=== PATIENT | female | born 1935 | race Caucasian/White ===

== ENCOUNTER 2020-12-15 21:02 | Emergency (ER) | payer OTHER ==
[2020-12-15 22:07] LABS: Absolute Lymphocytes (CBC) 1.4 K/uL (0.7-4.9); Basophils % 0.4 % (0-1.3); Hematocrit 36.6 % (36.0-45.0); Lymphocytes % 19.6 % (15.3-44.8); MPV 7.8 fL (7.6-11.3); RBC Red Blood Cell Count 3.98 M/uL (3.86-4.86)
[2020-12-15 22:30] LABS: Urine Blood Negative (Negative); Urine Glucose Negative (Negative); Urine Protein Negative (Negative); Urine pH 6.5 (5.0-7.0)
[2020-12-15 22:39] LABS: Bilirubin Direct 0.2 mg/dL (0-0.2); Bilirubin Total 0.5 mg/dL (0.2-1.0); Potassium 4.3 mmol/L (3.5-5.1); Protein, Total 7.9 g/dL (6.4-8.2)
--- NOTE | 2020-12-15 23:46 | ER ---
Nurse's Notes [facility] Name: Zee Lindsay Age: 85 yrs Sex: Female : 1935 Arrival Date: 12/15/2020 Time: 21:06 Bed 3 Private MD: Diagnosis: Diverticulosis;Flank Pain Presentation: 12/15 21:10 Chief complaint: Patient states: Been having abdominal pain for days, was here as out ca1 pt this morning for CT of my belly. But the pain tonight has been worse. The pain starts at the back and goes to the front. Denies N/V/D. Coronavirus screen: Client denies travel out of the [place] in the last 14 days. At this time, the client does not indicate any symptoms associated with coronavirus-19. Ebola Screen: Patient negative for fever greater than or equal to 101.5 degrees Fahrenheit, and additional compatible Ebola Virus Disease symptoms Patient denies exposure to infectious person. Patient denies travel to an Ebola-affected area in the 21 days before illness onset. No symptoms or risks identified at this time. Initial Sepsis Screen: Does the patient meet any 2 criteria? No. Patient's initial sepsis screen is negative. Does the patient have a suspected source of infection? No. Patient's initial sepsis screen is negative. Risk Assessment: Do you want to hurt yourself or someone else? Patient reports no desire to harm self or others. Onset of symptoms was December 15, 2020. 21:10 Method Of Arrival: Wheelchair ca1 21:10 Acuity: DESIRE 3 ca1 Triage Assessment: 21:41 General: Appears in no apparent distress. Behavior is calm, cooperative. Pain: ak2 Complains of pain in back and abdomen. Musculoskeletal: Circulation, motion, and sensation intact. Historical: - Allergies: 21:16 PENICILLINS; ca1 21:16 Morphine; ca1 21:16 Codeine; ca1 21:16 Norvasc; ca1 21:16 Tricor; ca1 21:16 Clonidine; ca1 21:16 Levaquin; ca1 21:16 Magnesium; ca1 21:16 propargyl vela; ca1 21:16 Nicen; ca1 21:16 Nifedipine; ca1 21:16 Lisinopril; ca1 21:16 Darvocet-N 100; ca1 21:16 amlodipine; ca1 21:16 Soma; ca1 21:16 Talwin; ca1 21:16 Premarin; ca1 21:16 Rifampin; ca1 21:16 Lyrica; ca1 21:16 Labetalol; ca1 21:16 guafin; ca1 21:16 PENTAZOCINE; ca1 21:16 Minoxidil; ca1 - Home Meds: 21:18 amiodarone 200 mg Oral tab 1 tab once daily [Active]; Xanax 0.25 mg Oral tab 1 tab as ca1 needed [Active]; olmesartan oral 40 mg oral 1 tab once daily [Active]; atorvastatin 20 mg oral tab 1 tab once daily [Active]; amlodipine 5 mg tab 1 tab once daily [Active]; levothyroxine 50 mcg tab 1 tab once daily [Active]; clonidine HCl 0.2 mg Oral tab 1 tab as needed [Active]; - PMHx: 21:19 Pacemaker; Hyperlipidemia; Hypertension; High Cholesterol; TIA; ca1 - PSHx: 21:19 back surgery; Cholecystectomy; Lung Surgery; ca1 - Immunization history:: Client reports receiving the 2nd dose of the Covid vaccine, Client reports receiving the 1st dose of the Covid vaccine, Flu vaccine is up to date. - Social history:: Smoking status: Patient/guardian denies using tobacco, the patient reports quitting approximately 36 years ago. Screenin:41 Abuse screen: Denies threats or abuse. Denies injuries from another. Nutritional ak2 screening: No deficits noted. Tuberculosis screening: No symptoms or risk factors identified. Fall Risk None identified. Vital Signs: 21:10 BP 165 / 62; Pulse 78; Resp 18 A; Temp 97.3; Pulse Ox 100% on R/A; Weight 53.07 kg (R); ca1 Height 5 ft. 3 in. (160.02 cm) (R); Pain 7/10; 23:04 BP 153 / 76; Pulse 74; Resp 16; Pulse Ox 100% on R/A; ak2 21:10 Body Mass Index 20.73 (53.07 kg, 160.02 cm) ca1 ED Course: 21:06 Patient arrived in ED. cf2 21:12 Triage completed. ca1 21:19 Arm band placed on right wrist. ca1 21:24 Francis Portillo MD is Attending Physician. 7 21:35 Maurizio Gillette is Primary Nurse. ak2 21:41 Patient has correct armband on for positive identification. ak2 21:41 No provider procedures requiring assistance completed. ak2 22:20 Urine collected: clean catch specimen, clear, lynsey colored. Patient maintains SpO2 jp3 saturation greater than 95% on room air. 22:38 Bed in low position. Call light in reach. Side rails up X 1. Warm blanket given. Pillow jp3 given. Verbal reassurance given. Pulse ox on. NIBP on. 23:44 Adri Ruelas MD is Referral Physician. [facility] Administered Medications: 23:37 Drug: Tylenol 1000 mg Route: PO; ak2 Outcome: 23:45 Discharge ordered by . [facility] 12/16 00:02 Discharged to home ambulatory. ak2 Condition: good Discharge instructions given to patient, family, Prescriptions given X 1. 00:03 Patient left the ED. ak2 Signatures: Niels Laguna jp3 Yuridia Hayward RN RN ca1 Janette Keene 2 Francis Portillo MD MD [facility] Maurizio Gillette ak2
--- NOTE | 2020-12-15 23:46 | EDPHYS ---
Physician Documentation [facility] Name: Zee Lindsay Age: 85 yrs Sex: Female : 1935 Arrival Date: 12/15/2020 Time: 21:06 Bed 3 Private MD: ED Physician Francis Portillo HPI: 12/15 22:09 This 85 yrs old Female presents to ER via Wheelchair with complaints of Back mh7 Pain. 22:09 The patient complains of pain in the right flank. The pain radiates to the abdomen. mh7 Onset: The symptoms/episode began/occurred 2 week(s) ago. Modifying factors: The symptoms are alleviated by nothing. the symptoms are aggravated by movement, palpation/percussion. Associated signs and symptoms: Pertinent negatives: diarrhea, dizziness, dysuria, fever, urinary frequency, headache, hematuria, nausea, pain radiating to the lower extremities, vomiting. Severity of pain: At its worst the pain was moderate 7 day(s) ago, in the emergency department the pain has improved moderately. Historical: - Allergies: 21:16 PENICILLINS; ca1 21:16 Morphine; ca1 21:16 Codeine; ca1 21:16 Norvasc; ca1 21:16 Tricor; ca1 21:16 Clonidine; ca1 21:16 Levaquin; ca1 21:16 Magnesium; ca1 21:16 propargyl vela; ca1 21:16 Nicen; ca1 21:16 Nifedipine; ca1 21:16 Lisinopril; ca1 21:16 Darvocet-N 100; ca1 21:16 amlodipine; ca1 21:16 Soma; ca1 21:16 Talwin; ca1 21:16 Premarin; ca1 21:16 Rifampin; ca1 21:16 Lyrica; ca1 21:16 Labetalol; ca1 21:16 guafin; ca1 21:16 PENTAZOCINE; ca1 21:16 Minoxidil; ca1 - Home Meds: 21:18 amiodarone 200 mg Oral tab 1 tab once daily [Active]; Xanax 0.25 mg Oral tab 1 tab as ca1 needed [Active]; olmesartan oral 40 mg oral 1 tab once daily [Active]; atorvastatin 20 mg oral tab 1 tab once daily [Active]; amlodipine 5 mg tab 1 tab once daily [Active]; levothyroxine 50 mcg tab 1 tab once daily [Active]; clonidine HCl 0.2 mg Oral tab 1 tab as needed [Active]; - PMHx: 21:19 Pacemaker; Hyperlipidemia; Hypertension; High Cholesterol; TIA; ca1 - PSHx: 21:19 back surgery; Cholecystectomy; Lung Surgery; ca1 - Immunization history:: Client reports receiving the 2nd dose of the Covid vaccine, Client reports receiving the 1st dose of the Covid vaccine, Flu vaccine is up to date. - Social history:: Smoking status: Patient/guardian denies using tobacco, the patient reports quitting approximately 36 years ago. ROS: 22:09 Constitutional: Negative for fever, chills, and weight loss, Eyes: Negative for injury, mh7 pain, redness, and discharge, ENT: Negative for injury, pain, and discharge, Neck: Negative for injury, pain, and swelling, Cardiovascular: Negative for chest pain, palpitations, and edema, Respiratory: Negative for shortness of breath, cough, wheezing, and pleuritic chest pain, : Negative for injury, bleeding, discharge, and swelling, MS/Extremity: Negative for injury and deformity, Skin: Negative for injury, rash, and discoloration, Neuro: Negative for headache, weakness, numbness, tingling, and seizure. Exam: 22:09 Constitutional: This is a well developed, well nourished patient who is awake, alert, mh7 and in no acute distress. Head/Face: Normocephalic, atraumatic. Eyes: Pupils equal round and reactive to light, extra-ocular motions intact. Lids and lashes normal. Conjunctiva and sclera are non-icteric and not injected. Cornea within normal limits. Periorbital areas with no swelling, redness, or edema. Neck: Trachea midline, no thyromegaly or masses palpated, and no cervical lymphadenopathy. Supple, full range of motion without nuchal rigidity, or vertebral point tenderness. No Meningismus. Chest/axilla: Normal chest wall appearance and motion. Nontender with no deformity. No lesions are appreciated. Cardiovascular: Regular rate and rhythm with a normal S1 and S2. No gallops, murmurs, or rubs. Normal PMI, no JVD. No pulse deficits. Respiratory: Lungs have equal breath sounds bilaterally, clear to auscultation and percussion. No rales, rhonchi or wheezes noted. No increased work of breathing, no retractions or nasal flaring. 22:09 Skin: Warm, dry with normal turgor. Normal color with no rashes, no lesions, and no evidence of cellulitis. MS/ Extremity: Pulses equal, no cyanosis. Neurovascular intact. Full, normal range of motion. Neuro: Awake and alert, GCS 15, oriented to person, place, time, and situation. Cranial nerves II-XII grossly intact. Motor strength 5/5 in all extremities. Sensory grossly intact. Cerebellar exam normal. Normal gait. Psych: Awake, alert, with orientation to person, place and time. Behavior, mood, and affect are within normal limits. 22:09 Abdomen/GI: Inspection: scar(s), are noted in the suprapubic area, Bowel sounds: normal, in all quadrants, Palpation: mild abdominal tenderness, in the right lower quadrant, mass, is not appreciated, rebound tenderness, is not appreciated, voluntary guarding, is not appreciated, involuntary guarding, is not appreciated, no appreciated organomegaly, Rectal exam: the exam is deferred, because of patient request, Indicators: McBurney's point is not tender, Mehta's sign is negative, Rovsing's sign is negative, Obturator sign is negative, Psoas sign is negative, Liver: no appreciated palpable abnormalities, Hernia: not appreciated. 22:09 Back: pain, normal spinal alignment noted, CVA tenderness, that is mild, is noted on the right, vertebral tenderness, is not appreciated, muscle spasm, is not present. Vital Signs: 21:10 BP 165 / 62; Pulse 78; Resp 18 A; Temp 97.3; Pulse Ox 100% on R/A; Weight 53.07 kg (R); ca1 Height 5 ft. 3 in. (160.02 cm) (R); Pain 7/10; 23:04 BP 153 / 76; Pulse 74; Resp 16; Pulse Ox 100% on R/A; ak2 21:10 Body Mass Index 20.73 (53.07 kg, 160.02 cm) ca1 MDM: 23:42 Differential diagnosis: nephrolithiasis, pyelonephritis, UTI, diverticulitis. Data [facility] reviewed: vital signs, nurses notes, lab test result(s), CBC, electrolytes, urinalysis, radiologic studies, CT scan, done earlier in day prior to coming to the ED. Data interpreted: Pulse oximetry: on room air is 100 %. Interpretation: normal. Counseling: I had a detailed discussion with the patient and/or guardian regarding: the historical points, exam findings, and any diagnostic results supporting the discharge/admit diagnosis, lab results, radiology results, the need for outpatient follow up, a nurse unit manager, to return to the emergency department if symptoms worsen or persist or if there are any questions or concerns that arise at home. Response to treatment: the patient's symptoms have markedly improved after treatment. 23:45 Patient medically screened. [facility] 12/15 21:50 Order name: Basic Metabolic Panel [facility] 12/15 21:50 Order name: CBC with Diff [facility] 12/15 21:50 Order name: Hepatic Function [facility] 12/15 21:50 Order name: Lipase [facility] 12/15 21:51 Order name: Basic Metabolic Panel; Complete Time: 22:58 EDMS 12/15 21:51 Order name: CBC with Automated Diff; Complete Time: 22:58 EDFL 12/15 21:50 Order name: IV Saline Lock [facility] 12/15 21:50 Order name: Labs collected and sent [facility] 12/15 21:50 Order name: Urine Dipstick-Ancillary (obtain specimen); Complete Time: 22:38 [facility] 12/15 21:51 Order name: Liver (Hepatic) Function; Complete Time: 22:58 EDMS 12/15 21:51 Order name: Lipase; Complete Time: 22:58 EDFL 12/15 22:30 Order name: Urine Dipstick-Ancillary; Complete Time: 22:58 EDMS Administered Medications: 23:37 Drug: Tylenol 1000 mg Route: PO; ak2 Disposition: 12/15/20 23:45 Discharged to Home. Impression: Diverticulosis, Flank Pain. - Condition is Stable. - Discharge Instructions: Diverticulosis, Renal Artery Stenosis, Flank Pain, [id number]. - Prescriptions for Bentyl 20 mg Oral Tablet - take 1 tablet by ORAL route every 6 hours As needed; 20 tablet. - Medication Reconciliation Form, Thank You Letter, Antibiotic Education, Prescription Opioid Use form. - Follow up: Private Physician; When: 1 - 2 days; Reason: Worsening of condition, Recheck today's complaints, Continuance of care, Re-evaluation by your physician. Follow up: Adri Ruelas MD; When: 1 - 2 days; Reason: Worsening of condition, Recheck today's complaints, Continuance of care, Re-evaluation by your physician. - Problem is an ongoing problem. - Symptoms have improved. Signatures: Dispatcher [employer] EDMS Yuridia Hayward RN RN ca1 Francis Portillo MD MD mh7 Sherlymary kayMaurizio macdonald ak2 Corrections: (The following items were deleted from the chart) 12/16 00:03 12/15 23:45 12/15/2020 23:45 Discharged to Home. Impression: Diverticulosis; Flank ak2 Pain. Condition is Stable. Forms are Medication Reconciliation Form, Thank You Letter, Antibiotic Education, Prescription Opioid Use. Follow up: Private Physician; When: 1 - 2 days; Reason: Worsening of condition, Recheck today's complaints, Continuance of care, Re-evaluation by your physician. Follow up: Adri Ruelas; When: 1 - 2 days; Reason: Worsening of condition, Recheck today's complaints, Continuance of care, Re-evaluation by your physician. Problem is an ongoing problem. Symptoms have improved. [email or web address]
[2020-12-15] MEDS ORDERED: ACETAMINOPHEN 500 MG TAB ONE (23:53)
[2020-12-16 00:43] VITALS: TEMP 97.3; O2SAT 100
[2020-12-16 00:45] VITALS: BP 153/76
== END 2020-12-16 00:03 | disposition home or self-care (01) ==
LOC: ER 21:02
DX: K57.90 Diverticulosis of intestine, part unspecified, without perforation or abscess without bleeding (principal); I10 Essential (primary) hypertension; E78.00 Pure hypercholesterolemia, unspecified; Z88.1 Allergy status to other antibiotic agents; Z88.5 Allergy status to narcotic agent; Z88.8 Allergy status to other drugs, medicaments and biological substances; Z95.0 Presence of cardiac pacemaker; Z91.010 Allergy to peanuts; Z91.048 Other nonmedicinal substance allergy status
CPT/HCPCS: 36415; 80048; 80076; 81003; 83690; 85025; 99284

== ENCOUNTER 2020-12-19 19:59 | Observation (INO) | payer OTHER ==
[2020-12-19 20:57] LABS: Absolute Lymphocytes (CBC) 1.1 K/uL (0.7-4.9); Basophils % 0.7 % (0-1.3); Hematocrit 38.2 % (36.0-45.0); Lymphocytes % 14.7 % (15.3-44.8); MPV 7.5 fL (7.6-11.3); RBC Red Blood Cell Count 4.15 M/uL (3.86-4.86)
[2020-12-19 21:15] LABS: ALT/SGPT 55 U/L (12-78); AST/SGOT 30 U/L (15-37); Albumin 4.3 g/dL (3.4-5.0); Alkaline Phosphatase 138 U/L (45-117); BUN Blood Urea Nitrogen 18 mg/dL (7-18); Bicarbonate 26 mmol/L (21-32); Bilirubin Direct 0.1 mg/dL (0-0.2); Bilirubin Total 0.4 mg/dL (0.2-1.0); Glucose Level 185 mg/dL (74-106); Magnesium 2.2 mg/dL (1.8-2.4); NT PRO-BNP 418 pg/mL (<450); Protein, Total 8.2 g/dL (6.4-8.2); Sodium Level 132 mmol/L (136-145); Troponin (Emerg Dept Use Only) < 0.02 ng/mL (0.0-0.045)
[2020-12-19 21:18] LABS: Protime INR 0.96
--- NOTE | 2020-12-19 21:19 | RAD REPORT ---
EXAM DESCRIPTION: CT - Abdomen Pelvis Wo Contrast - 12/19/2020 9:08 pm CLINICAL HISTORY: Abd pain;Flank pain COMPARISON: <Comparisons> TECHNIQUE: Axial [address] imaging of the abdomen and pelvis was performed without IV contrast. No IV contrast was given because of allergy, abnormal renal function, patient refusal or physician re quest. No oral contrast administered. All CT scans are performed using dose optimization technique as appropriate and may include automated exposure control or mA/KV adjustment according to patient size. FINDINGS: No suspicious findings in the lung bases. The liver, spleen and pancreas show no suspicious findings on non-contrast imaging. Gallbladder is chaudhari rgically absent or tightly contracted. No cholecystectomy clips seen. No biliary tree dilatation. No obstructing or nonobstructing calculi seen. Hydronephrosis. Atrophic right kidney is present simil ar to comparison. No significant adrenal finding. Isodense renal masses and pyelonephritis cannot be excluded in the absence of IV contrast. The urinary bladder is without significant finding. Minimal hiatal hernia is present. Food fills but does not dilate the stomach. No acute gastric findin g. No dilated large or small bowel. No suspicion for appendicitis. Patient has prominent diverticulos is but no diverticulitis. No findings to support bowel ischemia. No free air, free fluid or inflammat ory stranding. No hernia, mass or bulky lymphadenopathy. No suspicious bony findings. Dense arterial tree calcifications are present. IMPRESSION: Non-contrast enhanced CT abdomen and pelvis imaging show no acute or emergent finding. No identifiable change from the short interval December 15 study. Full assessment is limited is the absence of IV contrast.
--- NOTE | 2020-12-19 21:21 | RAD REPORT ---
EXAM DESCRIPTION: RAD - Chest Single View - 12/19/2020 9:11 pm CLINICAL HISTORY: CHEST PAIN TECHNIQUE: AP portable chest image was obtained 12/19/2020 9:11 pm . FINDINGS: Lungs are clear. Heart and vasculature are normal. No measurable pleural effusion and no p neumothorax. Left costophrenic angle blunting is favored to scarring. Pacemaker is in place. No acute bony abnormality seen. No acute aortic findings suspected. IMPRESSION: No acute cardiopulmonary process.
[2020-12-19] MEDS ORDERED: NA CHLORIDE 0.9% 500 ML ONE (21:26)
[2020-12-19] MEDS ORDERED: ONDANSETRON 4 MG/2 ML VIAL ONE (21:26)
[2020-12-19] MEDS ORDERED: FAMOTIDINE 20 MG/2 ML VIAL IV ONE (21:26)
[2020-12-19 22:33] LABS: Urine Blood Trace-intact (Negative); Urine Glucose Negative (Negative); Urine Protein Negative (Negative); Urine Specific Gravity 1.015 (1.005-1.030)
--- NOTE | 2020-12-19 23:06 | ER ---
Nurse's Notes [facility] Name: Zee Lindsay Age: 85 yrs Sex: Female : 1935 Arrival Date: 12/19/2020 Time: 20:04 Bed 5 Private MD: Diagnosis: Chest pain, unspecified;Lower abdominal pain, unspecified Presentation: 12/19 20:06 Chief complaint: Patient states: Abdominal burning pain radiates to the chest up the ca1 throat. Started just before noon today. Denies V/D. Reports nausea. Coronavirus screen: Client denies travel out of the [place] in the last 14 days. nausea, Client presents with at least one sign or symptom that may indicate coronavirus-19. Ebola Screen: Patient negative for fever greater than or equal to 101.5 degrees Fahrenheit, and additional compatible Ebola Virus Disease symptoms Patient denies exposure to infectious person. Patient denies travel to an Ebola-affected area in the 21 days before illness onset. No symptoms or risks identified at this time. Initial Sepsis Screen: Does the patient meet any 2 criteria? No. Patient's initial sepsis screen is negative. Does the patient have a suspected source of infection? No. Patient's initial sepsis screen is negative. Risk Assessment: Do you want to hurt yourself or someone else? Patient reports no desire to harm self or others. Onset of symptoms was December 19, 2020. 20:06 Method Of Arrival: Wheelchair ca1 20:06 Acuity: DESIRE 3 ca1 Historical: - Allergies: 20:09 amlodipine; ca1 20:09 Clonidine; ca1 20:09 Codeine; ca1 20:09 Darvocet-N 100; ca1 20:09 guafin; ca1 20:09 Labetalol; ca1 20:09 Levaquin; ca1 20:09 Lyrica; ca1 20:09 magnesium; ca1 20:09 MINOXIDIL; ca1 20:09 Morphine; ca1 20:09 Nicen; ca1 20:09 Nifedipine; ca1 20:09 Norvasc; ca1 20:09 PENICILLINS; ca1 20:09 PENTAZOCINE; ca1 20:09 Premarin; ca1 20:09 propargyl vela; ca1 20:09 Rifampin; ca1 20:09 Soma; ca1 20:09 Talwin; ca1 20:09 Tricor; ca1 20:09 Lisinopril; ca1 - PMHx: 20:09 High Cholesterol; Hypertension; Hyperlipidemia; Pacemaker; TIA; ca1 - PSHx: 20:09 back surgery; Cholecystectomy; Lung Surgery; ca1 - Immunization history:: Client reports receiving the 2nd dose of the Covid vaccine, Client reports receiving the 1st dose of the Covid vaccine, Pneumococcal vaccine is up to date, Flu vaccine is up to date. - Social history:: Smoking status: Patient/guardian denies using tobacco, the patient reports quitting approximately 35 years ago. Screenin:49 Abuse screen: Denies threats or abuse. Nutritional screening: No deficits noted. ea Tuberculosis screening: No symptoms or risk factors identified. Fall Risk None identified. Assessment: 20:48 General: Appears uncomfortable, Behavior is appropriate for age. Pain: Complains of ea pain in abdomen Pain radiates to chest Quality of pain is described as burning. Neuro: Level of Consciousness is awake, alert, obeys commands, Oriented to person, place, time. Respiratory: Airway is patent Respiratory effort is even, unlabored, Respiratory pattern is regular, symmetrical. GI: Abdomen is non-distended. Derm: Skin is pink, warm \T\ dry. 21:18 Reassessment: Patient and/or family updated on plan of care and expected duration. Pain ea level reassessed. Patient is alert, oriented x 3, equal unlabored respirations, skin warm/dry/pink. Returned from CT. 22:08 Reassessment: Patient and/or family updated on plan of care and expected duration. Pain ea level reassessed. Patient is alert, oriented x 3, equal unlabored respirations, skin warm/dry/pink. Awaiting on CT results. 23:24 Reassessment: Patient and/or family updated on plan of care and expected duration. Pain ea level reassessed. Patient is alert, oriented x 3, equal unlabored respirations, skin warm/dry/pink. Awaiting on room assignment. 12/20 00:20 Reassessment: Patient and/or family updated on plan of care and expected duration. Pain ea level reassessed. Patient is alert, oriented x 3, equal unlabored respirations, skin warm/dry/pink. Pt admitted to second floor, report given to receiving nurse. Pt left ED via stretcher per durability technician, pt tolerating well. Vital Signs: 12/19 20:06 BP 167 / 63; Pulse 96; Resp 16 S; Temp 98.2(TE); Pulse Ox 99% on R/A; Weight 53.07 kg ca1 (R); Height 5 ft. 3 in. (160.02 cm) (R); Pain 7/10; 22:08 BP 172 / 64; Pulse 88; Resp 16; Pulse Ox 99% ; ea 12/20 00:00 BP 168 / 70; Pulse 78; Resp 18; Temp 98; Pulse Ox 98% ; ea 12/19 20:06 Body Mass Index 20.73 (53.07 kg, 160.02 cm) ca1 ED Course: 12/19 20:04 Patient arrived in ED. am4 20:08 Triage completed. ca1 20:09 Arm band placed on left wrist. ca1 20:20 Man Reina is Primary Nurse. ad5 20:29 Francis Portillo MD is Attending Physician. mh7 20:49 Patient has correct armband on for positive identification. Bed in low position. Call ea light in reach. 20:49 Inserted saline lock: 20 gauge in right antecubital area, using aseptic technique. ea Blood collected. 23:05 Sumit Hernandez MD is Hospitalizing Provider. [facility] 23:24 No provider procedures requiring assistance completed. Patient admitted, IV remains in ea place. Administered Medications: 21:17 Drug: Zofran (Ondansetron) 4 mg Route: IVP; Site: right antecubital; ea 22:40 Follow up: Response: No adverse reaction ea 21:17 Drug: Pepcid (famotidine) 20 mg Route: IVP; Site: right antecubital; ea 22:40 Follow up: Response: No adverse reaction ea 21:18 Drug: NS 0.9% 500 ml Route: IV; Rate: bolus; Site: right antecubital; ea 23:20 Drug: Rocephin (cefTRIAXone) 1 grams Route: IV; Rate: per protocol; Site: right ea antecubital; Outcome: 23:05 Decision to Hospitalize by Provider. [facility] 23:25 Instructed on the need for admit. ea 12/20 00:20 Admitted to Med/surg accompanied by tech, via stretcher, with chart, Report called to ea Receiving nurse on second floor Condition: stable 00:34 Patient left the ED. ea Signatures: MackBarbara RN RN ea Acob, Cheryl, RN RN ca1 Holmes, Maurice, MD MD 7 Alanis Mabry am Man Reina Corrections: (The following items were deleted from the chart) 12/19 20:49 20:48 Pain: Complains of pain in abdomen Pain radiates to chest sharlene su
--- NOTE | 2020-12-19 23:06 | EDPHYS ---
Physician Documentation [facility] Name: Zee Lindsay Age: 85 yrs Sex: Female : 1935 Arrival Date: 12/19/2020 Time: 20:04 Bed 5 Private MD: ED Physician Francis Portillo HPI: 12/19 22:14 This 85 yrs old Female presents to ER via Wheelchair with complaints of mh7 Abdominal Pain, Chest Pain. 22:14 The patient or guardian reports chest pain that is located primarily in the. mh7 22:14 The patient presents with abdominal pain in the left lower quadrant. Onset: The mh7 symptoms/episode began/occurred today, at 12:00. The symptoms radiate to chest. Associated signs and symptoms: Pertinent positives: chest pain, nausea, Pertinent negatives: anorexia, blood in stools, constipation, diarrhea, dysuria, fever, headache, hematuria, palpitations, shortness of breath, vaginal discharge, vomiting, vomiting blood. The symptoms are described as intermittent, vague, waxing/waning. Modifying factors: The symptoms are alleviated by nothing, the symptoms are aggravated by nothing. Severity of pain: At its worst the pain was moderate today, in the emergency department the pain has improved moderately. The patient has been recently seen at the [facility] Emergency Department, last week. Historical: - Allergies: 20:09 amlodipine; ca1 20:09 Clonidine; ca1 20:09 Codeine; ca1 20:09 Darvocet-N 100; ca1 20:09 guafin; ca1 20:09 Labetalol; ca1 20:09 Levaquin; ca1 20:09 Lyrica; ca1 20:09 magnesium; ca1 20:09 MINOXIDIL; ca1 20:09 Morphine; ca1 20:09 Nicen; ca1 20:09 Nifedipine; ca1 20:09 Norvasc; ca1 20:09 PENICILLINS; ca1 20:09 PENTAZOCINE; ca1 20:09 Premarin; ca1 20:09 propargyl vela; ca1 20:09 Rifampin; ca1 20:09 Soma; ca1 20:09 Talwin; ca1 20:09 Tricor; ca1 20:09 Lisinopril; ca1 - PMHx: 20:09 High Cholesterol; Hypertension; Hyperlipidemia; Pacemaker; TIA; ca1 - PSHx: 20:09 back surgery; Cholecystectomy; Lung Surgery; ca1 - Immunization history:: Client reports receiving the 2nd dose of the Covid vaccine, Client reports receiving the 1st dose of the Covid vaccine, Pneumococcal vaccine is up to date, Flu vaccine is up to date. - Social history:: Smoking status: Patient/guardian denies using tobacco, the patient reports quitting approximately 35 years ago. ROS: 22:14 Constitutional: Negative for fever, chills, and weight loss, Eyes: Negative for injury, mh7 pain, redness, and discharge, ENT: Negative for injury, pain, and discharge, Neck: Negative for injury, pain, and swelling, Respiratory: Negative for shortness of breath, cough, wheezing, and pleuritic chest pain, Back: Negative for injury and pain, : Negative for injury, bleeding, discharge, and swelling, MS/Extremity: Negative for injury and deformity, Skin: Negative for injury, rash, and discoloration, Neuro: Negative for headache, weakness, numbness, tingling, and seizure, Psych: Negative for depression, anxiety, suicide ideation, homicidal ideation, and hallucinations, Allergy/Immunology: Negative for hives, rash, and allergies, Endocrine: Negative for neck swelling, polydipsia, polyuria, polyphagia, and marked weight changes, Hematologic/Lymphatic: Negative for swollen nodes, abnormal bleeding, and unusual bruising. Exam: 22:14 Constitutional: This is a well developed, well nourished patient who is awake, alert, mh7 and in no acute distress. Head/Face: Normocephalic, atraumatic. Eyes: Pupils equal round and reactive to light, extra-ocular motions intact. Lids and lashes normal. Conjunctiva and sclera are non-icteric and not injected. Cornea within normal limits. Periorbital areas with no swelling, redness, or edema. Neck: Trachea midline, no thyromegaly or masses palpated, and no cervical lymphadenopathy. Supple, full range of motion without nuchal rigidity, or vertebral point tenderness. No Meningismus. Chest/axilla: Normal chest wall appearance and motion. Nontender with no deformity. No lesions are appreciated. Cardiovascular: Regular rate and rhythm with a normal S1 and S2. No gallops, murmurs, or rubs. Normal PMI, no JVD. No pulse deficits. Respiratory: Lungs have equal breath sounds bilaterally, clear to auscultation and percussion. No rales, rhonchi or wheezes noted. No increased work of breathing, no retractions or nasal flaring. 22:14 Skin: Warm, dry with normal turgor. Normal color with no rashes, no lesions, and no evidence of cellulitis. MS/ Extremity: Pulses equal, no cyanosis. Neurovascular intact. Full, normal range of motion. Neuro: Awake and alert, GCS 15, oriented to person, place, time, and situation. Cranial nerves II-XII grossly intact. Motor strength 5/5 in all extremities. Sensory grossly intact. Cerebellar exam normal. Normal gait. Psych: Awake, alert, with orientation to person, place and time. Behavior, mood, and affect are within normal limits. 22:14 Abdomen/GI: Inspection: abdomen appears normal, Bowel sounds: normal, in all quadrants, Palpation: mild abdominal tenderness, in the left lower quadrant, mass, is not appreciated, rebound tenderness, is not appreciated, voluntary guarding, is not appreciated, involuntary guarding, is not appreciated, no appreciated organomegaly, Rectal exam: the exam is deferred, because of patient request, Indicators: McBurney's point is not tender, Mehta's sign is negative, Rovsing's sign is negative, Obturator sign is negative, Psoas sign is negative, Liver: no appreciated palpable abnormalities, Hernia: not appreciated. 22:14 Back: normal spinal alignment noted, CVA tenderness, that is mild, is noted on the left, vertebral tenderness, is not appreciated, muscle spasm, is not present. Vital Signs: 20:06 BP 167 / 63; Pulse 96; Resp 16 S; Temp 98.2(TE); Pulse Ox 99% on R/A; Weight 53.07 kg ca1 (R); Height 5 ft. 3 in. (160.02 cm) (R); Pain 7/10; 22:08 BP 172 / 64; Pulse 88; Resp 16; Pulse Ox 99% ; ea 12/20 00:00 BP 168 / 70; Pulse 78; Resp 18; Temp 98; Pulse Ox 98% ; ea 12/19 20:06 Body Mass Index 20.73 (53.07 kg, 160.02 cm) ca1 MDM: 12/19 23:04 Differential diagnosis: AAA, bowel obstruction, diverticulitis, non-specific abd pain, mh7 pancreatitis, Peptic Ulcer Disease, Pyelonephritis, Ureterolithiasis, urinary tract infection, chest pain. Data reviewed: vital signs, nurses notes, lab test result(s), cardiac enzymes, CBC, electrolytes, urinalysis, EKG, radiologic studies, CT scan, plain films. Data interpreted: Pulse oximetry: on room air is 99 %. Interpretation: normal. Counseling: I had a detailed discussion with the patient and/or guardian regarding: the historical points, exam findings, and any diagnostic results supporting the discharge/admit diagnosis, the presence of at least one elevated blood pressure reading (>120/80) during this emergency department visit, lab results, radiology results, the need for further work-up and treatment in the hospital. Response to treatment: the patient's symptoms have mildly improved after treatment. 23:[address] [facility] 12/19 20:31 Order name: Basic Metabolic Panel 12/19 20:31 Order name: CBC with Diff 12/19 20:31 Order name: LFT's 12/19 20:31 Order name: Magnesium 12/19 20:31 Order name: NT PRO-BNP 12/19 20:31 Order name: PT-INR 12/19 20:31 Order name: Troponin (emerg Dept Use Only) 12/19 20:52 Order name: Lipase [facility] 12/19 21:15 Order name: Basic Metabolic Panel; Complete Time: 22:25 EDGA 12/19 21:15 Order name: Liver (Hepatic) Function; Complete Time: 22:25 EDGA 12/19 21:15 Order name: Troponin (Emerg Dept Use Only); Complete Time: 22:25 EDGA 12/19 21:15 Order name: NT PRO-BNP; Complete Time: 22:25 EDGA 12/19 21:15 Order name: Magnesium; Complete Time: 22:25 EDGA 12/19 21:21 Order name: Lipase; Complete Time: 22:25 EDGA 12/19 20:28 Order name: EKG; Complete Time: 20:29 [facility] 12/19 20:28 Order name: EKG - Nurse/Tech; Complete Time: 20:28 [facility] 12/19 20:31 Order name: XRAY Chest (1 view) 12/19 20:31 Order name: Cardiac monitoring; Complete Time: 20:50 12/19 20:31 Order name: IV Saline Lock; Complete Time: 20:50 12/19 20:55 Order name: CT Abd/Pelvis - Without Contrast [facility] 12/19 21:20 Order name: CT; Complete Time: 21:23 [facility] 12/19 21:22 Order name: RAD; Complete Time: 22:25 EDGA 12/19 21:25 Order name: Protime (+INR); Complete Time: 22:25 EDGA 12/19 21:26 Order name: CBC with Automated Diff; Complete Time: 22:25 [facility] 12/19 22:33 Order name: Urine Dipstick-Ancillary; Complete Time: 22:52 EDGA 12/19 22:41 Order name: Urine Culture tt3 12/19 20:31 Order name: Labs collected and sent; Complete Time: 20:50 12/19 20:31 Order name: O2 Per Protocol; Complete Time: 20:50 12/19 20:31 Order name: O2 Sat Monitoring; Complete Time: 20:50 12/19 20:52 Order name: Urine Dipstick-Ancillary (obtain specimen); Complete Time: 22:38 [facility] Administered Medications: 21:17 Drug: Zofran (Ondansetron) 4 mg Route: IVP; Site: right antecubital; ea 22:40 Follow up: Response: No adverse reaction ea 21:17 Drug: Pepcid (famotidine) 20 mg Route: IVP; Site: right antecubital; ea 22:40 Follow up: Response: No adverse reaction ea 21:18 Drug: NS 0.9% 500 ml Route: IV; Rate: bolus; Site: right antecubital; ea 23:20 Drug: Rocephin (cefTRIAXone) 1 grams Route: IV; Rate: per protocol; Site: right ea antecubital; Disposition: 12/19/20 23:05 Hospitalization ordered by Sumit Hernandez for Observation. Preliminary diagnosis are Chest pain, unspecified, Lower abdominal pain, unspecified. - Bed requested for Telemetry/MedSurg (observation). - Status is Observation. ea - Condition is Stable. - Problem is new. - Symptoms have improved. Signatures: Dispatcher [employer] [facility] Tennille Goncalves RN RN Rufus Benitez, HUMAN RESOURCES BENEFITS ASSISTANT-C HUMAN RESOURCES BENEFITS ASSISTANT-Cla1 Barbara Mack RN Yuridia Farrar ea RN Francis Merino MD MD mh7 Corrections: (The following items were deleted from the chart) 23:24 23:05 Hospitalization Ordered by A Mary BOYER for Observation. Preliminary diagnosis is mw Chest pain, unspecified; Lower abdominal pain, unspecified. Bed requested for Telemetry/MedSurg (observation). Status is Observation. Condition is Stable. Problem is new. Symptoms have improved. mh7 12/20 00:34 12/19 23:24 12/19/2020 23:05 Hospitalization Ordered by A Mary BOYER for Observation. sharlene Preliminary diagnosis is Chest pain, unspecified; Lower abdominal pain, unspecified. Bed requested for Telemetry/MedSurg (observation). Status is Observation. Condition is Stable. Problem is new. Symptoms have improved. mw
[2020-12-19] MEDS ORDERED: ACETAMINOPHEN 500 MG TAB PO PRN (23:09)
[2020-12-19] MEDS ORDERED: ONDANSETRON 4 MG/2 ML VIAL IV PRN (23:09)
[2020-12-19] MEDS ORDERED: CEFTRIAXONE/SWI 1gm 1 GM/10 ML SYR ONE (23:31)
[2020-12-20 00:45] VITALS: BMI 21.6
[2020-12-20 05:21] LABS: Basophils % 0.6 % (0-1.3); Hematocrit 35.8 % (36.0-45.0); Lymphocytes % 19.1 % (15.3-44.8); MPV 7.8 fL (7.6-11.3); RBC Red Blood Cell Count 3.88 M/uL (3.86-4.86)
[2020-12-20] MEDS ORDERED: CEFTRIAXONE/SWI 1gm 1 GM/10 ML SYR IV SCH (08:00)
[2020-12-20] MEDS ORDERED: ASPIRIN EC 81 MG TAB PO SCH (09:00)
[2020-12-20] MEDS ORDERED: AMLODIPINE 5 MG TAB PO SCH (09:00)
[2020-12-20 09:34] VITALS: O2SAT 95
[2020-12-20 09:53] VITALS: BP 171/74; TEMP 97.5
[2020-12-20] MEDS ORDERED: CEFTRIAXONE 1 GM/NS 50 ML 1 GM/50 ML BAG IV SCH (23:11)
[2020-12-21] MEDS ORDERED: CEFTRIAXONE/SWI 1gm 1 GM/10 ML SYR IV SCH
--- NOTE | 2020-12-21 02:51 | HP ---
Date of Admission: 12/20/2020 Chief Complaint: Abdominal pain and chest pain. History Of Present Illness: This is an 85-year-old very pleasant female patient who started to have some right lower quadrant abdominal pain yesterday and subsequently it moved to left side in left lower quadrant region and then she reported that her pain started to going up into her abdomen and then into the chest. She came into emergency room with all these complaints. After she was evaluated last night, she was admitted to the hospital. Her chest pain has subsided since she came into the hospital and abdominal pain has improved as well. No nausea, vomiting, constipation, or diarrhea. No fever. No chills. Allergies: TO PENICILLIN CAUSING RASH AND ITCHING. MORPHINE CAUSING NAUSEA, VOMITING. SULFA CAUSING RASH AND ITCHING. CODEINE CAUSING HEADACHE. TRICOR, DETAILS UNKNOWN. NIFEDIPINE, DETAILS UNKNOWN. LEVAQUIN, RASH AND ITCHING. NIACIN, FLUSHING. LISINOPRIL, DETAILS UNKNOWN. DARVOCET, DETAILS UNKNOWN. SOMA, DETAILS UNKNOWN. TALWIN, DETAILS UNKNOWN. MINOXIDIL, DETAILS UNKNOWN. LABETALOL, DETAILS UNKNOWN. LYRICA, DETAILS UNKNOWN. RIFAMPIN, DETAILS UNKNOWN. PREMARIN, ITCHING AND DOXYCYCLINE, RASH AND ITCHING. Medications: Alprazolam 0.25 mg 3 times a day as needed for anxiety, amlodipine 5 mg daily, aspirin 81 mg daily, atorvastatin 20 mg daily, clonidine 0.2 mg half to one tablet 3 times a day as needed for systolic blood pressure more than 180, Olmesartan 40 mg daily, Bystolic 20 mg 2 times a day, and levothyroxine 50 mcg daily. Review of Systems: GI: As mentioned above. Cardiovascular: As mentioned above. All other systems reviewed and negative. Past Medical History: Significant for stroke, hypothyroidism, hypertension, hyperlipidemia, diverticulosis, anxiety. Past Surgical History: Pleural effusion after trauma and had pleurodesis in 2019, had a breast biopsy in past, which was benign. Pacemaker placement, January 2012 due to sick sinus syndrome and this is [employer] pacemaker name Nancy. Past surgical history also significant for cholecystectomy, back surgery in 1979 and 2006, and right ankle surgery in 2005. Family History: Father of [place]. Mother , had breast cancer and cervical cancer and heart disease. Son has thalassemia minor. Daughter also has thalassemia minor. Social History: Prior history of smoking, not at present time. Use of alcohol, negative. Physical Examination: VITAL SIGNS: Temperature 97.9, pulse 79, respiratory rate 16, blood pressure 153/77, oxygen saturation 97%, height 5 feet 3 inches, weight 122 pounds. General: Awake, alert, oriented, not in distress. HEENT: Head atraumatic, normocephalic. Conjunctivae nonerythematous. Sclerae white. Mouth, no thrush or edema noted. Ears/Nose, no mass, lesion, discharge noted. Neck: Supple. No JVD, lymph nodes, bruit, thyromegaly noted. Lungs: Bilateral good equal air entry. Clear to auscultation. No rhonchi. No rales. Heart: Normal heart sounds, no murmur or gallop. Abdomen: Soft, bowel sounds normal. No guarding, rigidity, tenderness, mass, hepatosplenomegaly, distention, or bruit noted. Extremities: No leg edema. No calf tenderness. Skin: No rash, ulcer, cellulitis. Lymphatics: No lymph node enlargement in neck, supraclavicular, infraclavicular region. Neuro: No focal neurological deficit. Chest: Unremarkable. External Genitalia: Deferred. Rectal: Deferred. Laboratory Data: Yesterday white count 7.7, hemoglobin 13.2, platelets 242. Today, white count 10.6, hemoglobin 12.4, platelets 247. Yesterday chemistry; sodium 132, potassium 4, chloride 100, bicarb 26, BUN 18, creatinine 1.18, glucose 185. Liver function test unremarkable. Troponin less than 0.02 x3. Today sodium 136, potassium 4, chloride 104, bicarb 26, BUN 14, creatinine 1.03, glucose 104. INR 0.96. Urinalysis; trace blood, 1+ leukocyte esterase, otherwise negative. Chest x-ray, no acute cardiopulmonary changes. CAT scan of the abdomen and pelvis done in emergency room was negative for any acute changes. Hospital Course: After patient was evaluated in ER, she was admitted to the hospital. Her AZ was ruled out by getting serial cardiac enzymes. EKG did not show any acute changes. The patient reported that she had outpatient CAT scan done last week on Friday. This was ordered by her sql data architect, Dr. Ruelas and I have reviewed that CAT scan, and it has shown some significant circulation problem to GI tract showing significant atherosclerotic changes to her mesenteric arteries and severe stenosis of right renal artery and significant stenosis of left renal artery. I have reviewed this result with her daughter as this result was available to me after I visited the patient today and discussed information with daughter. The patient has appointment to follow up with Dr. Ruelas in next week and obviously he will discuss all this results with her at that time, but meanwhile I have suggested that she may actually have abdominal angina as underlying cause of this presentation, and I would like for her to go ahead and follow up with Dr. Ruelas to see what he may suggest in terms of further intervention. Meanwhile, I have asked her daughter to take her back to supervisor [employer], Dr. Burrell that she sees on a regular basis sometime within next 2 to 3 weeks or so for further evaluation and management of this renal artery stenosis as she may require stent placement. for bilateral renal artery stenosis. I have given my recommendation to discontinue olmesartan, and we will increase dose of her amlodipine. The patient received IV antibiotic, ceftriaxone while in the hospital for UTI. On discharge, we will send her home with oral antibiotics. Urine culture is pending. I have also advised the patient's daughter that we should treat her with medical management for this atherosclerosis of her mesenteric artery with isosorbide and pentoxifylline and all her prescriptions were sent to [facility]. The patient to follow up at my office next week on 12/26/2020. Discharge Medications And Instructions: 1. Continue all prior home medications except discontinue olmesartan. 2. Increase amlodipine dose from 5 mg once a day to 5 mg 2 times a day. 3. Nitrofurantoin 100 mg 2 times a day for 1 week. 4. Isosorbide mononitrate 30 mg p.o. daily. 5. Pentoxifylline 400 mg 2 times a day. Final Diagnoses: 1. Chest pain. 2. Abdominal pain. 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 5. Hypertension. 6. Hyperlipidemia. 7. Diverticulosis. 8. Hypothyroidism. 9. Anxiety. MARGO/MODL Voice ID: [id number] ILIA
--- NOTE | 2020-12-21 10:36 | EKG ---
Test Date: 2020-12-19 Test Time: 20:15:29 Card Boxer: ERIBERTO MEASUREMENT RESULTS: Intervals: Rate: 89 WY: 190 QRSD: 72 QT: 384 QTc: 467 [place]: P: 51 WY: 190 QRS: 22 T: 107 INTERPRETIVE STATEMENTS: Atrial-paced rhythm Left ventricular hypertrophy with repolarization abnormality Abnormal ECG Compared to ECG 02/14/2006 11:06:41 Left ventricular hypertrophy now present Early repolarization now present Sinus bradycardia no longer present Electronically Signed On 12-21-20 10:32:19 CDT by Simba Smith
== END 2020-12-20 11:38 | disposition home or self-care (01) ==
LOC: ER 19:59 → ERHOLD 23:16 → 2ND 23:32
PROVIDERS: ADMIT Internal Medicine; ATTEND Internal Medicine
DX: R10.9 Unspecified abdominal pain (principal); R07.9 Chest pain, unspecified; K55.1 Chronic vascular disorders of intestine; I70.1 Atherosclerosis of renal artery; I10 Essential (primary) hypertension; E78.5 Hyperlipidemia, unspecified; E03.9 Hypothyroidism, unspecified; F41.9 Anxiety disorder, unspecified; K57.90 Diverticulosis of intestine, part unspecified, without perforation or abscess without bleeding; N39.0 Urinary tract infection, site not specified; Z87.891 Personal history of nicotine dependence; Z86.73 Personal history of transient ischemic attack (TIA), and cerebral infarction without residual deficits; Z95.0 Presence of cardiac pacemaker
CPT/HCPCS: 36415; 71045; 74176; 80048; 80061; 80076; 81003; 83690; 83735; 83880; 84484; 85025; 85610; 87086; 87088; 93005; 96374; 96375; 99285; G0378; J0696; J2405; J7040

== ENCOUNTER 2021-01-22 11:58 | Day surgery (SDC) | payer OTHER ==
[2021-01-17 15:35] LABS: Basophils % 0.4 % (0-1.3); Hematocrit 42.2 % (36.0-45.0); Lymphocytes % 9.2 % (15.3-44.8); MPV 7.8 fL (7.6-11.3); RBC Red Blood Cell Count 4.56 M/uL (3.86-4.86)
[2021-01-17 15:38] LABS: Protime INR 0.97
[2021-01-17 16:03] LABS: Potassium 3.8 mmol/L (3.5-5.1)
--- NOTE | 2021-01-18 11:01 | EKG ---
Test Date: 2021-01-17 Test Time: 14:01:07 Program Manager Environmental Planning: JESSIE MEASUREMENT RESULTS: Intervals: Rate: 62 TN: 176 QRSD: 80 QT: 408 QTc: 414 [place]: P: 65 TN: 176 QRS: 61 T: 87 INTERPRETIVE STATEMENTS: Electronic atrial pacemaker ST & T wave abnormality, consider lateral ischemia Abnormal ECG Compared to ECG 12/19/2020 20:15:29 ST (T wave) deviation now present Possible ischemia now present Ventricular-paced complex(es) or rhythm no longer present Left ventricular hypertrophy no longer present Early repolarization no longer present Electronically Signed On 01-18-21 10:58:54 CDT by Simba Smith
[2021-01-22] MEDS ORDERED: HEPA 1000U/500MLS 2,000 UNIT/1,000 ML BAG IV ONE (12:16)
[2021-01-22] MEDS ORDERED: NA CHLORIDE 0.9% 500 ML ONE (12:29)
[2021-01-22 12:47] VITALS: TEMP 97.6
[2021-01-22] MEDS ORDERED: HEPARIN 5000 UNIT/ML 1 ML VIAL ONE (13:40)
[2021-01-22] MEDS ORDERED: MIDAZOLAM HCL 2 MG/2 ML INJ ONE (13:40)
[2021-01-22] MEDS ORDERED: VERAPAMIL HCL 10 MG/4 ML VIAL IV ONE (13:41)
[2021-01-22] MEDS ORDERED: FENTANYL CITR 100 MCG/2 ML ONE (13:41)
[2021-01-22] MEDS ORDERED: ATROPINE SULF 1 MG/10 ML SYR IV ONE (13:41)
[2021-01-22] MEDS ORDERED: LIDOCAINE 1% 20 ML MDV ONE (14:22)
[2021-01-22] MEDS ORDERED: CLOPIDOGREL 75 MG TABLET ONE (15:03)
--- NOTE | 2021-01-22 15:23 | OP ---
Date of Procedure: 01/22/2021 Surgeon: RC MAO Procedures Performed: 1.Selective bilateral renal angiograms. 2.Balloon angioplasty of the right renal artery severe stenosis followed by stent placement using 3. 5 x 16 mm Synergy drug-eluting stent, post dilated to 3.8 mm, inflating the balloon to high pressure. Indications: Severe both renal artery stenosis with renal failure and hypertension. Access: Right femoral artery 6-Stateless closed with TR band. Complications: None. Bleeding: Less than 2 mL. Description Of Procedure: After risks, benefits, alternatives were explained, the patient agreed to proceed and signed informed consent. The patient was brought into the cardiac catheterization [facility], prepped and draped in usual sterile fashion. Then, we accessed the right femoral artery using a micropuncture kit and a 6-Stateless [place] sheath and then we took a 6-Stateless short FARRUKH guide into t he abdominal aorta and engaged the right renal artery and did angiogram selectively and then engaged the left renal artery and did angiogram selectively. Then, a full dose of heparin was given to assur e ACT level above 250 and 600 mg of Plavix and the patient received aspirin already today, and then I engaged the right renal artery and then took a Run-Through wire across the area of stenosis into the distal artery of the kidney and then pre-dilated the lesion using a 3.0 x 16 mm Compliant balloon to high pressure and then placed a 3.5 x 16 mm Synergy drug-eluting stent, inflated to high pressure to a size of 3.8 mm and the ostium was also inflated to 18 mmHg that gives a 3.9 lumen. Final angiogra m revealed 0% residual stenosis and DONNA-3 flow and no complications. Wire was removed. Guide was r emoved and sheath was removed and placed a 6-Stateless Angio-Seal for closure with good hemostasis. Findings: 1.Right renal artery with a proximal long segment of 80% to 90% stenosis, status post balloon angiop lasty followed by stent placement 3.5 x 16 mm Synergy drug-eluting stent that was post dilated to a s ize of 3.8 mm. 2.Left renal artery proximal stenosis, 70% and will be staged to be stented in 4-6 weeks. Conclusion: Successful right renal artery stent placement 3.5 x 16 mm, post dilated 3.8 mm. Plan: 1.Continue aspirin, Plavix, high-dose statin. 2.We will plan stage II stent placement of left renal artery in 4-6. SR/MODL Voice ID: [id number] Report ID: [id number]
[2021-01-22 20:53] VITALS: O2SAT 99
[2021-01-22 20:58] VITALS: BP 130/52
== END 2021-01-22 20:50 | disposition home or self-care (01) ==
LOC: CCL 11:58
PROVIDERS: ATTEND Internal Medicine
DX: I70.1 Atherosclerosis of renal artery (principal); I12.9 Hypertensive chronic kidney disease with stage 1 through stage 4 chronic kidney disease, or unspecified chronic kidney disease; N18.9 Chronic kidney disease, unspecified; I47.2 Ventricular tachycardia; E78.5 Hyperlipidemia, unspecified; Z95.0 Presence of cardiac pacemaker; Z86.73 Personal history of transient ischemic attack (TIA), and cerebral infarction without residual deficits; Z88.0 Allergy status to penicillin; Z88.6 Allergy status to analgesic agent; Z88.8 Allergy status to other drugs, medicaments and biological substances
CPT/HCPCS: 93005; 85025; 80048; 36415; 85610; 85347; 85730; 36200; 37236; 36252; C1893; C1760; C1725; C1887; J1644 ×2; J2250; J3010; J7040

== ENCOUNTER 2021-01-26 22:12 | Emergency (ER) | payer OTHER ==
[2021-01-26 23:00] LABS: Absolute Lymphocytes (CBC) 1.4 K/uL (0.7-4.9); Basophils % 0.4 % (0-1.3); Hematocrit 39.4 % (36.0-45.0); Lymphocytes % 16.3 % (15.3-44.8); MPV 7.8 fL (7.6-11.3); Protime INR 0.92; RBC Red Blood Cell Count 4.26 M/uL (3.86-4.86)
[2021-01-26 23:13] LABS: ALT/SGPT 26 U/L (12-78); AST/SGOT 18 U/L (15-37); Albumin 4.4 g/dL (3.4-5.0); Alkaline Phosphatase 90 U/L (45-117); BUN Blood Urea Nitrogen 20 mg/dL (7-18); Bicarbonate 27 mmol/L (21-32); Bilirubin Direct 0.3 mg/dL (0-0.2); Bilirubin Total 0.7 mg/dL (0.2-1.0); Glucose Level 127 mg/dL (74-106); Magnesium 2.2 mg/dL (1.8-2.4); NT PRO-BNP 557 pg/mL (<450); Protein, Total 8.4 g/dL (6.4-8.2); Sodium Level 132 mmol/L (136-145); Troponin (Emerg Dept Use Only) < 0.02 ng/mL (0.0-0.045)
[2021-01-27] MEDS ORDERED: ACETAMINOPHEN 325 MG TABLET ONE (00:09)
[2021-01-27 01:46] LABS: Urine Blood Trace-lysed (Negative); Urine Glucose Negative (Negative); Urine Protein Negative (Negative)
[2021-01-27 01:56] LABS: Urine Appearance CLEAR (Clear); Urine Bilirubin NEGATIVE (Negative); Urine Blood TRACE (Negative); Urine Color YELLOW (Yellow); Urine Glucose NEGATIVE (Negative); Urine Protein NEGATIVE (Negative); Urine Specific Gravity 1.025 (1.005-1.030); Urine Urobilinogen 0.2 mg/dL (0.2-1.0); Urine pH 6.5 (5.0-7.0)
[2021-01-27 01:58] LABS: Urine Microscopic Reflex ORDER UMIC
[2021-01-27 02:02] LABS: Urine Bacteria 20-50 /HPF (<20)
--- NOTE | 2021-01-27 02:57 | EDPHYS ---
Physician Documentation [facility] Name: Zee Lindsay Age: 85 yrs Sex: Female : 1935 Arrival Date: 01/26/2021 Time: 22:13 Bed 4 Private MD: ED Physician Kartik Miner HPI: 01/26 23:28 This 85 yrs old Female presents to ER via Wheelchair with complaints of Heart pkl Problem, Chest Pain, Possible Cardiac Related. 23:28 The patient or guardian reports chest pain that is located primarily in the substernal pkl area. Onset: today. The pain does not radiate. Associated signs and symptoms: Pertinent positives: abdominal pain. The chest pain is described as a pressure. S/P Stent placement right kidney 5 days ago. Historical: - Allergies: 22:32 amlodipine; vg1 22:32 Clonidine; vg1 22:32 Codeine; vg1 22:32 Darvocet-N 100; vg1 22:32 guafin; vg1 22:32 Labetalol; vg1 22:32 Levaquin; vg1 22:32 Lisinopril; vg1 22:32 Lyrica; vg1 22:32 magnesium; vg1 22:32 Minoxidil; vg1 22:32 Morphine; vg1 22:32 Nicen; vg1 22:32 Nifedipine; vg1 22:32 Norvasc; vg1 22:32 PENICILLINS; vg1 22:32 PENTAZOCINE; vg1 22:32 Premarin; vg1 22:32 propargyl vela; vg1 22:32 Rifampin; vg1 22:32 Soma; vg1 22:32 Talwin; vg1 22:32 Tricor; vg1 - Home Meds: 22:32 amiodarone 200 mg Oral tab 1 tab once daily [Active]; amlodipine 5 mg tab 1 tab once vg1 daily [Active]; atorvastatin 20 mg Oral tab 1 tab once daily [Active]; clonidine HCl 0.2 mg Oral tab 1 tab as needed [Active]; levothyroxine 50 mcg tab 1 tab once daily [Active]; olmesartan 40 mg Oral 1 tab once daily [Active]; Xanax 0.25 mg Oral tab 1 tab as needed [Active]; - PMHx: 22:32 High Cholesterol; Hyperlipidemia; Hypertension; Pacemaker; TIA; TIA; vg1 - PSHx: 22:32 Pace maker; Lumbar; Right Ankle; Cholecystectomy; Left Lung; vg1 - Immunization history:: Adult Immunizations up to date, Client reports receiving the 2nd dose of the Covid vaccine. - Social history:: Smoking status: Patient denies any tobacco usage or history of. ROS: 23:28 Eyes: Negative for injury, pain, redness, and discharge, ENT: Negative for injury, pkl pain, and discharge, Neck: Negative for injury, pain, and swelling. 23:28 Cardiovascular: Positive for chest pain. 23:28 Respiratory: Negative for cough, shortness of breath. 23:28 Abdomen/GI: Positive for abdominal pain, of the right upper quadrant and left upper quadrant. 23:28 Back: Negative for acute changes. 23:28 : Negative for urinary symptoms. 23:28 MS/extremity: Negative for acute changes. 23:28 Skin: Negative for rash. 23:28 Neuro: Negative for altered mental status, loss of consciousness. Exam: 23:28 Head/Face: Normocephalic, atraumatic. Eyes: Pupils equal round and reactive to light, pkl extra-ocular motions intact. Lids and lashes normal. Conjunctiva and sclera are non-icteric and not injected. Cornea within normal limits. Periorbital areas with no swelling, redness, or edema. ENT: Nares patent. No nasal discharge, no septal abnormalities noted. Tympanic membranes are normal and external auditory canals are clear. Oropharynx with no redness, swelling, or masses, exudates, or evidence of obstruction, uvula midline. Mucous membranes moist. Neck: Trachea midline, no thyromegaly or masses palpated, and no cervical lymphadenopathy. Supple, full range of motion without nuchal rigidity, or vertebral point tenderness. No Meningismus. Chest/axilla: Normal chest wall appearance and motion. Nontender with no deformity. No lesions are appreciated. Cardiovascular: Regular rate and rhythm with a normal S1 and S2. No gallops, murmurs, or rubs. Normal PMI, no JVD. No pulse deficits. Respiratory: Lungs have equal breath sounds bilaterally, clear to auscultation and percussion. No rales, rhonchi or wheezes noted. No increased work of breathing, no retractions or nasal flaring. 23:28 Abdomen/GI: Bowel sounds: normal, Palpation: soft, mild abdominal tenderness, in the right upper quadrant and left upper quadrant. 23:28 Back: Exam negative for acute changes. 23:28 : Exam negative for acute changes. 23:28 Musculoskeletal/extremity: Exam is negative for acute changes. 23:28 Skin: Exam negative for rash. 23:28 Neuro: Orientation: is normal, Mentation: is normal, Memory: is normal, Cranial nerves: grossly normal, Motor: is normal. Vital Signs: 22:29 BP 146 / 61; Pulse 62; Resp 16; Temp 98.2; Pulse Ox 99% ; Weight 53.07 kg; Height 5 ft. vg1 3 in. (160.02 cm); Pain 6/10; 01/27 03:03 BP 132 / 70; Pulse 65; Resp 18; Pulse Ox 98% on R/A; ak2 01/26 22:29 Body Mass Index 20.73 (53.07 kg, 160.02 cm) vg1 MDM: 01/26 23:02 Patient medically screened. pkl 01/27 02:49 Data reviewed: vital signs, nurses notes, lab test result(s), radiologic studies, CT pkl scan. ED course: Patient feeling better. Discussed lab, EKG and CT Scan results with patient. Patient does not want to be admitted at this time. Advised to return if symptoms recur or become worse. Patient understood instructions. 01/26 22:40 Order name: Basic Metabolic Panel; Complete Time: 23:14 vg1 01/26 22:40 Order name: CBC with Diff; Complete Time: 23:13 vg1 01/26 22:40 Order name: LFT's; Complete Time: 23:14 vg1 01/26 22:40 Order name: Magnesium; Complete Time: 23:14 vg1 01/26 22:40 Order name: NT PRO-BNP; Complete Time: 23:14 vg1 01/26 22:40 Order name: PT-INR; Complete Time: 23:13 vg1 01/26 22:40 Order name: Troponin (emerg Dept Use Only); Complete Time: 23:14 vg1 01/26 23:15 Order name: Lipase pkl 01/26 23:15 Order name: D-Dimer pkl 01/26 23:15 Order name: Lipase; Complete Time: 00:30 EDMS 01/26 23:15 Order name: D-Dimer; Complete Time: 01:22 EDMS 01/26 23:17 Order name: UA; Complete Time: 02:05 pkl 01/26 23:17 Order name: Lactate; Complete Time: 00:30 pkl 01/26 22:40 Order name: XRAY Chest (1 view) 1 01/26 22:40 Order name: EKG; Complete Time: 22:41 1 01/26 22:40 Order name: Cardiac monitoring [facility] 01/26 22:40 Order name: EKG - Nurse/Tech; Complete Time: 22:40 [facility] 01/26 22:40 Order name: IV Saline Lock; Complete Time: 22:40 [facility] 01/26 22:40 Order name: Labs collected and sent; Complete Time: 22:40 [facility] 01/26 23:28 Order name: CT Abd/Pelvis - IV Contrast Only [facility] 01/26 23:28 Order name: CT Chest For PE Angio [facility] 01/27 01:06 Order name: SARS-COV-2 RT PCR; Complete Time: 01:22 [facility] 01/27 01:46 Order name: Urine Dipstick-Ancillary; Complete Time: 02:05 [facility] 01/27 01:58 Order name: Urine Microscopic Only; Complete Time: 02:05 [facility] 01/27 02:03 Order name: Urine Culture [facility] 01/27 02:06 Order name: EKG; Complete Time: 02:07 [facility] 01/27 02:06 Order name: Troponin (emerg Dept Use Only); Complete Time: 02:43 [facility] 01/26 22:40 Order name: O2 Per Protocol [facility] 01/26 22:40 Order name: O2 Sat Monitoring [facility] Administered Medications: 01/26 23:43 Drug: NS 0.9% 1000 ml Route: IV; Rate: 100 ml/hr; Site: left antecubital; ak2 23:48 Drug: Tylenol 650 mg Route: PO; ak2 Disposition Summary: 01/27/21 02:56 Discharge Ordered Location: Home pkl Problem: new pkl Symptoms: have improved pkl Condition: Stable pkl Diagnosis - Chest pain. Abdominal pain pkl Followup: pkl - With: Private Physician - When: 2 - 3 days - Reason: Re-evaluation by your physician Forms: - Medication Reconciliation Form pkl - Thank You Letter pkl - Antibiotic Education pkl - Prescription Opioid Use pkl Signatures: Dispatcher [employer] EDMS Kartik Miner MD MD pkl Marianna Mcdowell RN RN vg1 Maurizio Gillette2 Corrections: (The following items were deleted from the chart) 01/27 00:13 01/26 23:26 CORONAVIRUS+[email or web address].BRZ ordered. EDMS EDMS
--- NOTE | 2021-01-27 02:57 | ER ---
Nurse's Notes [facility] Name: Zee Lindsay Age: 85 yrs Sex: Female : 1935 Arrival Date: 01/26/2021 Time: 22:13 Bed 4 Private MD: Diagnosis: Chest pain. Abdominal pain Presentation: 01/26 22:29 Chief complaint: Patient states: Pt stated chest pain, tightness, sharp pain started vg1 this afternoon; radiates to Left arm. Stated Nausea and diarrhea for the past three days. Pt daughter stated pt had a stent placed in Right Kidney last Friday01/15/21. Coronavirus screen: Client denies travel out of the [place] in the last 14 days. Ebola Screen: Patient negative for fever greater than or equal to 101.5 degrees Fahrenheit, and additional compatible Ebola Virus Disease symptoms. Initial Sepsis Screen: Does the patient meet any 2 criteria? No. Patient's initial sepsis screen is negative. Does the patient have a suspected source of infection? No. Patient's initial sepsis screen is negative. Risk Assessment: Do you want to hurt yourself or someone else? Patient reports no desire to harm self or others. Onset of symptoms was January 26, 2021. 22:29 Method Of Arrival: Wheelchair vg1 22:29 Acuity: DESIRE 3 vg1 Triage Assessment: 22:32 General: Appears in no apparent distress. comfortable, Behavior is calm, cooperative. vg1 Pain: Complains of pain in chest Pain radiates to left arm Pain currently is 6 out of 10 on a pain scale. Cardiovascular: Patient's skin is warm and dry. Historical: - Allergies: 22:32 amlodipine; vg1 22:32 Clonidine; vg1 22:32 Codeine; vg1 22:32 Darvocet-N 100; vg1 22:32 guafin; vg1 22:32 Labetalol; vg1 22:32 Levaquin; vg1 22:32 Lisinopril; vg1 22:32 Lyrica; vg1 22:32 magnesium; vg1 22:32 Minoxidil; vg1 22:32 Morphine; vg1 22:32 Nicen; vg1 22:32 Nifedipine; vg1 22:32 Norvasc; vg1 22:32 PENICILLINS; vg1 22:32 PENTAZOCINE; vg1 22:32 Premarin; vg1 22:32 propargyl vela; vg1 22:32 Rifampin; vg1 22:32 Soma; vg1 22:32 Talwin; vg1 22:32 Tricor; vg1 - Home Meds: 22:32 amiodarone 200 mg Oral tab 1 tab once daily [Active]; amlodipine 5 mg tab 1 tab once vg1 daily [Active]; atorvastatin 20 mg Oral tab 1 tab once daily [Active]; clonidine HCl 0.2 mg Oral tab 1 tab as needed [Active]; levothyroxine 50 mcg tab 1 tab once daily [Active]; olmesartan 40 mg Oral 1 tab once daily [Active]; Xanax 0.25 mg Oral tab 1 tab as needed [Active]; - PMHx: 22:32 High Cholesterol; Hyperlipidemia; Hypertension; Pacemaker; TIA; TIA; vg1 - PSHx: 22:32 Pace maker; Lumbar; Right Ankle; Cholecystectomy; Left Lung; vg1 - Immunization history:: Adult Immunizations up to date, Client reports receiving the 2nd dose of the Covid vaccine. - Social history:: Smoking status: Patient denies any tobacco usage or history of. Screenin/31 01:13 Abuse screen: Denies threats or abuse. Nutritional screening: No deficits noted. ea Tuberculosis screening: No symptoms or risk factors identified. Fall Risk IV access (20 points). Vital Signs: 01/26 22:29 BP 146 / 61; Pulse 62; Resp 16; Temp 98.2; Pulse Ox 99% ; Weight 53.07 kg; Height 5 ft. vg1 3 in. (160.02 cm); Pain 6/10; 01/27 03:03 BP 132 / 70; Pulse 65; Resp 18; Pulse Ox 98% on R/A; ak2 01/26 22:29 Body Mass Index 20.73 (53.07 kg, 160.02 cm) vg1 ED Course: 01/26 22:13 Patient arrived in ED. bp1 22:31 Triage completed. vg1 22:35 Arm band placed on Patient placed in waiting room, Patient notified of wait time. EKG vg1 completed in triage. Results shown to MD. 23:02 Kartik Miner MD is Attending Physician. pkl 23:41 XRAY Chest (1 view) In Process Unspecified. EDMS 01/27 00:00 Patient has correct armband on for positive identification. Bed in low position. ea bleach packer on. Pulse ox on. NIBP on. 00:36 CT Abd/Pelvis - IV Contrast Only In Process Unspecified. EDMS 00:36 CT Chest For PE Angio In Process Unspecified. EDMS 01:13 Barbara Mack, RN is Primary Nurse. ea 03:19 No provider procedures requiring assistance completed. IV discontinued. Patient ak2 maintains SpO2 saturation greater than 95% on room air. Administered Medications: 01/26 23:43 Drug: NS 0.9% 1000 ml Route: IV; Rate: 100 ml/hr; Site: left antecubital; ak2 23:48 Drug: Tylenol 650 mg Route: PO; ak2 Outcome: 01/27 02:56 Discharge ordered by . wes 03:19 Discharged to home ambulatory, with family. ak2 03:19 Condition: good 03:19 Discharge instructions given to patient. 03:19 Patient left the ED. ak2 Signatures: Dispatcher [employer] EDME Kartik Miner MD MD pkl Antunez, Elena, RN Marianna Mayers ea RN RN Poonam Black Anthony ak2
[2021-01-27] MEDS ORDERED: ACETAMINOPHEN 500 MG TAB ONE (03:06)
[2021-01-27 03:25] VITALS: TEMP 98.2
[2021-01-27 03:27] VITALS: BP 132/70; O2SAT 98
--- NOTE | 2021-01-27 08:55 | RAD REPORT ---
EXAM DESCRIPTION: RAD - Chest Single View - 01/26/2021 11:41 pm CLINICAL HISTORY: CHEST PAIN COMPARISON: Chest Single View dated 12/19/2020 FINDINGS: No evidence of edema or pneumonia. The heart size is within normal limits.No acute osseous abnormality. A blunting of the left costophrenic angle could represent a small effusion. This is sim ilar. Pacemaker. IMPRESSION: No change compared with 12/19/2020. No consolidative process or edema. Possible small le ft effusion which is unchanged
--- NOTE | 2021-01-27 22:39 | RAD REPORT ---
EXAM DESCRIPTION: CT - Abdomen Pelvis W Contrast - 01/27/2021 6:27 am CLINICAL HISTORY: The patient is 85 years old and is Female; ABD PAIN TECHNIQUE: Axial computed tomographic angiography images of the chest with intravenous contrast. S agittal and coronal reformatted images were created and reviewed. This CT exam was performed using one or more of the following dose reduction techniques: automated exposure control, adjustment of t he mA and/or kV according to patient size, and/or use of iterative reconstruction technique. MIP re constructed images were created and reviewed. COMPARISON: No relevant prior studies available. FINDINGS: Pulmonary arteries: Unremarkable. No pulmonary embolism. Aorta: Scattered atherosclerotic vascular calcifications. No thoracic aortic aneurysm. Great vessels of aortic arch: Calcified and noncalcified plaque causing causing 50% narrowing of the proximal left subclavian artery. Lungs: Bibasilar atelectasis, right greater than left. No mass. Pleural space: Unremarkable. No significant effusion. No pneumothorax. Heart: Unremarkable. No cardiomegaly. No significant pericardial effusion. No evidence of R V dysfunction. Mediastinum: Small hiatal hernia. Bones/joints: No acute fracture. No dislocation. Soft tissues: Unremarkable. Lymph nodes: Unremarkable. No enlarged lymph nodes. * A single impression for all exams can be found at the end of this report EXAM DESCRIPTION: CT Abdomen and Pelvis With Intravenous Contrast CLINICAL HISTORY: The patient is 85 years old and is Female; ABD PAIN TECHNIQUE: Axial computed tomography images of the abdomen and pelvis with intravenous contrast. S agittal and coronal reformatted images were created and reviewed. This CT exam was performed using one or more of the following dose reduction techniques: automated exposure control, adjustment of t he mA and/or kV according to patient size, and/or use of iterative reconstruction technique. COMPARISON: CT abdomen and pelvis December 19, 2020. FINDINGS: Lung bases: Unremarkable. No mass. No consolidation. Mediastinum: Small hiatal hernia. ABDOMEN: Liver: Unremarkable. No mass. Gallbladder and bile ducts: The gallbladder is absent or contracted. No ductal dilation. Pancreas: Unremarkable. No mass. No ductal dilation. Spleen: Unremarkable. No splenomegaly. Adrenals: Unremarkable. No mass. Kidneys and ureters: Right kidney is atrophic. No hydronephrosis. Stomach and bowel: Scattered colonic diverticula. No obstruction. No mucosal thickening. PELVIS: Appendix: No findings to suggest acute appendicitis. Bladder: Unremarkable. No mass. Reproductive: Uterus is not seen. ABDOMEN and PELVIS: Intraperitoneal space: Unremarkable. No free air. No significant fluid collection. Bones/joints: 6 mm sclerotic lesion in the sacrum which may represent a bone island. Multilevel disc space narrowing with degenerative endplate changes in the lumbar spine. No acute fracture. No dislocation. Soft tissues: Fat stranding in the right groin which may be related to vascular access. Fat stranding in the soft tissues of the right lower back which may be related to subcutaneou s injection. Vasculature: Scattered atherosclerotic vascular calcifications including at the origins of the me senteric and renal arteries. Calcification causing narrowing of the renal arteries, right greater than left. Lymph nodes: Unremarkable. No enlarged lymph nodes. * A single impression for all exams can be found at the end of this report IMPRESSION: CT Angiography Chest With Intravenous Contrast: No acute finding. No evidence of pulmonary embolism. CT Abdomen and Pelvis With Intravenous Contrast: No acute findings in the abdomen or pelvis. Electronically signed by: Chi Gordon MD 01/27/2021 1:14 AM CDT Due to temporary technical issues with the PACS/Fluency reporting system, reports are being signed by the in house radiologists without review as a courtesy to insure prompt reporting. The interpreting radiologist is fully responsible for the content of the report.
--- NOTE | 2021-01-29 09:07 | EKG ---
Test Date: 2021-01-27 Test Time: 02:16:35 Torpedo Man: MEASUREMENT RESULTS: Intervals: Rate: 67 CT: 122 QRSD: 76 QT: 406 QTc: 429 Downing: P: 44 CT: 122 QRS: 7 T: 117 INTERPRETIVE STATEMENTS: Electronic atrial pacemaker Left ventricular hypertrophy with repolarization abnormality Cannot rule out Septal infarct, age undetermined Abnormal ECG Compared to ECG 01/26/2021 22:29:31 Ventricular-paced complex(es) or rhythm no longer present Myocardial infarct finding still present Electronically Signed On 01-29-21 09:04:12 CDT by Simba Smith
== END 2021-01-27 03:19 | disposition home or self-care (01) ==
LOC: ER 22:12
DX: R07.9 Chest pain, unspecified (principal); R10.10 Upper abdominal pain, unspecified; I10 Essential (primary) hypertension; E78.00 Pure hypercholesterolemia, unspecified; Z86.73 Personal history of transient ischemic attack (TIA), and cerebral infarction without residual deficits; Z95.0 Presence of cardiac pacemaker; Z20.822 Contact with and (suspected) exposure to COVID-19; Z88.0 Allergy status to penicillin; Z88.1 Allergy status to other antibiotic agents; Z88.5 Allergy status to narcotic agent; Z88.8 Allergy status to other drugs, medicaments and biological substances
CPT/HCPCS: 93005 ×2; 87088; 85025; 87086; 80048; 36415; 83735; 85610; 85379; 80076; 83605; 87077; 87186; 84484 ×2; 83690; 83880; 71275; 74177; 71045; 99284; U0003; Q9967; 81003; 81015

== ENCOUNTER 2021-02-01 10:51 | Day surgery (SDC) | payer OTHER ==
[2021-01-31 11:05] LABS: Protime INR 0.92
[2021-02-01] MEDS ORDERED: MIDAZOLAM HCL 2 MG/2 ML INJ ONE (11:07)
[2021-02-01] MEDS ORDERED: FENTANYL CITR 100 MCG/2 ML ONE (11:07)
[2021-02-01] MEDS ORDERED: VERAPAMIL HCL 10 MG/4 ML VIAL IV ONE (11:07)
[2021-02-01] MEDS ORDERED: HEPARIN 5000 UNIT/ML 1 ML VIAL ONE (11:07)
[2021-02-01] MEDS ORDERED: NITROGLYCERIN 100 MCG/ML SYR (for cath lab use only) IV ONE (11:08)
[2021-02-01] MEDS ORDERED: ATROPINE SULF 1 MG/10 ML SYR IV ONE (11:08)
[2021-02-01] MEDS ORDERED: NITROGLYCERIN/D5W 25 MG/250 ML BTL IV ONE (11:08)
[2021-02-01] MEDS ORDERED: HEPARIN 10,000 UNIT/10 ML VIAL IV ONE (11:08)
[2021-02-01] MEDS ORDERED: HEPA 1000U/500MLS 1,000 UNIT/500 ML BAG IV ONE ×2 (11:14→12:29)
[2021-02-01] MEDS ORDERED: NA CHLORIDE 0.9% 500 ML ONE (11:22)
--- NOTE | 2021-02-01 13:27 | OP ---
Date of Procedure: 02/01/2021 Surgeon: RC MAO Procedures Performed: 1.Selective coronary angiogram. 2.Left renal artery severe stenosis angioplasty using 4.0 x 12 mm NC balloon. Indications: 1.Unstable angina. 2.Left renal artery stenosis, now from previous angiogram. Complications: None. Bleeding: Less than 10 mL. Access: Right radial artery 6-Maldivian closed with TR band. Description Of Procedure: After risks, benefits, and alternatives were explained, the patient agreed to the procedure and signed informed consent. The patient was brought into the cardiac catheterizat ion laboratory, prepped and draped in usual sterile fashion. Then, I accessed right radial artery us ing pediatric micropuncture kit and placed a 6-Maldivian Slender sheath and then I took a 5-Maldivian Munden 4.0 catheter in the aortic root, engaged left main and right coronary artery, and took standard view s, and then exchanged for a 6-Maldivian FARRUKH guide with side holes and engaged the left renal artery and took a Runthrough wire throughout the stenosis area to the distal renal artery. We gave systemic hep blanquita to assure ACT level above 250. Then, I used a 4.0 x 12 mm NC balloon and the lesion did not exp and fully. There was even with high pressure, would not open. Then, the pictures after t hat showed a significant improvement in stenosis from 80% to 20%. No dissection with DONNA-3 flow, so decided to not put a stent to avoid the risk of free stenosis and we will monitor this with ultrasou nd. If this restenosis again, then we will do atherectomy. Then, I pulled the wire and the guide, a nd the sheath in place stable with good hemostasis. Findings: 1.Left main; largely normal. 2.LAD; moderate size, normal and tortuous. 3.Left circumflex; moderate size and normal. 4.RCA; large dominant with diffuse mild 10% to 20% disease, otherwise normal. 5.The left renal artery; severe stenosis 80%, status post angioplasty as above. Conclusions: 1.Normal coronary arteries. 2.Severe left renal artery stenosis, status post angioplasty as above. Plan: Aspirin, Plavix, and statin. We will monitor the left renal artery with an ultrasound and re- evaluate in about 3 months. If restenosis happens, then we will plan for atherectomy. SR/MODL Voice ID: [id number] Report ID: [id number]
[2021-02-01 16:26] VITALS: BP 114/56; TEMP 97.1; O2SAT 99
== END 2021-02-01 16:21 | disposition home or self-care (01) ==
LOC: CCL 10:51
PROVIDERS: ATTEND Internal Medicine
PROC: 04793ZZ Dilation of Right Renal Artery, Percutaneous Approach (ICD-10-PCS; principal; 2021-02-01)
DX: I70.1 Atherosclerosis of renal artery (principal); I25.110 Atherosclerotic heart disease of native coronary artery with unstable angina pectoris; Q27.1 Congenital renal artery stenosis; I10 Essential (primary) hypertension; E78.5 Hyperlipidemia, unspecified; E11.9 Type 2 diabetes mellitus without complications; Z20.822 Contact with and (suspected) exposure to COVID-19; Z87.891 Personal history of nicotine dependence; Z88.0 Allergy status to penicillin; Z88.3 Allergy status to other anti-infective agents; Z88.6 Allergy status to analgesic agent; Z88.8 Allergy status to other drugs, medicaments and biological substances; Z82.49 Family history of ischemic heart disease and other diseases of the circulatory system
CPT/HCPCS: 37246; 80048; 36415; 85610; 85347; 85730; 93454; 36251; U0003; C1893; C1725; J1644 ×3; J2250; J3010; J7040; 35471; 36200

== ENCOUNTER 2021-07-31 23:11 | Emergency (ER) | payer OTHER ==
--- OUTSIDE RECORDS SUMMARY | 2021-07-31 23:15 | XMS REPORT | Continuity of Care Document ---
:1935 Author Organization [facility] t Address [address] [place] [address] Dr. Strong [address] [place] [id number] Care Team Providers Name Role Phone Unavailable Unavailable Unavailable Problems This patient has no known problems. Allergies, Adverse Reactions, Alerts This patient has no known allergies or adverse reactions. Medications This patient has no known medications. Procedures This patient has no known procedures. Encounters Start End Encounter Admission Attending Care Care Encounter Source Date/Time Date/Time Type Type Clinicians Facility Department ID 2020-08-22 2020-08-22 Outpatient [facility] [id number] [address] [place] [address] 00:00:00 00:00:00 Results This patient has no known results.
--- NOTE | 2021-07-31 23:52 | ER ---
Nurse's Notes [facility] Name: Zee Lindsay Age: 86 yrs Sex: Female : 1935 Arrival Date: 07/31/2021 Time: 23:17 Bed Waiting Private MD: Diagnosis: Presentation: 07/31 23:37 Chief complaint: Patient states: Diarrhea, nauseous, chest tightness - started this ld1 evening around 1999. Coronavirus screen: Client presents with at least one sign or symptom that may indicate coronavirus-19. Standard/surgical mask placed on the client. Ebola Screen: No symptoms or risks identified at this time. Initial Sepsis Screen: Does the patient meet any 2 criteria? No. Patient's initial sepsis screen is negative. Does the patient have a suspected source of infection? No. Patient's initial sepsis screen is negative. Risk Assessment: Do you want to hurt yourself or someone else? Patient reports no desire to harm self or others. Onset of symptoms was July 31, 2021. 23:37 Method Of Arrival: Wheelchair ld1 23:37 Acuity: DESIRE 3 ld1 Triage Assessment: 23:41 General: Appears in no apparent distress. uncomfortable, Behavior is calm, cooperative, ld1 appropriate for age. Pain: Denies pain. Neuro: Level of Consciousness is awake, alert, obeys commands, Oriented to person, place, time, situation. Cardiovascular: Capillary refill < 3 seconds Patient's skin is warm and dry. Respiratory: Airway is patent Respiratory effort is even, unlabored, Respiratory pattern is regular, symmetrical. GI: Abdomen is flat, non-distended, Reports diarrhea, nausea. Historical: - Allergies: 23:41 amlodipine; ld1 23:41 Clonidine; ld1 23:41 Codeine; ld1 23:41 Darvocet-N 100; ld1 23:41 guafin; ld1 23:41 Labetalol; ld1 23:41 Levaquin; ld1 23:41 Lisinopril; ld1 23:41 Lyrica; ld1 23:41 magnesium; ld1 23:41 Minoxidil; ld1 23:41 Morphine; ld1 23:41 Nicen; ld1 23:41 Nifedipine; ld1 23:41 Norvasc; ld1 23:41 PENICILLINS; ld1 23:41 PENTAZOCINE; ld1 23:41 Premarin; ld1 23:41 propargyl vela; ld1 23:41 Rifampin; ld1 23:41 Soma; ld1 23:41 Talwin; ld1 23:41 Tricor; ld1 - PMHx: 23:41 High Cholesterol; TIA; Hyperlipidemia; Pacemaker; Hypertension; TIA; ld1 - PSHx: 23:41 Cholecystectomy; Lumbar; Left Lung; Pace maker; Right Ankle; ld1 - Immunization history:: Adult Immunizations up to date, Client reports receiving the 2nd dose of the Covid vaccine. - Social history:: Smoking status: Patient denies any tobacco usage or history of. Patient/guardian denies using alcohol. Vital Signs: 23:37 BP 147 / 59; Pulse 69; Resp 18; Temp 97.5(O); Pulse Ox 97% on R/A; Weight 55.34 kg; ld1 Height 5 ft. 3 in. (160.02 cm); Pain 5/10; 23:37 Body Mass Index 21.61 (55.34 kg, 160.02 cm) ld1 ED Course: 23:17 Patient arrived in ED. ja2 23:41 Triage completed. ld1 23:41 Arm band placed on right wrist. ld1 Administered Medications: No medications were administered Outcome: 23:51 Patient left the ED. ld1 Signatures: Cecelia Viramontes RN RN ld1 Prema Woo
[2021-07-31 23:55] VITALS: BP 147/59; TEMP 97.5; O2SAT 97
--- NOTE | 2021-08-01 13:04 | EKG ---
Test Date: 2021-07-31 Test Time: 23:50:09 Virtualization Engineer: COURTNEY MEASUREMENT RESULTS: Intervals: Rate: 70 UT: 200 QRSD: 74 QT: 400 QTc: 432 Julian: P: UT: 200 QRS: 15 T: 97 INTERPRETIVE STATEMENTS: Electronic atrial pacemaker T wave abnormality, consider lateral ischemia Abnormal ECG Compared to ECG 01/27/2021 02:16:35 T-wave abnormality now present Possible ischemia now present Left ventricular hypertrophy no longer present Early repolarization no longer present Myocardial infarct finding no longer present Electronically Signed On 08-01-21 13:02:55 INSTRUMENTATION MANAGER by Simba Smith
== END 2021-07-31 23:51 | disposition left against medical advice (07) ==
LOC: ER 23:11
DX: Z53.21 Procedure and treatment not carried out due to patient leaving prior to being seen by health care provider (principal)
CPT/HCPCS: 93005; 99281

== ENCOUNTER 2021-08-10 14:50 | Observation (INO) | payer OTHER ==
--- OUTSIDE RECORDS SUMMARY | 2021-08-10 15:34 | XMS REPORT | Continuity of Care Document ---
:1935 Author Organization [facility] t Address [address] [place] [address] Dr. Strong [address] [place] [id number] Care Team Providers Name Role Phone Unavailable [...] Clinicians Facility Department ID 2020-08-22 2020-08-[address] [facility] [id number] [address] [place] [address] 00:00:00 00:00:00 Results This patient has no known results.
[2021-08-10 16:31] LABS: Absolute Lymphocytes (CBC) 0.8 K/uL (0.7-4.9); Hematocrit 41.5 % (36.0-45.0); Lymphocytes % 7.8 % (15.3-44.8); MPV 7.6 fL (7.6-11.3); RBC Red Blood Cell Count 4.54 M/uL (3.86-4.86)
[2021-08-10 16:36] LABS: Protime INR 0.96
[2021-08-10 16:41] LABS: Urine Blood Trace-intact (Negative); Urine Glucose Negative (Negative); Urine Protein Negative (Negative)
[2021-08-10 16:49] LABS: Albumin 4.4 g/dL (3.4-5.0); Bilirubin Direct 0.2 mg/dL (0-0.2); Bilirubin Total 0.5 mg/dL (0.2-1.0); Potassium 3.7 mmol/L (3.5-5.1); Protein, Total 8.4 g/dL (6.4-8.2); Troponin High Sensitivity 10.4 pg/mL (<58.9)
[2021-08-10 16:53] LABS: Urine Bacteria <20 /HPF (<20); Urine RBC <5 /HPF (NONE SEEN)
--- NOTE | 2021-08-10 17:15 | RAD REPORT ---
EXAM DESCRIPTION: RAD - Chest Single View - 08/10/2021 4:50 pm CLINICAL HISTORY: CHEST PAIN COMPARISON: Portable 01/26/2021 TECHNIQUE: AP portable chest image was obtained 08/10/2021 4:50 pm . FINDINGS: Lungs are clear. Interstitial pattern matches comparison. Heart and vasculature are normal . Left-sided pacemaker is in place. Left costophrenic angle blunting has not changed from prior imagi ng. No measurable pleural effusion and no pneumothorax. No acute bony abnormality seen. No acute aort ic findings suspected. IMPRESSION: No acute cardiopulmonary process. No significant change from comparison study.
[2021-08-10 17:44] LABS: Blood Morphology Comment NOT SEEN (NOT SEEN); Platelet Estimate ADEQ; White Blood Cell Scan OK (OK)
[2021-08-10 18:17] LABS: SARS-COV-2 RT PCR NEGATIVE (NEGATIVE)
[2021-08-10] MEDS ORDERED: FAMOTIDINE 20 MG/2 ML VIAL IV ONE (18:26)
--- NOTE | 2021-08-10 18:43 | RAD REPORT ---
EXAM DESCRIPTION: CT - Abdomen Pelvis W Contrast - 08/10/2021 6:16 pm CLINICAL HISTORY: ABD PAIN COMPARISON: Abdomen Pelvis W Contrast dated 01/27/2021 TECHNIQUE: Biphasic, helical CT imaging of the abdomen and pelvis was performed following 100 ml non -ionic IV contrast. No oral contrast administered All CT scans are performed using dose optimization technique as appropriate and may include automated exposure control or mA/KV adjustment according to patient size. FINDINGS: No suspicious findings in the lung bases. The liver, spleen, and pancreas show no suspicious findings. Gallbladder is absent. Biliary tree with in normal limits for a post cholecystectomy patient. Biliary tree is similar to the comparison study. 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 Right kidney is hypofunctioning relative to the left. Dense tomeka al arterial calcifications are present. Stent is present in the proximal right renal artery. No pyelo nephritis or acute parenchymal process. No bladder abnormalities. No adrenal abnormalities. No hydron ephrosis or renal mass. Partially filled urinary bladder shows no suspicious finding. No gastric dilatation or wall thickening. No dilated large or small bowel. Moderate stool volume is p resent filling the colon. Sigmoid colon is quite tortuous and redundant. Moderate diverticulosis is p resent without CT findings of diverticulitis or other acute process. No appendicitis findings seen. No free air, free fluid or inflammatory stranding. No hernia, mass or bulky lymphadenopathy. No abdo mansi wall muscle hematoma or other suspicious soft tissue finding. No acute arterial tree finding identifiable. Disc and bone degenerative changes are present. No acute bone finding identifiable. Prominent Schmorl's nodes seen in the superior T11 and T12 bodies. IMPRESSION: Contrast enhanced CT abdomen and pelvis showing no acute or emergent finding. Nonacute findings detailed in the body of the report. No significant change from 01/27/2021 imaging.
--- NOTE | 2021-08-10 19:02 | EDPHYS ---
Physician Documentation [facility] Name: Zee Lindsay Age: 86 yrs Sex: Female : 1935 Arrival Date: 08/10/2021 Time: 15:08 Bed 17 Private MD: ED Physician Jordan Jauregui HPI: 08/10 15:45 This 86 yrs old Female presents to ER via EMS with complaints of Chest Pain. cp 15:45 The patient or guardian reports chest pain that is located primarily in the anterior cp chest wall, left. 15:45 Onset: 2 week(s) ago. cp 15:45 The pain does not radiate. cp 15:45 The chest pain is described as aching. Duration: The patient or guardian reports cp multiple episodes, that are intermittent. 15:45 Associated signs and symptoms: Pertinent positives: abdominal pain, nausea, vomiting, cp diarrhea. Severity of pain: in the emergency department the pain has improved mildly. Historical: - Allergies: 15:21 amlodipine; dawn 15:21 Clonidine; dawn 15:21 Codeine; dawn 15:21 Darvocet-N 100; dawn 15:21 guafin; dawn 15:21 Labetalol; dawn 15:21 Levaquin; dawn 15:21 Lisinopril; dawn 15:21 Lyrica; dawn 15:21 magnesium; dawn 15:21 Minoxidil; dawn 15:21 Morphine; dawn 15:21 Nicen; dawn 15:21 Nifedipine; dawn 15:21 Norvasc; dawn 15:21 PENICILLINS; dawn 15:21 PENTAZOCINE; dawn 15:21 Premarin; dawn 15:21 propargyl vela; dawn 15:21 Rifampin; dawn 15:21 Soma; dawn 15:21 Talwin; dawn 15:21 Tricor; dawn - Home Meds: 15:44 Zofran 4 mg Oral tab 1 tab every 6 hours [Active]; dawn - PMHx: 15:21 High Cholesterol; Hyperlipidemia; Hypertension; Pacemaker; TIA; TIA; dawn - PSHx: 15:21 Cholecystectomy; Left Lung; Lumbar; Pace maker; Right Ankle; dawn - Immunization history:: Adult Immunizations up to date. - Social history:: Smoking status: Patient denies any tobacco usage or history of. ROS: 15:50 Constitutional: Negative for body aches, chills, fever, poor PO intake. cp 15:50 Eyes: Negative for injury, pain, redness, and discharge. cp 15:50 ENT: Negative for ear pain, sore throat, difficulty swallowing, difficulty handling secretions. 15:50 Cardiovascular: Positive for chest pain, Negative for edema, palpitations. 15:50 Respiratory: Negative for cough, shortness of breath, wheezing. 15:50 Abdomen/GI: Positive for abdominal pain, nausea, vomiting, and diarrhea, Negative for constipation, black/tarry stool, rectal bleeding. 15:50 Back: Negative for pain at rest, pain with movement. 15:50 : Negative for urinary symptoms. 15:50 Neuro: Negative for altered mental status, headache, numbness, syncope, weakness. 15:50 All other systems are negative. Exam: 15:55 Constitutional: The patient appears in no acute distress, alert, awake, cp non-diaphoretic, non-toxic, well developed, well nourished. 15:55 Head/Face: Normocephalic, atraumatic. cp 15:55 Eyes: Periorbital structures: appear normal, Conjunctiva: normal, no exudate, no injection, Sclera: no appreciated abnormality, Lids and lashes: appear normal, bilaterally. 15:55 ENT: External ear(s): are unremarkable, Nose: is normal, Mouth: Lips: moist, Oral mucosa: moist, Posterior pharynx: Airway: no evidence of obstruction, patent. 15:55 Neck: ROM/movement: is normal, is supple, without pain, no range of motions limitations. 15:55 Chest/axilla: Inspection: normal. 15:55 Cardiovascular: Rate: normal, Rhythm: regular, Heart sounds: murmur, not appreciated, Edema: is not appreciated, JVD: is not appreciated. 15:55 Respiratory: the patient does not display signs of respiratory distress, Respirations: normal, no use of accessory muscles, no retractions, labored breathing, is not present, Breath sounds: are clear throughout, no decreased breath sounds, no stridor, no wheezing. 15:55 Abdomen/GI: Inspection: distension, that is mild, Bowel sounds: active, all quadrants, Palpation: soft, in all quadrants, mild abdominal tenderness, in all quadrants, rebound tenderness, is not appreciated, involuntary guarding, is not appreciated. 15:55 Back: pain, is absent, ROM is normal. 15:55 Neuro: Orientation: to person, place \\T\\ time. Mentation: is normal, Motor: moves all fours, strength is normal, Sensation: is normal. Vital Signs: 15:13 BP 153 / 64; Pulse 66; Resp 18; Temp 98.1; Pulse Ox 99% on R/A; Weight 54.43 kg; Height dawn 5 ft. 3 in. (160.02 cm); 16:55 BP 146 / 58; Pulse 61; Resp 16; Pulse Ox 96% on R/A; dawn 15:13 Body Mass Index 21.26 (54.43 kg, 160.02 cm) dawn MDM: 15:34 Patient medically screened. cp 16:00 Differential diagnosis: acute myocardial infarction, acute pericarditis, anxiety, chest cp wall pain, cholecystitis, Cholelithiasis costochondritis, esophagitis, gastritis, pancreatitis, pericarditis, pleurisy, pneumonia, pneumothorax. 19:00 Data reviewed: vital signs, nurses notes, lab test result(s), EKG, radiologic studies, cp CT scan, plain films. 19:00 Test interpretation: by ED physician or midlevel provider: ECG, plain radiologic cp studies. Physician consultation: A Mary BOYER was called at 18:55, was contacted at 18:55, regarding admission, to the telemetry unit. patient's condition. 08/10 15:41 Order name: Basic Metabolic Panel; Complete Time: 17:35 cp 08/10 17:35 Interpretation: Normal except: NA 132; GLUC 122; GFR 45. cp 08/10 15:41 Order name: CBC with Diff; Complete Time: 18:42 cp 08/10 16:38 Interpretation: Normal except: JULIAN% 85.7; LYM% 7.8; NEUT A 8.9. cp 08/10 15:41 Order name: LFT's; Complete Time: 17:35 cp 08/10 15:41 Order name: Magnesium; Complete Time: 17:35 cp 08/10 15:41 Order name: NT PRO-BNP; Complete Time: 17:35 cp 08/10 15:41 Order name: PT-INR; Complete Time: 16:38 cp 08/10 15:41 Order name: Troponin HS; Complete Time: 17:35 cp 08/10 17:36 Interpretation: Reviewed. cp 08/10 15:41 Order name: Lipase; Complete Time: 17:35 08/10 15:57 Order name: COVID-19/FLU A+B (Document "Date of Onset" if Symptomatic); Complete Time: cp 18:42 08/10 15:57 Order name: Urine Microscopic Only; Complete Time: 17:35 08/10 16:40 Order name: Urine Dipstick-Ancillary; Complete Time: 17:35 [facility] 08/10 17:44 Order name: CBC Smear Scan; Complete Time: 18:42 [facility] 08/10 19:00 Order name: Ova And Parasites 08/10 19:00 Order name: Rotavirus Antigen 08/10 15:41 Order name: XRAY Chest (1 view); Complete Time: 17:35 08/10 15:41 Order name: EKG; Complete Time: 15:42 08/10 15:41 Order name: Cardiac monitoring; Complete Time: 16:20 08/10 15:41 Order name: EKG - Nurse/Tech; Complete Time: 16:20 08/10 17:38 Order name: CT Abd/Pelvis - IV Contrast Only; Complete Time: 18:49 08/10 19:00 Order name: Stool Culture 08/10 19:00 Order name: CDIFF 08/10 19:00 Order name: Ova and Parasites [facility] 08/10 19:01 Order name: Rotavirus Antigen [facility] 08/10 19:01 Order name: Stool Culture [facility] 08/10 19:23 Order name: EKG Electrocardiogram [facility] 08/10 19:23 Order name: EKG Electrocardiogram [facility] 08/10 19:23 Order name: EKG Electrocardiogram [facility] 08/10 19:23 Order name: EKG Electrocardiogram [facility] 08/10 15:41 Order name: IV Saline Lock; Complete Time: 16:20 08/10 15:41 Order name: Labs collected and sent; Complete Time: 16:20 08/10 15:41 Order name: O2 Per Protocol; Complete Time: 16:20 08/10 15:41 Order name: O2 Sat Monitoring; Complete Time: 16:20 08/10 15:57 Order name: Urine Dipstick-Ancillary (obtain specimen); Complete Time: 16:52 cp Administered Medications: 18:24 Drug: Pepcid (famotidine) 20 mg Route: IVP; Site: right antecubital; dawn 18:24 Follow up: Response: No adverse reaction dawn Disposition: 08/11 05:10 Co-signature as Attending Physician, Jordan Jauregui MD I agree with the assessment and [facility] plan of care. Disposition Summary: 08/10/21 19:01 Hospitalization Ordered Hospitalization Status: Observation cp Provider: Sumit Hernandez cp Location: Telemetry/MedSurg (observation) cp Condition: Stable cp Problem: new cp Symptoms: have improved cp Bed/Room Type: Standard cp Room Assignment: 229(08/10/21 20:10) mw Diagnosis - Chest pain, unspecified cp - Diverticulosis of large intestine without perforation or abscess without bleeding cp Forms: - Medication Reconciliation Form cp - SBAR form cp Signatures: Dispatcher [employer] EDTennille Patiño RN RN mw Anderson, Corey, MD MD cha Page, Corey, PA PA cp Au-StagerArabella RN RN ha Corrections: (The following items were deleted from the chart) 08/10 20:09 19:01 cp mw 20:10 20:09 219 mw mw
--- NOTE | 2021-08-10 19:02 | ER ---
Nurse's Notes [facility] Name: Zee Lindsay Age: 86 yrs Sex: Female : 1935 Arrival Date: 08/10/2021 Time: 15:08 Bed 17 Private MD: Diagnosis: Chest pain, unspecified;Diverticulosis of large intestine without perforation or abscess without bleeding Presentation: 08/10 15:13 Chief complaint: Patient states: pt presented to ED reporting off and on n/v/d x 2 dawn weeks. right lower breast pain and pt reported heart pacer low in battery. Coronavirus screen: Vaccine status: Patient reports receiving the 2nd dose of the covid vaccine. Ebola Screen: Patient denies travel to an Ebola-affected area in the 21 days before illness onset. Initial Sepsis Screen: Does the patient meet any 2 criteria? No. Patient's initial sepsis screen is negative. Does the patient have a suspected source of infection? No. Patient's initial sepsis screen is negative. Risk Assessment: Do you want to hurt yourself or someone else? Patient reports no desire to harm self or others. Onset of symptoms was August 10, 2021. 15:13 Method Of Arrival: EMS: [facility] dawn 15:13 Acuity: DESIRE 3 dawn Triage Assessment: 15:24 General: Appears in no apparent distress. Behavior is calm, cooperative. dawn Historical: - Allergies: 15:21 amlodipine; dawn 15:21 Clonidine; dawn 15:21 Codeine; dawn 15:21 Darvocet-N 100; dawn 15:21 guafin; dawn 15:21 Labetalol; dawn 15:21 Levaquin; dawn 15:21 Lisinopril; dawn 15:21 Lyrica; dawn 15:21 magnesium; dawn 15:21 Minoxidil; dawn 15:21 Morphine; dawn 15:21 Nicen; dawn 15:21 Nifedipine; dawn 15:21 Norvasc; dawn 15:21 PENICILLINS; dawn 15:21 PENTAZOCINE; dawn 15:21 Premarin; dawn 15:21 propargyl vela; dawn 15:21 Rifampin; dawn 15:21 Soma; dawn 15:21 Talwin; dawn 15:21 Tricor; dawn - Home Meds: 15:44 Zofran 4 mg Oral tab 1 tab every 6 hours [Active]; dawn - PMHx: 15:21 High Cholesterol; Hyperlipidemia; Hypertension; Pacemaker; TIA; TIA; dawn - PSHx: 15:21 Cholecystectomy; Left Lung; Lumbar; Pace maker; Right Ankle; dawn - Immunization history:: Adult Immunizations up to date. - Social history:: Smoking status: Patient denies any tobacco usage or history of. Screenin:21 Abuse screen: Denies threats or abuse. Denies injuries from another. Nutritional dawn screening: No deficits noted. Tuberculosis screening: No symptoms or risk factors identified. 15:24 Fall Risk Secondary diagnosis (15 points) TIA. dawn Assessment: 15:21 Pain: Complains of pain in right breast. Cardiovascular: Reports heart pacer low in dawn battery. GI: Reports diarrhea, nausea, vomiting. Vital Signs: 15:13 BP 153 / 64; Pulse 66; Resp 18; Temp 98.1; Pulse Ox 99% on R/A; Weight 54.43 kg; Height dawn 5 ft. 3 in. (160.02 cm); 16:55 BP 146 / 58; Pulse 61; Resp 16; Pulse Ox 96% on R/A; dawn 15:13 Body Mass Index 21.26 (54.43 kg, 160.02 cm) dwan ED Course: 15:08 Patient arrived in ED. eb 15:17 Jordan Myers PA is PHCP. cp 15:17 Jordan Jauregui MD is Attending Physician. cp 15:18 Triage completed. dawn 15:21 Patient has correct armband on for positive identification. Bed in low position. dawn 15:21 No provider procedures requiring assistance completed. dawn 15:24 Arm band placed on. dawn 16:20 Basic Metabolic Panel Sent. dawn 16:21 CBC with Diff Sent. dawn 16:21 LFT's Sent. dawn 16:21 Magnesium Sent. dawn 16:21 NT PRO-BNP Sent. dawn 16:21 PT-INR Sent. dawn 16:21 Troponin HS Sent. dawn 16:51 XRAY Chest (1 view) In Process Unspecified. EDMS 16:52 COVID-19/FLU A+B (Document "Date of Onset" if Symptomatic) Sent. dawn 18:16 CT Abd/Pelvis - IV Contrast Only In Process Unspecified. EDMS 19:00 Sumit Hernandez MD is Hospitalizing Provider. cp 19:09 Inserted saline lock: 20 gauge in right antecubital area, using aseptic technique. dawn 19:31 Pearl Pérez RN is Primary Nurse. sf1 Administered Medications: 18:24 Drug: Pepcid (famotidine) 20 mg Route: IVP; Site: right antecubital; adwn 18:24 Follow up: Response: No adverse reaction dawn Outcome: 19:01 Decision to Hospitalize by Provider. cp 20:39 Admitted to Med/surg accompanied by nurse, Report called to Barbara Desai RN sf1 20:45 Patient left the ED. sf1 Signatures: Dispatcher [employer] EDMS Jordan Myers PA PA cp Botello, Elizabeth eb Au-Stager, Heather, RN RN dawn Pearl Pérez RN RN sf1
[2021-08-10] MEDS ORDERED: ACETAMINOPHEN 500 MG TAB PO PRN (19:14)
[2021-08-10] MEDS ORDERED: ONDANSETRON 4 MG/2 ML VIAL IV PRN (19:19)
[2021-08-10 21:24] VITALS: BMI 18.6
[2021-08-10] MEDS: FAMOTIDINE 20 MG/2 ML VIAL IV SCH (22:27)
[2021-08-11 03:51] LABS: Absolute Lymphocytes (CBC) 1.5 K/uL (0.7-4.9); Hematocrit 38.8 % (36.0-45.0); Lymphocytes % 19.6 % (15.3-44.8); MPV 7.6 fL (7.6-11.3); RBC Red Blood Cell Count 4.21 M/uL (3.86-4.86)
[2021-08-11 04:11] LABS: Potassium 3.9 mmol/L (3.5-5.1)
[2021-08-11 05:41] VITALS: TEMP 97.9
[2021-08-11] MEDS ORDERED: ASPIRIN EC 81 MG TAB PO SCH (09:00)
[2021-08-11] MEDS: FAMOTIDINE 20 MG/2 ML VIAL IV SCH (10:30)
[2021-08-11 13:53] VITALS: BP 110/55; O2SAT 100
--- NOTE | 2021-08-11 22:06 | SS ---
Date of Discharge: 08/11/2021 Chief Complaint: Chest pain and diarrhea. History Of Present Illness: This is an -[id number] pleasant female patient, living at home w ith her daughter, came into emergency room with almost 2 weeks' history of intermittent left-sided ch est pain and diarrhea. The patient describes her chest pain located in the left lower ribcage area a nd area underneath the left anterior lower ribcage and also across in the epigastric area. Pain is i ntermittent. No associated symptoms except occasional nausea, but no vomiting, no diaphoresis, no sh ortness of breath. No aggravating or relieving factor. She also reports having intermittent diarrhe a in the last 2 weeks and she describes her diarrhea as mostly soft stool, mostly 1-2 times a day, wo rst episode was 5 times a day. No blood in stool. No abdominal pain. She came into emergency room with all these symptoms yesterday. After she was evaluated, she was admitted to the hospital. Allergies: SHE IS LISTED ALLERGIC TO PENICILLIN CAUSING RASH AND ITCHING. MORPHINE CAUSING NAUSE A, VOMITING. SULFA CAUSING RASH AND ITCHING. CODEINE CAUSING HEADACHE. TRICOR, DETAILS UNKNOWN. N IFEDIPINE, DETAILS UNKNOWN. LEVAQUIN CAUSING RASH AND ITCHING. NIACIN CAUSING FLUSHING. LISINOPRIL , DETAILS UNKNOWN. DARVOCET, DETAILS UNKNOWN. SOMA, DETAILS UNKNOWN. TALWIN, DETAILS UNKNOWN. MIN OXIDIL, DETAILS UNKNOWN. LABETALOL, DETAILS UNKNOWN. LYRICA, DETAILS UNKNOWN. RIFAMPIN, DETAILS UN KNOWN. PREMARIN, ITCHING. DOXYCYCLINE, RASH AND ITCHING. CIPRO, RASH. Medications: She takes alprazolam 0.25 mg daily as needed for anxiety or sleep, aspirin 81 mg daily, amlodipine 5 mg 2 times a day, atorvastatin 40 mg daily, clonidine 0.2 mg takes half a tablet to one tablet 3 times a day for systolic blood pressure higher than 180, clopidogrel 75 mg daily, famotidin e 20 mg 2 times a day, levothyroxine 50 mcg daily, pentoxifylline 400 mg 2 times a day, Zofran 4 mg 4 times a day as needed for nausea and vomiting, Bystolic 10 mg daily, Metamucil Fiber Gummies daily. Review of Systems: Cardiovascular: As mentioned above. GI: As mentioned above. All other systems reviewed and negative. Past Medical History: Significant for stroke, hypertension, hypothyroidism, hyperlipidemia, divertic ulosis, chronic kidney disease, anxiety. Past Surgical History: Had pleurodesis in 2019 for pleural effusion after a fall and injury, breast biopsy which was benign, pacemaker placement in January of 2012 due to sick sinus syndrome, cholecyste ctomy, back surgery, ankle surgery. Family History: Father of [place]. Mother had breast cancer, cervical cancer, and heart disease. S on and daughter thalassemia minor. Social History: Prior history of smoking, not at present time. Use of alcohol negative. Physical Examination: Vital Signs: Temperature 97.9, pulse 75, respiratory rate 16, blood pressure 134/70, oxygen saturati on 98%. Height 5 feet 3 inches, weight 105 pounds. General: Awake, alert, oriented, not in distress. HEENT: Head atraumatic, normocephalic. Conjunctivae nonerythematous. Sclerae white. Mouth, no thr ush or edema noted. Ears/Nose, no mass, lesion, discharge noted. Neck: Supple. No JVD, lymph nodes, bruit, thyromegaly noted. Lungs: Bilateral good equal air entry. Clear to auscultation. No rhonchi. No rales. Heart: Normal heart sounds, no murmur or gallop. Abdomen: Soft, bowel sounds normal. No guarding, rigidity, tenderness, mass, hepatosplenomegaly, dis tention, or bruit noted. Extremities: No leg edema. No calf tenderness. Skin: No rash, ulcer, cellulitis. Lymphatics: No lymph node enlargement in neck, supraclavicular, infraclavicular region. Neuro: No focal neurological deficit. Chest: Unremarkable. External Genitalia: Deferred. Rectal: Deferred. Laboratory Data: EKG; no acute ST-T changes. While count yesterday 10.4, hemoglobin 14.1, platelets 188. This morning, white count 7.6, hemoglobin 12.8, platelets 191. Chemistry yesterday; sodium 13 2, potassium 3.7, chloride 99, bicarb 27, BUN 13, creatinine 1.15, glucose 122. Liver function tests unremarkable. Troponin first set 10.4, second set 13.2, third set 13.2. This morning; sodium 135, potassium 3.9, chloride 103, bicarb 26, BUN 11, creatinine 1.05, glucose 97. Urinalysis; trace blood , otherwise negative. Trace leukocyte esterase. COVID-19 test negative. Influenza A and B negative . Chest x-ray, no acute cardiopulmonary changes. CAT scan of the abdomen and pelvis shows evidence of diverticulosis without diverticulitis, atrophic right kidney, dense renal arterial calcification, and presence of stent in the proximal right renal artery. Hospital Course: After the patient was evaluated in the emergency room, she was admitted to the [facility]. Her [place] was ruled out by getting serial cardiac enzymes. The patient is medically stable. Upo n further questioning if she has added any new medication recently, she did realize that she started recently taking probiotics around the same time that she started having this diarrhea problem and I debby garcia advised her to stop using probiotics. If her diarrhea problem continues after stopping probiotic s, then we will pursue further stool testing. This can be done on an outpatient basis. The patient has appointment to see her subscription agent within a week or so and she was advised to keep that appointm ent. Discharge Medications And Instructions: 1.Continue all prior home medications. 2.Follow up at my office next week on Friday, which is 08/15/2021 at 10 a.m. 3.Follow with Dr. Brown for your appointment. Final Diagnoses: 1.Chest pain. 2.Diarrhea. 3.Diverticulosis. 4.Hypertension. 5.Hypothyroidism. 6.Hyperlipidemia. 7.Renal artery stenosis. 8.Anxiety. 9.Chronic kidney disease, stage IIIA. MARGO/MODL Voice ID: [id number] Report ID: [id number]
== END 2021-08-11 12:15 | disposition home or self-care (01) ==
LOC: ER 14:50 → ERHOLD 20:06 → 2ND 20:32
PROVIDERS: ADMIT Internal Medicine; ATTEND Internal Medicine
DX: R07.9 Chest pain, unspecified (principal); R19.7 Diarrhea, unspecified; K57.30 Diverticulosis of large intestine without perforation or abscess without bleeding; I12.9 Hypertensive chronic kidney disease with stage 1 through stage 4 chronic kidney disease, or unspecified chronic kidney disease; N18.31 Chronic kidney disease, stage 3a; I70.1 Atherosclerosis of renal artery; E03.9 Hypothyroidism, unspecified; E78.5 Hyperlipidemia, unspecified; F41.9 Anxiety disorder, unspecified; Z20.822 Contact with and (suspected) exposure to COVID-19; Z95.0 Presence of cardiac pacemaker; Z87.891 Personal history of nicotine dependence; Z86.73 Personal history of transient ischemic attack (TIA), and cerebral infarction without residual deficits; Z79.82 Long term (current) use of aspirin; Z79.899 Other long term (current) drug therapy; Z88.0 Allergy status to penicillin; Z88.2 Allergy status to sulfonamides; Z88.3 Allergy status to other anti-infective agents; Z88.6 Allergy status to analgesic agent; Z88.8 Allergy status to other drugs, medicaments and biological substances; Z90.49 Acquired absence of other specified parts of digestive tract; Z80.3 Family history of malignant neoplasm of breast; Z80.49 Family history of malignant neoplasm of other genital organs; Z82.49 Family history of ischemic heart disease and other diseases of the circulatory system
CPT/HCPCS: 93005; 87045; 85025 ×2; 80048 ×2; 36415; 83735; 87177; 85610; 80076; 87046; 87209; 84484 ×3; 83690; 83880; 0240U; 87425; 74177; 71045; 96374; 99285; Q9967; G0378 ×3; 81003; 81015

== ENCOUNTER 2021-08-21 13:12 | Emergency (ER) | payer OTHER ==
--- OUTSIDE RECORDS SUMMARY | 2021-08-21 13:15 | XMS REPORT | Continuity of Care Document ---
:1935 Author Organization [facility] t Address [address] [place] [address] Dr. Strong [address] [place] [id number] Care Team Providers Name Role Phone Unavailable [...] Clinicians Facility Department ID 2020-08-22 2020-08-22 Outpatient [facility] [id number] [address] [place] [address] 00:00:00 00:00:00 Results This patient has no known results.
--- NOTE | 2021-08-21 15:42 | ER ---
Nurse's Notes [facility] Name: Zee Lindsay Age: 86 yrs Sex: Female : 1935 Arrival Date: 08/21/2021 Time: 13:13 Bed External Waiting Private MD: Diagnosis: Presentation: 08/21 13:44 Chief complaint: Chief complaint: Patient states: abd burning that radiates towards ss chest and back that began 1 week ago. Also c/o nausea. 13:46 Coronavirus screen: Client denies travel out of the [place] in the last 14 days. Ebola ss Screen: Patient denies exposure to infectious person. Patient denies travel to an Ebola-affected area in the 21 days before illness onset. Initial Sepsis Screen: Does the patient meet any 2 criteria? No. Patient's initial sepsis screen is negative. Does the patient have a suspected source of infection? No. Patient's initial sepsis screen is negative. Risk Assessment: Do you want to hurt yourself or someone else? Patient reports no desire to harm self or others. Onset of symptoms was August 14, 2021. 13:46 Method Of Arrival: Wheelchair ss 13:46 Acuity: DESIRE 3 ss Historical: - Allergies: 13:48 amlodipine; ss 13:48 Clonidine; ss 13:48 Codeine; ss 13:48 Darvocet-N 100; ss 13:48 guafin; ss 13:48 Labetalol; ss 13:48 Levaquin; ss 13:48 Lisinopril; ss 13:48 Lyrica; ss 13:48 magnesium; ss 13:48 Minoxidil; ss 13:48 Morphine; ss 13:48 Nicen; ss 13:48 Nifedipine; ss 13:48 Norvasc; ss 13:48 PENICILLINS; ss 13:48 PENTAZOCINE; ss 13:48 Premarin; ss 13:48 propargyl vela; ss 13:48 Rifampin; ss 13:48 Soma; ss 13:48 Talwin; ss 13:48 Tricor; ss - PMHx: 13:48 High Cholesterol; Hyperlipidemia; Hypertension; Pacemaker; TIA; ss - PSHx: 13:48 Cholecystectomy; Left Lung; Lumbar; Pace maker; Right Ankle; ss - Immunization history:: Client reports receiving the 2nd dose of the Covid vaccine. - Social history:: Smoking status: Patient denies any tobacco usage or history of. Assessment: 15:40 Reassessment: Called to exam room, unable to locate patient. No answer. Registration ss staff reports that patient has left the ED. Vital Signs: 13:46 BP 123 / 69; Pulse 60; Resp 18; Temp 98.2(TE); Pulse Ox 100% on R/A; Weight 52.62 kg; ss Height 5 ft. 3 in. (160.02 cm); Pain 6/10; 13:46 Body Mass Index 20.55 (52.62 kg, 160.02 cm) ED Course: 13:13 Patient arrived in ED. as 13:48 Triage completed. ss 13:48 Arm band placed on right wrist. ss 15:40 No provider procedures requiring assistance completed. Patient did not have IV access ss during this emergency room visit. Administered Medications: No medications were administered Outcome: 15:45 Patient left the ED. Signatures: Coretta Mabry Shelby, RN RN ss Corrections: (The following items were deleted from the chart) 13:48 13:44 Chief complaint: ss ss
[2021-08-21 17:26] VITALS: BP 123/69; TEMP 98.2; O2SAT 100
--- NOTE | 2021-08-23 07:37 | EKG ---
Test Date: 2021-08-21 Test Time: 13:50:55 Transportation Sales Consultant: ALP MEASUREMENT RESULTS: Intervals: Rate: 69 AK: 190 QRSD: 72 QT: 402 QTc: 430 Shannon: P: 59 AK: 190 QRS: 34 T: 102 INTERPRETIVE STATEMENTS: Atrial-paced rhythm ST elevation, consider early repolarization, pericarditis, or injury T wave abnormality, consider lateral ischemia Abnormal ECG Compared to ECG 08/10/2021 16:10:42 ST (T wave) deviation now present T-wave abnormality now present Possible ischemia now present Left ventricular hypertrophy no longer present Myocardial infarct finding no longer present Electronically Signed On 08-23-21 07:35:58 TELEPHONE STATION REPAIRER by Simba Smith
== END 2021-08-21 15:45 | disposition left against medical advice (07) ==
LOC: ER 13:12
DX: Z53.21 Procedure and treatment not carried out due to patient leaving prior to being seen by health care provider (principal)
CPT/HCPCS: 93005; 99281

== ENCOUNTER 2021-08-23 20:09 | Observation (INO) | payer OTHER ==
--- OUTSIDE RECORDS SUMMARY | 2021-08-23 20:12 | XMS REPORT | Continuity of Care Document ---
:1935 Author Organization [facility] t Address [address] [place] [address] Dr. Strong [address] [place] [id number] Care Team Providers Name Role Phone Unavailable [...] Facility Department ID 2020-08-22 2020-08-[address] [facility] [id number] 00:00:00 00:00:00 Results This patient has no known results.
[2021-08-23] MEDS ORDERED: PANTOPRAZOLE 40 MG INJ ONE (20:46)
[2021-08-23] MEDS ORDERED: ONDANSETRON 4 MG/2 ML VIAL ONE (20:46)
[2021-08-23 20:58] LABS: Absolute Lymphocytes (CBC) 1.3 K/uL (0.7-4.9); Hematocrit 41.3 % (36.0-45.0); MPV 7.7 fL (7.6-11.3); RBC Red Blood Cell Count 4.61 M/uL (3.86-4.86)
[2021-08-23 21:04] LABS: Protime INR 0.97
--- NOTE | 2021-08-23 21:10 | RAD REPORT ---
EXAM DESCRIPTION: RAD - Chest Single View - 08/23/2021 9:03 pm CLINICAL HISTORY: CHEST PAIN COMPARISON: Chest Single View dated 08/10/2021; Chest Single View dated 01/26/2021; Chest Single View dated 12/19/2020 FINDINGS: Lines: Pacemaker. Lungs: No evidence of edema or pneumonia. Pleural: No significant pleural effusions or pneumothorax. Cardiac: The heart size is within normal limits. Bones: No acute fractures. Other: IMPRESSION: No acute cardiopulmonary disease.
[2021-08-23 21:37] LABS: Albumin 4.6 g/dL (3.4-5.0); Bilirubin Direct 0.2 mg/dL (0-0.2); Bilirubin Total 0.8 mg/dL (0.2-1.0); Magnesium 2.1 mg/dL (1.8-2.4); Potassium 3.8 mmol/L (3.5-5.1); Protein, Total 8.5 g/dL (6.4-8.2); Troponin High Sensitivity 10.9 pg/mL (<58.9)
--- NOTE | 2021-08-23 23:06 | EDPHYS ---
Physician Documentation [facility] Name: Zee Lindsay Age: 86 yrs Sex: Female : 1935 Arrival Date: 08/23/2021 Time: 20:14 Bed 7 Private MD: ED Physician Yousuf Velázquez HPI: 08/23 20:42 This 86 yrs old Female presents to ER via Wheelchair with complaints of Chest Pressure, rn Abdominal Pain, Nausea. 20:42 The patient or guardian reports chest pain that is located primarily in the substernal rn area, epigastric area. Onset: 2 day(s) ago. The pain does not radiate. Associated signs and symptoms: Pertinent positives: abdominal pain, cough, nausea, Pertinent negatives: diaphoresis, headache, palpitations, shortness of breath. The chest pain is described as aching, a pressure. Duration: The patient or guardian reports multiple episodes, that are intermittent. Modifying factors: The symptoms are alleviated by nothing. the symptoms are aggravated by nothing. Severity of pain: At its worst the pain was moderate in the emergency department the pain is unchanged. The patient has experienced similar episodes in the past. The patient has not recently seen a physician. Pt and daughter reports chest and abd pain for atleast 2 days, came to ER but left prior to being seen. Reports pain got worse so came in for eval. No fever. No sob. Reports + mild cough but feels like related to acid reflux. Pt has had this happen multiple times in past without clear etiology. States antacids not really helping lately. Scheduled for endoscopy with Dr. Ruelas in upcoming week. Denies blood in stool. No hematemesis. Does report congestion and other family member with congestion and cough as well. . Historical: - Allergies: 20:22 Clonidine; vc1 20:22 Codeine; vc1 20:22 Darvocet-N 100; vc1 20:22 guafin; vc1 20:22 Labetalol; vc1 20:22 Levaquin; vc1 20:22 Lisinopril; vc1 20:22 Lyrica; vc1 20:22 magnesium; vc1 20:22 Minoxidil; vc1 20:22 Morphine; vc1 20:22 Nicen; vc1 20:22 Nifedipine; vc1 20:22 Norvasc; vc1 20:22 PENICILLINS; vc1 20:22 PENTAZOCINE; vc1 20:22 Premarin; vc1 20:22 propargyl vela; vc1 20:22 Rifampin; vc1 20:22 Soma; vc1 20:22 Talwin; vc1 20:22 Tricor; vc1 - Home Meds: 20:22 omeprazole 20 mg Oral cpDR [Active]; levothyroxine 50 mcg cap 1 cap once daily vc1 [Active]; Bystolic 10 mg oral tab 1 tab once daily [Active]; amlodipine 5 mg tab 2 tabs once daily [Active]; 20:24 Pentoxifylline [Active]; Xanax 0.25 mg Oral tab 1 tab 3 times per day [Active]; vc1 clonidine HCl 0.2 mg Oral tab 1 tab 2 times per day [Active]; Plavix 75 mg Oral tab 1 tab once daily [Active]; atorvastatin 40 mg oral tab 1 tab once daily [Active]; Zofran 4 mg Oral tab 1 tab every 6 hours [Active]; - PMHx: 20:24 High Cholesterol; Hyperlipidemia; Hypertension; Pacemaker; TIA; vc1 20:28 Diverticulosis; vc1 - PSHx: 20:24 Cholecystectomy; Left Lung; Lumbar; Pace maker; vc1 - Immunization history:: Adult Immunizations up to date, Client reports receiving the 2nd dose of the Covid vaccine, [employer] Flu vaccine is up to date. - Social history:: Smoking status: Patient denies any tobacco usage or history of. - Family history:: not pertinent. - Hospitalizations: : No recent hospitalization is reported. ROS: 20:42 Constitutional: Negative for fever, chills, and weight loss, Eyes: Negative for injury, rn pain, redness, and discharge, Neck: Negative for injury, pain, and swelling, Cardiovascular: Negative for palpitations, and edema, Respiratory: Negative for shortness of breath, wheezing, and pleuritic chest pain, Abdomen/GI: Negative for vomiting, and constipation, : Negative for injury, bleeding, discharge, and swelling, MS/Extremity: Negative for injury and deformity, Skin: Negative for injury, rash, and discoloration, Neuro: Negative for headache, numbness, tingling, and seizure. Exam: 20:42 ECG was reviewed by the Attending Physician. rn 20:42 Constitutional: This is a well developed, well nourished patient who is awake, alert, rn appears like doesn't feel well, holding emesis bag in left hand Head/Face: Normocephalic, atraumatic. Eyes: Periorbital areas with no swelling, redness, or edema. ENT: dry MM Chest/axilla: Normal chest wall appearance and motion. Nontender with no deformity. No lesions are appreciated. Cardiovascular: Regular rate and rhythm. No pulse deficits. Respiratory: Mild tachypnea, no retractions, speaking full sentences. Abdomen/GI: soft, mild supra pubic and periumbilical tenderness, no rebound or masses. Skin: Warm, dry MS/ Extremity: Pulses equal, no cyanosis. Neurovascular intact. Full, normal range of motion. Equal circumference. Neuro: Awake and alert, GCS 15, oriented to person, place, time, and situation. Cranial nerves II-XII grossly intact. Motor strength 5/5 in all extremities. Sensory grossly intact. Cerebellar exam normal. Vital Signs: 20:17 BP 144 / 103; Pulse 66; Resp 16 S; Temp 97.7; Pulse Ox 100% on R/A; Weight 52.62 kg; vc1 Height 5 ft. 3 in. (160.02 cm); Pain 8/10; 20:35 BP 170 / 62; Pulse 63; Resp 24; Pulse Ox 100% on R/A; tw5 20:53 BP 162 / 51; Pulse 66; Resp 18; Pulse Ox 100% on R/A; tw5 22:26 BP 152 / 55; Pulse 85; Resp 16 S; Pulse Ox 99% on R/A; as6 23:27 BP 143 / 50; Pulse 66; Resp 18; Pulse Ox 99% on R/A; tw5 20:17 Body Mass Index 20.55 (52.62 kg, 160.02 cm) vc1 MDM: 20:17 Patient medically screened. rn 23:01 Differential diagnosis: acute myocardial infarction, acute pericarditis, anxiety, rn coronary artery disease chest wall pain, esophagitis, gastritis, gastroesophageal reflux disease (GERD), pancreatitis, peptic ulcer disease, pleurisy, pneumothorax. Data reviewed: vital signs, nurses notes, lab test result(s), EKG, radiologic studies, CT scan, and as a result, I will admit patient. Counseling: I had a detailed discussion with the patient and/or guardian regarding: the historical points, exam findings, and any diagnostic results supporting the discharge/admit diagnosis, lab results, radiology results, the need for further work-up and treatment in the hospital. Response to treatment: the patient's symptoms have mildly improved after treatment, and as a result, I will admit patient. Admission orders: after a detailed discussion of the patient's condition and case, the admit orders are written by me. ED course: Pt states still doesn't feel well, still has chest pain and abd pain, no acute findings on CT chest/abdomen/pelvis. No acute findings in bloodowork, other than mild electrolyte disturbances. Will admit to Dr. Hernandez for further care as patient not comfortable going home the way she is currently feeling.. 23:11 ED course: Pt possibly with esophagitis/GERD problems and could likely benefit from GI rn consultation.. 08/23 20:23 Order name: Basic Metabolic Panel; Complete Time: :08/23 20:23 Order name: CBC with Diff; Complete Time: :08/23 20:23 Order name: LFT's; Complete Time: :08/23 20:23 Order name: Magnesium; Complete Time: :08/23 20:23 Order name: NT PRO-BNP; Complete Time: :08/23 20:23 Order name: PT-INR; Complete Time: :08/23 20:23 Order name: Troponin HS; Complete Time: :08/23 20:23 Order name: XRAY Chest (1 view); Complete Time: :08/23 20:23 Order name: EKG; Complete Time: 20:24 08/23 20:23 Order name: Lipase; Complete Time: 21:08/23 20:23 Order name: CT Aorta for Dissection 08/23 20:23 Order name: SARS-COV-2 RT PCR (Document "Date of Onset" if Symptomatic); Complete Time: rn :08/23 20:23 Order name: Cardiac monitoring; Complete Time: 20:42 08/23 20:23 Order name: EKG - Nurse/Tech; Complete Time: 20:42 08/23 20:23 Order name: IV Saline Lock; Complete Time: 20:51 24 20:23 Order name: Labs collected and sent; Complete Time: 20:51 rn 08/23 20:23 Order name: O2 Per Protocol; Complete Time: :42 rn 08/23 20:23 Order name: O2 Sat Monitoring; Complete Time: 20:42 rn EC: Rate is 66 beats/min. Rhythm is regular. QRS [place] is Normal. W[place] interval is normal. QRS rn interval is normal. QT interval is normal. No Q waves. T waves are Inverted in leads V5, V6. No ST changes noted. Clinical impression: NSR w/ Non-specific ST/T Changes. Interpreted by me. Reviewed by me. Administered Medications: 20:51 Drug: Zofran (Ondansetron) 4 mg Route: IVP; Site: right antecubital; 08/24 00:08 Follow up: Response: No adverse reaction as6 08/23 20:52 Drug: ProTONIX (pantoprazole) 40 mg Route: IVP; Site: right antecubital; 08/24 00:08 Follow up: Response: No adverse reaction as6 Disposition Summary: 08/23/21 23:05 Hospitalization Ordered Hospitalization Status: Observation rn Provider: Sumit Hernandez rn Location: Telemetry/MedSurg (observation) rn Condition: Stable rn Problem: new rn Symptoms: are unchanged rn Bed/Room Type: Standard rn Room Assignment: 202(08/23/21 23:17) Diagnosis - Chest pain, unspecified rn - Abdominal pain, unspecified rn - Hypo-osmolality and hyponatremia rn Forms: - Medication Reconciliation Form rn - SBAR form rn Signatures: Dispatcher [employer] EDOK Tennille Goncalves RN RN mw Nieto, Roman, MD MD rn Wood, Tiffany tw5 Archie Escoto RN RN as6 Matilde Lopes RN RN vc1 Corrections: (The following items were deleted from the chart) 08/23 20:26 20:22 Allergies: amlodipine; vc1 vc1 23:17 23:05 rn be 23:39 23:38 PMHx: TIA; as6 as6 23:39 23:38 PSHx: Right Ankle; as6 as6
--- NOTE | 2021-08-23 23:06 | ER ---
Nurse's Notes [facility] Name: Zee Lindsay Age: 86 yrs Sex: Female : 1935 Arrival Date: 08/23/2021 Time: 20:14 Bed 7 Private MD: Diagnosis: Chest pain, unspecified;Abdominal pain, unspecified;Hypo-osmolality and hyponatremia Presentation: 08/23 20:17 Chief complaint: Patient states: Its tight across my chest under my breast and across vc1 the top of my stomach. It feels like it is just squeezing. Coronavirus screen: Vaccine status: Patient reports receiving the 2nd dose of the covid vaccine. Pfizer and booster fatigue, muscle pain, nausea, Client presents with at least one sign or symptom that may indicate coronavirus-19. Standard/surgical mask placed on the client. Provider contacted for isolation considerations. Ebola Screen: No symptoms or risks identified at this time. Initial Sepsis Screen: Does the patient meet any 2 criteria? No. Patient's initial sepsis screen is negative. Does the patient have a suspected source of infection? No. Patient's initial sepsis screen is negative. Risk Assessment: Do you want to hurt yourself or someone else? Patient reports no desire to harm self or others. Onset of symptoms was August 23, 2021 at 08:00. 20:17 Method Of Arrival: Wheelchair vc1 20:17 Acuity: DESIRE 3 vc1 Triage Assessment: 20:24 General: Appears uncomfortable, Behavior is calm, cooperative, appropriate for age. vc1 Pain: Complains of pain in diaphragm, right upper quadrant and left upper quadrant. Cardiovascular: Denies shortness of breath, Patient's skin is warm and dry. Respiratory: No deficits noted. GI: Reports upper abdominal pain, nausea. Historical: - Allergies: 20:22 Clonidine; vc1 20:22 Codeine; vc1 20:22 Darvocet-N 100; vc1 20:22 guafin; vc1 20:22 Labetalol; vc1 20:22 Levaquin; vc1 20:22 Lisinopril; vc1 20:22 Lyrica; vc1 20:22 magnesium; vc1 20:22 Minoxidil; vc1 20:22 Morphine; vc1 20:22 Nicen; vc1 20:22 Nifedipine; vc1 20:22 Norvasc; vc1 20:22 PENICILLINS; vc1 20:22 PENTAZOCINE; vc1 20:22 Premarin; vc1 20:22 propargyl vela; vc1 20:22 Rifampin; vc1 20:22 Soma; vc1 20:22 Talwin; vc1 20:22 Tricor; vc1 - Home Meds: 20:22 omeprazole 20 mg Oral cpDR [Active]; levothyroxine 50 mcg cap 1 cap once daily vc1 [Active]; Bystolic 10 mg oral tab 1 tab once daily [Active]; amlodipine 5 mg tab 2 tabs once daily [Active]; 20:24 Pentoxifylline [Active]; Xanax 0.25 mg Oral tab 1 tab 3 times per day [Active]; vc1 clonidine HCl 0.2 mg Oral tab 1 tab 2 times per day [Active]; Plavix 75 mg Oral tab 1 tab once daily [Active]; atorvastatin 40 mg oral tab 1 tab once daily [Active]; Zofran 4 mg Oral tab 1 tab every 6 hours [Active]; - PMHx: 20:24 High Cholesterol; Hyperlipidemia; Hypertension; Pacemaker; TIA; vc1 20:28 Diverticulosis; vc1 - PSHx: 20:24 Cholecystectomy; Left Lung; Lumbar; Pace maker; vc1 - Immunization history:: Adult Immunizations up to date, Client reports receiving the 2nd dose of the Covid vaccine, [employer] Flu vaccine is up to date. - Social history:: Smoking status: Patient denies any tobacco usage or history of. - Family history:: not pertinent. - Hospitalizations: : No recent hospitalization is reported. Screenin:21 Abuse screen: Denies threats or abuse. Denies injuries from another. Nutritional tw5 screening: No deficits noted. Tuberculosis screening: No symptoms or risk factors identified. Fall Risk Secondary diagnosis (15 points). Assessment: 20:35 General: Reports "I have been feeling tightness across me, right under my left breast. tw5 It is also across my stomach.". Pain: Pain radiates to diaphragm, right lower quadrant and left lower quadrant. Neuro: Level of Consciousness is awake, alert, obeys commands. 20:45 Pain: Pain began 1 day ago. tw5 20:53 Cardiovascular: Heart tones S1 S2 present. Respiratory: Airway is patent Trachea tw5 midline Respiratory effort is even, unlabored, Breath sounds are clear bilaterally. GI: Abdomen is flat, non-distended, Bowel sounds hyperactive in right upper quadrant and left upper quadrant. 22:35 Reassessment: No changes from previously documented assessment. as6 Vital Signs: 20:17 BP 144 / 103; Pulse 66; Resp 16 S; Temp 97.7; Pulse Ox 100% on R/A; Weight 52.62 kg; vc1 Height 5 ft. 3 in. (160.02 cm); Pain 8/10; 20:35 BP 170 / 62; Pulse 63; Resp 24; Pulse Ox 100% on R/A; tw5 20:53 BP 162 / 51; Pulse 66; Resp 18; Pulse Ox 100% on R/A; tw5 22:26 BP 152 / 55; Pulse 85; Resp 16 S; Pulse Ox 99% on R/A; as6 23:27 BP 143 / 50; Pulse 66; Resp 18; Pulse Ox 99% on R/A; tw5 20:17 Body Mass Index 20.55 (52.62 kg, 160.02 cm) vc1 ED Course: 20:14 Patient arrived in ED. ja2 20:17 Yousuf Velázquez MD is Attending Physician. rn 20:21 Triage completed. vc1 20:27 Arm band placed on left wrist. vc1 20:29 Archie Escoto, RN is Primary Nurse. as6 20:39 Primary Nurse role handed off by Archie Escoto, RN tw5 20:39 oSphie Wright is Primary Nurse. tw5 20:45 Patient has correct armband on for positive identification. Placed in gown. Bed in low tw5 position. Call light in reach. Side rails up X2. Adult w/ patient. monitor technician on. Pulse ox on. NIBP on. Door closed. Noise minimized. Moved to private room. Warm blanket given. Verbal reassurance given. 20:45 Initial lab(s) drawn, by ED staff, sent to lab. EKG done, by ED staff, reviewed by tw5 Yousuf Velázquez MD COVID swab sent to lab. Inserted saline lock: 20 gauge in right antecubital area, using aseptic technique. Blood collected. 20:51 SARS-COV-2 RT PCR (Document "Date of Onset" if Symptomatic) Sent. tw5 20:51 Basic Metabolic Panel Sent. tw5 20:51 CBC with Diff Sent. tw 20:51 LFT's Sent. tw 20:51 Magnesium Sent. tw 20:51 NT PRO-BNP Sent. tw 20:51 PT-INR Sent. 20:51 Troponin HS Sent. tw 20:53 Lipase Sent. tw 21:03 XRAY Chest (1 view) In Process Unspecified. EDMS 21:57 CT Aorta for Dissection In Process Unspecified. EDMS 22:36 Assisted to bedside commode. as6 23:04 Sumit Hernandez MD is Hospitalizing Provider. rn 23:21 No provider procedures requiring assistance completed. Patient admitted, IV remains in tw5 place. Patient maintains SpO2 saturation greater than 95% on room air. 23:38 Assisted to bedside commode. as6 Administered Medications: 20:51 Drug: Zofran (Ondansetron) 4 mg Route: IVP; Site: right antecubital; tw08/24 00:08 Follow up: Response: No adverse reaction as6 08/23 20:52 Drug: ProTONIX (pantoprazole) 40 mg Route: IVP; Site: right antecubital; tw08/24 00:08 Follow up: Response: No adverse reaction as6 Outcome: 08/23 23:05 Decision to Hospitalize by Provider. rn 23:26 Admitted to Med/surg Report called to Attempted to give report was told nurse was busy with another patient and will call back 08/24 00:08 Condition: stable as6 00:08 Patient left the ED. as6 Signatures: Dispatcher [employer] EDMS Yousuf Velázquez MD MD rn Alexander, Jessica ja2 Wood, Tiffany Archie Escoto RN RN as6 Matilde Lopes RN RN vc1 Corrections: (The following items were deleted from the chart) 08/23 20: 20:22 Allergies: amlodipine; vc1 vc1 23:39 23:38 PMHx: TIA; as6 as6 23:39 23:38 PSHx: Right Ankle; as6 as6
[2021-08-23] MEDS ORDERED: ONDANSETRON 4 MG/2 ML VIAL IV PRN (23:39)
[2021-08-24 00:53] VITALS: BMI 20.2
[2021-08-24 02:07] VITALS: O2SAT 99
[2021-08-24 06:43] LABS: Potassium 3.6 mmol/L (3.5-5.1)
[2021-08-24 06:58] LABS: Absolute Lymphocytes (CBC) 1.4 K/uL (0.7-4.9); Hematocrit 39.7 % (36.0-45.0); MPV 7.8 fL (7.6-11.3); RBC Red Blood Cell Count 4.36 M/uL (3.86-4.86)
[2021-08-24] MEDS ORDERED: PNEUMOCOCCAL VACCINE 0.5 ML IMVAC ONE (08:00)
[2021-08-24] MEDS ORDERED: FAMOTIDINE 20 MG/2 ML VIAL IV SCH (09:00)
[2021-08-24] MEDS ORDERED: NA CHLORIDE 0.9% 500 ML IV ONE (09:02)
[2021-08-24] MEDS ORDERED: ASPIRIN EC 81 MG TAB PO SCH (10:00)
[2021-08-24] MEDS ORDERED: AMLODIPINE 5 MG TAB PO SCH (10:00)
[2021-08-24] MEDS ORDERED: NEBIVOLOL HCL 5 MG TAB PO SCH (10:00)
[2021-08-24] MEDS ORDERED: PENTOXIFYLLINE ER 400 MG TAB PO SCH (10:00)
[2021-08-24] MEDS ORDERED: HYOSCYAMINE SULF 0.125 MG TAB PO SCH (10:00)
[2021-08-24] MEDS ORDERED: CLOPIDOGREL 75 MG TABLET PO SCH (10:00)
--- NOTE | 2021-08-24 11:28 | RAD REPORT ---
EXAM DESCRIPTION: CT - Angio Aorta For Dissection - 08/24/2021 6:30 am CLINICAL HISTORY: Abd pain;Chest pain. COMPARISON: CT of the abdomen and pelvis from January 27, 2021. TECHNIQUE: CTA of the chest, abdomen, and pelvis was performed following intravenous administration of iodinated contrast. Axial soft tissue and lung window, and coronal and sagittal soft tissue window reconstructions were created and sent to PACS. 3D postprocessing was performed on an independent workstation, with images sent to PACS for subsequen t review. This exam was performed according to our departmental dose-optimization program, which includes autom ated exposure control, adjustment of the mA and/or kV according to patient size and/or use of iterati ve reconstruction technique. FINDINGS: Vascular: No obvious central acute pulmonary thromboembolism. No evidence of aortic aneury sm or dissection. Moderate mixed atherosclerosis. The celiac axis, SMA, and FARRUKH and their major branc hes are patent. The bilateral renal arteries are patent. There is a stent in the proximal right renal artery which appears patent. There are prominent atherosclerotic the calcifications at the origins o f the renal arteries, with suspected mild to moderate stenosis. No vascular occlusions are identified . Lungs and pleura: No pulmonary consolidation. No pleural effusion. No pneumothorax. Mediastinum and neck: No mediastinal lymphadenopathy by CT size criteria. Unremarkable appearance of the thyroid gland. Cardiac: Mild cardiomegaly. No pericardial effusion. Hepatobiliary: No concerning hepatic lesion identified. The portal veins are patent. The gallbladder is surgically absent. No pathologic biliary ductal dilatation. Pancreas: Unremarkable. Spleen: Unremarkable. Gastrointestinal: No evidence of bowel obstruction or perienteric inflammation. The appendix is nonvi sualized, but there are no pericecal inflammatory changes. There is moderate left colonic diverticulo sis. Adrenals: No abnormality identified in either adrenal gland. Renal: Right renal atrophy. No concerning parenchymal abnormality in either kidney. No hydronephrosis or urolithiasis. Bladder/Reproductive: Unremarkable appearance of the urinary bladder by CT technique. Lymphatics: No lymphadenopathy identified by CT size criteria. Musculoskeletal: No concerning osseous lesion identified. Fluid / peritoneum: No significant free fluid. No free intraperitoneal air identified. IMPRESSION: 1. No evidence of aortic aneurysm or dissection. 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 Patent right renal artery stent. 2. No acute abnormality identified in the chest, abdomen, or pelvis by CT. 3. Right renal atrophy. 4. Moderate left colonic diverticulosis. Electronically signed by: Dianna Winn MD 08/23/2021 10:35 PM EVENTS ADMINISTRATIVE ASSISTANT Due to temporary technical issues with the PACS/Fluency reporting system, reports are being signed by the in house radiologist without review as a courtesy to ensure prompt reporting. The interpreting r adiologist is fully responsible for the content of the report.
[2021-08-24 16:53] VITALS: BP 132/62; TEMP 98
--- NOTE | 2021-08-24 22:59 | SS ---
Date of Discharge: 08/24/2021 Chief Complaint: Abdominal pain, chest pain. History Of Present Illness: This is an 86-year-old very pleasant female patient, came into emergency room yesterday evening with above-mentioned complaints. The patient says that ever since yesterday morning she woke up, she started to have this upper abdominal pain, which is all across her upper abd omen, in her epigastric area and underneath both lower rib cages. She describes this pain as like a tightening band-type of sensation. She also had some discomfort in the lower center of her chest ass ociated with that. She had some nausea, but no vomiting. No fever. No chills. No trouble swallowi ng. After she came into emergency room, she was evaluated and admitted to the hospital. This genonin g when I saw her, her breakfast was sitting next to her on the table. She did not eat anything as sh e did not feel like eating because of the pain. No abdominal distention. No blood in stool. She dawn s history of either constipation or diarrhea every few days, and this has not changed lately. Medications: List reviewed. Review of Systems: GI: As mentioned above. Cardiovascular: As mentioned above. All Other Systems: Reviewed and negative. Past Medical History: Significant for stroke, hypertension, hypothyroidism, hyperlipidemia, divertic ulosis, chronic kidney disease, anxiety, renal artery stenosis, and coronary artery disease, and she had only about 10% to 20% plaque buildup in her RCA. Rest of the coronary arteries were normal. Allergies: SHE IS LISTED ALLERGIC TO: 1.PENICILLIN, CAUSING RASH AND ITCHING. 2.MORPHINE, CAUSING NAUSEA, VOMITING. 3.SULFA, CAUSING RASH AND ITCHING. 4.CODEINE, CAUSING HEADACHE. 5.TRICOR, DETAILS UNKNOWN. 6.NIFEDIPINE, DETAILS UNKNOWN. 7.LEVAQUIN, CAUSING RASH AND ITCHING. 8.NIACIN, CAUSING FLUSHING. 9.LISINOPRIL, DETAILS UNKNOWN. 10.DARVOCET, DETAILS UNKNOWN. 11.SOMA, DETAILS UNKNOWN. 12.TALWIN, DETAILS UNKNOWN. 13.MINOXIDIL, DETAILS UNKNOWN. 14.LABETALOL, DETAILS UNKNOWN. 15.LYRICA, DETAILS UNKNOWN. 16.RIFAMPIN, DETAILS UNKNOWN. 17.PREMARIN, CAUSING ITCHING. 18.DOXYCYCLINE, CAUSING RASH AND ITCHING. 19.CIPRO, CAUSING RASH. Past Surgical History: Pleurodesis in 2019 for pleural effusion and this was after fall and injury, breast biopsy which was benign. Pacemaker placement in January 2012 due to sick sinus syndrome. Chol ecystectomy, back surgery, ankle surgery, and renal artery stent for renal artery stenosis in January of 2021. Family History: Father of [place]. Mother had breast cancer, cervical cancer and heart disease. So n and daughter with thalassemia minor. Social History: History of smoking, not at present time. Use of alcohol negative. Physical Examination: Vital Signs: This morning, temperature 97.8, pulse 65, respiratory rate 18, blood pressure 158/81, o xygen saturation 98%, height 5 feet 3 inches, weight 114 pounds. General: Awake, alert, oriented, not in distress. HEENT: Head atraumatic, normocephalic. Conjunctivae nonerythematous. Sclerae white. Mouth, no thr ush or edema noted. Ears/Nose, no mass, lesion, discharge noted. Neck: Supple. No JVD, lymph nodes, bruit, thyromegaly noted. Lungs: Bilateral good equal air entry. Clear to auscultation. No rhonchi. No rales. Heart: Normal heart sounds, no murmur or gallop. Abdomen: Soft, bowel sounds normal. No guarding, rigidity, tenderness, mass, hepatosplenomegaly, dis tention, or bruit noted. Extremities: No leg edema. No calf tenderness. Skin: No rash, ulcer, cellulitis. Lymphatics: No lymph node enlargement in neck, supraclavicular, infraclavicular region. Neuro: No focal neurological deficit. Chest: Unremarkable. External Genitalia: Deferred. Rectal: Deferred. Laboratory Data: Yesterday, white count 9.3, hemoglobin 14.4, platelets 190. Today, white count 8.1 , hemoglobin 13.7, platelets 188. Yesterday, sodium 126, potassium 3.8, chloride 94, bicarb 26, BUN 9, creatinine 1.10, glucose 117. Liver function tests unremarkable. Troponin 10.90, proBNP 595, lip ase 127. This morning, sodium 128, potassium 3.6, chloride 97, bicarb 27, BUN 9, creatinine 1.07, gl ucose 94. Second troponin 18.5, INR 0.97. COVID-[address] scan per dissection protocol shows no evidence of acute aortic findings. The superficial mesenteric artery, celiac artery and inf erior mesenteric arteries all appear patent. Renal artery appears patent. No acute abnormality note d in chest, abdomen pelvis by CT scan evidence of diverticulosis without diverticulitis. Hospital Course: After the patient was evaluated in ER, she was admitted to the hospital this mornin g. She still continues to have abdominal pain in the upper abdomen. I will try Levsin per order. S he already has famotidine 20 mg IV 2 times a day ordered, which we will continue that. She has appoi ntment with Dr. Ruelas on Friday of this coming week to have an EGD done, and I have encouraged her to keep that appointment. We will give her IV fluid, normal saline at 75 mL/hour for volume depletion a s noted on the basis of hyponatremia problem and our plan is to possibly discharge her to go home lat er on today. TN has been ruled out. Final Diagnoses: 1.Chest pain. 2.Abdominal pain, upper abdomen. 3.Hyponatremia. 4.Volume depletion. 5.Coronary artery disease. 6.Hypertension. 7.Renal artery stenosis. 8.Hypothyroidism. 9.Hyperlipidemia. 10.Diverticulosis. 11.Anxiety. 12.Chronic kidney disease, stage IIIA. Discharge Medications And Instructions: 1.Continue all prior home medication. 2.Take Levsin 0.125 mg 1 tablet by mouth 2 times a day as needed for abdominal pain. 3.Follow up at my office next week and the patient to call for appointment. MARGO/MODL Voice ID: [id number] Report ID: [id number]
== END 2021-08-24 19:40 | disposition home or self-care (01) ==
LOC: ER 20:09 → 2ND 23:17
PROVIDERS: ADMIT Internal Medicine; ATTEND Internal Medicine
DX: R07.9 Chest pain, unspecified (principal); R10.10 Upper abdominal pain, unspecified; E87.1 Hypo-osmolality and hyponatremia; E86.9 Volume depletion, unspecified; I25.10 Atherosclerotic heart disease of native coronary artery without angina pectoris; I70.1 Atherosclerosis of renal artery; E03.9 Hypothyroidism, unspecified; E78.5 Hyperlipidemia, unspecified; K57.90 Diverticulosis of intestine, part unspecified, without perforation or abscess without bleeding; F41.9 Anxiety disorder, unspecified; I12.9 Hypertensive chronic kidney disease with stage 1 through stage 4 chronic kidney disease, or unspecified chronic kidney disease; N18.31 Chronic kidney disease, stage 3a; Z20.822 Contact with and (suspected) exposure to COVID-19
CPT/HCPCS: 85025 ×2; 80048 ×3; 36415; 83735; 85610; 80076; 84484 ×3; 83690; 83880; 71275; 74175; 71045; 96375; 96374; 99285; U0003; Q9967; C9113; J7040; J2405; G0378 ×2

== ENCOUNTER 2021-09-07 10:54 | Emergency (ER) | payer OTHER ==
--- OUTSIDE RECORDS SUMMARY | 2021-09-07 10:57 | XMS REPORT | Continuity of Care Document ---
:1935 Author Organization [facility] t Address [address] [place] [address] Dr. Strong [address] [place] [id number] Care Team Providers Name Role Phone Unavailable [...] Clinicians Facility Department ID 2020-08-22 2020-08-22 Outpatient [facility] [id number] [facility] 00:00:00 00:00:00 Results This patient has no known results.
[2021-09-07 12:13] LABS: Absolute Lymphocytes (CBC) 1.1 K/uL (0.7-4.9); Hematocrit 41.1 % (36.0-45.0); Lymphocytes % 12.6 % (15.3-44.8); MPV 7.6 fL (7.6-11.3); RBC Red Blood Cell Count 4.53 M/uL (3.86-4.86)
[2021-09-07 12:31] LABS: Albumin 4.3 g/dL (3.4-5.0); Bilirubin Direct 0.2 mg/dL (0-0.2); Bilirubin Total 0.9 mg/dL (0.2-1.0); Protein, Total 8.4 g/dL (6.4-8.2)
[2021-09-07 12:35] LABS: Potassium 4.5 mmol/L (3.5-5.1)
[2021-09-07] MEDS ORDERED: PHENAZOPYRIDINE 100MG TAB PO ONE (12:47)
[2021-09-07] MEDS ORDERED: SMZ./TMP. 800/160 MG TABLET ONE (12:47)
[2021-09-07 13:16] LABS: Urine Blood Negative (Negative); Urine Glucose Trace (Negative); Urine Protein Negative (Negative)
[2021-09-07 13:32] LABS: Urine Appearance CLOUDY (Clear); Urine Bilirubin NEGATIVE (Negative); Urine Blood NEGATIVE (Negative); Urine Color ORANGE (Yellow); Urine Glucose NEGATIVE (Negative); Urine Protein NEGATIVE (Negative); Urine Specific Gravity <=1.005 (1.005-1.030)
[2021-09-07 13:33] LABS: Urine Microscopic Reflex ORDER UMIC
[2021-09-07 13:59] LABS: Urine Bacteria <20 /HPF (<20); Urine Mucus 1+ /HPF (NONE SEEN); Urine RBC <5 /HPF (NONE SEEN)
--- NOTE | 2021-09-07 14:47 | RAD REPORT ---
EXAM DESCRIPTION: CT - Abdomen Pelvis W Contrast - 09/07/2021 2:33 pm CLINICAL HISTORY: Abdominal pain COMPARISON: Jul 2021 TECHNIQUE: Computed axial tomography of the abdomen pelvis was obtained. 100 cc Isovue-300 was admin istered intravenously. Oral contrast was not requested which limits evaluation of bowel. All CT scans are performed using dose optimization technique as appropriate and may include automated exposure control or mA/KV adjustment according to patient size. FINDINGS: The liver, spleen, pancreas, and adrenals appear unremarkable. Cholecystectomy Small left renal cysts. The right kidney is small with cortical thinning. It demonstrates normal concentration of contrast. I t is without significant change from the prior exam and may be related to prior ischemia or inflammat ion. Atherosclerosis resulting in moderate grade stenosis renal arteries Air bubble within the bladder Atherosclerotic disease Hysterectomy. No adnexal mass. Diverticulosis without evidence of diverticulitis. Hysterectomy IMPRESSION: Air bubble within the bladder may be secondary to recent instrumentation. Infection can also result in this appearance.
--- NOTE | 2021-09-07 15:48 | EDPHYS ---
Physician Documentation [facility] Name: Zee Lindsay Age: 86 yrs Sex: Female : 1935 Arrival Date: 09/07/2021 Time: 10:58 Bed 17 Private MD: ED Physician Keith Rosario HPI: 09/07 17:31 This 86 yrs old Female presents to ER via Wheelchair with complaints of Abdominal Pain. kdr 17:31 The patient presents with abdominal pain Patient is brought to the ED by her daughter dale with a concern that she may have a recurrent urinary tract infection. Patient has had multiple urinary tract infections previously and her symptoms today seem similar. Patient is otherwise nontoxic appearing and alert and appropriate and at her baseline per the daughter. Onset: The symptoms/episode began/occurred gradually, 3 day(s) ago. The symptoms do not radiate. Associated signs and symptoms: Pertinent positives: dysuria, hematuria, Pertinent negatives: anorexia, blood in stools, chest pain, constipation, diarrhea. The symptoms are described as achy, crampy, vague. Modifying factors: The symptoms are alleviated by nothing, the symptoms are aggravated by Urination. Severity of pain: At its worst the pain was mild moderate just prior to arrival, in the emergency department the pain is unchanged. The patient has not experienced similar symptoms in the past. The patient has not recently seen a physician. Historical: - Allergies: 11:14 Codeine; ww 11:14 Clonidine; ww 11:14 Darvocet-N 100; ww 11:14 guafin; ww 11:14 Labetalol; ww 11:14 Levaquin; ww 11:14 Lisinopril; ww 11:14 Lyrica; ww 11:14 magnesium; ww 11:14 Minoxidil; ww 11:14 Morphine; ww 11:14 Nicen; ww 11:14 Nifedipine; ww 11:14 Norvasc; ww 11:14 PENICILLINS; ww 11:14 PENTAZOCINE; ww 11:14 Premarin; ww 11:14 propargyl vela; ww 11:14 Rifampin; ww 11:14 Soma; ww 11:14 Talwin; ww 11:14 Tricor; ww 11:14 dorjaycline; ww - PMHx: 11:14 diverticulosis; High Cholesterol; Hyperlipidemia; Hypertension; Pacemaker; TIA; gastric ww ulcer; - PSHx: 11:14 Cholecystectomy; Left Lung; Lumbar; Pace maker; right kidney stent; left kidney ww balloon; pacemaker; - Immunization history:: Adult Immunizations up to date. - Social history:: Smoking status: Patient denies any tobacco usage or history of. ROS: 17:31 Constitutional: Negative for fever, chills, and weight loss, Eyes: Negative for injury, kdr pain, redness, and discharge, ENT: Negative for injury, pain, and discharge, Neck: Negative for injury, pain, and swelling, Cardiovascular: Negative for chest pain, palpitations, and edema, Respiratory: Negative for shortness of breath, cough, wheezing, and pleuritic chest pain, Back: Negative for injury and pain, MS/Extremity: Negative for injury and deformity, Skin: Negative for injury, rash, and discoloration, Neuro: Negative for headache, weakness, numbness, tingling, and seizure activity. Psych: Negative for depression, anxiety, suicide ideation, homicidal ideation, and hallucinations, Allergy/Immunology: Negative for hives, rash, and allergies, Endocrine: Negative for neck swelling, polydipsia, polyuria, polyphagia, and marked weight changes, Hematologic/Lymphatic: Negative for swollen nodes, abnormal bleeding, and unusual bruising. 17:31 Abdomen/GI: Positive for abdominal pain, nausea, Negative for constipation, abdominal distension, anorexia, dysphagia, hematemesis, black/tarry stool, rectal pain, rectal bleeding. 17:31 : Positive for urinary symptoms, urinary frequency, burning with urination, difficulty urinating. Exam: 17:31 Constitutional: This is a well developed, well nourished patient who is awake, alert, kdr and in no acute distress. Head/Face: Normocephalic, atraumatic. Eyes: Pupils equal round and reactive to light, extra-ocular motions intact. Lids and lashes normal. Conjunctiva and sclera are non-icteric and not injected. Cornea within normal limits. Periorbital areas with no swelling, redness, or edema. Neck: Trachea midline, no thyromegaly or masses palpated, and no cervical lymphadenopathy. Supple, full range of motion without nuchal rigidity, or vertebral point tenderness. No Meningismus. Chest/axilla: Normal chest wall appearance and motion. Nontender with no deformity. No lesions are appreciated. Cardiovascular: Regular rate and rhythm with a normal S1 and S2. No gallops, murmurs, or rubs. Normal PMI, no JVD. No pulse deficits. Respiratory: Lungs have equal breath sounds bilaterally, clear to auscultation and percussion. No rales, rhonchi or wheezes noted. No increased work of breathing, no retractions or nasal flaring. Back: No spinal tenderness. No costovertebral tenderness. Full range of motion. Skin: Warm, dry with normal turgor. Normal color with no rashes, no lesions, and no evidence of cellulitis. MS/ Extremity: Pulses equal, no cyanosis. Neurovascular intact. Full, normal range of motion. Neuro: Awake and alert, GCS 15, oriented to person, place, time, and situation. Cranial nerves II-XII grossly intact. Motor strength 5/5 in all extremities. Sensory grossly intact. Cerebellar exam normal. Normal gait. Psych: Awake, alert, with orientation to person, place and time. Behavior, mood, and affect are within normal limits. 17:31 Abdomen/GI: Inspection: abdomen appears normal, Bowel sounds: active, all quadrants, Palpation: soft, mild abdominal tenderness, in all quadrants. Vital Signs: 11:12 BP 149 / 53; Pulse 66; Resp 16; Temp 98.1; Pulse Ox 98% on R/A; Weight 51.71 kg; Height ww 5 ft. 3 in. (160.02 cm); Pain 4/10; 12:31 BP 133 / 52; Pulse 67; Resp 16; Pulse Ox 95% on R/A; ww 13:30 BP 134 / 64; Pulse 59; Resp 16; Pulse Ox 96% on R/A; ww 16:07 BP 144 / 56; Pulse 68; Resp 16; ww 11:12 Body Mass Index 20.19 (51.71 kg, 160.02 cm) MDM: 15:48 Patient medically screened. kdr 17:31 Data reviewed: vital signs, nurses notes, lab test result(s), radiologic studies, CT kdr scan. Counseling: I had a detailed discussion with the patient and/or guardian regarding: the historical points, exam findings, and any diagnostic results supporting the discharge/admit diagnosis, lab results, radiology results, the need for outpatient follow up. 09/07 11:28 Order name: Basic Metabolic Panel kdr 09/07 11:28 Order name: CBC with Diff; Complete Time: 14:09 kdr 09/07 11:28 Order name: Hepatic Function; Complete Time: 14:09 [facility] 09/07 11:28 Order name: Lipase; Complete Time: 14:09 [facility] 09/07 11:29 Order name: Basic Metabolic Panel; Complete Time: 14:09 [facility] 09/07 11:41 Order name: Urine Culture [facility] 09/07 11:28 Order name: IV Saline Lock; Complete Time: 12:02 kdr 09/07 11:28 Order name: Labs collected and sent; Complete Time: 12:02 kdr 09/07 12:17 Order name: UA; Complete Time: 14:09 em1 09/07 13:15 Order name: Urine Dipstick-Ancillary [facility] 09/07 13:40 Order name: Urine Microscopic Only; Complete Time: 14:09 [facility] 09/07 14:11 Order name: CT Abd/Pelvis - IV Contrast Only; Complete Time: 15:18 kdr Administered Medications: 12:46 Drug: Pyridium (phenazopyridine) 100 mg Route: PO; ww 12:46 Drug: Bactrim (trimethoprim-sulfamethoxazole) (160 mg-800 mg (DS) 1 tablet Route: PO; ww Disposition Summary: 09/07/21 15:48 Discharge Ordered Location: Home kdr Problem: new kdr Symptoms: have improved kdr Condition: Stable kdr Diagnosis - UTI/ Urinary tract infection, site not specified kdr Followup: kdr - With: Sumit Hernandez MD - When: 2 - 3 days - Reason: If symptoms return, Further diagnostic work-up, Recheck today's complaints, Continuance of care, Re-evaluation by your physician Discharge Instructions: - Discharge Summary Sheet kdr - Urinary Tract Infection, Adult, [id number] kdr Forms: - Medication Reconciliation Form kdr - Thank You Letter kdr - Antibiotic Education kdr Prescriptions: - Macrobid 100 mg Oral Capsule - take 1 capsule by ORAL route every 12 hours for 10 days; 20 capsule; Refills: kdr 0, Product Selection Permitted Signatures: Dispatcher [employer] [facility] Keith Rosario MD MD kdr Jaqueline Wright RN RN ww Corrections: (The following items were deleted from the chart) 12:47 11:41 Urine Dipstick-Ancillary ordered. kdr ww
--- NOTE | 2021-09-07 15:48 | ER ---
Nurse's Notes [facility] Name: Zee Lindsay Age: 86 yrs Sex: Female : 1935 Arrival Date: 09/07/2021 Time: 10:58 Bed 17 Private MD: Diagnosis: UTI/ Urinary tract infection, site not specified Presentation: 09/07 11:12 Chief complaint: Patient states: Shortness of breath that started this morning with a ww productive cough and phlegm. Also complains of epigastric and right lower abdominal with urinary frequency and pressure. Coronavirus screen: Vaccine status: Patient reports receiving the 2nd dose of the covid vaccine. Client denies travel out of the [place] in the last 14 days. Ebola Screen: Patient denies travel to an Ebola-affected area in the 21 days before illness onset. Initial Sepsis Screen: Does the patient meet any 2 criteria? No. Patient's initial sepsis screen is negative. Does the patient have a suspected source of infection? No. Patient's initial sepsis screen is negative. Risk Assessment: Do you want to hurt yourself or someone else? Patient reports no desire to harm self or others. Onset of symptoms was September 07, 2021. 11:12 Method Of Arrival: Wheelchair ww 11:12 Acuity: DESIRE 3 ww Triage Assessment: 11:14 General: Appears in no apparent distress. Behavior is cooperative. Pain: Complains of ww pain in abdomen. EENT: Reports sinus congestion. Neuro: Level of Consciousness is awake, alert, obeys commands, Oriented to person, place, time, situation, Appropriate for age Moves all extremities. Weakness generalized weakness. Speech is normal. Cardiovascular: Capillary refill < 3 seconds Patient's skin is warm and dry. Respiratory: Reports cough that is productive, Airway is patent Respiratory effort is even, unlabored, Respiratory pattern is regular, symmetrical. GI: Abdomen is non-distended, Abd is soft X 4 quads Abdomen is tender to palpation in epigastric area and right lower quadrant. : Reports pain urgency. Derm: Skin is fragile, is thin. Historical: - Allergies: 11:14 Codeine; ww 11:14 Clonidine; ww 11:14 Darvocet-N 100; ww 11:14 guafin; ww 11:14 Labetalol; ww 11:14 Levaquin; ww 11:14 Lisinopril; ww 11:14 Lyrica; ww 11:14 magnesium; ww 11:14 Minoxidil; ww 11:14 Morphine; ww 11:14 Nicen; ww 11:14 Nifedipine; ww 11:14 Norvasc; ww 11:14 PENICILLINS; ww 11:14 PENTAZOCINE; ww 11:14 Premarin; ww 11:14 propargyl vela; ww 11:14 Rifampin; ww 11:14 Soma; ww 11:14 Talwin; ww 11:14 Tricor; ww 11:14 dorjaycline; ww - PMHx: 11:14 diverticulosis; High Cholesterol; Hyperlipidemia; Hypertension; Pacemaker; TIA; gastric ww ulcer; - PSHx: 11:14 Cholecystectomy; Left Lung; Lumbar; Pace maker; right kidney stent; left kidney ww balloon; pacemaker; - Immunization history:: Adult Immunizations up to date. - Social history:: Smoking status: Patient denies any tobacco usage or history of. Screenin:23 Abuse screen: Denies threats or abuse. Denies injuries from another. Nutritional ww screening: No deficits noted. Tuberculosis screening: No symptoms or risk factors identified. Fall Risk None identified. Assessment: 11:23 Reassessment: see triage assessment. ww 12:31 Reassessment: Patient appears in no apparent distress at this time. No changes from ww previously documented assessment. Patient and/or family updated on plan of care and expected duration. Pain level reassessed. Patient is alert, oriented x 3, equal unlabored respirations, skin warm/dry/pink. : Urine is yellow with scant amount from straight cath. 13:33 Reassessment: Patient appears in no apparent distress at this time. No changes from ww previously documented assessment. Patient and/or family updated on plan of care and expected duration. Pain level reassessed. Patient is alert, oriented x 3, equal unlabored respirations, skin warm/dry/pink. 14:45 Reassessment: Patient appears in no apparent distress at this time. No changes from ww previously documented assessment. Patient and/or family updated on plan of care and expected duration. Pain level reassessed. Patient is alert, oriented x 3, equal unlabored respirations, skin warm/dry/pink. 15:56 Reassessment: Patient appears in no apparent distress at this time. No changes from ww previously documented assessment. Patient and/or family updated on plan of care and expected duration. Pain level reassessed. Patient is alert, oriented x 3, equal unlabored respirations, skin warm/dry/pink. Vital Signs: 11:12 BP 149 / 53; Pulse 66; Resp 16; Temp 98.1; Pulse Ox 98% on R/A; Weight 51.71 kg; Height ww 5 ft. 3 in. (160.02 cm); Pain 4/10; 12:31 BP 133 / 52; Pulse 67; Resp 16; Pulse Ox 95% on R/A; ww 13:30 BP 134 / 64; Pulse 59; Resp 16; Pulse Ox 96% on R/A; ww 16:07 BP 144 / 56; Pulse 68; Resp 16; ww 11:12 Body Mass Index 20.19 (51.71 kg, 160.02 cm) ww ED Course: 10:58 Patient arrived in ED. kz 11:08 Keith Rosario MD is Attending Physician. kdr 11:12 Jaqueline Wright, RN is Primary Nurse. ww 11:14 Triage completed. ww 11:14 Arm band placed on right wrist. ww 11:23 Patient has correct armband on for positive identification. Bed in low position. Call ww light in reach. Side rails up X 1. Adult w/ patient. Pulse ox on. NIBP on. 11:57 Inserted saline lock: 22 gauge in right forearm, using aseptic technique. ww 12:02 Basic Metabolic Panel Sent. ww 12:33 Straight cath inserted, using sterile technique, Specimen obtained. Returned scant ww amoutn. Patient tolerated well. 14:33 CT Abd/Pelvis - IV Contrast Only In Process Unspecified. EDMS 15:47 Sumit Hernandez MD is Referral Physician. kdr 15:58 No provider procedures requiring assistance completed. IV discontinued, intact, ww bleeding controlled, No redness/swelling at site. Pressure dressing applied. Administered Medications: 12:46 Drug: Pyridium (phenazopyridine) 100 mg Route: PO; ww 12:46 Drug: Bactrim (trimethoprim-sulfamethoxazole) (160 mg-800 mg (DS) 1 tablet Route: PO; ww Outcome: 15:48 Discharge ordered by . kdr 16:07 Discharged to home with family. ww 16:07 Condition: stable 16:07 Discharge instructions given to patient, Instructed on discharge instructions, follow up and referral plans. safety practices, Demonstrated understanding of instructions, follow-up care, medications, Prescriptions given X 1. 16:25 Patient left the ED. ww Signatures: Dispatcher [employer] Keith Aguila MD MD kdr Wood, Whitney, RN RN Charity Myrick
[2021-09-07 16:43] VITALS: TEMP 98.1
[2021-09-07 16:48] VITALS: O2SAT 96
[2021-09-07 16:49] VITALS: BP 144/56
== END 2021-09-07 16:25 | disposition home or self-care (01) ==
LOC: ER 10:54
DX: N39.0 Urinary tract infection, site not specified (principal); I10 Essential (primary) hypertension; E78.00 Pure hypercholesterolemia, unspecified; E78.5 Hyperlipidemia, unspecified; Z86.73 Personal history of transient ischemic attack (TIA), and cerebral infarction without residual deficits; Z88.0 Allergy status to penicillin; Z88.1 Allergy status to other antibiotic agents; Z88.5 Allergy status to narcotic agent; Z88.8 Allergy status to other drugs, medicaments and biological substances; Z91.048 Other nonmedicinal substance allergy status; Z95.0 Presence of cardiac pacemaker
CPT/HCPCS: 87088; 85025; 87086; 80048; 36415; 80076; 83690; 74177; 51702; 99284; Q9967; 81003; 81015

== ENCOUNTER 2021-10-06 03:13 | Emergency (ER) | payer OTHER ==
--- OUTSIDE RECORDS SUMMARY | 2021-10-06 03:17 | XMS REPORT | Continuity of Care Document ---
:1935 Author Organization [facility] t Address [address] [place] [address] Care Team Providers Name Role Phone Lili Sanford Attending Clinician Unavailable Isaias Hernandez Admitting Clinician Unavailable Payers Payer Name Policy Type Policy Number Effective Date Expiration Date S ource Problems This patient has no known problems. Allergies, Adverse Reactions, Alerts Allergy Allergy Status Severity Reaction(s) Onset Inactive Treating Comm ents Source Name Type Date Date Clinician lisinopr DA Active [facility] il 3-28 Clear 00:00: Engel 00 [facility] nifedipi DA Active [facility] ne 3- Clear 00:00: Engel [facility] niacin DA Active [facility] 3-28 Clear 00:00: Engel [facility] estrogen DA Active [facility] BURNING WITH 2021-0 HC A s, VAGINAL - Clear conjugat CREAM 00:00: Engel ed 00 [facility] pentazoc DA Active [facility] "WEIRD IN H[facility] ine THE HEAD" 09-24 Clear 00:00: Engel 00 [facility] carisopr DA Active [facility] "SENSITIVE [facility] odol TO MED" 3 Clear 00:00: Engel 00 [facility] labetalo DA Active [facility] l 3-28 Clear 00:00: Engel 00 [facility] rifampin DA Active U UNKNOWN [facility] 3- Clear 00:00: Engel [facility] adhesive DA Active [facility] RASH 2021- [facility] 09-24 Clear 00:00: Engel [facility] pregabal DA Active U UNKNOWN 2021- [facility] in 09-24 Clear 00:00: Engel [facility] Penicill DA Active [facility] RASH, ITCH 2021- [facility] ins 3 Clear 00:00: [facility] morphine DA Active [facility] ITCHING 2021- H[facility] - Clear 00:00: Engel [facility] codeine DA Active [facility] HEADACHE 2021- [facility] 09-24 Clear 00:00: [facility] fenofibr DA Active [facility] MUSCLE 2021- [facility] ate CRAMPS 09-24 Clear 00:00: Engel [facility] magnesiu DA Active [facility] RASH 2021- [facility] m 09-24 Clear 00:00: Engel [facility] levoflox DA Active [facility] RASH 2021- [facility] acin 09-24 Clear 00:00: Engel [facility] minoxidi DA Active [facility] RASH 2021- [facility] l 09-24 Clear 00:00: Engel [facility] Medications This patient has no known medications. Procedures This patient has no known procedures. Encounters Start End Encounter Admission Attending Care Care Encounter Source Date/Time Date/Time Type Type Clinicians Facility Department ID 2021-09-24 Inpatient [facility]D [id number] [facility] 10:00:00 Vish Francis [id number] [facility] 2021-09-18 Inpatient EL [facility]D [id number] [facility] 15:00:00 Vish Francis [id number] [facility] 2021-09-26 2021-09-26 Outpatient EL [facility] [id number] [facility] 05:20:00 05:20:00 Vish Francis 19 [facility] 2021-09-26 2021-09-26 Outpatient EL [facility] OUTD [id number] [facility] 05:20:00 05:20:00 Vish Francis [id number] [facility] 2020-08-22 2020-08-22 Outpatient [facility] [id number] [facility] 00:00:00 00:00:00 Results Test Description Test Time Test Comments Results Result Comments Source BASIC METABOLIC PANEL 2021-09-24 11:46:00 Test Item Value Reference Range Interpretation Comme nts SODIUM (test code = NA) 132 mEq/L 134-147 L POTASSIUM (test code = K) 3.8 mEq/L 3.4-5.0 N CHLORIDE (test code = CL) 97 mEq/L 100-108 L CARBON DIOXIDE (test code = CO2) 26 mEq/l 21-33 N ANION GAP (test code = GAP) 13 0-20 N GLUCOSE (test code = GLU) 137 mg/dL 70-110 H BLOOD UREA NITROGEN (test code = 17 mg/dL 7-18 N BUN) GLOMERULAR FILTRATION RATE (test 47.2 70-80 L Units of measure = ml/min/1.73 code = GFR) m2 CREATININE (test code = CREAT) 1.1 mg/dL 0.6-1.3 N CALCIUM (test code = CA) 10.2 mg/dL 8.0-10.5 N PROTHROMBIN [id number] 11:32:00 Test Item Value Reference Range Interpretation Comments PROTHROMBIN TIME 11.3 SECONDS 9.3-12.9 N PATIENT (test code = PTP) INTERNATIONAL NORMAL 1.0 0.8-1.2 N TARGET RATIO (test code = INR BY IN DICATION INR) Indication INR1. Prophyl axis of venous thrombos is 2.0 - 3. 0 (orthopedic lesly nikki), Prophylaxis of venous thrombos is (other than hig h-risk surgery), Sulema tment of Deep Vein Thrombosis/Pulm onary Embolism, Preve ntion of systemic emb olism - Tissue heart va lves, Acute Myocardia l Infarction (to prevent systemic embo lism), Valvular heart disease, Atri al Fibrillation, Bileaflet mecha nical valve in aortic position.2. Mec hanical prosthetic valv es (high risk), 2.5 - 3.5 Presence of Lupus Anticoagu lant or Antiphospholi pid Antibodies, Pre vention of systemic e mbolism - Acute Myocard ial Infarction (t o prevent recurre nt infarct). CBC W/AUTO [id number] 11:25:00 Test Item Value Reference Range Interpretation Comments WHITE BLOOD CELL (test code = 9.3 x10 3/uL 4.5-11.0 N WBC) RED BLOOD CELL (test code = 4.06 x10 6/uL 3.54-5.02 N RBC) HEMOGLOBIN (test code = HGB) 12.6 g/dL 11.0-15.0 N HEMATOCRIT (test code = HCT) 37.3 % 33.0-45.0 N MEAN CELL VOLUME (test code = 91.9 fL 81.0-99.0 N MCV) MEAN CELL HGB (test code = MCH) 31.0 pg 27.0-33.0 N MEAN CELL HGB CONCETRATION 33.8 g/dL 33.0-37.0 N (test code = MCHC) RED CELL DISTRIBUTION WIDTH CV 11.9 % 11.5-14.5 N (test code = RDW) RED CELL DISTRIBUTION WIDTH SD 39.9 fL 37.0-54.0 N (test code = RDW-SD) PLATELET COUNT (test code = 189 x10 3/uL 150-400 N PLT) MEAN PLATELET VOLUME (test code 9.7 fL 7.0-9.0 H = MPV) NEUTROPHIL % (test code = NT%) 82.5 % 56.0-77.0 H IMMATURE GRANULOCYTE % (test 0.3 % 0.0-2.0 N code = IG%) LYMPHOCYTE % (test code = LY%) 9.9 % 14.0-32.0 L MONOCYTE % (test code = MO%) 7.1 % 4.8-9.0 N EOSINOPHIL % (test code = EO%) 0.1 % 0.3-3.7 L BASOPHIL % (test code = BA%) 0.1 % 0.0-2.0 N NUCLEATED RBC % (test code = 0.0 % 0-0 N NRBC%) NEUTROPHIL # (test code = NT#) 7.62 x10 3/uL 2.0-7.6 H IMMATURE GRANULOCYTE # (test 0.03 x10 3/uL 0.00-0.03 N code = IG#) LYMPHOCYTE # (test code = LY#) 0.92 x10 3/uL 1.0-3.8 L MONOCYTE # (test code = MO#) 0.66 x10 3/uL 0.1-0.8 N EOSINOPHIL # (test code = EO#) 0.01 x10 3/uL 0.0-0.2 N BASOPHIL # (test code = BA#) 0.01 x10 3/uL 0.0-0.2 N NUCLEATED RBC # (test code = 0.00 x10 3/uL 0.0-0.1 N NRBC#) MANUAL DIFF REQUIRED (test code NO = MDIFF) - XR CHEST 2 [id number] 00:00:[address] [facility] Le[place] : 1935 Sex: F FAX: Harry Seo MD [phone] [place]: St: PRE FAX: Vish Montalvo [phone] Name: CORWIN MCGREGOR [facility] : 1935 Age/S: 86/F [address] [place] [address] Unit #: [id number] Loc: [place] [address] Phys: Vish Sanford MD Acct: [id number] Dis Date: Status: PRE [facility] PHONE #: [phone] Exam Date: 09/24/2021 1135 FAX #: [phone]: PREOP EXAMS: CPT CODE: [id number] XR CHEST 2 V [id number] PROCEDURE INFORMATION: Exam: XR Chest Exam date and time: 09/24/2021 11:03 AMAge: 86 years old Clinical indication: Screening exam; Pre-operative exam; Other: Preop TECHNIQUE: Imaging protocol: XR of the chest. Views: 2 views. PA and Lateral COMPARISON: No relevant prior studies available. FINDINGS: Lungs: No consolidation. Minimal left basilar scarring or atelectasis. Pleural spaces: No pleural effus ion. Heart/Mediastinum: The heart and vascular markings are within limits of normal.There is atherosclerotic calcification of the aorta. Left chest cardiac device with atrioventricular days. Bones/joints: No gross acute findings. IMPRESSION: No acute cardiopulmonary findings at 1232 Reported and signed by: Nargis Abbott D.O. CC: Harry Hernandez MD; Vish Francis MD Technologist: RT Terri(Lili) Trnscrd Date/Time/By: 09/24/2021 (1502) : By: [email or web address] Orig Print D/T: S: 09/24/2021 ([id number]) PAGE 1 Signed Report
[2021-10-06] MEDS ORDERED: ONDANSETRON 4 MG/2 ML VIAL ONE (03:41)
[2021-10-06] MEDS ORDERED: NA CHLORIDE 0.9% 1,000 ML ONE (03:41)
[2021-10-06 03:58] LABS: Hematocrit 36.9 % (36.0-45.0); Lymphocytes % 21.5 % (15.3-44.8); MPV 6.9 fL (7.6-11.3); RBC Red Blood Cell Count 4.09 M/uL (3.86-4.86)
[2021-10-06 04:24] LABS: Albumin 4.3 g/dL (3.4-5.0); Bilirubin Total 0.8 mg/dL (0.2-1.0); Potassium 3.5 mmol/L (3.5-5.1); Protein, Total 7.9 g/dL (6.4-8.2)
[2021-10-06 04:44] LABS: Urine Blood Negative (Negative); Urine Glucose Negative (Negative); Urine Protein Negative (Negative); Urine pH 7.5 (5.0-7.0)
[2021-10-06 05:02] LABS: Urine Bacteria <20 /HPF (<20); Urine RBC NONE SEEN /HPF (NONE SEEN)
[2021-10-06 05:25] LABS: SARS-COV-2 RT PCR NEGATIVE (NEGATIVE)
--- NOTE | 2021-10-06 05:33 | EDPHYS ---
Physician Documentation [facility] Name: Zee Lindsay Age: 86 yrs Sex: Female : 1935 Arrival Date: 10/06/2021 Time: 03:16 Bed 13 Private MD: ED Physician Yusef Goodrich HPI: 10/06 03:32 This 86 yrs old Female presents to ER via Wheelchair with complaints of Diarrhea. ms3 03:32 The patient presents to the emergency department with nausea, diarrhea, 5 times since ms3 the onset of symptoms. Onset: The symptoms/episode began/occurred 9 hour(s) ago. The symptoms are aggravated by nothing. The symptoms are alleviated by nothing. Associated signs and symptoms: The patient has no apparent associated signs or symptoms. Severity of symptoms: At their worst the symptoms were moderate in the emergency department the symptoms are unchanged. 86-year-old female with past medical history of diverticulosis, peptic ulcer disease, hyperlipidemia, high cholesterol, TIA, diabetes, hypertension, presents for diarrhea that began at 6 PM. Patient states she has had 5 episodes that were watery. Patient states she is also having generalized abdominal pain she rates a 5/10 and describes as hurting. Patient denies fevers, chills, vomiting. Patient denies alleviating or inciting factors. Historical: - Allergies: 03:30 Clonidine; cj 03:30 Codeine; cj 03:30 Darvocet-N 100; cj 03:30 dorjaycline; cj 03:30 guafin; jc 03:30 Labetalol; cj 03:30 Levaquin; cj 03:30 Lisinopril; cj 03:30 Lyrica; cj 03:30 magnesium; cj 03:30 Minoxidil; cj 03:30 Morphine; cj 03:30 Nicen; cj 03:30 Nifedipine; cj 03:30 Norvasc; cj 03:30 PENICILLINS; cj 03:30 PENTAZOCINE; cj 03:30 Premarin; cj 03:30 propargyl vela; cj 03:30 Rifampin; cj 03:30 Soma; cj 03:30 Talwin; cj 03:30 Tricor; cj - PMHx: 03:30 diverticulosis; gastric ulcer; High Cholesterol; Hyperlipidemia; Hypertension; cj Pacemaker; TIA; - PSHx: 03:30 Cholecystectomy; left kidney balloon; Left Lung; Lumbar; Pace maker; pacemaker; right cj kidney stent; - Immunization history:: Adult Immunizations up to date, Client reports receiving the 2nd dose of the Covid vaccine. - Social history:: Smoking status: Patient denies any tobacco usage or history of. Patient/guardian denies using alcohol. ROS: 03:32 Constitutional: Negative for fever, and chills. ENT: Negative for injury, pain, and ms3 discharge, Neck: Negative for injury, pain, and swelling, Cardiovascular: Negative for chest pain, and palpitations. Respiratory: Negative for shortness of breath, cough, wheezing, and pleuritic chest pain, MS/Extremity: Negative for injury and deformity, Skin: Negative for injury, rash, and discoloration, Neuro: Negative for headache, weakness, numbness, tingling. 03:32 Abdomen/GI: Positive for nausea, diarrhea. 03:32 All other systems are negative. Exam: 03:32 Constitutional: This is a well developed, well nourished patient who is awake, alert, ms3 and in no acute distress. Head/Face: Normocephalic, atraumatic. Neck: Trachea midline, no cervical lymphadenopathy. Supple, full range of motion without nuchal rigidity, or vertebral point tenderness. No Meningismus. Chest/axilla: Normal chest wall appearance and motion. Nontender with no deformity. Cardiovascular: Regular rate and rhythm with a normal S1 and S2. No gallops, murmurs, or rubs. Normal PMI, no JVD. No pulse deficits. Respiratory: Lungs have equal breath sounds bilaterally, clear to auscultation and percussion. No rales, rhonchi or wheezes noted. No increased work of breathing, no retractions or nasal flaring. Abdomen/GI: Soft, non-tender, with normal bowel sounds. No distension or tympany. No guarding or rebound. No evidence of tenderness throughout. Skin: Warm, dry with normal turgor. Normal color with no rashes, no lesions, and no evidence of cellulitis. Psych: Awake, alert, with orientation to person, place and time. Behavior, mood, and affect are within normal limits. Vital Signs: 03:27 BP 149 / 60; Pulse 64; Resp 18; Temp 97.6; Pulse Ox 100% on R/A; Pain 0/10; cj 03:33 BP 149 / 60; Pulse 64; Resp 18; Temp 97.6; Pulse Ox 100% on R/A; Pain 0/10; cj 04:48 BP 133 / 46 RA Supine (auto/reg); Pulse 68 MON; Resp 16; Pulse Ox 100% on R/A; Pain ag7 0/10; 05:33 BP 132 / 49; Pulse 64; Resp 18; Pulse Ox 100% on R/A; Pain 0/10; ag7 MDM: 03:31 Patient medically screened. ms3 03:32 Differential diagnosis: Nonspecific abd pain, diverticulitis, gastroenteritis. ms3 05:30 ED course: Discussed case with Dr Hernandez and patient has hyponatremia. Discussed labs, CT ms3 findings, exam findings with patient. Patient to follow-up with Dr. Hernandez in 2 to 3 days. Patient understands agrees with plan. All questions were answered. Return precautions discussed include worsening symptoms, or any other concerns. Reevaluation patient is improved, alert and oriented x4, no apparent distress, nontoxic appearing.. 05:33 Data reviewed: vital signs, nurses notes, lab test result(s), radiologic studies, CT ms3 scan. Data interpreted: Pulse oximetry: on room air is 100 %. Interpretation: normal. Counseling: I had a detailed discussion with the patient and/or guardian regarding: the historical points, exam findings, and any diagnostic results supporting the discharge/admit diagnosis, lab results, radiology results, the need for outpatient follow up, to return to the emergency department if symptoms worsen or persist or if there are any questions or concerns that arise at home. 10/06 03:32 Order name: CBC with Diff; Complete Time: 04:24 ms3 10/06 03:32 Order name: CMP; Complete Time: 04:24 ms3 10/06 03:32 Order name: Lipase; Complete Time: 04:24 ms3 10/06 03:32 Order name: Urine Microscopic Only; Complete Time: 05:08 ms3 10/06 04:26 Order name: COVID-19/FLU A+B (Document "Date of Onset" if Symptomatic) cs9 10/06 04:44 Order name: Urine Dipstick-Ancillary EDMS 10/06 03:32 Order name: CT Abd/Pelvis - IV Contrast Only ms3 10/06 03:32 Order name: IV Saline Lock; Complete Time: 03:49 ms3 10/06 03:32 Order name: Labs collected and sent; Complete Time: 03:49 ms3 Administered Medications: 03:49 Drug: NS 0.9% 1000 ml Route: IV; Rate: 1 bolus; Site: right antecubital; ag7 04:46 Follow up: Response: No adverse reaction; IV Status: Completed infusion; IV Intake: ag7 1000ml 03:49 Drug: Zofran (Ondansetron) 4 mg Route: IVP; Site: right antecubital; ag7 04:18 Follow up: Response: No adverse reaction; Marked relief of symptoms ag7 Disposition Summary: 10/06/21 05:32 Discharge Ordered Location: Home ms3 Condition: Stable ms3 Diagnosis - Diarrhea, unspecified ms3 - Abdominal pain, Generalized ms3 - hyponatremia ms3 Followup: ms3 - With: Sumit Hernandez MD - When: 2 - 3 days - Reason: Re-evaluation by your physician Discharge Instructions: - Discharge Summary Sheet ms3 - Abdominal Pain, Adult ms3 - Diarrhea, Adult ms3 - Food Choices to Help Relieve Diarrhea, Pediatric, [id number] ms3 Forms: - Medication Reconciliation Form ms3 - Thank You Letter ms3 - Antibiotic Education ms3 - Prescription Opioid Use ms3 Signatures: Dispatcher [employer] EDMS Yusef Goodrich DO DO ms3 Damaris Clarke, RN May Braden PA PA sb3 Marietta Coppola, RN RN ag7
--- NOTE | 2021-10-06 05:33 | ER ---
Nurse's Notes [facility] Name: Zee Lindsay Age: 86 yrs Sex: Female : 1935 Arrival Date: 10/06/2021 Time: 03:16 Bed 13 Private MD: Diagnosis: Diarrhea, unspecified;Abdominal pain, Generalized;hyponatremia Presentation: 10/06 03:27 Chief complaint: Patient states: "I've had diarrhea since 6 or 7pm". Coronavirus cj screen: Vaccine status: Patient reports receiving the 2nd dose of the covid vaccine. Ebola Screen: Patient negative for fever greater than or equal to 101.5 degrees Fahrenheit, and additional compatible Ebola Virus Disease symptoms Patient denies exposure to infectious person. Patient denies travel to an Ebola-affected area in the 21 days before illness onset. Initial Sepsis Screen: Does the patient meet any 2 criteria? No. Patient's initial sepsis screen is negative. Does the patient have a suspected source of infection? No. Patient's initial sepsis screen is negative. Risk Assessment: Do you want to hurt yourself or someone else? Patient reports no desire to harm self or others. Onset of symptoms was October 05, 2021 at 18:00. 03:27 Method Of Arrival: Wheelchair cj 03:27 Acuity: DESIRE 3 cj Triage Assessment: 03:32 General: Appears in no apparent distress. Behavior is anxious, only slightly, and cj stated,"I took half a xanax, but that didn't help.". Pain: Denies pain. GI: Reports diarrhea. Historical: - Allergies: 03:30 Clonidine; cj 03:30 Codeine; cj 03:30 Darvocet-N 100; cj 03:30 dorjaycline; cj 03:30 guafin; cj 03:30 Labetalol; cj 03:30 Levaquin; cj 03:30 Lisinopril; cj 03:30 Lyrica; cj 03:30 magnesium; cj 03:30 Minoxidil; cj 03:30 Morphine; cj 03:30 Nicen; cj 03:30 Nifedipine; cj 03:30 Norvasc; cj 03:30 PENICILLINS; cj 03:30 PENTAZOCINE; cj 03:30 Premarin; cj 03:30 propargyl vlea; cj 03:30 Rifampin; cj 03:30 Soma; cj 03:30 Talwin; cj 03:30 Tricor; cj - PMHx: 03:30 diverticulosis; gastric ulcer; High Cholesterol; Hyperlipidemia; Hypertension; cj Pacemaker; TIA; - PSHx: 03:30 Cholecystectomy; left kidney balloon; Left Lung; Lumbar; Pace maker; pacemaker; right cj kidney stent; - Immunization history:: Adult Immunizations up to date, Client reports receiving the 2nd dose of the Covid vaccine. - Social history:: Smoking status: Patient denies any tobacco usage or history of. Patient/guardian denies using alcohol. Screenin:36 Abuse screen: Denies threats or abuse. Nutritional screening: No deficits noted. ag7 Tuberculosis screening: No symptoms or risk factors identified. Fall Risk No fall in past 12 months (0 pts). Secondary diagnosis (15 points) No IV (0 pts). Ambulatory Aid- None/Bed Rest/Nurse Assist (0 pts). Gait- Normal/Bed Rest/Wheelchair (0 pts) Mental Status- Oriented to own ability (0 pts). Total Warren Fall Scale indicates No Risk (0-24 pts). Assessment: 03:27 General: Appears in no apparent distress. Behavior is calm, cooperative, appropriate ag7 for age. Pain: Complains of pain in abdomen Pain currently is 10 out of 10 on a pain scale. Quality of pain is described as aching, Pain began suddenly, Is continuous. Neuro: Level of Consciousness is awake, alert, obeys commands, Oriented to person, Appropriate for age [place] are equal bilaterally Cardiovascular: Reports recent pacemaker insertion <one week Heart tones S1 S2 present Capillary refill < 3 seconds is brisk in bilateral fingers toes skin cool/dry. Respiratory: Breath sounds are clear bilaterally. Breath sounds are diminished. GI: Stools are reported to be diarrhea. Last BM was October 06, 2021. Bowel sounds present X 4 quads. hyperactive in right upper quadrant, left upper quadrant, right lower quadrant and left lower quadrant Abd is soft and non tender X 4 quads. 04:27 Reassessment: Patient and/or family updated on plan of care and expected duration. Pain ag7 level reassessed. Patient is alert, oriented x 3, equal unlabored respirations, skin warm/dry/pink. Patient denies pain at this time. Patient states feeling better. Patient states symptoms have improved. 04:47 Reassessment: patient is off the floor for CT. ag7 04:54 Reassessment: patient return from CT. ag7 Vital Signs: 03:27 BP 149 / 60; Pulse 64; Resp 18; Temp 97.6; Pulse Ox 100% on R/A; Pain 0/10; cj 03:33 BP 149 / 60; Pulse 64; Resp 18; Temp 97.6; Pulse Ox 100% on R/A; Pain 0/10; cj 04:48 BP 133 / 46 RA Supine (auto/reg); Pulse 68 MON; Resp 16; Pulse Ox 100% on R/A; Pain ag7 0/10; 05:33 BP 132 / 49; Pulse 64; Resp 18; Pulse Ox 100% on R/A; Pain 0/10; ag7 ED Course: 03:16 Patient arrived in ED. kz 03:17 Yusef Goodrich DO is Attending Physician. ms3 03:30 Triage completed. cj 03:33 Arm band placed on. cj 03:37 Patient has correct armband on for positive identification. Bed in low position. Call ag7 light in reach. Side rails up X 1. Adult w/ patient. 03:50 Inserted saline lock: 20 gauge in right antecubital area, using aseptic technique. ag7 03:50 Inserted saline lock: Blood collected. ag7 03:51 No provider procedures requiring assistance completed. ag7 04:57 CT Abd/Pelvis - IV Contrast Only In Process Unspecified. EDMS 05:32 Sumit Hernandez MD is Referral Physician. ms3 05:45 Marietta Coppola, LAMINE is Primary Nurse. ag7 05:45 IV discontinued, intact, bleeding controlled, No redness/swelling at site. Pressure ag7 dressing applied. Administered Medications: 03:49 Drug: NS 0.9% 1000 ml Route: IV; Rate: 1 bolus; Site: right antecubital; ag7 04:46 Follow up: Response: No adverse reaction; IV Status: Completed infusion; IV Intake: ag7 1000ml 03:49 Drug: Zofran (Ondansetron) 4 mg Route: IVP; Site: right antecubital; ag7 04:18 Follow up: Response: No adverse reaction; Marked relief of symptoms ag7 Intake: 04:46 IV: 1000ml; Total: 1000ml. ag7 Outcome: 05:32 Discharge ordered by . ms3 05:45 Discharged to home via wheelchair. ag7 05:45 Condition: stable 05:45 Discharge instructions given to patient, family, Instructed on discharge instructions, follow up and referral plans. Demonstrated understanding of instructions, follow-up care. 05:46 Patient left the ED. ag7 Signatures: Dispatcher [employer] EDMS Yusef Goodrich DO DO ms3 Damaris Clarke RN RN bo Zapata, Kelly kz Glenn, Angela, RN RN ag7
[2021-10-06 10:58] VITALS: TEMP 97.6; O2SAT 100
[2021-10-06 11:03] VITALS: BP 132/49
--- NOTE | 2021-10-08 12:50 | RAD REPORT ---
EXAM DESCRIPTION: CT - Abdomen Pelvis W Contrast - 10/06/2021 6:56 am CLINICAL HISTORY: The patient is 86 years old and is Female; Abd pain; Nausea / vomiting TECHNIQUE: Axial computed tomography images of the abdomen and pelvis with intravenous contrast. S agittal and coronal reformatted images were created and reviewed. This CT exam was performed using one or more of the following dose reduction techniques: automated exposure control, adjustment of t he mA and/or kV according to patient size, and/or use of iterative reconstruction technique. COMPARISON: CT abdomen pelvis September 07, 2021. FINDINGS: Lung bases: Unremarkable. No mass. No consolidation.ABDOMEN: Liver: Unremarkab le. No mass. Gallbladder and bile ducts: Cholecystectomy without choledocholithiasis. Prominent c ommon bile duct likely reservoir effect. Pancreas: No findings to suggest acute pancreatitis. No mass visualized. No ductal dilation. Spleen: Unremarkable. No splenomegaly. Adrenals: Unr emarkable. No mass. Kidneys and ureters: Asymmetric renal size, left greater than right. No hydronephrosis. Stomach and bowel: Colonic diverticulosis. No bowel dilatation or ob struction. No bowel wall thickening.PELVIS: Appendix: No findings to suggest acute appendicitis . Bladder: Unremarkable. No mass. Reproductive: Hysterectomy.ABDOMEN and PELVIS: Intrape ritoneal space: Unremarkable. No free air. No significant fluid collection. Bones/joints: T 11 and T12 superior endplate Schmorl's nodes. Degenerative changes in the lumbar spine. L4-5 disc pro trusion. No acute fracture. No dislocation. Soft tissues: Unremarkable. Vasculature: Unremarkable. No abdominal aortic aneurysm. Lymph nodes: No pathologically enlarged lymph nod es. Tubes, lines and devices: Intracardiac pacer leads. IMPRESSION: 1. No acute obstructive or inflammatory process identified. 2. Asymmetric renal size , left greater than right. 3. Colonic diverticulosis. 4. Additional non-emergent findings as abov e. Electronically signed by: Marce Lu MD 10/06/2021 5:20 AM CDT Due to temporary technical issues with the PACS/Fluency reporting system, reports are being signed by the in house radiologist without review as a courtesy to ensure prompt reporting. The interpreting r adiologist is fully responsible for the content of the report.
== END 2021-10-06 05:46 | disposition home or self-care (01) ==
LOC: ER 03:13
DX: R19.7 Diarrhea, unspecified (principal); E87.1 Hypo-osmolality and hyponatremia; R10.84 Generalized abdominal pain; I10 Essential (primary) hypertension; E78.00 Pure hypercholesterolemia, unspecified; Z20.822 Contact with and (suspected) exposure to COVID-19; Z95.0 Presence of cardiac pacemaker; Z88.0 Allergy status to penicillin; Z88.1 Allergy status to other antibiotic agents; Z88.5 Allergy status to narcotic agent; Z88.6 Allergy status to analgesic agent; Z88.8 Allergy status to other drugs, medicaments and biological substances; Z91.048 Other nonmedicinal substance allergy status
CPT/HCPCS: 96361; 85025; 36415; 83690; 80053; 0240U; 74177; 96374; 99284; Q9967; J7030; J2405; 81003; 81015

== ENCOUNTER 2022-05-12 00:09 | Observation (INO) | payer OTHER ==
--- OUTSIDE RECORDS SUMMARY | 2022-05-12 00:38 | XMS REPORT | Continuity of Care Document ---
:1935 Author Organization [facility] t Address [address] Strong [address] [place] [id number] Care Team Providers Name Role Phone Vish Sanford Attending Clinician Unavailable Kristie Tinajero Attending Clinician Harry Hernandez Admitting Clinician Unavailable Payers Payer Name Policy Type Policy Number Effective Date Expiration Date S ource Problems Condition Condition Condition Status Onset Resolution Last Treating Co mments Source Name Details Category Date Date Treatment Clinician Date Hypertensi Hypertens Problem Resolve 2021-03-28 Memoria ve meena d 21:21:08 l disorder, disorder, Herm stepan systemic systemic arterial arterial (disorder) (disorder) Resolved Problem 03/28/2021 [facility] Hypothyroi Hypothyro Problem Resolve 2021-03-28 Memoria dism idism d 21:21:08 l (disorder) (disorder) He rmann Resolved Problem 03/28/2021 [facility] Urinary Urinary Problem Resolve 2021-03-28 Memoria tract tract d 21:21:08 l infectious infectious He rmann disease disease (disorder) (disorder) Resolved Problem 03/28/2021 [facility] Group Allergies, Adverse Reactions, Alerts Allergy Allergy Status Severity Reaction(s) Onset Inactive Treating Comm ents Source Name Type Date Date Clinician niacin DA Active PA RASH [facility] 3- Clear 00:00: Engel 00 [facility] estrogen DA Active PA BURNING WITH 2021-0 HC A s, VAGINAL 09-24 Clear conjugat CREAM 00:00: Hartshorn ed 00 [facility] pentazoc DA Active PA "WEIRD IN 0 [facility] ine THE HEAD" 09-24 Clear 00:00: Engel [facility] carisopr DA Active PA "SENSITIVE [facility] odol TO MED" 09-24 Clear 00:00: Engel [facility] labetalo DA Active PA RASH 2021- [facility] l 3- Clear 00:00: Engel [facility] rifampin DA Active U UNKNOWN [facility] 3-28 Clear 00:00: Hartshorn [facility] adhesive DA Active PA RASH 2021- [facility] - Clear 00:00: Engel [facility] pregabal DA Active U UNKNOWN [facility] in 3 Clear 00:00: Engel [facility] Penicill DA Active PA RASH, ITCH 2021- [facility] ins 3 Clear 00:00: Engel [facility] morphine DA Active PA ITCHING 2021-0 [facility] 3-28 Clear 00:00: Engel [facility] codeine DA Active PA HEADACHE 2021-0 [facility] 3-28 Clear 00:00: Engel [facility] fenofibr DA Active PA MUSCLE 2021-0 [facility] ate CRAMPS 09-24 Clear 00:00: Engel 00 [facility] magnesiu DA Active PA RASH 2021-0 [facility] m 3-28 Clear 00:00: Engel [facility] levoflox DA Active PA RASH 2021-0 [facility] acin 3- Clear 00:00: Engel [facility] minoxidi DA Active PA RASH 2021-0 [facility] l 3-28 Clear 00:00: Engel [facility] lisinopr DA Active U UNKNOWN 2021-0 [facility] il 3-28 Clear 00:00: Engel [facility] nifedipi DA Active U UNKNOWN 2021-0 [facility] ne 3- Clear 00:00: Engel [facility] labetalo labetalo Active Kavitha a franny Sands Active Joan Peterson Norángela Norvas Active Memoria l Nicholas Lyrica Lyrica Active Memoria l Nicholas Magnesiu Magnesiu Active Memori a m m l Nicholas rifAMPin rifAMPin Active Memori a [place] cloNIDin cloNIDin Active Memori a e e l Nicholas NIFEdipi NIFEdipi Active Memori a ne ne [place] minoxidi minoxidi Active Memori a l l l Nicholas Levaquin Levaquin Active Memori a [place] Sulfur Sulfur Active Memoria l Nicholas morphine morphine Active Memori a l Nicholas lisinopr lisinopr Active Memori a il il l [place] TriCor TriCor Active Memoria l [place] Soma Soma Active Memoria l Nicholas Premarin Premarin Active Memori a Vaginal Vaginal l Nicholas Darvocet Darvocet Active Memori a A500 A500 l [place] penicill penicill Active Memori a ins ins l [place] codeine codeine Active Memoria l [place] Social History Smoking Status Start Date Stop Date Source Social History 2020-09-25 15:15:56 2020-09-25 15:15:56 [facility] Medications Ordered Filled Start Stop Current Ordering Indication Dosage Frequency Signature Comments Components Source Medication Medication Date Date Medication? Clinician (SIG) Name Name levothyroxi Yes 50 Memori a ne 50 mcg 3-15 microgram l (0.05 mg) 15:07: = 1 tab, Herm stepan oral tablet 00 PO, Daily, 0 Refill(s) Alprazolam Yes 0.25 mg = Me moria 0.25 MG 3-15 1 tab, PO, l Oral Tablet 15:06: TID, 0 Herm stepan [Xanax] 00 Refill(s) olmesartan Yes 40 mg = 1 Me moria 40 mg oral 3-15 tab, PO, l tablet 15:06: Daily, 0 [place] 00 Refill(s) atorvastati Yes 20 mg = 1 M emoria n 20 mg 3-15 tab, PO, l oral tablet 15:06: Daily, 0 He rmann 00 Refill(s) fosfomycin Yes = 1 Pack, Me moria 3 g oral 3-15 PO, ONCE, l powder 14:32: dissolve [place] 00 in 4 ounces of water. Take every other day for 3 doses., # 3 ea, 0 Refill(s), Pharmacy: [id number], 160.02, cm, 09/11/20 8:52:00 CDT, Height, 55.909, kg, 09/11/20 8:52:00 CDT, Weight Vital Signs Vital Name Observation Time Observation Value Comments Source Height 2020-09-25 15:14:00 160.02 cm [facility] Weight 2020-09-25 15:14:00 [facility] BMI Calculated 2020-09-25 15:14:00 Memori al [place] Systolic (mm Hg) 2020-09-11 13:52:00 Emmanuel rial [place] Diastolic (mm Hg) 2020-09-11 13:52:00 Mem orial Nicholas Heart Rate 2020-09-11 13:52:00 [facility] Height 2020-09-11 13:52:00 160.02 cm [facility] Weight 2020-09-11 13:52:00 [facility] BMI Calculated 2020-09-11 13:52:00 Memori al Nicholas Procedures Procedure Date / Time Performed Performing Clinician Rubia e Lumbar spinal fusion [facility] rmann Gallbladder operation [facility] ermann Pacemaker care [facility] and related Memori al Nicholas procedures Encounters Start End Encounter Admission Attending Care Care Encounter Source Date/Time Date/Time Type Type Clinicians Facility Department ID 2021-09-18 [id number] 15:00:00 Vish Francis 40 Prudencio [facility] 2021-09-26 2021-09-26 [facility] [id number] 05:20:00 05:20:00 Vish Francis 19 Cl ear [facility] 2021-03-26 2021-03-26 Ambulatory nullFlavo [facility] 55 [id number] Memoria 13:45:00 13:45:00 Pre-Reg r Specialty 02 [facility] 2021-03-26 2021-03-26 Outpatient UMMIE UMMIE [id number] Memoria 08:45:00 08:45:00 02 [facility] 2021-03-26 2021-03-26 Outpatient MAGDI Tinajero [id number] 08:45:00 08:45:00 Kristie L 02 2020-09-25 2020-09-26 Outpatient nullFlavo Multi 55 [id number] Memoria 15:20:00 04:59:59 r Specialty 01 l [facility] 2020-09-25 2020-09-25 Outpatient MAGDI Tinajero [id number] 10:20:00 23:59:59 Kristie L 2020-09-25 2020-09-25 Outpatient LUCA SEGOVIA [id number] Memoria 10:20:00 10:20:00 01 l Nicholas 2020-09-11 2020-09-12 Outpatient nullFlavo Multi 55 [id number] Memoria 14:00:00 04:59:59 r Specialty 00 l [facility] 2020-09-11 2020-09-11 Outpatient MAGDI Tinajero [id number] 09:00:00 23:59:59 Kristie L 2020-09-11 2020-09-11 Outpatient LUCA SEGOVIA [id number] Memoria 09:00:00 09:00:00 00 [facility] 2020-08-22 2020-08-22 Outpatient SLE [facility] [id number] [facility] 00:00:00 00:00:00 Results Test Description [...] = CA) 10.2 mg/dL 8.0-10.5 N PROTHROMBIN [id number] 11:32:00 Test Item Value Reference Range Interpretation Comments PROTHROMBIN TIME 11.3 SECONDS 9.3-12.9 N PATIENT (test code = PTP) INTERNATIONAL NORMAL 1.0 0.8-1.2 N TARGET INR BY RATIO (test code = INDICATIO N Indication INR) INR1. Prophylax is of venous thrombos is 2.0 - 3.0 (orthoped ic surgery), Proph ylaxis of venous throm bosis (other than hig h-risk surgery), Treat ment of Deep Vein Thrombosis/Pulm onary Embolism, Preve ntion of systemic emb olism - Tissue heart va lves, Acute Myocardia l Infarction (to prevent systemic emboli sm), Valvular heart disease, Atrial Fibrillation, Bileaflet mecha nical valve in aortic position.2. Mec hanical prosthetic valv es (high risk), 2. 5 - 3.5 Presence of Lup us Anticoagulant o r Antiphospholipi d Antibodies, Pre vention of systemic emb olism - Acute Myocardia l Infarction (to prevent recurrent infar ct). CBC W/AUTO [id number] 11:25:00 Test Item Value Reference Range Interpretation [...] NO = MDIFF) - XR CHEST 2 [id number] 00:00:00 [facility] : 1935 Sex: F FAX: Harry Seo MD [phone] [place]: St: PRE FAX: Vish Montalvo [phone] - Name: CORWIN MCGREGOR [facility] : 1935 Age/S: 86/F [address] [place] [address] Unit #: [id number] Loc: [place] [address] Phys: Vish Sanford MD Acct: [id number] Dis Date: Status: PRE PAC PHONE #: [phone] Exam Date: 09/24/2021 1135 FAX #: [phone] Reason: PREOP EXAMS: CPT CODE: [id number] XR CHEST 2 V [id number] PROCEDURE INFORMATION: Exam: XR Chest Exam date and time: 09/24/2021 11:03 AM Age: 86 years old Clinical indication: Screening exam; Pre-operative exam; Other: Preop TECHNIQUE:Imaging protocol: XR of the chest. Views: 2 views. PA and Lateral COMPARISON: No relevant prior studies available. FINDINGS: Lungs: No consolidation. Minimal left basilar scarring or atelectasis. Pleural spaces: No pleural effusion. Heart/Mediastinum: The heart and vascular markings are within limits of normal. There is atherosclerotic calcification of the aorta. Left chest cardiac device with atrioventricular days. Bones/joints: No gross acute findings. IMPRESSION: No acute cardiopulmonary findings at 1232 Reported and signed by: Nargis Abbott D.O. CC: Harry Hernandez MD; Vish Francis MD Technologist: Christie Hanson RT(R) Trnscrd Date/Time/By: 09/24/2021 (1232) : By: [email or web address] Orig Print D/T: S: 09/24/2021 (6801) PAGE 1 Signed ReportREFERENCE LAB [id number] 14:43:00 Test Item Value Reference Range Interpretation Comments Result 2 (Urine Culture) See Result Comment (test code = Result 2 (Urine Culture)) Bernardino Peterson
[2022-05-12] MEDS ORDERED: ONDANSETRON 4 MG/2 ML VIAL ONE (00:46)
[2022-05-12 01:01] LABS: Absolute Lymphocytes (CBC) 0.9 K/uL (0.7-4.9); Hematocrit 40.6 % (36.0-45.0); Lymphocytes % 10.2 % (15.3-44.8); MCV 90.8 fL (80-100); MPV 7.4 fL (7.6-11.3); RBC Red Blood Cell Count 4.47 M/uL (3.86-4.86)
[2022-05-12 01:17] LABS: Albumin 4.1 g/dL (3.4-5.0); Bilirubin Total 0.9 mg/dL (0.2-1.0); Potassium 3.5 mmol/L (3.5-5.1); Protein, Total 8.3 g/dL (6.4-8.2)
[2022-05-12 02:24] LABS: Urine Blood Negative (Negative); Urine Glucose Negative (Negative); Urine Protein Negative (Negative); Urine Specific Gravity 1.015 (1.005-1.030); Urine pH 6.5 (5.0-7.0)
[2022-05-12 02:34] LABS: Urine Bacteria <20 /HPF (<20); Urine RBC <5 /HPF (None Seen)
--- NOTE | 2022-05-12 02:52 | ER ---
Nurse's Notes [facility] Name: Zee Lindsay Age: 86 yrs Sex: Female : 1935 Arrival Date: 05/12/2022 Time: 00:15 Bed 26 Private MD: Diagnosis: Hyponatremia;Abdominal pain, unspecified;Vomiting Presentation: 05/12 00:31 Chief complaint: Patient states: she has been having severe abdominal pain with nausea bb since around noon yesterday she vomited x 1. The pain is constant and currently is 8/10. Coronavirus screen: At this time, the client does not indicate any symptoms associated with coronavirus-19. Ebola Screen: No symptoms or risks identified at this time. Initial Sepsis Screen: Does the patient meet any 2 criteria? No. Patient's initial sepsis screen is negative. Does the patient have a suspected source of infection? No. Patient's initial sepsis screen is negative. Risk Assessment: Do you want to hurt yourself or someone else? Patient reports no desire to harm self or others. Onset of symptoms was May 11, 2022. 00:31 Method Of Arrival: Wheelchair bb 00:31 Acuity: DESIRE 3 bb Historical: - Allergies: 00:34 Clonidine; bb 00:34 Codeine; bb 00:34 Darvocet-N 100; bb 00:34 dorjaycline; bb 00:34 guafin; bb 00:34 Labetalol; bb 00:34 Levaquin; bb 00:34 Lisinopril; bb 00:34 Lyrica; bb 00:34 magnesium; bb 00:34 Minoxidil; bb 00:34 Morphine; bb 00:34 Nicen; bb 00:34 Nifedipine; bb 00:34 Norvasc; bb 00:34 PENICILLINS; bb 00:34 PENTAZOCINE; bb 00:34 Premarin; bb 00:34 propargyl vela; bb 00:34 Rifampin; bb 00:34 Soma; bb 00:34 Talwin; bb 00:34 Tricor; bb - Home Meds: 00:34 Plavix Oral [Active]; Hyoscyamine Sulfate SL [Active]; amlodipine oral [Active]; bb atorvastatin oral [Active]; Famotidine Oral [Active]; Macrobid Oral [Active]; levothyroxine oral [Active]; pantoprazole oral [Active]; Bystolic oral [Active]; pentoxifylline oral [Active]; - PMHx: 00:34 diverticulosis; gastric ulcer; High Cholesterol; Hyperlipidemia; Hypertension; bb Pacemaker; TIA; - PSHx: 00:34 Cholecystectomy; left kidney balloon; Left Lung; Lumbar; Pace maker; right kidney stent;bb - Social history:: Smoking status: Patient denies any tobacco usage or history of. Screenin:05 Abuse screen: Denies threats or abuse. Denies injuries from another. Nutritional ll3 screening: No deficits noted. Tuberculosis screening: No symptoms or risk factors identified. 04:57 Fall Risk No fall in past 12 months (0 pts). No secondary diagnosis (0 pts). IV access ll3 (20 points). Ambulatory Aid- Crutches/Cane/Walker (15 pts). Gait- Weak (10 pts.). Mental Status- Oriented to own ability (0 pts). Total Warren Fall Scale indicates High Risk Score (45 or more points). Fall prevention measures have been instituted. Side Rails Up X 2 Placed Close to Nursing Station Family Present and informed to notify staff if the need to leave the bedside As available patient and family educated on Fall Prevention Program and Strategies. Assessment: 01:05 General: Appears in no apparent distress. uncomfortable, Behavior is calm, cooperative. ll3 Pain: Complains of pain in abdomen Pain does not radiate. Pain currently is 7 out of 10 on a pain scale. Pain began 1 day ago. Is continuous. Neuro: Level of Consciousness is awake, alert, obeys commands, Oriented to person, place, time, situation. GI: Abdomen is round non-distended, Bowel sounds present X 4 quads. Abd is soft X 4 quads Abdomen is tender to palpation X 4 quads. Reports lower abdominal pain, upper abdominal pain, nausea, vomiting. Derm: Skin is pink, warm \T\ dry. Vital Signs: 00:31 BP 162 / 63; Pulse 89; Resp 18 S; Temp 97.8(O); Pulse Ox 99% on R/A; Weight 54.43 kg bb (R); Height 5 ft. 3 in. (160.02 cm); Pain 8/10; 02:07 BP 148 / 87; Pulse 64; Resp 17; Pulse Ox 100% on R/A; ll3 03:24 BP 170 / 66; Pulse 73; Resp 15; Pulse Ox 100% on R/A; ll3 00:31 Body Mass Index 21.26 (54.43 kg, 160.02 cm) elfego ED Course: 00:15 Patient arrived in ED. bp1 00:21 Yusef Goodrich DO is Attending Physician. ms3 00:34 Triage completed. bb 00:34 Arm band placed on Patient placed in an exam room, on a stretcher, on pulse oximetry. bb Family accompanied patient. 00:58 Initial lab(s) drawn, by me, sent to lab. Inserted saline lock: 22 gauge in right ll3 antecubital area, using aseptic technique. Blood collected. 01:06 Patient has correct armband on for positive identification. Placed in gown. Bed in low ll3 position. Call light in reach. Side rails up X 1. 01:35 CT Abd/Pelvis - IV Contrast Only In Process Unspecified. EDMS 02:51 Sumit Hernandez MD is Hospitalizing Provider. ms3 04:56 No provider procedures requiring assistance completed. Patient admitted, IV remains in ll3 place. Administered Medications: 00:58 Drug: Zofran (Ondansetron) 4 mg Route: IVP; Site: right antecubital; ll3 02:18 Follow up: Response: No adverse reaction ll3 03:04 Drug: traMADol 50 mg Route: PO; ll3 06:38 Follow up: Response: No adverse reaction; Pain is decreased ll3 Medication: 04:57 VIS not applicable for this client. ll3 Outcome: 02:51 Decision to Hospitalize by Provider. ms3 04:57 Admitted to ER Hold. Please see [facility] for further documentation. ll3 04:57 Condition: stable 04:57 Instructed on the need for admit. 14:56 Patient left the ED. ss Signatures: Dispatcher [employer] EDMS Damaris Kwong RN RN Felicita Flores RN RN Yusef Goodrich DO DO ms3 Poonam Tyler Lynsea, RN RN ll3 Corrections: (The following items were deleted from the chart) 00:38 00:34 PSHx: pacemaker; bb elfego 02:18 02:18 Reassessment: Patient and/or family updated on plan of care and expected ll3 duration. Pain level reassessed. Patient is alert, oriented x 3, equal unlabored respirations, skin warm/dry/pink. ll3
--- NOTE | 2022-05-12 02:52 | EDPHYS ---
Physician Documentation [facility] Name: Zee Lindsay Age: 86 yrs Sex: Female : 1935 Arrival Date: 05/12/2022 Time: 00:15 Bed 26 Private MD: ED Physician Yusef Goodrich HPI: 05/12 00:44 This 86 yrs old Female presents to ER via Wheelchair with complaints of Abdominal Pain. ms3 00:44 The patient presents with abdominal pain that is diffuse. Onset: The symptoms/episode ms3 began/occurred 14 hour(s) ago. The symptoms do not radiate. Associated signs and symptoms: Pertinent positives: nausea and vomiting, Pertinent negatives: fever. The symptoms are described as sharp. Modifying factors: The symptoms are alleviated by nothing, the symptoms are aggravated by nothing. Severity of pain: At its worst the pain was moderate in the emergency department the pain is unchanged. 86-year-old female with past medical history of hypertension, diabetes, hyperlipidemia, renal stent presents for abdominal pain that began at 11 AM. Patient states the pain is diffuse, described as stabbing, and rated at a 7/10. Patient endorses vomiting x1 and nausea. Patient denies diarrhea.. Historical: - Allergies: 00:34 Clonidine; bb 00:34 Codeine; bb 00:34 Darvocet-N 100; bb 00:34 dorjaycline; bb 00:34 guafin; bb 00:34 Labetalol; bb 00:34 Levaquin; bb 00:34 Lisinopril; bb 00:34 Lyrica; bb 00:34 magnesium; bb 00:34 Minoxidil; bb 00:34 Morphine; bb 00:34 Nicen; bb 00:34 Nifedipine; bb 00:34 Norvasc; bb 00:34 PENICILLINS; bb 00:34 PENTAZOCINE; bb 00:34 Premarin; bb 00:34 propargyl vela; bb 00:34 Rifampin; bb 00:34 Soma; bb 00:34 Talwin; bb 00:34 Tricor; bb - Home Meds: 00:34 Plavix Oral [Active]; Hyoscyamine Sulfate SL [Active]; amlodipine oral [Active]; bb atorvastatin oral [Active]; Famotidine Oral [Active]; Macrobid Oral [Active]; levothyroxine oral [Active]; pantoprazole oral [Active]; Bystolic oral [Active]; pentoxifylline oral [Active]; - PMHx: 00:34 diverticulosis; gastric ulcer; High Cholesterol; Hyperlipidemia; Hypertension; bb Pacemaker; TIA; - PSHx: 00:34 Cholecystectomy; left kidney balloon; Left Lung; Lumbar; Pace maker; right kidney stent;bb - Social history:: Smoking status: Patient denies any tobacco usage or history of. ROS: 00:44 Constitutional: Negative for fever, and chills. Neck: Negative for injury, pain, and ms3 swelling, Cardiovascular: Negative for chest pain, and palpitations. Respiratory: Negative for shortness of breath, cough, wheezing, and pleuritic chest pain. 00:44 MS/Extremity: Negative for injury and deformity, Skin: Negative for injury, rash, and discoloration, Neuro: Negative for headache, weakness, numbness, tingling. 00:44 Abdomen/GI: Positive for abdominal pain, nausea and vomiting. 00:44 All other systems are negative. Exam: 00:44 Constitutional: This is a well developed, well nourished patient who is awake, alert, ms3 and in no acute distress. Head/Face: Normocephalic, atraumatic. Neck: Trachea midline, no cervical lymphadenopathy. Supple, full range of motion without nuchal rigidity, or vertebral point tenderness. No Meningismus. Chest/axilla: Normal chest wall appearance and motion. Nontender with no deformity. Cardiovascular: Regular rate and rhythm with a normal S1 and S2. No gallops, murmurs, or rubs. Normal PMI, no JVD. No pulse deficits. Respiratory: Lungs have equal breath sounds bilaterally, clear to auscultation and percussion. No rales, rhonchi or wheezes noted. No increased work of breathing, no retractions or nasal flaring. Skin: Warm, dry with normal turgor. Normal color with no rashes, no lesions, and no evidence of cellulitis. MS/ Extremity: Pulses equal, no cyanosis. Neurovascular intact. Full, normal range of motion. 00:44 Abdomen/GI: Inspection: abdomen appears normal, Bowel sounds: normal, Palpation: moderate abdominal tenderness, in all quadrants. Vital Signs: 00:31 BP 162 / 63; Pulse 89; Resp 18 S; Temp 97.8(O); Pulse Ox 99% on R/A; Weight 54.43 kg bb (R); Height 5 ft. 3 in. (160.02 cm); Pain 8/10; 02:07 BP 148 / 87; Pulse 64; Resp 17; Pulse Ox 100% on R/A; ll3 03:24 BP 170 / 66; Pulse 73; Resp 15; Pulse Ox 100% on R/A; ll3 00:31 Body Mass Index 21.26 (54.43 kg, 160.02 cm) bb MDM: 00:40 Patient medically screened. ms3 00:44 Differential diagnosis: bowel obstruction, gastritis, non-specific abd pain. ms3 02:49 ED course: Discussed case with Dr Hernandez and he would like patient placed in observation ms3 and normal saline at 75 mL/h. Discussed plan with patient and her daughter and they understand and agree with plan. All questions were answered. Patient remained in stable condition in the emergency department. 02:56 Data reviewed: vital signs, nurses notes, lab test result(s), radiologic studies, and ms3 as a result, I will admit patient. Counseling: I had a detailed discussion with the patient and/or guardian regarding: the historical points, exam findings, and any diagnostic results supporting the discharge/admit diagnosis, lab results, radiology results, the need for further work-up and treatment in the hospital. 05/12 00:43 Order name: CBC with Diff; Complete Time: 02:44 ms3 05/12 00:43 Order name: CMP; Complete Time: 02:44 ms3 05/12 00:43 Order name: Lipase; Complete Time: 02:44 ms3 05/12 00:43 Order name: Urine Microscopic Only; Complete Time: 02:44 ms3 05/12 02:24 Order name: Urine Dipstick-Ancillary; Complete Time: 02:44 EDMS 05/12 02:49 Order name: SARS RAPID; Complete Time: 04:56 ms3 05/12 00:43 Order name: CT Abd/Pelvis - IV Contrast Only ms3 05/12 02:58 Order name: Basic Metabolic Panel EDMS 05/12 02:58 Order name: Basic Metabolic Panel EDMS 05/12 02:58 Order name: CBC with Automated Diff EDMS 05/12 02:58 Order name: CBC with Automated Diff EDMS 05/12 11:16 Order name: Basic Metabolic Panel EDMS 05/12 11:16 Order name: Thyroid Stimulating Hormone EDMS 05/12 00:43 Order name: IV Saline Lock; Complete Time: 00:58 ms3 05/12 00:43 Order name: Labs collected and sent; Complete Time: 00:58 ms3 05/12 00:43 Order name: Urine Dipstick-Ancillary (obtain specimen); Complete Time: 02:22 ms3 05/12 02:58 Order name: 60g Consistent Carbohydrate (ADA 1800/1999) EDMS Administered Medications: 00:58 Drug: Zofran (Ondansetron) 4 mg Route: IVP; Site: right antecubital; ll3 02:18 Follow up: Response: No adverse reaction ll3 03:04 Drug: traMADol 50 mg Route: PO; ll3 06:38 Follow up: Response: No adverse reaction; Pain is decreased ll3 Disposition Summary: 05/12/22 02:51 Hospitalization Ordered Hospitalization Status: Observation ms3 Provider: Sumit Hernandez ms3 Condition: Stable ms3 Problem: new ms3 Symptoms: are unchanged ms3 Bed/Room Type: Standard ms3 Location: [facility] ER HOLD(05/12/22 02:56) cg Room Assignment: ERHOLD-(05/12/22 02:56) cg Diagnosis - Hyponatremia ms3 - Abdominal pain, unspecified ms3 - Vomiting ms3 Forms: - Medication Reconciliation Form ms3 - SBAR form ms3 Signatures: Dispatcher [employer] EDSD Damaris Kwong RN RN bb Garcia, Cindy, RN RN Yusef Dale DO DO ms3 Yael Hannah RN RN ll3 Corrections: (The following items were deleted from the chart) 00:38 00:34 PSHx: pacemaker; elfego telles 02:56 02:51 Telemetry/MedSurg (observation) ms3 cg 02:56 02:51 ms3 cg
[2022-05-12] MEDS ORDERED: ONDANSETRON 4 MG (ODT) TAB PO PRN (02:54)
[2022-05-12] MEDS ORDERED: ACETAMINOPHEN 500 MG TAB PO PRN (02:54)
[2022-05-12] MEDS ORDERED: TRAMADOL HCL 50 MG TAB ONE (03:00)
[2022-05-12] MEDS ORDERED: NA CHLORIDE 0.9% 1,000 ML IV SCH (03:00)
[2022-05-12 03:27] LABS: SARS-CoV-2 Antigen Rapid Res Negative (Negative)
[2022-05-12] MEDS ORDERED: NA CHLORIDE 0.9% 1,000 ML ONE (05:12)
[2022-05-12 05:38] VITALS: O2SAT 97
[2022-05-12 05:41] VITALS: BMI 21.2
--- NOTE | 2022-05-12 11:03 | SS ---
Date of Admission: 05/12/2022 Date of Discharge: 05/12/2022 Chief Complaint: Abdominal pain, nausea, vomiting. History Of Present Illness: This is an 86-year-old female patient, who was doing fine in her normal usual state of health until yesterday all of a sudden she started to have generalized abdominal pain that she reports radiating to her back and associated with nausea, vomiting. Denies any fever, chills, constipation, or diarrhea. Denies any hematemesis or blood in urine or blood in stool. After she came into emergency room, she was evaluated and her sodium level was 127. CAT scan was negative for any acute changes. I was contacted requesting admission to the hospital for observation and I did see her this morning in the emergency room. She was getting IV fluid normal saline and she was feeling a lot better. Denied any complaints. When I saw her, abdominal pain has resolved. Review of Systems: GI: As mentioned above. All other systems reviewed and negative. Allergies: TO PENICILLIN CAUSING RASH AND ITCHING, MORPHINE CAUSING NAUSEA AND VOMITING, SULFA CAUSING RASH AND ITCHING, CODEINE CAUSING HEADACHE, TRICOR DETAILS UNKNOWN, NIFEDIPINE DETAILS UNKNOWN, LEVAQUIN CAUSES RASH AND ITCHING, NIACIN CAUSES FLUSHING, LISINOPRIL DETAILS UNKNOWN, DARVOCET DETAILS UNKNOWN, SOMA DETAILS UNKNOWN, TALWIN DETAILS UNKNOWN, MINOXIDIL DETAILS UNKNOWN, LABETALOL DETAILS UNKNOWN, LYRICA DETAILS UNKNOWN, RIFAMPIN DETAILS UNKNOWN, PREMARIN CAUSES ITCHING, DOXYCYCLINE CAUSES RASH AND ITCHING, CIPRO CAUSES RASH. Medications: Alprazolam 0.25 mg daily as needed for anxiety or sleep, amlodipine 5 mg 2 times a day, aspirin 81 mg daily, atorvastatin 40 mg daily, clonidine 0.2 mg takes half to 1 tablet 3 times a day if systolic blood pressure more than 180, clopidogrel 75 mg daily, famotidine 20 mg 2 times a day, levothyroxine 50 mcg daily, Bystolic 10 mg daily, Zofran 4 mg 4 times a day as needed for nausea and vomiting, pantoprazole 40 mg daily, pentoxifylline 400 mg 2 times a day, hyoscyamine 0.125 mg sublingual tablet 2 times a day as needed for stomach cramps. Past Medical History: Significant for stroke, hypothyroidism, impaired fasting glucose, hypertension, hyperlipidemia, diverticulosis, chronic kidney disease, anxiety, insomnia. Past Surgical History: The patient had pleurodesis in 2019 for pleural effusion after trauma. She had a breast biopsy, which was benign. Had a pacemaker placement in January 2012 for sick sinus syndrome and battery was replaced in August 2021. The patient also had cholecystectomy, back surgery in 1979 and 2006, ankle surgery in 2005. Family History: Father , had myocardial infarction. Mother , had breast and cervical cancer and heart disease. Son has thalassemia minor and daughter also has thalassemia minor. Social History: Prior history of smoking, not at present time. Use of alcohol negative. Physical Examination: Vital Signs: When the patient arrived to emergency room; temperature 97.8, pulse 64, respiratory rate 15, blood pressure 149/67, oxygen saturation 97%. Height 5 feet 3 inches, weight 120 pounds. General: Awake, alert, oriented, not in distress. HEENT: Head atraumatic, normocephalic. Conjunctivae nonerythematous. Sclerae white. Mouth, no thrush or edema noted. Ears/Nose, no mass, lesion, discharge noted. Neck: Supple. No JVD, lymph nodes, bruit, thyromegaly noted. Lungs: Bilateral good equal air entry. Clear to auscultation. No rhonchi. No rales. Heart: Normal heart sounds, no murmur or gallop. Abdomen: Soft, bowel sounds normal. No guarding, rigidity, tenderness, mass, hepatosplenomegaly, distention, or bruit noted. Extremities: No leg edema. No calf tenderness. Skin: No rash, ulcer, cellulitis. Lymphatics: No lymph node enlargement in neck, supraclavicular, infraclavicular region. Neuro: No focal neurological deficit. Chest: Unremarkable. External Genitalia: Deferred. Rectal: Deferred. Laboratory Data: White count 9.3, hemoglobin 14, platelets 180. Sodium 127, potassium 3.5, chloride 94, bicarb 26, BUN 13, creatinine 1, glucose 153, lipase 104. Urinalysis negative. CAT scan of abdomen and pelvis; no acute intraabdominal process, atrophic right kidney, diverticulosis without any evidence of diverticulitis. Hospital Course: After the patient was evaluated in the emergency room, she was admitted to the hospital for observation. I saw her in the emergency room. This morning, she is comfortable, not in distress, no more abdominal pain. She has received IV fluid normal saline in the emergency room. We will repeat another blood work this morning to look at her sodium level and after that, we will plan to discharge her to go home depending on her condition. Her abdominal pain problem has resolved, so there is no need for her to stay in the hospital as far as abdominal pain is concerned and depending on the sodium level, we will make decision regarding discharge. Details were discussed with her. Final Diagnoses: 1. Abdominal pain. 2. Hyponatremia. 3. Hypertension. 4. Hypothyroidism. 5. Impaired fasting glucose. 6. Hyperlipidemia. 7. Diverticulosis. 8. Anxiety. 9. Insomnia. Discharge Medications: 1. Continue all prior home medications. 2. Follow up at my office next week. MARGO/AKIL Voice ID: [id number] Report ID: [id number] MTDD
[2022-05-12 11:14] LABS: Potassium 3.8 mmol/L (3.5-5.1); Thyroid Stimulating Hormone 1.22 uIU/mL (0.360-3.740)
[2022-05-12 12:08] VITALS: BP 142/76; TEMP 98.3
--- NOTE | 2022-05-13 12:27 | RAD REPORT ---
EXAM DESCRIPTION: CT - Abdomen Pelvis W Contrast - 05/12/2022 6:33 am CLINICAL HISTORY: 86 years, Female, abdominal pain COMPARISON: TECHNIQUE: Contrast-enhanced images of the abdomen and pelvis were performed utilizing 5 mm slice th ickness at 5 mm interval reconstruction from the lung bases to the ischial tuberosities after the adm inistration of IV contrast. In addition multiplanar reformats in the coronal and sagittal plane were obtained and reviewed. This exam was performed according to our departmental dose-optimization protocol, which includes auto mated exposure control, adjustment of the mA and/or kV according to patient size and/or use of iterat meena reconstruction technique. FINDINGS: The lung bases demonstrate to be clear. Again there is a dual-lead pacemaker in place. [facility] annular consultation.. The liver, pancreas, spleen and adrenal glands demonstrate to be unremarkable, no focal lesions are n oted. The right kidney is atrophic. The left kidney is unremarkable. There is no evidence for hydronephrosi s/or nephrolithiasis. Grossly the unopacified stomach, small bowel and large bowel demonstrate to be within normal limits. There is mild fecal stasis. There is diverticulosis within the left site colon. The appendix was not visualized although no significant inflammatory changes are seen within the right lower quadrant. The urinary bladder demonstrate to be unremarkable. The uterus is absent. There are no adnexal mass es. The aorta demonstrate atherosclerotic disease extending into the aortic bifurcation. There is no retroperitoneal lymphadenopathy. There is no evidence for ascites/or significant abnormal fluid c ollections. Bone windows demonstrate mild diffuse bony osteopenia with multilevel degenerative disc d isease. IMPRESSION: No acute intra-abdominal process. Atrophic right kidney. Mild fecal stasis. Diverticulosis without evidence for acute diverticulitis. Status post hysterectomy. Electronically signed by: Ar Collazo MD 05/12/2022 2:37 AM MACHINE BOBBIN WINDER Due to temporary technical issues with the PACS/Fluency reporting system, reports are being signed by the in house radiologists without review as a courtesy to insure prompt reporting. The interpreting radiologist is fully responsible for the content of the report.
== END 2022-05-12 14:40 | disposition home or self-care (01) ==
LOC: ER 00:09 → ERHOLD 03:09
PROVIDERS: ADMIT Internal Medicine; ATTEND Internal Medicine
DX: R10.9 Unspecified abdominal pain (principal); E87.1 Hypo-osmolality and hyponatremia; I10 Essential (primary) hypertension; E03.9 Hypothyroidism, unspecified; R73.01 Impaired fasting glucose; E78.5 Hyperlipidemia, unspecified; K57.90 Diverticulosis of intestine, part unspecified, without perforation or abscess without bleeding; F41.9 Anxiety disorder, unspecified; G47.00 Insomnia, unspecified; Z88.0 Allergy status to penicillin; Z88.6 Allergy status to analgesic agent; Z88.8 Allergy status to other drugs, medicaments and biological substances; Z82.49 Family history of ischemic heart disease and other diseases of the circulatory system; Z80.3 Family history of malignant neoplasm of breast
CPT/HCPCS: 85025; 80048; 36415; 84443; 83690; 80053; 74177; 96374; 99285; 87811; Q9967; J7030; J2405; G0378 ×2; 81003; 81015

== ENCOUNTER 2022-06-23 11:17 | Emergency (ER) | payer OTHER ==
--- OUTSIDE RECORDS SUMMARY | 2022-06-23 11:20 | XMS REPORT | Continuity of Care Document ---
:1935 Author Organization [facility] t Address [address] [place] [address] Care Team Providers Name Role Phone Vish [...] ents Source Name Type Date Date Clinician magnamberu DA Active OR RASH [facility] m 3-28 Clear 00:00: Engel [facility] levoflox DA Active OR RASH 2021-0 [facility] acin 3-28 Clear 00:00: Engel [facility] minoxidi DA Active OR RASH 2021-0 [facility] l 3- Clear 00:00: Allison [facility] lisinopr DA Active U UNKNOWN [facility] il 3-28 Clear 00:00: Allison [facility] nifedipi DA Active U UNKNOWN [facility] ne 3- Clear 00:00: Allison [facility] niacin DA Active OR RASH 2021- [facility] 3-28 Clear 00:00: Allison [facility] estrogen DA Active OR BURNING WITH 0 HC A s, VAGINAL 09-24 Clear conjugat CREAM 00:00: Allison ed 00 [facility] pentazoc DA Active OR "WEIRD IN [facility] ine THE HEAD" 09-24 Clear 00:00: Allison [facility] carisopr DA Active OR "SENSITIVE [facility] odol TO MED" 09-24 Clear 00:00: Allison [facility] labetalo DA Active OR RASH 2021-0 [facility] l 3- Clear 00:00: Allison [facility] rifampin DA Active U UNKNOWN 2021- [facility] 3-28 Clear 00:00: Allison [facility] adhesive DA Active OR RASH 2021-0 [facility] 3-28 Clear 00:00: Allison [facility] pregabal DA Active U UNKNOWN 0 [facility] in 3- Clear 00:00: Allison [facility] Penicill DA Active OR RASH, ITCH 2021-0 [facility] ins 3-28 Clear 00:00: Allison [facility] morphine DA Active OR ITCHING 2021-0 [facility] 3-28 Clear 00:00: Allison [facility] codeine DA Active OR HEADACHE 2021-0 [facility] 3-28 Clear 00:00: Allison [facility] fenofibr DA Active OR MUSCLE 2021-0 [facility] ate CRAMPS 3- Clear 00:00: Engel [facility] lisinopr lisinopr Active Memori a il il l [facility] TriCor TriCor Active Memoria l [facility] Soma Soma Active Memoria l [facility] Premarin Premarin Active Memori a Vaginal Vaginal l Nicholas Darvocet Darvocet Active Memori a A500 A500 l Nicholas penicill penicill Active Memori a ins ins l Nicholas codeine codeine Active Memoria l [facility] labetalo labetalo Active Memori a l l l [facility] Talwin Talwin Active Memoria l [facility] Norvasc Norvasc Active [facility] Lyrica Lyrica Active Memoria l [facility] Magnesiu Magnesiu Active Memori a m m l [facility] rifAMPin rifAMPin Active Memori a l [facility] cloNIDin cloNIDin Active Memori a e e l Nicholas NIFEdipi NIFEdipi Active Memori a ne ne l Nicholas minoxidi minoxidi Active Memori a l l l [facility] Levaquin Levaquin Active Memori a l [facility] Sulfur Sulfur Active Memoria l [facility] morphine morphine Active Memori a l [facility] Social History Smoking Status Start Date Stop Date Source Social History 2020-09-25 15:15:56 2020-09-25 15:15:56 [facility] Medications Ordered Filled Start Stop Current Ordering Indication Dosage Frequency Signature Comments Components Source Medication Medication Date Date Medication? Clinician (SIG) Name Name levothyroxi Yes 50 Memori a ne 50 mcg 3-15 microgram l (0.05 mg) 15:07: = 1 tab, Herm stepan oral tablet 00 PO, Daily, 0 Refill(s) levothyroxi Yes 50 Memori a ne 50 [...] tab, PO, l tablet 15:06: Daily, 0 Nicholas 00 Refill(s) atorvastati Yes 20 mg = 1 M emoria n 20 mg 3-15 tab, PO, l oral tablet 15:06: Daily, 0 He rmann 00 Refill(s) Alprazolam Yes 0.25 mg = Me moria 0.25 MG 3-15 1 tab, PO, l Oral Tablet 15:06: TID, 0 Herm stepan [Xanax] 00 Refill(s) olmesartan Yes 40 mg = 1 Me moria 40 mg oral 3-15 tab, PO, l tablet 15:06: Daily, 0 [place] 00 Refill(s) atorvastati Yes 20 mg = 1 M emoria n 20 mg 3-15 tab, PO, l oral tablet 15:06: Daily, 0 He rmann 00 Refill(s) fosfomycin Yes = 1 Pack, Me moria 3 g oral 3-15 PO, ONCE, l powder 14:32: dissolve Nicholas 00 in 4 ounces of water. Take every other day for 3 doses., # 3 ea, 0 Refill(s), Pharmacy: [facility], 160.02, cm, 09/11/20 8:52:00 CDT, Height, 55.909, kg, 09/11/20 8:52:00 CDT, Weight fosfomycin Yes = 1 Pack, Me moria 3 g oral 3-15 PO, ONCE, l powder 14:32: dissolve [place] 00 in 4 ounces of water. Take every other day for 3 doses., # 3 ea, 0 Refill(s), Pharmacy: [facility], 160.02, cm, 09/11/20 8:52:00 CDT, Height, 55.909, kg, 09/11/20 8:52:00 CDT, Weight Vital Signs Vital Name Observation Time Observation Value Comments Source Height 2020-09-25 15:14:00 160.02 cm [facility] Weight 2020-09-25 15:14:00 [facility] BMI Calculated 2020-09-25 15:14:00 Kavitha al Nicholas Systolic (mm Hg) 2020-09-11 13:52:00 Emmanuel Peterson Diastolic (mm Hg) 2020-09-11 13:52:00 Mango Peterson Heart Rate 2020-09-11 13:52:00 [facility] Height 2020-09-11 13:52:00 160.02 cm Bernardino Peterson Weight 2020-09-11 13:52:00 [facility] [place] BMI Calculated 2020-09-11 13:52:00 Memori al [facility] Procedures Procedure Date / Time Performed Performing Clinician Rubia jones Lumbar spinal fusion [facility] rmann Gallbladder operation [facility] ermann Pacemaker care [facility] Nicholas Lung operation [facility] [place] Breast biopsy and related Memori al Nicholas procedures Encounters Start End Encounter Admission Attending Care Care Encounter Source Date/Time Date/Time Type Type Clinicians Facility Department ID 2021-09-18 Inpatient EL [place] [facility]D [id number] [facility] 15:00:00 Vish Francis 40 Prudencio [facility] 2021-09-26 2021-09-26 Inpatient EL [place] [facility] OUTD [id number] [facility] 05:20:00 05:20:00 Vish Francis 19 [facility] 2021-03-26 2021-03-26 Ambulatory nullFlavo [facility] 55 [id number] Memoria 13:45:00 13:45:00 Pre-Reg r Specialty 02 [facility] 2021-03-26 2021-03-26 Ambulatory nullFlavo [facility] 55 [id number] Memoria 13:45:00 13:45:00 Pre-Reg r Specialty 02 [facility] 2021-03-26 2021-03-26 Outpatient MHIE MHIE [id number] Memoria 08:45:00 08:45:00 02 franny [facility] 2021-03-26 2021-03-26 Outpatient MAGDI Tinajero MG [id number] 08:45:00 08:45:00 Kristie L 02 2020-09-25 2020-09-26 Outpatient nullFlavo [facility] 55 [id number] Memoria 15:20:00 04:59:59 r Specialty 01 [facility] 2020-09-25 2020-09-26 Outpatient nullFlavo [facility] 55 [id number] Memoria 15:20:00 04:59:59 r Specialty 01 [facility] 2020-09-25 2020-09-25 Outpatient MAGDI Tinajero MG [id number] 10:20:00 23:59:59 Kristie L 2020-09-25 2020-09-25 Outpatient LUCA SEGOVIA [id number] Memoria 10:20:00 10:20:00 01 franny Peterson 2020-09-11 2020-09-12 Outpatient nullFlavo [facility] Daniel 55 [id number] Memoria 14:00:00 04:59:59 r Specialty 00 l [facility] 2020-09-11 2020-09-12 Outpatient nullFlavo [facility] Daniel 55 [id number] Memoria 14:00:00 04:59:59 r Specialty 00 l [facility] 2020-09-11 2020-09-11 Outpatient Staller, [facility] [id number] 09:00:00 23:59:59 Kristie L 2020-09-11 2020-09-11 Outpatient LUCA SEGOVIA [id number] Memoria 09:00:00 09:00:00 00 franny Peterson 2020-08-22 2020-08-22 Outpatient [facility] [id number] [address] [place] [address] 00:00:00 00:00:00 Results Test Description Test Time [...] = CA) 10.2 mg/dL 8.0-10.5 N PROTHROMBIN [id number] 11:32:00 Test Item Value Reference Range Interpretation [...] (to prevent recurrent infar ct). CBC W/AUTO [id number] 11:25:00 Test Item Value Reference Range Interpretation [...] NO = MDIFF) - XR CHEST 2 [id number] 00:00:00 [facility] COR[facility] : 1935 Sex: F FAX: Harry Seo MD [phone] [place]: St: PRE FAX: Vish Montalvo [phone] Name: CORWIN MCGREGOR [facility] [place] : 1935 Age/S: 86/F [address] [place] [address] Bl Unit #: [id number] Loc: [place] [address] Phys: Vish Sanford MD Acct: [id number] Dis Date: Status: PRE SDC PHONE #: [phone] Exam Date: 09/24/2021 1135 FAX #: [phone] Reason: PREOP EXAMS: CPT CODE: [id number] XR CHEST 2 V 94030 PROCEDURE INFORMATION: Exam: XR Chest Exam date [...] Technologist: Christie Hanson RT(R) Trnscrd Date/Time/By: 09/24/2021 (123) : By: [email or web address] Orig Print D/T: S: 09/24/2021 (1232) PAGE 1 Signed ReportREFERENCE LAB [id number] 14:43:00 Test Item Value Reference Range Interpretation Comments Result 2 (Urine Culture) See Result Comment (test code = Result 2 (Urine Culture)) Bernardino Vuong LAB [id number] 14:43:00 Test Item Value Reference Range Interpretation Comments Result 2 (Urine Culture) See Result Comment (test code = Result 2 (Urine Culture)) Bernardino Peterson
[2022-06-23] MEDS ORDERED: CEFTRIAXONE 1000 MG/VIAL ONE (12:06)
[2022-06-23] MEDS ORDERED: NA CHLORIDE 0.9% 500 ML ONE ×2 (12:07→13:36)
[2022-06-23] MEDS ORDERED: NA CHLORIDE 0.9% 50 ML IV ONE (12:07)
--- NOTE | 2022-06-23 12:33 | RAD REPORT ---
EXAM DESCRIPTION: CT - Stone Protocol - 06/23/2022 12:02 pm CLINICAL HISTORY: Flank pain. flank COMPARISON: Abdomen Pelvis W Contrast dated 05/12/2022 TECHNIQUE: Axial images were obtained without oral or IV contrast. Lack of contrast limits solid org an and vascular assessment. The [id number] spans the entirety of the system partially obscuring uppermost abdomen and lung bases. Coronal reformatted images were obtained and reviewed. All CT scans are performed using dose optimization technique as appropriate and may include automated exposure control or mA/KV adjustment according to patient size. FINDINGS: The lower lung dalton are clear. Imaged portions of the liver and spleen show no suspicious findings on non-contrast imaging. The panc reas and adrenal glands are normal. No pathologic lymphadenopathy in the abdomen or pelvis. Moderate atrophy of the right kidney is seen. Punctate stone is seen inferior calyx left kidney. No h ydronephrosis. No bowel obstruction, free air, free fluid or abscess. Significant stool is retained throughout the c olon.Normal appendix. Prominent sigmoid diverticulosis without diverticulitis. Moderate lumbar degenerative changes. IMPRESSION: Moderate fecal retention. Atrophic right kidney. Punctate left renal calculus without hydronephrosis.
[2022-06-23 12:35] LABS: Urine Blood Trace-intact (Negative); Urine Glucose Negative (Negative); Urine Protein Negative (Negative); Urine Specific Gravity 1.015 (1.005-1.030)
[2022-06-23 13:01] LABS: Absolute Lymphocytes (CBC) 1.1 K/uL (0.7-4.9); Hematocrit 42.4 % (36.0-45.0); Lymphocytes % 11.9 % (15.3-44.8); MPV 7.3 fL (7.6-11.3); RBC Red Blood Cell Count 4.66 M/uL (3.86-4.86)
[2022-06-23 13:17] LABS: Albumin 4.3 g/dL (3.4-5.0); Bilirubin Total 0.8 mg/dL (0.2-1.0); Potassium 3.6 mmol/L (3.5-5.1)
[2022-06-23] MEDS ORDERED: ONDANSETRON 4 MG/2 ML VIAL ONE (13:47)
[2022-06-23 14:09] LABS: Transitional Epithelial <5 /HPF (None Seen); Urine Bacteria None Seen /HPF (<20); Urine Mucus Slight /HPF (None Seen); Urine RBC <5 /HPF (None Seen)
--- NOTE | 2022-06-23 14:32 | ER ---
Nurse's Notes [facility] Name: Zee Lindsay Age: 86 yrs Sex: Female : 1935 Arrival Date: 06/23/2022 Time: 11:19 Bed 4 Private MD: Sumit Hernandez C Diagnosis: UTI/ Urinary tract infection, site not specified;Nausea;Hypo-osmolality and hyponatremia Presentation: 06/23 11:30 Chief complaint: Patient states: DYSURIA x1 WK. Coronavirus screen: At this time, the bp client does not indicate any symptoms associated with coronavirus-19. Ebola Screen: No symptoms or risks identified at this time. Initial Sepsis Screen: Does the patient meet any 2 criteria? No. Patient's initial sepsis screen is negative. Does the patient have a suspected source of infection? No. Patient's initial sepsis screen is negative. Risk Assessment: Do you want to hurt yourself or someone else? Patient reports no desire to harm self or others. Onset of symptoms is unknown. 11:30 Method Of Arrival: Ambulatory bp 11:30 Acuity: DESIRE 4 bp Triage Assessment: 11:31 General: Appears in no apparent distress. uncomfortable, Behavior is cooperative, bp appropriate for age, anxious. Pain: Complains of pain in back. EENT: No deficits noted. Neuro: No deficits noted. Cardiovascular: No deficits noted. Respiratory: No deficits noted. GI: No signs and/or symptoms were reported involving the gastrointestinal system. : Reports burning with urination, pain in lower back. Derm: No deficits noted. Musculoskeletal: No deficits noted. Historical: - Allergies: 11:31 Clonidine; bp 11:31 Codeine; bp 11:31 Darvocet-N 100; bp 11:31 dorjaycline; bp 11:31 guafin; bp 11:31 Labetalol; bp 11:31 Levaquin; bp 11:31 Lisinopril; bp 11:31 Lyrica; bp 11:31 magnesium; bp 11:31 Minoxidil; bp 11:31 Morphine; bp 11:31 Nicen; bp 11:31 Nifedipine; bp 11:31 Norvasc; bp 11:31 PENICILLINS; bp 11:31 PENTAZOCINE; bp 11:31 Premarin; bp 11:31 propargyl vela; bp 11:31 Rifampin; bp 11:31 Soma; bp 11:31 Talwin; bp 11:31 Tricor; bp - Home Meds: 11:31 amlodipine oral [Active]; atorvastatin Oral [Active]; Bystolic Oral [Active]; bp Famotidine Oral [Active]; Hyoscyamine Sulfate SL [Active]; levothyroxine oral [Active]; Macrobid Oral [Active]; pantoprazole Oral [Active]; pentoxifylline Oral [Active]; Plavix Oral [Active]; - PMHx: 11:31 diverticulosis; TIA; Pacemaker; Hypertension; Hyperlipidemia; High Cholesterol; gastric bp ulcer; - PSHx: 11:31 left kidney balloon; Lumbar; Left Lung; Pace maker; right kidney stent; Cholecystectomy;bp - Immunization history:: Adult Immunizations up to date. - Social history:: Smoking status: unknown. Screenin:35 [facility] ED Fall Risk Assessment (Adult) History of falling in the last 3 months, bp including since admission. Abuse screen: Denies threats or abuse. Denies injuries from another. Nutritional screening: No deficits noted. Tuberculosis screening: No symptoms or risk factors identified. Assessment: 11:35 General: SEE TRIAGE NOTE. bp 13:00 Reassessment: No changes from previously documented assessment. Patient and/or family bp updated on plan of care and expected duration. Pain level reassessed. 14:00 Reassessment: No changes from previously documented assessment. Patient and/or family bp updated on plan of care and expected duration. Pain level reassessed. Vital Signs: 11:30 BP 155 / 49; Pulse 62; Resp 16; Temp 98; Pulse Ox 100% ; bp 12:45 BP 142 / 56; Pulse 60; Resp 16; Pulse Ox 100% ; bp 14:00 BP 166 / 58; Pulse 63; Resp 16; Pulse Ox 100% ; bp Savita Coma Score: 13:39 Eye Response: spontaneous(4). Verbal Response: oriented(5). Motor Response: obeys tia commands(6). Total: 15. ED Course: 11:19 Patient arrived in ED. as 11:19 Sumit Hernandez MD is Private Physician. as 11:21 Charity Ann RN is Primary Nurse. kb3 11:30 Jordan Jauregui MD is Attending Physician. tia 11:31 Triage completed. bp 11:31 Arm band placed on. bp 11:35 Patient has correct armband on for positive identification. Bed in low position. Call bp light in reach. Side rails up X2. 11:[address] via wheelchair. kb3 12:02 CT Stone Protocol In Process Unspecified. EDMS 12:45 Inserted saline lock: 22 gauge in left forearm, using aseptic technique. Blood bp collected. 14:31 Sumit Hernandez MD is Referral Physician. tia 14:43 No provider procedures requiring assistance completed. IV discontinued, intact, kb3 bleeding controlled, Pressure dressing applied. Administered Medications: 12:45 Drug: NS 0.9% 500 ml Route: IV; Rate: bolus; Site: left forearm; bp 13:30 Follow up: Response: No adverse reaction; IV Status: Completed infusion; IV Intake: kb3 500ml 12:45 Drug: Rocephin (cefTRIAXone) 1 grams Route: IV; Rate: per protocol; Site: left forearm; bp 13:36 Follow up: Response: No adverse reaction; IV Status: Completed infusion; IV Intake: kb3 100ml 13:36 Follow up: Response: No adverse reaction; IV Status: Completed infusion; IV Intake: kb3 500ml 13:36 Drug: NS 0.9% 500 ml Route: IV; Rate: bolus; Site: left forearm; kb3 14:42 Follow up: Response: No adverse reaction; IV Status: Completed infusion; IV Intake: kb3 500ml 13:50 Drug: Zofran (Ondansetron) 4 mg Route: IVP; Site: left forearm; kb3 14:42 Follow up: Response: No adverse reaction kb3 Medication: 11:35 VIS not applicable for this client. bp Intake: 13:30 IV: 500ml; Total: 500ml. kb3 13:36 IV: 100ml; Total: 600ml. kb3 13:36 IV: 500ml; Total: 1100ml. kb3 14:42 IV: 500ml; Total: 1600ml. kb3 Outcome: 14:31 Discharge ordered by . tia 14:43 Discharged to home ambulatory. kb3 14:43 Condition: stable 14:43 Discharge instructions given to patient, Instructed on discharge instructions, follow up and referral plans. medication usage, Demonstrated understanding of instructions, follow-up care, medications, Prescriptions given X 2. 14:44 Patient left the ED. kb3 Signatures: Dispatcher [employer] Jordan Luis MD MD cha Martinez, Amelia as Peltier, Brian, RN RN bp Charity Ann RN RN kb3 Corrections: (The following items were deleted from the chart) 12:01 11:30 BP 155 / ???; Pulse 49bpm; Resp 62bpm; Pulse Ox 100%; Temp 98F; bp bp
--- NOTE | 2022-06-23 14:32 | EDPHYS ---
Physician Documentation [facility] Name: Zee Lindsay Age: 86 yrs Sex: Female : 1935 Arrival Date: 06/23/2022 Time: 11:19 Bed 4 Private MD: Sumit Hernandez C ED Physician Jordan Jauregui HPI: 06/23 13:38 This 86 yrs old Female presents to ER via Ambulatory with complaints of tia Urinary Problem. 13:38 The patient presents with urinary symptoms, dysuria, frequency, hesitancy, urgency. tia Onset: The symptoms/episode began/occurred 3 day(s) ago. Modifying factors: The symptoms are alleviated by nothing, the symptoms are aggravated by nothing. Historical: - Allergies: 11:31 Clonidine; bp 11:31 Codeine; bp 11:31 Darvocet-N 100; bp 11:31 dorjaycline; bp 11:31 guafin; bp 11:31 Labetalol; bp 11:31 Levaquin; bp 11:31 Lisinopril; bp 11:31 Lyrica; bp 11:31 magnesium; bp 11:31 Minoxidil; bp 11:31 Morphine; bp 11:31 Nicen; bp 11:31 Nifedipine; bp 11:31 Norvasc; bp 11:31 PENICILLINS; bp 11:31 PENTAZOCINE; bp 11:31 Premarin; bp 11:31 propargyl vela; bp 11:31 Rifampin; bp 11:31 Soma; bp 11:31 Talwin; bp 11:31 Tricor; bp - Home Meds: 11:31 amlodipine oral [Active]; atorvastatin Oral [Active]; Bystolic Oral [Active]; bp Famotidine Oral [Active]; Hyoscyamine Sulfate SL [Active]; levothyroxine oral [Active]; Macrobid Oral [Active]; pantoprazole Oral [Active]; pentoxifylline Oral [Active]; Plavix Oral [Active]; - PMHx: 11:31 diverticulosis; TIA; Pacemaker; Hypertension; Hyperlipidemia; High Cholesterol; gastric bp ulcer; - PSHx: 11:31 left kidney balloon; Lumbar; Left Lung; Pace maker; right kidney stent; Cholecystectomy;bp - Immunization history:: Adult Immunizations up to date. - Social history:: Smoking status: unknown. ROS: 13:39 Constitutional: Negative for fever, chills, and weight loss, Eyes: Negative for injury, tia pain, redness, and discharge, ENT: Negative for injury, pain, and discharge, Neck: Negative for injury, pain, and swelling, Cardiovascular: Negative for chest pain, palpitations, and edema, Respiratory: Negative for shortness of breath, cough, wheezing, and pleuritic chest pain, Back: Negative for injury and pain, MS/Extremity: Negative for injury and deformity, Skin: Negative for injury, rash, and discoloration, Neuro: Negative for headache, weakness, numbness, tingling, and seizure, Psych: Negative for depression, anxiety, suicide ideation, homicidal ideation, and hallucinations, Allergy/Immunology: Negative for hives, rash, and allergies, Endocrine: Negative for neck swelling, polydipsia, polyuria, polyphagia, and marked weight changes, Hematologic/Lymphatic: Negative for swollen nodes, abnormal bleeding, and unusual bruising. 13:39 Respiratory: 13:39 Abdomen/GI: Positive for nausea. 13:39 : Positive for urinary symptoms, urinary frequency, small amounts. Exam: 13:39 Constitutional: This is a well developed, well nourished patient who is awake, alert, tia and in no acute distress. Head/Face: Normocephalic, atraumatic. Eyes: Pupils equal round and reactive to light, extra-ocular motions intact. Lids and lashes normal. Conjunctiva and sclera are non-icteric and not injected. Cornea within normal limits. Periorbital areas with no swelling, redness, or edema. ENT: Nares patent. No nasal discharge, no septal abnormalities noted. Tympanic membranes are normal and external auditory canals are clear. Oropharynx with no redness, swelling, or masses, exudates, or evidence of obstruction, uvula midline. Mucous membranes moist. Neck: Trachea midline, no thyromegaly or masses palpated, and no cervical lymphadenopathy. Supple, full range of motion without nuchal rigidity, or vertebral point tenderness. No Meningismus. Chest/axilla: Normal chest wall appearance and motion. Nontender with no deformity. No lesions are appreciated. Cardiovascular: Regular rate and rhythm with a normal S1 and S2. No gallops, murmurs, or rubs. Normal PMI, no JVD. No pulse deficits. Respiratory: Lungs have equal breath sounds bilaterally, clear to auscultation and percussion. No rales, rhonchi or wheezes noted. No increased work of breathing, no retractions or nasal flaring. Abdomen/GI: Soft, non-tender, with normal bowel sounds. No distension or tympany. No guarding or rebound. No evidence of tenderness throughout. Back: No spinal tenderness. No costovertebral tenderness. Full range of motion. Skin: Warm, dry with normal turgor. Normal color with no rashes, no lesions, and no evidence of cellulitis. MS/ Extremity: Pulses equal, no cyanosis. Neurovascular intact. Full, normal range of motion. Neuro: Awake and alert, GCS 15, oriented to person, place, time, and situation. Cranial nerves II-XII grossly intact. Motor strength 5/5 in all extremities. Sensory grossly intact. Cerebellar exam normal. Normal gait. Psych: Awake, alert, with orientation to person, place and time. Behavior, mood, and affect are within normal limits. 14:22 ECG was reviewed by the Attending Physician. [facility] Vital Signs: 11:30 BP 155 / 49; Pulse 62; Resp 16; Temp 98; Pulse Ox 100% ; bp 12:45 BP 142 / 56; Pulse 60; Resp 16; Pulse Ox 100% ; bp 14:00 BP 166 / 58; Pulse 63; Resp 16; Pulse Ox 100% ; bp Savita Coma Score: 13:39 Eye Response: spontaneous(4). Verbal Response: oriented(5). Motor Response: obeys tia commands(6). Total: 15. MDM: 11:30 Patient medically screened. tia 13:41 Differential diagnosis: kidney stone, nonspecific abdominal pain, urinary tract tia infection. Data reviewed: vital signs, nurses notes, lab test result(s), cardiac enzymes, troponin i, CBC, electrolytes, hepatic panel, urinalysis. Data interpreted: shelter monitor: rate is 60 beats/min, rhythm is regular, Pulse oximetry: on room air is 100 %. Test interpretation: by ED physician or midlevel provider: ECG. 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 06/23 11:47 Order name: CBC with Diff; Complete Time: 13:15 [facility] 06/23 11:47 Order name: Comprehensive Metabolic Panel; Complete Time: 13:28 [facility] 06/23 11:47 Order name: Urine Microscopic Only; Complete Time: 14:11 [facility] 06/23 11:47 Order name: CT Stone Protocol; Complete Time: 13:15 [facility] 06/23 12:35 Order name: Urine Dipstick-Ancillary; Complete Time: 13:15 [facility] 06/23 13:39 Order name: Troponin High Sensitivity; Complete Time: 14:11 [facility] 06/23 11:47 Order name: Urine Dipstick-Ancillary (obtain specimen); Complete Time: 12:36 [facility] 06/23 13:39 Order name: EKG; Complete Time: 13:39 [facility] 06/23 13:39 Order name: EKG - Nurse/Tech; Complete Time: 14:22 [facility] EC:22 Rate is 61 beats/min. Rhythm is regular. QRS [place] is Normal. AR interval is normal. QRS tia interval is normal. QT interval is normal. No Q waves. T waves are Normal. No ST changes noted. Clinical impression: Abnormal EKG without significant change and No evidence of ischemia. Interpreted by me. Reviewed by me. Administered Medications: 12:45 Drug: NS 0.9% 500 ml Route: IV; Rate: bolus; Site: left forearm; bp 13:30 Follow up: Response: No adverse reaction; IV Status: Completed infusion; IV Intake: kb3 500ml 12:45 Drug: Rocephin (cefTRIAXone) 1 grams Route: IV; Rate: per protocol; Site: left forearm; bp 13:36 Follow up: Response: No adverse reaction; IV Status: Completed infusion; IV Intake: kb3 100ml 13:36 Follow up: Response: No adverse reaction; IV Status: Completed infusion; IV Intake: kb3 500ml 13:36 Drug: NS 0.9% 500 ml Route: IV; Rate: bolus; Site: left forearm; kb3 14:42 Follow up: Response: No adverse reaction; IV Status: Completed infusion; IV Intake: kb3 500ml 13:50 Drug: Zofran (Ondansetron) 4 mg Route: IVP; Site: left forearm; kb3 14:42 Follow up: Response: No adverse reaction kb3 Disposition Summary: 06/23/22 14:31 Discharge Ordered Location: Home tia Problem: new tia Symptoms: have improved tia Condition: Stable tia Diagnosis - UTI/ Urinary tract infection, site not specified tia - Nausea tia - Hypo-osmolality and hyponatremia tia Followup: tia - With: - When: 1 - 2 days - Reason: Recheck today's complaints, Continuance of care, Re-evaluation by your physician Discharge Instructions: - Discharge Summary Sheet tia - Dysuria tia - Nausea, Adult tia - Urinary Tract Infection, Adult tia - Urinary Tract Infection, Adult, [id number] tia - Hyponatremia tia - Hyponatremia, [id number] tia Forms: - Medication Reconciliation Form tia - Thank You Letter tia - Antibiotic Education tia - Prescription Opioid Use [facility] Prescriptions: - Zofran 4 mg Oral Tablet - take 1 tablet by ORAL route every 12 hours As needed; 20 tablet; Refills: 0, tia Product Selection Permitted - cefpodoxime 200 mg Oral Tablet - take 1 tablet by ORAL route every 12 hours with food; 14 tablet; Refills: 0, [facility] Product Selection Permitted Signatures: Dispatcher [employer] Jordan Luis MD MD cha Peltier, Brian, RN RN Charity Smallwood RN RN kb3
[2022-06-23 14:53] VITALS: TEMP 98; O2SAT 100
[2022-06-23 15:05] VITALS: BP 166/58
== END 2022-06-23 14:44 | disposition home or self-care (01) ==
LOC: ER 11:17
DX: N39.0 Urinary tract infection, site not specified (principal); E87.1 Hypo-osmolality and hyponatremia; R11.0 Nausea; I10 Essential (primary) hypertension; Z95.0 Presence of cardiac pacemaker; Z88.1 Allergy status to other antibiotic agents; Z88.5 Allergy status to narcotic agent; Z88.8 Allergy status to other drugs, medicaments and biological substances; Z86.73 Personal history of transient ischemic attack (TIA), and cerebral infarction without residual deficits; Z79.01 Long term (current) use of anticoagulants
CPT/HCPCS: 85025; 36415; 84484; 80053; 76377; 74176; J7040 ×2; J2405; 81003; 81015; 96361; 96365; 96375; 99284

== ENCOUNTER 2022-07-31 16:53 | Emergency (ER) | payer OTHER ==
--- OUTSIDE RECORDS SUMMARY | 2022-07-31 16:56 | XMS REPORT | Continuity of Care Document ---
:1935 Author Organization [facility] t Address [address] [place] [address] Care Team Providers Name Role Phone Vish [...] lisinopr DA Active U UNKNOWN [facility] il 3- Clear 00:00: Engel 00 [facility] nifedipi DA Active U UNKNOWN 2021- [facility] ne 3 Clear 00:00: [facility] niacin DA Active MO RASH 2021-0 [facility] 3- Clear 00:00: Engel [facility] estrogen DA Active MO BURNING WITH 2021-0 HC A s, VAGINAL 09-24 Clear conjugat CREAM 00:00: Sheldon ed 00 [facility] pentazoc DA Active MO "WEIRD IN [facility] ine THE HEAD" 09-24 Clear 00:00: Engel [facility] carisopr DA Active MO "SENSITIVE [facility] odol TO MED" 09-24 Clear 00:00: Engel [facility] labetalo DA Active MO RASH 2021- [facility] l 09-24 Clear 00:00: Engel [facility] rifampin DA Active U UNKNOWN [facility] 3 Clear 00:00: Engel [facility] adhesive DA Active MO RASH 2021- [facility] 09-24 Clear 00:00: Engel [facility] pregabal DA Active U UNKNOWN 0 [facility] in 09-24 Clear 00:00: Engel [facility] Penicill DA Active MO RASH, ITCH 2021-0 [facility] ins 09-24 Clear 00:00: Engel [facility] morphine DA Active MO ITCHING 2021-0 [facility] 3- Clear 00:00: Engel [facility] codeine DA Active MO HEADACHE 2021-0 [facility] 3- Clear 00:00: Engel [facility] fenofibr DA Active MO MUSCLE 2021-0 [facility] ate CRAMPS 09-24 Clear 00:00: [facility] magnesiu DA Active MO RASH 2021-0 [facility] m 3-28 Clear 00:00: Engel [facility] levoflox DA Active MO RASH 2021-0 [facility] acin 3 Clear 00:00: Engel [facility] minoxidi DA Active MO RASH 2021-0 [facility] l 3- Clear 00:00: Engel [facility] cloNIDin cloNIDin Active [facility] [place] NIFEdipi NIFEdipi Active [facility] [place] minoxidi minoxidi Active [facility] [place] Levaquin Levaquin Active [facility] [place] Sulfur Sulfur Active [facility] [place] morphine morphine Active [facility] [place] lisinopr lisinopr Active [facility] [place] TriCor TriCor Active [facility] Soma Soma Active [facility] Premarin Premarin Active Memori a Vaginal Vaginal l [place] Darvocet Darvocet Active Memori a A500 A500 l [place] penicill penicill Active [facility]ori a ins ins l [place] codeine codeine Active [facility] labetalo labetalo Active [facility] [place] Talwin Talwin Active [facility] [place] Norvasc Norvasc Active [facility] [place] Lyrica Lyrica Active [facility] Magnesiu Magnesiu Active [facility] [place] rifAMPin rifAMPin Active [facility] Social History Smoking Status Start Date Stop Date Source Social History 2020-09-25 15:15:56 2020-09-25 15:15:56 [facility] Medications Ordered Filled Start Stop Current [...] 15:06: Daily, 0 [place] 00 Refill(s) atorvastati 0 Yes 20 mg = 1 M emoria n 20 mg 3-15 tab, PO, l oral tablet 15:06: Daily, 0 He rmann 00 Refill(s) Alprazolam 0 Yes 0.25 mg = Me moria 0.25 MG 3-15 1 tab, PO, l Oral Tablet 15:06: TID, 0 Herm stepan [Xanax] 00 Refill(s) olmesartan 0 Yes 40 mg = 1 Me moria 40 mg oral 3-15 tab, PO, l tablet 15:06: Daily, 0 [place] 00 Refill(s) atorvastati 0 Yes 20 mg = 1 M emoria n 20 mg 3-15 tab, PO, l oral tablet 15:06: Daily, 0 He rmann 00 Refill(s) Alprazolam 0 Yes 0.25 mg = Me moria 0.25 MG 3-15 1 tab, PO, l Oral Tablet 15:06: TID, 0 Herm stepan [Xanax] 00 Refill(s) olmesartan 0 Yes 40 mg = 1 Me moria 40 mg oral 3-15 tab, PO, l tablet 15:06: Daily, 0 [place] 00 Refill(s) atorvastati 0 Yes 20 mg = 1 M emoria n 20 mg 3-15 tab, PO, l oral tablet 15:06: Daily, 0 He rmann 00 Refill(s) fosfomycin 0 Yes = 1 Pack, Me moria 3 g oral 3-15 PO, ONCE, l powder 14:32: dissolve Nicholas 00 in 4 ounces of water. Take every other day for 3 doses., # 3 ea, 0 Refill(s), Pharmacy: [facility], 160.02, cm, 09/11/20 8:52:00 CDT, Height, 55.909, kg, 09/11/20 8:52:00 CDT, Weight fosfomycin 0 Yes = 1 Pack, Me moria 3 g oral 3-15 PO, ONCE, l powder 14:32: dissolve Nicholas 00 in 4 ounces of water. Take every other day for 3 doses., # 3 ea, 0 Refill(s), Pharmacy: [facility], 160.02, cm, 09/11/20 8:52:00 CDT, Height, 55.909, kg, 09/11/20 8:52:00 CDT, Weight fosfomycin Yes = 1 Pack, Me moria 3 g oral 3-15 PO, ONCE, l powder 14:32: dissolve [place] 00 in 4 ounces of water. Take every other day for 3 doses., # 3 ea, 0 Refill(s), Pharmacy: [facility], 160.02, cm, 09/11/20 8:52:00 CDT, Height, 55.909, kg, 09/11/20 8:52:00 CDT, Weight Vital Signs Vital Name Observation Time Observation Value Comments Source Height 2020-09-25 15:14:00 160.02 cm [facility] Weight 2020-09-25 15:14:00 [facility] BMI Calculated 2020-09-25 15:14:00 [facility] [place] Systolic (mm Hg) 2020-09-11 13:52:00 Emmanuel rial [place] Diastolic (mm Hg) 2020-09-11 13:52:00 Mem orial [place] Heart Rate 2020-09-11 13:52:00 [facility] Height 2020-09-11 13:52:00 160.02 cm [facility] Weight 2020-09-11 13:52:00 [facility] BMI Calculated 2020-09-11 13:52:00 [facility] [place] Procedures Procedure Date / Time Performed Performing Clinician [facility] e Lumbar spinal fusion [facility] rmann Gallbladder operation [facility] ermann Pacemaker care [facility] Lung operation [facility] Breast biopsy and related [facility] [place] procedures Encounters Start End Encounter Admission Attending Care Care Encounter Source Date/Time Date/Time Type Type Clinicians Facility Department ID 2021-09-[address] [facility] OUTD [id number] [facility] 15:00:00 Vish Francis 40 [facility] 2021-09-26 2021-09-[address] [facility] OUTD [id number] [facility] 05:20:00 05:20:00 Vish Francis 19 [facility] 2021-03-26 2021-03-26 Ambulatory nullFlavo [facility] 55 [id number] Memoria 13:45:00 13:45:00 Pre-Reg r Specialty 02 [facility] 2021-03-26 2021-03-26 Ambulatory nullFlavo [facility] 55 [id number] Memoria 13:45:00 13:45:00 Pre-Reg r Specialty 02 [facility] 2021-03-26 2021-03-26 Outpatient MHIE LUCA [id number] Memoria 08:45:00 08:45:00 02 [facility] 2021-03-26 2021-03-26 Outpatient Staller, [facility] [id number] 08:45:00 08:45:00 Kristie L 2020-09-25 2020-09-26 Outpatient nullFlavo [facility] 55 [id number] Memoria 15:20:00 04:59:59 r Specialty 01 [facility] 2020-09-25 2020-09-26 Outpatient nullFlavo [facility] 55 [id number] Memoria 15:20:00 04:59:59 r Specialty 01 [facility] 2020-09-25 2020-09-25 Outpatient Staller, [facility] [id number] 10:20:00 23:59:59 Kristie L 2020-09-25 2020-09-25 Outpatient MH[facility] LUCA [id number] Memoria 10:20:00 10:20:00 [facility] 2020-09-11 2020-09-12 Outpatient nullFlavo [facility] 55 [id number] Memoria 14:00:00 04:59:59 r Specialty 00 [facility] 2020-09-11 2020-09-12 Outpatient nullFlavo [facility] 55 [id number] Memoria 14:00:00 04:59:59 r Specialty 00 [facility] 2020-09-11 2020-09-11 Outpatient Staller, [facility] [id number] 09:00:00 23:59:59 Kristie L 2020-09-11 2020-09-11 Outpatient [facility] UMMIE [id number] Memoria 09:00:00 09:00:00 00 l [place] 2020-08-22 2020-08-[address] [facility] [id number] [facility] 00:00:00 00:00:00 Results Test Description Test Time [...] = CA) 10.2 mg/dL 8.0-10.5 N PROTHROMBIN [id number] 11:32:00 Test Item Value Reference Range Interpretation [...] (to prevent recurrent infar ct). CBC W/AUTO [id number] 11:25:00 Test Item Value Reference Range Interpretation [...] NO = MDIFF) - XR CHEST 2 [id number] 00:00:00 [facility] 1935 Sex: F FAX: Harry Seo MD [phone] Model: St: PRE FAX: Vish Montalvo [phone] - Name: CORWIN MCGREGOR [facility] : 1935 Age/S: 86/F [address] [place] [address] Unit #: [id number] Loc: SUSY Fried [address] Phys: Vish Sanford MD Acct: [id number] Dis Date: Status: PRE SDC PHONE #: [phone] Exam Date: 09/24/2021 113 FAX #: [phone] Reason: PREOP EXAMS: CPT CODE: [id number] XR CHEST 2 V [id number] PROCEDURE INFORMATION: Exam: XR Chest Exam date [...] The heart and vascular markings are within limitsof normal. There is atherosclerotic calcification of the aorta. Left chest cardiac device with atrioventricular days. Bones/joints: No gross acute findings. IMPRESSION: No acute cardiopulmonary findings at 1232 Reported and signed by: Nargis Abbott D.O. CC: Harry Hernandez MD; Vish Francis MD Technologist: JIGAR Murray) Trnscrd Date/Time/By: 09/24/2021 (1232) : By: [email or web address] Orig Print D/T: S: 09/24/2021 (1232) PAGE 1 Signed ReportREFERENCE LAB [id number] 14:43:00 Test Item Value Reference Range Interpretation Comments Result 2 (Urine Culture) See Result Comment (test code = Result 2 (Urine Culture)) [facility] LAB [id number] 14:43:00 Test Item Value Reference Range Interpretation Comments Result 2 (Urine Culture) See Result Comment (test code = Result 2 (Urine Culture)) [facility] LAB [id number] 14:43:00 Test Item Value Reference Range Interpretation Comments Result 2 (Urine Culture) See Result Comment (test code = Result 2 (Urine Culture)) [facility]
[2022-07-31] MEDS ORDERED: SMZ./TMP. 800/160 MG TABLET ONE (17:11)
[2022-07-31] MEDS ORDERED: NA CHLORIDE 0.9% 500 ML ONE (17:11)
[2022-07-31 19:39] LABS: Hematocrit 43.3 % (36.0-45.0); Lymphocytes % 10.6 % (15.3-44.8); MPV 7.5 fL (7.6-11.3); RBC Red Blood Cell Count 4.76 M/uL (3.86-4.86)
[2022-07-31 19:43] LABS: Protime INR 0.99
[2022-07-31 19:54] LABS: Albumin 4.3 g/dL (3.4-5.0); Bilirubin Direct 0.2 mg/dL (0-0.2); Bilirubin Total 0.8 mg/dL (0.2-1.0); Magnesium 1.9 mg/dL (1.6-2.4); Potassium 4.2 mmol/L (3.5-5.1); Protein, Total 8.3 g/dL (6.4-8.2); Troponin High Sensitivity 12.8 pg/mL (<58.9)
[2022-07-31] MEDS ORDERED: Ringers Lactate 1,000 ML IV ONE (20:05)
[2022-07-31 20:16] LABS: SARS-COV-2 RT PCR NEGATIVE (NEGATIVE)
--- NOTE | 2022-07-31 20:24 | RAD REPORT ---
EXAM DESCRIPTION: Joseph Single View07/31/2022 8:00 pm CLINICAL HISTORY: Hypertension/weakness COMPARISON: 2021 FINDINGS: The lungs appear clear of acute infiltrate. The heart is normal size. Pacemaker leads in place IMPRESSION: No acute abnormalities displayed
[2022-07-31 22:04] LABS: Urine Blood Negative (Negative); Urine Glucose Negative (Negative); Urine Protein Negative (Negative)
--- NOTE | 2022-07-31 22:09 | RAD REPORT ---
EXAM DESCRIPTION: CT - Head Brain Wo Cont - 07/31/2022 10:01 pm CLINICAL HISTORY: Headache COMPARISON: None TECHNIQUE: Computed axial tomography of the head was obtained. IV contrast was not requested. All CT scans are performed using dose optimization technique as appropriate and may include automated exposure control or mA/KV adjustment according to patient size. FINDINGS: An intracranial bleed is not seen . The ventricles are prominent. Maybe slightly out of proportion to the cerebral atrophy. No extra-axial fluid collection is noted. Mild to moderate low-density areas within periventricular, deep and subcortical white matter likely r epresent ischemic changes secondary to small vessel disease. Fluid within the sinuses/ mastoids is not seen. IMPRESSION: The ventricles are prominent may be slightly out of proportion to cerebral atrophy. This may be insignificant. Normal pressure hydrocephalus can also have this appearance and should be kindra elated clinically.
[2022-07-31 22:13] LABS: Urine Bacteria <20 /HPF (<20); Urine Mucus Slight /HPF (None Seen); Urine RBC None Seen /HPF (None Seen)
--- NOTE | 2022-07-31 22:16 | RAD REPORT ---
EXAM DESCRIPTION: CT - Abdomen Pelvis W Contrast - 07/31/2022 10:02 pm CLINICAL HISTORY: Abdominal pain/vomiting COMPARISON: none. TECHNIQUE: Computed axial tomography of the abdomen pelvis was obtained. 100 cc Isovue-300 was admin istered intravenously. Oral contrast was not requested which limits evaluation of bowel and appendix All CT scans are performed using dose optimization technique as appropriate and may include automated exposure control or mA/KV adjustment according to patient size. FINDINGS: Mild thickening of the wall of the distal stomach. Liver, spleen, pancreas, adrenals and left kidney unremarkable. Small right kidney. Right arterial stent in place. Hysterectomy. Diverticula stem from the colon without visualization of diverticulitis Avascular necrosis femoral heads bilaterally. Cholecystectomy IMPRESSION: Apparent mild thickening of the wall of the distal stomach can be secondary to incomplet e distention or mild gastritis
--- NOTE | 2022-08-01 00:19 | ER ---
Nurse's Notes [facility] Name: Zee Lindsay Age: 87 yrs Sex: Female : 1935 Arrival Date: 07/31/2022 Time: 16:55 Bed 13 Private MD: Diagnosis: Nausea;Headache;Pain, unspecified;Hypo-osmolality and hyponatremia Presentation: 07/31 17:03 Chief complaint: Patient states: Weakness, fatigue, malaise, nausea, ROJAS, body aches for ll1 [address] in [address] Dr[address] Hernandez for eval. Coronavirus screen: Vaccine status: Patient reports receiving the 2nd dose of the covid vaccine. Client denies travel out of the [place] in the last 14 days. congestion, cough unrelated to allergies, fatigue, headache, muscle pain, nausea, Client presents with at least one sign or symptom that may indicate coronavirus-19. Standard/surgical mask placed on the client. Ebola Screen: Patient denies travel to an Ebola-affected area in the 21 days before illness onset. Initial Sepsis Screen: Does the patient meet any 2 criteria? No. Patient's initial sepsis screen is negative. Does the patient have a suspected source of infection? Yes: Productive cough/pneumonia. Risk Assessment: Do you want to hurt yourself or someone else? Patient reports no desire to harm self or others. Onset of symptoms was July 29, 2022. 17:03 Method Of Arrival: Ambulatory ll1 17:03 Acuity: DESIRE 3 ll1 Triage Assessment: 17:05 General: Appears uncomfortable, ill, Behavior is calm, cooperative. Pain: Complains of ll1 pain in head Quality of pain is described as aching. Neuro: Reports headache weakness. GI: Reports nausea. Historical: - Allergies: 17:05 Darvocet-N 100; ll1 17:05 dorjaycline; ll1 17:05 guafin; ll1 17:05 Labetalol; ll1 17:05 Levaquin; ll1 17:05 Lisinopril; ll1 17:05 Lyrica; ll1 17:05 magnesium; ll1 17:05 Minoxidil; ll1 17:05 Morphine; ll1 17:05 Nicen; ll1 17:05 Nifedipine; ll1 17:05 Norvasc; ll1 17:05 PENICILLINS; ll1 17:05 PENTAZOCINE; ll1 17:05 Clonidine; ll1 17:05 Codeine; ll1 17:05 Premarin; ll1 17:05 propargyl vela; ll1 17:05 Rifampin; ll1 17:05 Soma; ll1 17:05 Talwin; ll1 17:05 Tricor; ll1 - PMHx: 17:05 Hypertension; Pacemaker; Hyperlipidemia; High Cholesterol; gastric ulcer; TIA; ll1 diverticulosis; Hypothyroidism; - PSHx: 17:05 left kidney balloon; Lumbar; Pace maker; Left Lung; Cholecystectomy; right kidney stent;ll1 - Immunization history:: Client reports receiving the 2nd dose of the Covid vaccine. - Social history:: Smoking status: Patient denies any tobacco usage or history of. Screenin:16 Abuse screen: Denies threats or abuse. Denies injuries from another. Nutritional jh5 screening: No deficits noted. Tuberculosis screening: No symptoms or risk factors identified. 08/01 00:28 [facility] ED Fall Risk Assessment (Adult) History of falling in the last 3 months, kl including since admission No falls in past 3 months (0 pts) Confusion or Disorientation No (0 pts) Intoxicated or Sedated No (0 pts) Impaired Gait No (0 pts) Mobility Assist Device Used No (0 pt). Assessment: 07/31 19:30 General: Appears in no apparent distress. comfortable, Behavior is calm, cooperative, jb4 appropriate for age. Pain: Denies pain. Neuro: Level of Consciousness is awake, alert, obeys commands, Oriented to person, place, time, situation. Cardiovascular: Patient's skin is warm and dry. Respiratory: Airway is patent Respiratory effort is even, unlabored, Respiratory pattern is regular, symmetrical. GI: Abdomen is flat, non-distended. : No signs and/or symptoms were reported regarding the genitourinary system. EENT: No signs and/or symptoms were reported regarding the EENT system. Derm: Skin is intact, Skin is pink, warm \T\ dry. Musculoskeletal: Circulation, motion, and sensation intact. Range of motion: intact in all extremities. 20:30 Reassessment: Patient appears in no apparent distress at this time. Patient and/or jb4 family updated on plan of care and expected duration. Pain level reassessed. Patient is alert, oriented x 3, equal unlabored respirations, skin warm/dry/pink. 21:30 Reassessment: Patient appears in no apparent distress at this time. Patient and/or jb4 family updated on plan of care and expected duration. Pain level reassessed. Patient is alert, oriented x 3, equal unlabored respirations, skin warm/dry/pink. 22:21 Reassessment: Patient appears in no apparent distress at this time. Patient and/or jb4 family updated on plan of care and expected duration. Pain level reassessed. Patient is alert, oriented x 3, equal unlabored respirations, skin warm/dry/pink. 23:30 Reassessment: Patient appears in no apparent distress at this time. Patient and/or jb4 family updated on plan of care and expected duration. Pain level reassessed. Patient is alert, oriented x 3, equal unlabored respirations, skin warm/dry/pink. 08/01 00:28 Reassessment: Patient appears in no apparent distress at this time. Patient and/or jb4 family updated on plan of care and expected duration. Pain level reassessed. Patient is alert, oriented x 3, equal unlabored respirations, skin warm/dry/pink. Vital Signs: 07/31 17:03 BP 119 / 62; Pulse 72; Resp 17; Temp 97.3; Pulse Ox 100% on R/A; Weight 53.52 kg; ll1 Height 5 ft. 3 in. (160.02 cm); Pain 10/10; 20:13 BP 156 / 61; Pulse 62; Resp 13; Pulse Ox 100% ; jh5 21:00 BP 150 / 61; Pulse 60; Resp 14; Pulse Ox 100% on R/A; jb4 22:00 BP 148 / 61; Pulse 61; Resp 16; Pulse Ox 100% on R/A; jb4 23:00 BP 154 / 59; Pulse 90; Resp 16; Pulse Ox 100% on R/A; jb4 08/01 00:00 BP 153 / 58; Pulse 60; Resp 18; Pulse Ox 99% on R/A; jb4 07/31 17:03 Body Mass Index 20.90 (53.52 kg, 160.02 cm) ll1 ED Course: 07/31 16:55 Patient arrived in ED. as 17:05 Triage completed. ll1 17:05 Arm band placed on. ll1 18:38 COVID-19/FLU A+B Sent. ss 18:46 Luis Carlos Robert PA is PHCP. [facility] 18:46 Keith Rosario MD is Attending Physician. [facility] 19:30 Basic Metabolic Panel Sent. 6 19:30 CBC with Diff Sent. bc6 19:30 LFT's Sent. bc6 19:30 Magnesium Sent. bc6 19:30 NT PRO-BNP Sent. bc6 19:30 PT-INR Sent. bc6 19:30 Troponin HS Sent. bc6 19:30 Initial lab(s) drawn, by mn, sent to lab. Inserted saline lock: 20 gauge in right [facility] antecubital area, using aseptic technique. 20:01 XRAY Chest (1 view) In Process Unspecified. EDMS 20:16 Patient has correct armband on for positive identification. Bed in low position. Call [facility] light in reach. Side rails up X 1. 20:16 No provider procedures requiring assistance completed. [facility] 21:11 Luis Smiley, RN is Primary Nurse. jb4 21:13 PHCP role handed off by Luis Carlos Robert PA cp 21:13 Jordan Myers PA is PHCP. cp 22:03 CT Head Brain wo Cont In Process Unspecified. EDMS 22:03 Urine Microscopic Only Sent. bc6 22:04 CT Abd/Pelvis - IV Contrast Only In Process Unspecified. EDMS 08/01 00:16 Sumit Hernandez MD is Referral Physician. cp 00:28 IV discontinued, intact, bleeding controlled, No redness/swelling at site. Pressure kl dressing applied. Administered Medications: 07/31 20:11 Drug: Lactated Ringers Solution 1000 ml Route: IV; Rate: 250 ml/hr; Site: right [facility] antecubital; 22:46 Follow up: Rate change 999 ml/hr; Converted remaining fluids to bolus per providers jb4 orders 20:18 CANCELLED (Duplicate Order): hydrALAZINE 10 mg IVP once [facility] Medication: 20:17 VIS not applicable for this client. [facility] Intake: Outcome: 08/01 00:18 Discharge ordered by . cp 00:27 Discharged to home ambulatory, with family. kl 00:27 Condition: stable 00:27 Discharge instructions given to patient, Instructed on discharge instructions, follow up and referral plans. medication usage, Demonstrated understanding of Prescriptions given X 1. 00:29 Patient left the ED. kl Signatures: Dispatcher [employer] EDMS Whit Morley, LAMINE RN Luis Carlos Anne PA PA jmm Martinez, Amelia as Smirch, Shelby, RN RN Jordan Buck PA PA cp Bryson, James, RN RN jb4 Mei Morley RN RN ll1 Prema Nielsen RN RN jh5 Adirana Castro 6
--- NOTE | 2022-08-01 00:19 | EDPHYS ---
Physician Documentation [facility] Name: Zee Lindsay Age: 87 yrs Sex: Female : 1935 Arrival Date: 07/31/2022 Time: 16:55 Bed 13 Private MD: ED Physician Keith Rosario HPI: 07/31 21:00 This 87 yrs old Female presents to ER via Ambulatory with complaints of Nausea, cp Headache, Pain All Over. 21:00 The patient presents to the emergency department with nausea, that is moderate. Onset: cp The symptoms/episode began/occurred 3 day(s) ago. Associated signs and symptoms: Pertinent positives: headache, generalized pain. Severity of symptoms: in the emergency department the symptoms are unchanged despite home interventions. Historical: - Allergies: 17:05 Darvocet-N 100; ll1 17:05 dorjaycline; ll1 17:05 guafin; ll1 17:05 Labetalol; ll1 17:05 Levaquin; ll1 17:05 Lisinopril; ll1 17:05 Lyrica; ll1 17:05 magnesium; ll1 17:05 Minoxidil; ll1 17:05 Morphine; ll1 17:05 Nicen; ll1 17:05 Nifedipine; ll1 17:05 Norvasc; ll1 17:05 PENICILLINS; ll1 17:05 PENTAZOCINE; ll1 17:05 Clonidine; ll1 17:05 Codeine; ll1 17:05 Premarin; ll1 17:05 propargyl vela; ll1 17:05 Rifampin; ll1 17:05 Soma; ll1 17:05 Talwin; ll1 17:05 Tricor; ll1 - PMHx: 17:05 Hypertension; Pacemaker; Hyperlipidemia; High Cholesterol; gastric ulcer; TIA; ll1 diverticulosis; Hypothyroidism; - PSHx: 17:05 left kidney balloon; Lumbar; Pace maker; Left Lung; Cholecystectomy; right kidney stent;ll1 - Immunization history:: Client reports receiving the 2nd dose of the Covid vaccine. - Social history:: Smoking status: Patient denies any tobacco usage or history of. ROS: 21:05 Constitutional: Positive for body aches, fatigue, Negative for chills, fever. cp 21:05 Eyes: Negative for injury, pain, redness, and discharge. cp 21:05 ENT: Negative for drainage from ear(s), ear pain, difficulty swallowing, difficulty handling secretions. 21:05 Cardiovascular: Negative for chest pain, palpitations. 21:05 Respiratory: Negative for cough, shortness of breath, wheezing. 21:05 Abdomen/GI: Positive for nausea, Negative for vomiting, diarrhea, constipation. 21:05 Back: Negative for pain at rest, pain with movement. 21:05 Neuro: Positive for headache, Negative for altered mental status. 21:05 All other systems are negative. Exam: 21:10 Constitutional: The patient appears in no acute distress, alert, awake, cp non-diaphoretic, non-toxic, well developed, well nourished. 21:10 Head/Face: Normocephalic, atraumatic. cp 21:10 Eyes: Periorbital structures: appear normal, Pupils: equal, round, and reactive to light and accomodation, Extraocular movements: intact throughout, Conjunctiva: normal, no exudate, no injection, Sclera: no appreciated abnormality, Lids and lashes: appear normal, bilaterally. 21:10 ENT: External ear(s): are unremarkable, Nose: is normal, Mouth: Lips: moist, Oral mucosa: pink and intact, moist, Posterior pharynx: Airway: no evidence of obstruction, patent. 21:10 Neck: ROM/movement: is normal, is supple, without pain, no range of motions limitations, no meningismus. 21:10 Chest/axilla: Inspection: normal. 21:10 Cardiovascular: Rate: normal, Rhythm: regular. 21:10 Respiratory: the patient does not display signs of respiratory distress, Respirations: normal, no use of accessory muscles, no retractions, labored breathing, is not present, Breath sounds: are clear throughout, no decreased breath sounds, no stridor, no wheezing. 21:10 Abdomen/GI: Inspection: abdomen appears normal, Palpation: soft, in all quadrants, mild abdominal tenderness, in all quadrants. 21:10 Back: CVA tenderness, is absent. 21:10 Neuro: Orientation: to person, place \T\ time. Mentation: is normal, Motor: moves all fours, strength is normal, Sensation: is normal. Vital Signs: 17:03 BP 119 / 62; Pulse 72; Resp 17; Temp 97.3; Pulse Ox 100% on R/A; Weight 53.52 kg; ll1 Height 5 ft. 3 in. (160.02 cm); Pain 10/10; 20:13 BP 156 / 61; Pulse 62; Resp 13; Pulse Ox 100% ; jh5 21:00 BP 150 / 61; Pulse 60; Resp 14; Pulse Ox 100% on R/A; jb4 22:00 BP 148 / 61; Pulse 61; Resp 16; Pulse Ox 100% on R/A; jb4 23:00 BP 154 / 59; Pulse 90; Resp 16; Pulse Ox 100% on R/A; jb4 08/01 00:00 BP 153 / 58; Pulse 60; Resp 18; Pulse Ox 99% on R/A; jb4 07/31 17:03 Body Mass Index 20.90 (53.52 kg, 160.02 cm) ll1 MDM: 07/31 18:46 Patient medically screened. [facility] 22:30 ED course: consult with DR Hernandez. Srinivasa sodium level recheck after administration of IV cp fluids and if sodium improved may discharge to home to f/u in clinic. 08/01 00:17 Data reviewed: vital signs, nurses notes, lab test result(s), radiologic studies, CT cp scan, plain films. 00:17 Differential diagnosis: gastritis, viral gastroenteritis, gastroenteritis, electrolyte cp abnormality, acute WI. Consideration of Admission/Observation Escalation of care including admission/observation considered. Management of patient was discussed with the following: Primary Care Provider: DR Hernandez. I considered the following discharge prescriptions or medication management in the emergency department Medications were administered in the Emergency Department. See MAR. Test considered but Not performed: MRI: brain. Historians other than the Patient: Daughter/Son: daughter assists with HPI. Care significantly affected by the following chronic conditions: Hypertension. Counseling: I had a detailed discussion with the patient and/or guardian regarding: the historical points, exam findings, and any diagnostic results supporting the discharge/admit diagnosis, lab results, radiology results, the need for outpatient follow up, an cleat feeder, to return to the emergency department if symptoms worsen or persist or if there are any questions or concerns that arise at home. Response to treatment: the patient's symptoms have markedly improved after treatment, and as a result, I will discharge patient. 07/31 17:08 Order name: COVID-19/FLU A+B; Complete Time: 20:20 07/31 18:47 Order name: Basic Metabolic Panel; Complete Time: 19:55 [facility] 08/01 00:14 Interpretation: Normal except: NA 127; CL 92; GLUC 135; CRE 1.14; GFR 47. 07/31 18:47 Order name: CBC with Diff; Complete Time: 19:45 [facility] 08/01 00:15 Interpretation: Normal except: HGB 15.2; MPV 7.5; JULIAN% 81.7; LYM% 10.6. 07/31 18:47 Order name: LFT's; Complete Time: 19:55 [facility] 07/31 18:47 Order name: Magnesium; Complete Time: 19:55 [facility] 07/31 18:47 Order name: NT PRO-BNP; Complete Time: 19:55 [facility] 07/31 18:47 Order name: PT-INR; Complete Time: 19:45 [facility] 07/31 18:47 Order name: Troponin HS; Complete Time: 19:55 [facility] 07/31 18:47 Order name: XRAY Chest (1 view); Complete Time: 20:26 [facility] 07/31 18:47 Order name: Urine Microscopic Only; Complete Time: 22:28 [facility] 07/31 21:07 Order name: CT Head Brain wo Cont; Complete Time: 22:28 [facility] 07/31 21:07 Order name: CT Abd/Pelvis - IV Contrast Only; Complete Time: 22:28 [facility] 07/31 22:29 Interpretation: Report reviewed. 07/31 22:04 Order name: Urine Dipstick-Ancillary; Complete Time: 22:28 [facility] 07/31 22:29 Interpretation: Normal except: UESTR 1+. 07/31 22:36 Order name: BMP; Complete Time: 00:14 08/01 00:14 Interpretation: Normal except: NA 130; CL 95; GLUC 118; GFR 54; CA 9.2. 07/31 18:47 Order name: EKG; Complete Time: 18:48 [facility] 07/31 18:47 Order name: Cardiac monitoring; Complete Time: 20:11 [facility] 07/31 18:47 Order name: EKG - Nurse/Tech; Complete Time: 20:11 [facility] 07/31 18:47 Order name: IV Saline Lock; Complete Time: 19:30 [facility] 07/31 18:47 Order name: Labs collected and sent; Complete Time: 19:30 [facility] 07/31 18:47 Order name: O2 Per Protocol; Complete Time: 20:11 [facility] 07/31 18:47 Order name: O2 Sat Monitoring; Complete Time: 20:11 [facility] 07/31 18:47 Order name: Urine Dipstick-Ancillary (obtain specimen); Complete Time: 22:03 [facility] 08/01 00:16 Order name: PO challenge; Complete Time: 00:24 cp Administered Medications: 07/31 20:11 Drug: Lactated Ringers Solution 1000 ml Route: IV; Rate: 250 ml/hr; Site: right [facility] antecubital; 22:46 Follow up: Rate change 999 ml/hr; Converted remaining fluids to bolus per providers jb4 orders 20:18 CANCELLED (Duplicate Order): hydrALAZINE 10 mg IVP once [facility] Disposition Summary: 08/01/22 00:18 Discharge Ordered Location: Home cp Problem: new cp Symptoms: have improved cp Condition: Stable cp Diagnosis - Nausea cp - Headache cp - Pain, unspecified cp - Hypo-osmolality and hyponatremia cp Followup: cp - With: Sumit Hernandez MD - When: 2 - 3 days - Reason: Recheck today's complaints Discharge Instructions: - Discharge Summary Sheet cp - General Headache Without Cause cp - Hyponatremia cp - Nausea, Adult cp - Acute Pain, Adult cp Forms: - Medication Reconciliation Form cp - Thank You Letter cp - Antibiotic Education cp - Prescription Opioid Use cp Prescriptions: - Zofran 4 mg Oral Tablet - take 1 tablet by ORAL route every 12 hours As needed; 20 tablet; Refills: 0, cp Product Selection Permitted Signatures: Dispatcher [employer] EDLuis Carlos Hensley PA PA jmm Rufus Benitez, NEW ACCOUNTS CLERK-C NEW ACCOUNTS CLERK-Cla1 Jordan Myers PA PA cp Mei Morley RN RN ll1 Prema Nielsen RN RN jh5 Luis Smiley RN jb4 Corrections: (The following items were deleted from the chart) 20:18 20:12 hydrALAZINE 10 mg IVP once ordered. rachid ruiz
[2022-08-01 00:47] VITALS: TEMP 97.3
[2022-08-01 00:57] VITALS: BP 153/58; O2SAT 99
== END 2022-08-01 00:29 | disposition home or self-care (01) ==
LOC: ER 16:53
DX: E87.1 Hypo-osmolality and hyponatremia (principal); R51.9 Headache, unspecified; I10 Essential (primary) hypertension; Z95.0 Presence of cardiac pacemaker; Z88.0 Allergy status to penicillin; Z88.1 Allergy status to other antibiotic agents; Z88.3 Allergy status to other anti-infective agents; Z88.5 Allergy status to narcotic agent; Z88.8 Allergy status to other drugs, medicaments and biological substances; Z91.048 Other nonmedicinal substance allergy status; Z20.822 Contact with and (suspected) exposure to COVID-19
CPT/HCPCS: 93005 ×2; 85025; 80048 ×2; 36415; 83735; 85610; 80076; 84484; 83880; 0240U; 70450; 74177; 71045; 99284; Q9967; J7120; J7040; 81003; 81015

== ENCOUNTER 2023-01-26 12:23 | Emergency (ER) | payer OTHER ==
[2023-01-26 13:06] LABS: Absolute Lymphocytes (CBC) 1.8 K/uL (0.7-4.9); Hematocrit 40.5 % (36.0-45.0); Lymphocytes % 20.9 % (15.3-44.8); MCV 90.5 fL (80-100); MPV 7.2 fL (7.6-11.3); RBC Red Blood Cell Count 4.48 M/uL (3.86-4.86)
[2023-01-26 13:23] LABS: Albumin 4.1 g/dL (3.4-5.0); Bilirubin Total 0.7 mg/dL (0.2-1.0); Potassium 3.7 mEq/L (3.5-5.1); Protein, Total 7.7 g/dL (6.4-8.2)
[2023-01-26] MEDS ORDERED: FAMOTIDINE 20 MG/2 ML VIAL IV ONE (13:23)
[2023-01-26] MEDS ORDERED: ONDANSETRON 4 MG/2 ML VIAL ONE (13:23)
[2023-01-26] MEDS ORDERED: MORPHINE 2 MG/ML SYR ONE (13:23)
[2023-01-26 13:59] LABS: Specific Gravity 1.007 (1.005-1.030); Urine Bilirubin NEGATIVE (Negative); Urine Blood Negative (Negative); Urine Clarity Clear (Clear); Urine Color Colorless (Yellow); Urine Glucose NEGATIVE (Negative); Urine Protein NEGATIVE (Negative); Urine Urobilinogen Normal (Normal); Urine pH 7.5 (5.0-7.0)
--- NOTE | 2023-01-26 14:11 | RAD REPORT ---
EXAM DESCRIPTION: CTAbdomen Pelvis W Contrast - 01/26/2023 1:50 pm CLINICAL HISTORY: ABD PAIN COMPARISON: Abdomen Pelvis W Contrast dated 07/31/2022; Abdomen Pelvis W Contrast dated 05/12/2022 ; Abdomen Pelvis W Contrast dated 10/06/2021 TECHNIQUE: CT of the abdomen and pelvis was performed. All CT scans are performed using dose optimization technique as appropriate and may include automated exposure control or mA/KV adjustment according to patient size. FINDINGS: Lower chest: 13 mm left lower lobe pulmonary nodule is unchanged since at least 07/31/2022 . This is pleural based. Liver: Intrahepatic biliary ductal dilatation. No suspicious liver lesions. Biliary: Cholecystectomy. Extrahepatic biliary ductal dilatation is similar measuring 11 mm. Stomach: No significant focal abnormality. Duodenum: No significant focal abnormality. Pancreas: No mass identified. Prominence of the downstream pancreatic duct is unchanged. Spleen: No significant abnormality. Adrenal: No suspicious lesions. Kidney/ureter: Atrophic right kidney. No renal calculi. Retroperitoneum: No retroperitoneal adenopathy. Vascular: Atherosclerosis. Bowel: Colonic wall thickening versus underdistention extending from the transverse colon to the rect um.. Peritoneum: No ascites or free air. Bladder: Grossly unremarkable. Reproductive: No adnexal masses. Bones: No acute fracture. Multilevel degenerative changes are present in the spine. Other: n/a IMPRESSION: Wall thickening versus underdistention of the transverse colon to the rectum that could reflect a colitis. Biliary duct dilatation which may be in part related to patient's age and postcholecystectomy state. Correlate with LFTs. If abnormal, could consider MRCP.
--- NOTE | 2023-01-26 14:49 | ER ---
Nurse's Notes [facility] Name: Zee Lindsay Age: 87 yrs Sex: Female : 1935 Arrival Date: 01/26/2023 Time: 12:23 Bed 8 Private MD: Diagnosis: Left sided colitis;Abdominal pain, Generalized;Hypo-osmolality and hyponatremia;Essential (primary) hypertension Presentation: 01/26 12:33 Chief complaint: N/D and diffuse abdominal pain x 3 days. Coronavirus screen: At this hb time, the client does not indicate any symptoms associated with coronavirus-19. Ebola Screen: No symptoms or risks identified at this time. Initial Sepsis Screen: Does the patient meet any 2 criteria? No. Patient's initial sepsis screen is negative. Does the patient have a suspected source of infection? No. Patient's initial sepsis screen is negative. Risk Assessment: Do you want to hurt yourself or someone else? Patient reports no desire to harm self or others. Onset of symptoms was January 23, 2023. 12:33 Method Of Arrival: Ambulatory hb 12:33 Acuity: DESIRE 3 hb Historical: - Allergies: 12:33 Clonidine; hb 12:33 Codeine; hb 12:33 Darvocet-N 100; hb 12:33 dorjaycline; hb 12:33 guafin; hb 12:33 Labetalol; hb 12:33 Levaquin; hb 12:33 Lisinopril; hb 12:33 Lyrica; hb 12:33 magnesium; hb 12:33 Minoxidil; hb 12:33 Morphine; hb 12:33 Nicen; hb 12:33 Nifedipine; hb 12:33 Norvasc; hb 12:33 PENICILLINS; hb 12:33 PENTAZOCINE; hb 12:33 Premarin; hb 12:33 propargyl vela; hb 12:33 Rifampin; hb 12:33 Soma; hb 12:33 Talwin; hb 12:33 Tricor; hb - PMHx: 12:33 Hypertension; High Cholesterol; Hyperlipidemia; Hypothyroidism; Pacemaker; hb diverticulosis; gastric ulcer; TIA; - PSHx: 12:33 Cholecystectomy; Left Lung; left kidney balloon; Pace maker; Lumbar; right kidney stent;hb - Immunization history:: Adult Immunizations up to date. - Social history:: Smoking status: Patient denies any tobacco usage or history of. Screenin:28 Abuse screen: Denies threats or abuse. Denies injuries from another. Nutritional ph screening: No deficits noted. Tuberculosis screening: No symptoms or risk factors identified. 13:31 [facility] ED Fall Risk Assessment (Adult) History of falling in the last 3 months, ph including since admission No falls in past 3 months (0 pts) Confusion or Disorientation No (0 pts) Intoxicated or Sedated No (0 pts) Impaired Gait No (0 pts) Mobility Assist Device Used No (0 pt) Altered Elimination No (0 pt) Score/Fall Risk Level 0 - 2 = Low Risk Oriented to surroundings, Maintained a safe environment, Provided non-skid footwear, Hourly rounding (assess needs \T\ fall precautionary measures) done. Assessment: 13:31 General: Appears in no apparent distress. comfortable, Behavior is calm, cooperative, ph appropriate for age, Reports chills for. Pain: Complains of pain in epigastric area, right upper quadrant and left upper quadrant. Neuro: Level of Consciousness is awake, alert, obeys commands, Oriented to person, place, time, situation. Cardiovascular: Capillary refill < 3 seconds in bilateral Patient's skin is warm and dry. Respiratory: Airway is patent Respiratory effort is even, unlabored, Respiratory pattern is regular. GI: Reports upper abdominal pain, diarrhea, nausea. Derm: Skin is pink, warm \T\ dry. 13:50 Reassessment: Patient appears in no apparent distress at this time. Patient and/or ph family updated on plan of care and expected duration. Pain level reassessed. Patient is alert, oriented x 3, equal unlabored respirations, skin warm/dry/pink. Pt taken to CT via stretcher. Vital Signs: 12:33 BP 168 / 82; Pulse 76; Resp 18; Temp 97.9(O); Pulse Ox 100% on R/A; Weight 51.26 kg; hb Height 5 ft. 3 in. ; Pain 7/10; 13:50 BP 157 / 75; Pulse 60; Resp 18; Pulse Ox 99% on R/A; ph 14:49 BP 138 / 62; Pulse 62; Resp 18; Temp 97.2; Pulse Ox 99% ; ph 12:33 Body Mass Index 20.02 (51.26 kg, 160.02 cm) hb 12:33 Pain Scale: Adult hb ED Course: 12:25 Patient arrived in ED. ts1 12:26 Yusef Goodrich DO is Attending Physician. ms3 12:28 Arm band placed on Patient placed in an exam room. ph 12:31 Patient has correct armband on for positive identification. Placed in gown. Bed in low ph position. Call light in reach. Pulse ox on. NIBP on. 12:33 Triage completed. hb 12:45 Inserted saline lock: 22 gauge in right antecubital area, using aseptic technique. ph Blood collected. 12:46 Tiara Apple, RN is Primary Nurse. ph 13:52 CT Abd/Pelvis - IV Contrast Only In Process Unspecified. EDMS 14:48 Sumit Hernandez MD is Referral Physician. ms3 14:50 No provider procedures requiring assistance completed. IV discontinued, intact, ph bleeding controlled, No redness/swelling at site. Pressure dressing applied. Administered Medications: 13:30 Drug: morphine IVP or IV 2 mg Route: IVP; Infused Over: 4 mins; Site: right antecubital;ph 15:08 Follow up: Response: No adverse reaction; Pain is decreased ph 14:01 Drug: Famotidine IVP 20 mg Route: IVP; Site: right antecubital; ph 15:08 Follow up: Response: No adverse reaction ph 14:01 Drug: Ondansetron IVP 4 mg Route: IVP; Site: right antecubital; ph 15:07 Follow up: Response: No adverse reaction ph 15:07 Drug: Trimethoprim-Sulfamethoxazole PO (160 mg-800 mg (DS) 1 tablet Route: PO; ph 15:08 Follow up: Response: No adverse reaction ph 15:07 Drug: metroNIDAZOLE PO 500 mg Route: PO; ph 15:08 Follow up: Response: No adverse reaction ph Medication: 12:37 VIS not applicable for this client. ph Outcome: 14:49 Discharge ordered by . ms3 15:08 Discharged to home via wheelchair, with family. ph 15:08 Condition: good 15:08 Discharge instructions given to patient, family, Instructed on discharge instructions, follow up and referral plans. medication usage, Demonstrated understanding of instructions, follow-up care, medications, Prescriptions given X 2. 15:09 Patient left the ED. ph Signatures: Dispatcher [employer] EDMI Tiara Apple RN RN ph Arabella Fowler RN RN hb Yusef Goodrich, DO ORTIZ ms3 Keesha Longoria PAS [facility] ts1
--- NOTE | 2023-01-26 14:49 | EDPHYS ---
Physician Documentation [facility] Name: Zee Lindsay Age: 87 yrs Sex: Female : 1935 Arrival Date: 01/26/2023 Time: 12:23 Bed 8 Private MD: ED Physician Yusef Goodrich HPI: 01/26 16:32 This 87 yrs old Female presents to ER via Ambulatory with complaints of Nausea, ms3 Diarrhea, General Weakness. 16:32 87-year-old female with past medical history of hypertension, hyperlipidemia, presents ms3 for diarrhea, nausea, abdominal pain for 2 days. Patient states pain is an 8/10 described as cramping and burning located generally throughout her abdomen. Patient denies alleviating or inciting factors. Patient denies fevers or chills.. Historical: - Allergies: 12:33 Clonidine; hb 12:33 Codeine; hb 12:33 Darvocet-N 100; hb 12:33 dorjaycline; hb 12:33 guafin; hb 12:33 Labetalol; hb 12:33 Levaquin; hb 12:33 Lisinopril; hb 12:33 Lyrica; hb 12:33 magnesium; hb 12:33 Minoxidil; hb 12:33 Morphine; hb 12:33 Nicen; hb 12:33 Nifedipine; hb 12:33 Norvasc; hb 12:33 PENICILLINS; hb 12:33 PENTAZOCINE; hb 12:33 Premarin; hb 12:33 propargyl vela; hb 12:33 Rifampin; hb 12:33 Soma; hb 12:33 Talwin; hb 12:33 Tricor; hb - PMHx: 12:33 Hypertension; High Cholesterol; Hyperlipidemia; Hypothyroidism; Pacemaker; hb diverticulosis; gastric ulcer; TIA; - PSHx: 12:33 Cholecystectomy; Left Lung; left kidney balloon; Pace maker; Lumbar; right kidney stent;hb - Immunization history:: Adult Immunizations up to date. - Social history:: Smoking status: Patient denies any tobacco usage or history of. ROS: 16:32 Constitutional: Negative for fever, and chills. Neck: Negative for injury, pain, and ms3 swelling, Cardiovascular: Negative for chest pain, and palpitations. Respiratory: Negative for shortness of breath, cough, wheezing, and pleuritic chest pain. 16:32 MS/Extremity: Negative for injury and deformity, Skin: Negative for injury, rash, and discoloration. 16:32 Abdomen/GI: Positive for abdominal pain, nausea, diarrhea. 16:32 All other systems are negative. Exam: 16:32 Constitutional: This is a well developed, well nourished patient who is awake, alert, ms3 and in no acute distress. Head/Face: Normocephalic, atraumatic. Eyes: Pupils equal round and reactive to light, extra-ocular motions intact. Lids and lashes normal. Conjunctiva and sclera are non-icteric and not injected. Periorbital areas with no swelling, redness, or edema. Neck: Trachea midline, no cervical lymphadenopathy. Supple, full range of motion without nuchal rigidity, or vertebral point tenderness. No Meningismus. Chest/axilla: Normal chest wall appearance and motion. Nontender with no deformity. Cardiovascular: Regular rate and rhythm with a normal S1 and S2. No gallops, murmurs, or rubs. Normal PMI, no JVD. No pulse deficits. Respiratory: Lungs have equal breath sounds bilaterally, clear to auscultation and percussion. No rales, rhonchi or wheezes noted. No increased work of breathing, no retractions or nasal flaring. 16:32 MS/ Extremity: Pulses equal, no cyanosis. Neurovascular intact. Full, normal range of motion. 16:32 Abdomen/GI: Inspection: abdomen appears normal, Bowel sounds: normal, Palpation: moderate abdominal tenderness, in all quadrants. Vital Signs: 12:33 BP 168 / 82; Pulse 76; Resp 18; Temp 97.9(O); Pulse Ox 100% on R/A; Weight 51.26 kg; hb Height 5 ft. 3 in. ; Pain 7/10; 13:50 BP 157 / 75; Pulse 60; Resp 18; Pulse Ox 99% on R/A; ph 14:49 BP 138 / 62; Pulse 62; Resp 18; Temp 97.2; Pulse Ox 99% ; ph 12:33 Body Mass Index 20.02 (51.26 kg, 160.02 cm) hb 12:33 Pain Scale: Adult hb MDM: 12:48 Patient medically screened. ms3 16:32 Differential diagnosis: Nonspecific abd pain, pancreatitis, diverticulitis, viral ms3 gastroenteritis, gastroenteritis. Data reviewed: vital signs, nurses notes, lab test result(s), radiologic studies, and as a result, I will discharge patient. Management of patient was discussed with the following: Primary Care Provider: Dr Hernandez. Would like patient started on Bactrim DS and Flagyl.. I considered the following discharge prescriptions or medication management in the emergency department Medications were administered in the Emergency Department. See MAR. Historians other than the Patient: Daughter/Son: Patients daughter. Counseling: I had a detailed discussion with the patient and/or guardian regarding: the historical points, exam findings, and any diagnostic results supporting the discharge/admit diagnosis, lab results, radiology results, the need for outpatient follow up, to return to the emergency department if symptoms worsen or persist or if there are any questions or concerns that arise at home. Response to treatment: the patient's symptoms have markedly improved after treatment, and as a result, I will discharge patient. ED course: On reevaluation patient's pain improved, abdomen benign. Discussed case with Dr. Hernandez who recommends patient start Bactrim DS and Flagyl due to patient's multiple drug allergies. Patient and her daughter understand agree with plan. Patient to follow-up with Dr. Hernandez this week. All questions were answered. Return precautions discussed include fevers, bloody bowel movements, inability tolerate p.o., weakness, or any other concerns. 01/26 12:48 Order name: CBC with Diff; Complete Time: 13:28 ms3 01/26 12:48 Order name: CMP; Complete Time: 13:28 ms3 01/26 12:48 Order name: Lipase; Complete Time: 13:28 ms3 01/26 12:49 Order name: Urinalysis w/ reflexes; Complete Time: 14:08 ph 01/26 12:48 Order name: CT Abd/Pelvis - IV Contrast Only; Complete Time: 14:16 ms3 01/26 12:48 Order name: IV Saline Lock; Complete Time: 12:57 ms3 01/26 12:48 Order name: Labs collected and sent; Complete Time: 12:57 ms3 01/26 12:49 Order name: IV Saline Lock; Complete Time: 12:57 ph Administered Medications: 13:30 Drug: morphine IVP or IV 2 mg Route: IVP; Infused Over: 4 mins; Site: right antecubital;ph 15:08 Follow up: Response: No adverse reaction; Pain is decreased ph 14:01 Drug: Famotidine IVP 20 mg Route: IVP; Site: right antecubital; ph 15:08 Follow up: Response: No adverse reaction ph 14:01 Drug: Ondansetron IVP 4 mg Route: IVP; Site: right antecubital; ph 15:07 Follow up: Response: No adverse reaction ph 15:07 Drug: Trimethoprim-Sulfamethoxazole PO (160 mg-800 mg (DS) 1 tablet Route: PO; ph 15:08 Follow up: Response: No adverse reaction ph 15:07 Drug: metroNIDAZOLE PO 500 mg Route: PO; ph 15:08 Follow up: Response: No adverse reaction ph Disposition Summary: 01/26/23 14:49 Discharge Ordered Location: Home ms3 Condition: Stable ms3 Diagnosis - Left sided colitis ms3 - Abdominal pain, Generalized ms3 - Hypo-osmolality and hyponatremia ms3 - Essential (primary) hypertension ms3 Followup: ms3 - With: Sumit Hernandez MD - When: 2 - 3 days - Reason: Recheck today's complaints Discharge Instructions: - Discharge Summary Sheet ms3 - Abdominal Pain, Adult ms3 - Hypertension, Adult ms3 Forms: - Medication Reconciliation Form ms3 - Thank You Letter ms3 - Antibiotic Education ms3 - Prescription Opioid Use ms3 - Patient Portal Instructions ms3 Prescriptions: - Flagyl 500 mg Oral Tablet - take 1 tablet by ORAL route every 8 hours for 7 days; 21 tablet; Refills: 0, ms3 Product Selection Permitted - Bactrim DS 800-160 mg Oral Tablet - take 1 tablet by ORAL route every 12 hours for 7 days; 14 tablet; Refills: 0, ms3 Product Selection Permitted Signatures: Dispatcher [employer] EDMS Tiara Apple RN RN Arabella Fowler RN RN Yusef Goodrich DO DO ms3 Corrections: (The following items were deleted from the chart) 12:59 12:49 CBC+H.LAB.BRZ ordered. EDMS EDMS 12:59 12:49 COMPREHENSIVE METABOLIC PANEL+C.LAB.BRZ ordered. EDMS EDMS 12:59 12:49 LIPASE+C.LAB.BRZ ordered. EDMS EDMS
[2023-01-26 15:46] VITALS: O2SAT 99
[2023-01-26 15:51] VITALS: BP 138/62; TEMP 97.2
== END 2023-01-26 15:09 | disposition home or self-care (01) ==
LOC: ER 12:23
DX: K51.50 Left sided colitis without complications (principal); E87.1 Hypo-osmolality and hyponatremia; I10 Essential (primary) hypertension; Z95.0 Presence of cardiac pacemaker; Z88.0 Allergy status to penicillin; Z88.1 Allergy status to other antibiotic agents; Z88.3 Allergy status to other anti-infective agents; Z88.5 Allergy status to narcotic agent; Z88.8 Allergy status to other drugs, medicaments and biological substances; Z91.048 Other nonmedicinal substance allergy status
CPT/HCPCS: 85025; 36415; 81003; 83690; 80053; 74177; Q9967; J2270; J2405; 96374; 96375; 99284

== ENCOUNTER 2023-01-29 12:08 | Observation (INO) | payer OTHER ==
--- OUTSIDE RECORDS SUMMARY | 2023-01-29 12:11 | XMS REPORT | Continuity of Care Document ---
:1935 Author Organization [facility] t Address [address] [facility] [address] [place] [address] Care Team Providers Name Role Phone Vish [...] ents Source Name Type Date Date Clinician robelu DA Active OR RASH [facility] m 3-28 Clear 00:00: [place] [facility] levoflox DA Active OR RASH 2021-0 [facility] acin 3- Clear 00:00: [place] [facility] minoxidi DA Active OR RASH 2021-0 [facility] l 3- Clear 00:00: [place] [facility] lisinopr DA Active U UNKNOWN [facility] il 3-28 Clear 00:00: [place] [facility] nifedipi DA Active U UNKNOWN [facility] ne 3- Clear 00:00: [place] [facility] niacin DA Active OR RASH 2021- [facility] 3-28 Clear 00:00: [place] [facility] estrogen DA Active OR BURNING WITH 0 HC A s, VAGINAL 09-24 Clear conjugat CREAM 00:00: [place] ed 00 [facility] pentazoc DA Active OR "WEIRD IN [facility] ine THE HEAD" 09-24 Clear 00:00: [place] [facility] carisopr DA Active OR "SENSITIVE [facility] odol TO MED" 09-24 Clear 00:00: [place] [facility] labetalo DA Active OR RASH 2021-0 [facility] l 3- Clear 00:00: [place] [facility] rifampin DA Active U UNKNOWN 2021- [facility] 3-28 Clear 00:00: [place] [facility] adhesive DA Active OR RASH 2021-0 [facility] 3-28 Clear 00:00: [place] [facility] pregabal DA Active U UNKNOWN 0 [facility] in 3- Clear 00:00: [place] [facility] Penicill DA Active OR RASH, ITCH 2021-0 [facility] ins 3- Clear 00:00: [place] [facility] morphine DA Active OR ITCHING 2021-0 [facility] 3-28 Clear 00:00: [place] [facility] codeine DA Active OR HEADACHE 2021-0 [facility] 3-28 Clear 00:00: [place] [facility] fenofibr DA Active OR MUSCLE 2021-0 [facility] ate CRAMPS 3- Clear 00:00: [place] [facility] labetalo labetalo Active Kavitha a franny Sands Active [place] franny Peterson Norvannessa Norvasc Active [facility] [place] Lyrica Lyrica Active [facility] Magnesiu Magnesiu Active [facility]ori a [facility] [place] rifAMPin rifAMPin Active [facility] [place] cloNIDin cloNIDin Active Memori a e e [...] penicill Active Memori a ins ins l [place] codeine codeine Active [facility] Social History Smoking Status Start Date Stop Date Source Social History 2020-09-25 15:15:56 2020-09-25 15:15:[address] [facility] Medications Ordered Filled Start Stop [...] oral tablet 15:06: Daily, 0 He rmann Refill(s) Alprazolam Yes 0.25 mg = Me [...] PO, l oral tablet 15:06: Daily, 0 rmann Refill(s) Alprazolam Yes 0.25 mg = Me [...] PO, l oral tablet 15:06: Daily, 0 rmann Refill(s) Alprazolam Yes 0.25 mg = Me [...] doses., # 3 ea, 0 Refill(s), Pharmacy: [facility], 160.02, cm, 09/11/20 8:52:00 CDT, Height, 55.909, kg, 09/11/20 8:52:00 CDT, Weight fosfomycin Yes = 1 Pack, Me moria 3 g oral 3-15 PO, ONCE, l powder 14:32: dissolve [place] 00 in 4 ounces of water. Take every other day for 3 doses., # 3 ea, 0 Refill(s), Pharmacy: [facility] 808, 160.02, cm, 09/11/20 8:52:00 CDT, Height, 55.909, kg, 09/11/20 8:52:00 CDT, Weight fosfomycin 0 Yes = 1 Pack, Me moria 3 g oral 3-15 PO, ONCE, l powder 14:32: dissolve [place] 00 in 4 ounces of water. Take every other day for 3 doses., # 3 ea, 0 Refill(s), Pharmacy: [facility], 160.02, cm, 09/11/20 8:52:00 CDT, Height, 55.909, kg, 09/11/20 8:52:00 CDT, Weight fosfomycin 0 Yes = 1 Pack, Me moria 3 g oral 3-15 PO, ONCE, l powder 14:32: dissolve [place] 00 in 4 ounces of water. Take every other day for 3 doses., # 3 ea, 0 Refill(s), Pharmacy: [facility], 160.02, cm, 09/11/20 8:52:00 CDT, Height, 55.909, kg, 09/11/20 8:52:00 CDT, Weight Vital Signs Vital Name Observation Time Observation Value Comments Source Height 2020-09-25 15:14:00 160.02 cm [facility] [place] Weight 2020-09-25 15:14:00 [facility] BMI Calculated 2020-09-25 15:14:00 [facility] Systolic (mm Hg) 2020-09-11 13:52:00 Emmanuel rial [place] Diastolic (mm Hg) 2020-09-11 13:52:00 Mem orial [place] Heart Rate 2020-09-11 13:52:00 [facility] Height 2020-09-11 13:52:00 160.02 cm [facility] [place] Weight 2020-09-11 13:52:00 [facility] [place] BMI Calculated 2020-09-11 13:52:00 [facility] [place] Procedures Procedure Date / Time Performed Performing Clinician Yasmin karen Lumbar spinal fusion [facility] He rmann Gallbladder operation [facility] H ermann Pacemaker care [facility] [place] Lung operation [facility] [place] Breast biopsy and related [facility] procedures Encounters Start End Encounter Admission Attending Care Care Encounter Source Date/Time Date/Time Type Type Clinicians Facility Department ID 2021-09-18 Inpatient EL [place] [facility] OUTD [id number] [facility] 15:00:00 Vish Francis 40 [facility] 2021-09-26 2021-09-26 Inpatient EL [place] [facility] OUTD [id number] [facility] 05:20:00 05:20:00 Vish Francis 19 [facility] 2021-03-26 2021-03-26 Ambulatory nullFlavo [facility] Multi 55 [id number] Memoria 13:45:00 13:45:00 Pre-Reg r Specialty 02 l [facility] 2021-03-26 2021-03-26 Ambulatory nullFlavo [facility] Multi 55 [id number] Memoria 13:45:00 13:45:00 Pre-Reg r Specialty 02 l [facility] 2021-03-26 2021-03-26 Outpatient MHIE MHIE [id number] Memoria 08:45:00 08:45:00 02 l [place] 2021-03-26 2021-03-26 Outpatient UMM TinajeroMG MG [id number] 08:45:00 08:45:00 Kristie L 02 2020-09-25 2020-09-26 Outpatient nullFlavo [facility] Multi 55 [id number] Memoria 15:20:00 04:59:59 r Specialty 01 l [facility] 2020-09-25 2020-09-26 Outpatient nullFlavo MG Multi 55 [id number] Memoria 15:20:00 04:59:59 r Specialty [address] [facility] 2020-09-25 2020-09-25 Outpatient MAGDI Tinajero MG [id number] 10:20:00 23:59:59 Kristie L 2020-09-25 2020-09-25 Outpatient LUCA SEGOVIA [id number] Memoria 10:20:00 10:20:00 01 [facility] 2020-09-11 2020-09-12 Outpatient nullFlavo [facility] Multi 55 [id number] Memoria 14:00:00 04:59:59 r Specialty [address] [facility] 2020-09-11 2020-09-12 Outpatient nullFlavo [facility] Multi 55 [id number] Memoria 14:00:00 04:59:59 r Specialty [address] [facility] 2020-09-11 2020-09-11 [id number] 09:00:00 23:59:59 Kristie L 2020-09-11 2020-09-11 Outpatient LUCA SEGOVIA [id number] Memoria 09:00:00 09:00:00 00 [facility] 2020-08-22 2020-08-22 Outpatient [facility] [id number] [address] [place] [address] 00:00:00 00:00:00 Results Test Description Test Time [...] = CA) 10.2 mg/dL 8.0-10.5 N PROTHROMBIN [id number] 11:32:00 Test Item Value Reference Range Interpretation [...] (to prevent recurrent infar ct). CBC W/AUTO [id number] 11:25:00 Test Item Value Reference Range Interpretation [...] NO = MDIFF) - XR CHEST 2 [id number] 00:00:00 [facility]: BALBIR CORWIN M : 1935 Sex: F FAX: Harry Seo MD [phone] Abiquiu: St: PRE FAX: Vish Montalvo [phone] - Name: CORWIN MCGREGOR [facility] : 1935 Age/S: 86/F [address] [place] [address] Unit #: [id number] Loc: [place] [address] Phys: Vish Sanford MD Acct: [id number] Dis Date: Status: PRE [facility] PHONE #: [phone] Exam Date: 09/24/2021 1135 FAX #: [phone] Reason: PREOP EXAMS: CPT CODE: [id number] XR CHEST 2 V [id number] PROCEDURE INFORMATION: Exam: XR Chest Exam date and time: 09/24/2021 11:03 AM Age: 86 years old Clinical indication: Screening exam; Pre-operative exam; Other: Preop TECHNIQUE:Imaging protocol: XR of the chest. Views: 2 views. PA and Lateral COMPARISON: No relevant prior studi es available. FINDINGS: Lungs: No consolidation. Minimal left [...] Technologist: Christie Hanson RT(R) Trnscrd Date/Time/By: 09/24/2021 (1231) : By: [email or web address] Orig Print D/T: S: 09/24/2021 (1232) PAGE 1 Signed ReportREFERENCE LAB [id number] 14:43:00 Test Item Value Reference Range Interpretation Comments Result 2 (Urine Culture) See Result Comment (test code = Result 2 (Urine Culture)) [facility] [id number] 14:43:00 Test Item Value Reference Range Interpretation Comments Result 2 (Urine Culture) See Result Comment (test code = Result 2 (Urine Culture)) [facility] [id number] 14:43:00 Test Item Value Reference Range Interpretation Comments Result 2 (Urine Culture) See Result Comment (test code = Result 2 (Urine Culture)) [facility] [id number] 14:43:00 Test Item Value Reference Range Interpretation Comments Result 2 (Urine Culture) See Result Comment (test code = Result 2 (Urine Culture)) [facility] Notes Date/Time Note Provider Source 2021-09-26 22:06:00-00:00 [id number] [place] [address] PATIENT NAME: CORWIN MCGREGOR ADMIT DATE: 09/26/21 ACCOUNT NO: [id number] ROOM NO: AGE: 86 REPORT TYPE: OPERATIVE REPORT SEX: F ADMITTING PHYSICIAN: ATTENDING PHYSICIAN:Vish Sanford MD OPERATION DATE: 09/26/2021 PREPROCEDURE DIAGNOSES: 1. Dual-chamber pacemaker at replacement indicat or. 2. Sick sinus syndrome. 3. Dizziness. 4. Tiredness. POST-PROCEDURE DIAGNOSES: 1. Dual-chamber pacemaker at replacement indicat or. 2. Sick sinus syndrome. 3. Dizziness. 4. Tiredness. ATTENDING PHYSICIAN: Vish Francis MD SURGEON: OSTEOLOGY TEACHER: ESTIMATED BLOOD LOSS: 10 mL. PROCEDURES PERFORMED: 1. Dual-chamber pacemaker generator replacement. 2. Moderate sedation. ANESTHESIA: Moderate conscious sedation was prov ided under my direct supervision by a sedation trained nurse. Sedatio n time 20 minutes, Versed and fentanyl. See report for details. DESCRIPTION OF PROCEDURE: After informed consent was obtained, the patient was brought to the electrophysio logy laboratory in a fasting nonsedated state. Area over her chest was prepped and draped in the usu al sterile fashion. Moderate sedation and prophylactic antibiotics were given . Lidocaine was used as local anesthetic and a 3-cm skin incision was made in the left subclavicular area. Electrocautery sharp and blunt dissections were used to reach the muscular fascia and the old device wa s freed out of the pocket. The pocket was irrigated with antibiotic solution using the pulse sandstone inspector repairer. Hemostasis was meticulous. Leads disconnected from the old device a nd connected to the new device and the new device placed in the pocket. We used vancomy junior powder in the pocket. Incision was closed using absorbable sutures and Dermabond. The patient tolerated the procedure well. Procedure was comp lete. PATIENT NAME: COWRIN MCGREGOR SUMMARY OF HARDWARE IMPLANTED: The new pacemaker is Medtronic, serial #[id number] IMPRESSION: Successful dual-chamber pacemaker ge nerator replacement. PLAN: 1. Routine postop monitoring on telemetry. 2. Discharge home later today. 3. Follow up in 1 to 2 weeks. Dictated By: Vish Francis MD WT: OP:ELBA/KAI.01/NTS Conf#: [id number]/DID#: [id number] Authenticated by Vish ribera 09/27/2021 11:20:18 PM at 1120 PATIENT NAME: CORWIN MCGREGOR ACCOUNT #: [id number] 2021-09-24 11:00:00-00:00 [id number] [address] PATIENT NAME: CORWIN MCGREGOR ADMIT DATE: ACCOUNT NO: [id number] ROOM NO: AGE: 86 REPORT TYPE: eELECTROCARDIOGRAM REPORT SEX: F ADMITTING PHYSICIAN: ATTENDING PHYSICIAN:Vish Sanford MD Order: [id number] Test Reason : PREOP Test Date/Time Stamp: FriSep 24 2021 11:00:24 Blood Pressure : / mmHG Vent. Rate : 062 BPM Atrial Rate : 062 BPM P-R Int : 200 ms QRS Dur : 068 ms QT Int : 402 ms P-R-T Axes : 072 060 105 degree s QTc Int : 408 ms Atrial-paced rhythm Nonspecific ST and T wave abnormality Abnormal ECG PRE_OP Confirmed by FAITH SALAS MD ([id number]) on 09/25/19 11:37:49 AM Referred By: Vihs Francis Confirmed by:GRETCHEN SALAS MD at 8842 PATIENT NAME: CORWIN MCGREGOR ACCOUNT #: [id number]
[2023-01-29] MEDS ORDERED: NA CHLORIDE 0.9% 500 ML ONE (12:39)
[2023-01-29] MEDS ORDERED: ONDANSETRON 4 MG/2 ML VIAL ONE (12:53)
[2023-01-29 13:21] LABS: Absolute Lymphocytes (CBC) 1.3 K/uL (0.7-4.9); Hematocrit 38.1 % (36.0-45.0); Lymphocytes % 16.3 % (15.3-44.8); MCV 90.9 fL (80-100); MPV 7.4 fL (7.6-11.3); RBC Red Blood Cell Count 4.19 M/uL (3.86-4.86)
--- NOTE | 2023-01-29 13:22 | RAD REPORT ---
EXAM DESCRIPTION: CT - Chest Abdomen Pelvis W Cont - 01/29/2023 1:07 pm CLINICAL HISTORY: Chest and abdomen pain. chest pain, abd pain COMPARISON: Abdomen Pelvis W Contrast dated 01/26/2023 TECHNIQUE: Approximately 100 mL nonionic IV contrast was administered to the patient. All CT scans are performed using dose optimization technique as appropriate and may include automated exposure control or mA/KV adjustment according to patient size. FINDINGS: The lungs are clear.No pleural or pericardial effusion.No intrathoracic adenopathy.Dual le ad pacer device is present. Small hiatal hernia. The liver, spleen, pancreas, adrenal glands and left kidney are within normal limits. Significant atr ophy of the right kidney. Advanced aortoiliac atherosclerosis. No bowel obstruction, free air, free fluid or abscess. Prominent sigmoid diverticulosis coli without diverticulitis. Moderate fecal retention. Nonvisualized appendix. No pathologic lymphadenopathy in th e abdomen or pelvis. Mild to moderate lumbar degenerative changes. IMPRESSION: No acute process seen. Moderate fecal retention.
[2023-01-29 13:23] LABS: Protime INR 1.02
--- NOTE | 2023-01-29 13:23 | RAD REPORT ---
EXAM DESCRIPTION: RAD - Chest Single View - 01/29/2023 1:13 pm CLINICAL HISTORY: CHEST PAIN Chest pain. FINDINGS: Portable technique limits examination quality. The lungs are grossly clear. The heart is normal in size. Dual lead pacer device is present.Left-side d pleural thickening is present, chronic. IMPRESSION: No acute intrathoracic process suspected.
[2023-01-29] MEDS ORDERED: PANTOPRAZOLE 40 MG INJ ONE (13:40)
[2023-01-29 13:43] LABS: Albumin 3.9 g/dL (3.4-5.0); Bilirubin Direct 0.1 mg/dL (0-0.2); Bilirubin Indirect, Calculated 0.4 mg/dL (0.2-0.8); Bilirubin Total 0.5 mg/dL (0.2-1.0); Potassium 3.1 mEq/L (3.5-5.1); Protein, Total 7.3 g/dL (6.4-8.2); Troponin High Sensitivity 11.5 pg/mL (<58.9)
--- NOTE | 2023-01-29 13:53 | ER ---
Nurse's Notes [facility] Name: Zee Lindsay Age: 87 yrs Sex: Female : 1935 Arrival Date: 01/29/2023 Time: 12:08 Bed 14 Private MD: Sumit Hernandez C Diagnosis: Chest pain, unspecified;Vomiting;Abdominal pain, unspecified Presentation: 01/29 12:13 Chief complaint: Patient states: CP started last night. Was here Friday for a colon ll1 infection. Coronavirus screen: Client denies travel out of the [place] in the last 14 days. At this time, the client does not indicate any symptoms associated with coronavirus-19. Ebola Screen: Patient denies travel to an Ebola-affected area in the 21 days before illness onset. Initial Sepsis Screen: Does the patient meet any 2 criteria? No. Patient's initial sepsis screen is negative. Does the patient have a suspected source of infection? No. Patient's initial sepsis screen is negative. Risk Assessment: Do you want to hurt yourself or someone else? Patient reports no desire to harm self or others. Onset of symptoms was January 28, 2023. 12:13 Method Of Arrival: Wheelchair ll1 12:13 Acuity: DESIRE 3 ll1 Triage Assessment: 12:14 General: Appears uncomfortable, ill, Behavior is calm, cooperative, appropriate for ll1 age. Pain: Complains of pain in chest Quality of pain is described as pressure, Pain began 1 day ago. Cardiovascular: Reports chest pain, fatigue. Historical: - Allergies: 12:12 Clonidine; ll1 12:12 Codeine; ll1 12:12 Darvocet-N 100; ll1 12:12 dorjaycline; ll1 12:12 guafin; ll1 12:12 Labetalol; ll1 12:12 Levaquin; ll1 12:12 Lisinopril; ll1 12:12 Lyrica; ll1 12:12 magnesium; ll1 12:12 Minoxidil; ll1 12:12 Morphine; ll1 12:12 Nicen; ll1 12:12 Nifedipine; ll1 12:12 Norvasc; ll1 12:12 PENICILLINS; ll1 12:12 PENTAZOCINE; ll1 12:12 Premarin; ll1 12:12 propargyl vela; ll1 12:12 Rifampin; ll1 12:12 Soma; ll1 12:12 Talwin; ll1 12:12 Tricor; ll1 - PMHx: 12:12 Hypertension; Hypothyroidism; Pacemaker; High Cholesterol; gastric ulcer; ll1 diverticulosis; Hyperlipidemia; TIA; - PSHx: 12:12 left kidney balloon; Left Lung; Cholecystectomy; Pace maker; Lumbar; right kidney stent;ll1 - Immunization history:: Client reports receiving the 2nd dose of the Covid vaccine. - Social history:: Smoking status: Patient reports the use of cigarette tobacco products, smokes one-half pack cigarettes per day. - Family history:: not pertinent. - Hospitalizations: : No recent hospitalization is reported. Screenin:38 [facility] ED Fall Risk Assessment (Adult) History of falling in the last 3 months, nj1 including since admission No falls in past 3 months (0 pts) Score/Fall Risk Level 0 - 2 = Low Risk Oriented to surroundings, Maintained a safe environment, Hourly rounding (assess needs \T\ fall precautionary measures) done. Abuse screen: Denies threats or abuse. Denies injuries from another. Nutritional screening: No deficits noted. Tuberculosis screening: No symptoms or risk factors identified. Assessment: 12:30 Reassessment: See triage assessment. nj1 12:30 Pain: Complains of pain in chest Pain currently is 5 out of 10 on a pain scale. nj1 12:39 Pain: Pain does not radiate. nj1 13:20 Reassessment: Patient appears in no apparent distress at this time. Patient and/or nj1 family updated on plan of care and expected duration. Pain level reassessed. Patient is alert, oriented x 3, equal unlabored respirations, skin warm/dry/pink. 14:31 Reassessment: Patient appears in no apparent distress at this time. Patient and/or nj1 family updated on plan of care and expected duration. Pain level reassessed. Patient is alert, oriented x 3, equal unlabored respirations, skin warm/dry/pink. 14:32 Reassessment: Patient states symptoms have improved. nj1 15:45 Reassessment: Patient appears in no apparent distress at this time. Patient and/or nj1 family updated on plan of care and expected duration. Pain level reassessed. Patient is alert, oriented x 3, equal unlabored respirations, skin warm/dry/pink. Patient states symptoms have improved. 16:08 Reassessment: Unable to call report at this time. Floor unaware of getting patient. fl1 Charge nurse notified. 16:25 Reassessment: Nurse Kristy on the phone, report given at this time. nj1 Vital Signs: 12:13 BP 157 / 75; Pulse 74; Resp 17; Pulse Ox 99% on R/A; Weight 51.71 kg; Height 5 ft. 3 ll1 in. ; Pain 7/10; 13:19 BP 153 / 70; Pulse 72; Resp 19; Pulse Ox 100% ; Pain 5/10; nj1 14:30 BP 126 / 54; Pulse 60; Resp 15; Pulse Ox 96% on R/A; nj1 16:08 Pulse 60; Resp 15; Pulse Ox 99% ; Pain 2/10; nj1 12:13 Body Mass Index 20.19 (51.71 kg, 160.02 cm) ll1 12:13 Pain Scale: Adult 1 13:19 Pain Scale: Adult nj1 16:08 Pain Scale: Adult fl1 ED Course: 12:09 Patient arrived in ED. rg4 12:09 Yousuf Velázquez MD is Attending Physician. rn 12:10 Sumit Hernandez MD is Private Physician. rg4 12:12 Arm band placed on Patient placed in an exam room, on a stretcher. ll1 12:14 Capri Wolfe, LAMINE is Primary Nurse. nj1 12:14 Triage completed. 1 12:38 Client placed on continuous cardiac and pulse oximetry monitoring. NIBP monitoring nj1 applied. 12:38 Patient has correct armband on for positive identification. Bed in low position. Call fl1 light in reach. Side rails up X 1. Adult w/ patient. Provided Education on: fall precautions, call light. 12:38 Patient maintains SpO2 saturation greater than 95% on room air. nj1 12:41 Inserted saline lock: 22 gauge in left forearm, using aseptic technique. nj1 13:09 CT Chest, Abdomen, Pelvis - W/Contrast In Process Unspecified. EDMS 13:15 XRAY Chest (1 view) In Process Unspecified. EDMS 13:52 Sumit Hernandez MD is Hospitalizing Provider. rn 16:23 No provider procedures requiring assistance completed. Patient admitted, IV remains in fl1 place. Administered Medications: 12:39 Drug: NS 0.9% IV 500 ml Route: IV; Rate: bolus; Site: left forearm; nj1 13:30 Follow up: Response: No adverse reaction; IV Status: Completed infusion; IV Intake: nj1 500ml 12:46 Drug: Ondansetron IVP 4 mg Route: IVP; Site: left forearm; nj1 13:20 Follow up: Response: No adverse reaction; Nausea is decreased nj1 13:43 Drug: Pantoprazole IVP 40 mg Route: IVP; Site: left forearm; nj1 16:11 Follow up: Response: No adverse reaction nj1 Medication: 16:41 VIS not applicable for this client. nj1 Intake: 13:30 IV: 500ml; Total: 500ml. nj1 Outcome: 13:52 Decision to Hospitalize by Provider. rn 16:23 Admitted to Tele accompanied by nurse, via stretcher, room 407, [facility] Instructed to give bedside report if unable to give report on next attempt. Attempt done at 1622 without success, nurse unavailable. 16:23 Condition: stable 16:23 Instructed on the need for admit. 16:41 Patient left the ED. nj1 Signatures: Dispatcher [employer] EDMS Yousuf Velázquez MD MD rn Garcia, Rubi rg4 Mei Morley RN RN 1 Capri Wolfe RN RN nj1 Corrections: (The following items were deleted from the chart) 12:17 12:13 Pulse 74bpm; Resp 17bpm; Pulse Ox 99% RA; 51.71 kg; Height 5 ft. 3 in.; BMI: ll1 20.1; Pain 7/10, Adult; ll1 16:10 16:08 Pulse 60bpm; Resp 15bpm; Pulse Ox 99%; nj1 nj1
--- NOTE | 2023-01-29 13:53 | EDPHYS ---
Physician Documentation [facility] Name: Zee Lindsay Age: 87 yrs Sex: Female : 1935 Arrival Date: 01/29/2023 Time: 12:08 Bed 14 Private MD: Sumit Hernandez C ED Physician Yousuf Velázquez HPI: 01/29 12:19 This 87 yrs old Female presents to ER via Wheelchair with complaints of Chest rn Tightness, High Blood Pressure. 12:19 The patient or guardian reports chest pain that is located primarily in the anterior rn chest wall, left. Onset: at an unknown time. The pain does not radiate. Associated signs and symptoms: Pertinent positives: nausea, vomiting, Pertinent negatives: diaphoresis, shortness of breath. The chest pain is described as a heaviness. Duration: The patient or guardian reports multiple episodes, that are intermittent. Modifying factors: The symptoms are alleviated by nothing. the symptoms are aggravated by nothing. Severity of pain: At its worst the pain was mild in the emergency department the pain is unchanged. The patient has not experienced similar symptoms in the past. The patient has been recently seen at the [facility] Emergency Department. Pt seen here recently, diagnosed with colitis, only filled 1 abx due to allergy to bactrim, returns with still not feeling well, nausea, vomiting, chest pain. Reports had mild chest pain on other visit but worse today. . Historical: - Allergies: 12:12 Clonidine; ll1 12:12 Codeine; ll1 12:12 Darvocet-N 100; ll1 12:12 dorjaycline; ll1 12:12 guafin; ll1 12:12 Labetalol; ll1 12:12 Levaquin; ll1 12:12 Lisinopril; ll1 12:12 Lyrica; ll1 12:12 magnesium; ll1 12:12 Minoxidil; ll1 12:12 Morphine; ll1 12:12 Nicen; ll1 12:12 Nifedipine; ll1 12:12 Norvasc; ll1 12:12 PENICILLINS; ll1 12:12 PENTAZOCINE; ll1 12:12 Premarin; ll1 12:12 propargyl vela; ll1 12:12 Rifampin; ll1 12:12 Soma; ll1 12:12 Talwin; ll1 12:12 Tricor; ll1 - PMHx: 12:12 Hypertension; Hypothyroidism; Pacemaker; High Cholesterol; gastric ulcer; ll1 diverticulosis; Hyperlipidemia; TIA; - PSHx: 12:12 left kidney balloon; Left Lung; Cholecystectomy; Pace maker; Lumbar; right kidney stent;ll1 - Immunization history:: Client reports receiving the 2nd dose of the Covid vaccine. - Social history:: Smoking status: Patient reports the use of cigarette tobacco products, smokes one-half pack cigarettes per day. - Family history:: not pertinent. - Hospitalizations: : No recent hospitalization is reported. ROS: 12:19 Constitutional: Negative for fever, chills, and weight loss, Cardiovascular: Negative rn for palpitations, and edema Respiratory: Negative for shortness of breath, cough, wheezing, and pleuritic chest pain, Abdomen/GI: + nausea and vomiting MS/Extremity: Negative for injury and deformity, Skin: Negative for injury, rash, and discoloration, Neuro: Negative for headache, numbness, tingling, and seizure. Exam: 12:19 Constitutional: This is a well developed, well nourished patient who is awake, alert, rn and in no acute distress. Head/Face: Normocephalic, atraumatic. ENT: dry MM Cardiovascular: Regular rate and rhythm. No pulse deficits. Respiratory: No increased work of breathing, no retractions or nasal flaring. Abdomen/GI: Soft, non-tender, with normal bowel sounds. No distension or tympany. No guarding or rebound. No evidence of tenderness throughout Skin: Warm, dry MS/ Extremity: Pulses equal, no cyanosis. Neuro: Awake and alert, GCS 15 Vital Signs: 12:13 BP 157 / 75; Pulse 74; Resp 17; Pulse Ox 99% on R/A; Weight 51.71 kg; Height 5 ft. 3 ll1 in. ; Pain 7/10; 13:19 BP 153 / 70; Pulse 72; Resp 19; Pulse Ox 100% ; Pain 5/10; nj1 14:30 BP 126 / 54; Pulse 60; Resp 15; Pulse Ox 96% on R/A; nj1 16:08 Pulse 60; Resp 15; Pulse Ox 99% ; Pain 2/10; nj1 12:13 Body Mass Index 20.19 (51.71 kg, 160.02 cm) ll1 12:13 Pain Scale: Adult ll1 13:19 Pain Scale: Adult nj1 16:08 Pain Scale: Adult nj1 MDM: 12:09 Patient medically screened. rn 13:50 Differential diagnosis: acute pericarditis, costochondritis, esophagitis, gastritis, rn gastroesophageal reflux disease (GERD), pancreatitis, peptic ulcer disease, pleurisy, pneumonia, pneumothorax. Differential diagnosis: acute myocardial infarction. Data reviewed: vital signs, nurses notes. Data reviewed: lab test result(s), EKG, radiologic studies, CT scan, and as a result, I will admit patient. Consideration of Admission/Observation Patient was admitted/placed on observation. Escalation of care including admission/observation considered. Counseling: I had a detailed discussion with the patient and/or guardian regarding: the historical points, exam findings, and any diagnostic results supporting the discharge/admit diagnosis, lab results, radiology results, the need for further work-up and treatment in the hospital. Response to treatment: There is no appreciated change of the patient's symptoms at this time, and as a result, I will admit patient. 01/29 12:18 Order name: Basic Metabolic Panel; Complete Time: 13:46 rn 01/29 12:18 Order name: CBC with Diff; Complete Time: 13: rn 01/29 12:18 Order name: LFT's; Complete Time: 13:46 rn 01/29 12:18 Order name: NT PRO-BNP; Complete Time: 13:46 rn 01/29 12:18 Order name: PT-INR; Complete Time: 13:28 rn 01/29 12:18 Order name: Troponin HS; Complete Time: 13:46 rn 01/29 12:18 Order name: Lipase; Complete Time: 13:46 rn 01/29 12:18 Order name: XRAY Chest (1 view); Complete Time: 13:27 rn 01/29 12:18 Order name: CT Chest, Abdomen, Pelvis - W/Contrast; Complete Time: 13:27 rn 01/29 12:18 Order name: EKG; Complete Time: 12:19 rn 01/29 12:18 Order name: Cardiac monitoring; Complete Time: 12:25 rn 01/29 12:18 Order name: EKG - Nurse/Tech; Complete Time: 12:25 rn 01/29 12:18 Order name: IV Saline Lock; Complete Time: 12:39 rn 01/29 12:18 Order name: Labs collected and sent; Complete Time: 12:39 rn 01/29 12:18 Order name: O2 Per Protocol; Complete Time: 12:25 rn 01/29 12:18 Order name: O2 Sat Monitoring; Complete Time: 12:25 rn Administered Medications: 12:39 Drug: NS 0.9% IV 500 ml Route: IV; Rate: bolus; Site: left forearm; nj1 13:30 Follow up: Response: No adverse reaction; IV Status: Completed infusion; IV Intake: nj1 500ml 12:46 Drug: Ondansetron IVP 4 mg Route: IVP; Site: left forearm; nj1 13:20 Follow up: Response: No adverse reaction; Nausea is decreased nj1 13:43 Drug: Pantoprazole IVP 40 mg Route: IVP; Site: left forearm; nj1 16:11 Follow up: Response: No adverse reaction nj1 Disposition Summary: 01/29/23 13:52 Hospitalization Ordered Hospitalization Status: Observation rn Provider: Sumit Hernandez rn Location: Telemetry/MedSurg (observation) rn Condition: Stable rn Problem: an ongoing problem rn Symptoms: are unchanged rn Bed/Room Type: Standard rn Room Assignment: 407(01/29/23 16:14) ja Diagnosis - Chest pain, unspecified rn - Vomiting rn - Abdominal pain, unspecified rn Forms: - Medication Reconciliation Form rn - SBAR form rn Signatures: Dispatcher [employer] Shelley Solorzano Roman, MD MD rn Aguilar, Jose, RN RN ja1 Mei Morley, RN RN cari1 Capri Wolfe, RN RN nj1 Corrections: (The following items were deleted from the chart) 15:28 13:52 rn bd 15:30 15:28 409 bd bd 16:14 15:30 424 bd ja1
[2023-01-29] MEDS ORDERED: ONDANSETRON 4 MG/2 ML VIAL IV PRN (16:31)
[2023-01-29] MEDS ORDERED: NA CHLORIDE 0.9% 1,000 ML IV SCH (16:31)
[2023-01-29] MEDS ORDERED: ACETAMINOPHEN 500 MG TAB PO PRN (16:31)
[2023-01-29 17:04] VITALS: BMI 20.2
[2023-01-29] MEDS ORDERED: ALPRAZOLAM 0.25 MG TABLET PO SCH (22:00)
[2023-01-30 02:59] VITALS: O2SAT 100
[2023-01-30 06:05] LABS: Absolute Lymphocytes (CBC) 1.3 K/uL (0.7-4.9); Hematocrit 37.3 % (36.0-45.0); Lymphocytes % 20.5 % (15.3-44.8); MCV 90.8 fL (80-100); MPV 7.2 fL (7.6-11.3); RBC Red Blood Cell Count 4.12 M/uL (3.86-4.86)
[2023-01-30 06:18] LABS: Potassium 3.6 mEq/L (3.5-5.1)
[2023-01-30 07:10] VITALS: TEMP 97.2
--- NOTE | 2023-01-30 07:21 | HP ---
Date of Admission: 01/29/2023 Chief Complaint: Abdominal pain, nausea. History Of Present Illness: This is an 87-year-old very pleasant female patient, who recently came i [facility] emergency room last week with abdominal pain, nausea, and diarrhea. Denies having any vomiting o r fever. After workup was done in the emergency room, she was released to go home with metronidazole with diagnosis of colitis. The patient has multiple allergies to different antibiotics, so metronid azole was only antibiotic that was prescribed to her that she could take orally. When I saw her for followup on 01/27/2023, she was improving, but today she comes to emergency room with worsening of ab dominal pain and some nausea, but no vomiting, no fever, no diarrhea. After she was evaluated, she w as admitted to the hospital. I saw her this evening. The patient was not in any distress. Review of Systems: GI: As mentioned above. All other systems reviewed and negative. Allergies: PENICILLIN CAUSING RASH AND ITCHING, MORPHINE CAUSING NAUSEA AND VOMITING, SULFA CAUSING RASH AND ITCHING, CODEINE CAUSING HEADACHE, FENOFIBRATE DETAILS UNKNOWN, NIFEDIPINE DETAILS UNKNOWN, LEVAQUIN CAUSES THE RASH AND ITCHING, NIACIN CAUSING FLUSHING, LISINOPRIL DETAILS UNKNOWN, DARVOCET D ETAILS UNKNOWN, SOMA DETAILS UNKNOWN, TALWIN DETAILS UNKNOWN, MINOXIDIL DETAILS UNKNOWN, LABETALOL DE TAILS UNKNOWN, LYRICA DETAILS UNKNOWN, RIFAMPIN DETAILS UNKNOWN, PREMARIN ITCHING, DOXYCYCLINE RASH A ND ITCHING, AND CIPRO RASH. Medications: The patient takes alprazolam, amlodipine, aspirin, atorvastatin, clonidine, clopidogrel , famotidine, Levsin, levothyroxine, Metamucil, Bystolic, pantoprazole, and pentoxifylline. Past Medical History: Significant for stroke, hypothyroidism, impaired fasting glucose, hypertension , hyperlipidemia, diverticulosis, chronic kidney disease, anxiety. Past Surgical History: Surgery for pleural effusion after trauma, had pleurodesis done, breast biops y which was benign, pacemaker placement for sick sinus syndrome January 2012 and battery replacement i n 2021, cholecystectomy, back surgery, ankle surgery. Family History: Father of myocardial infarction. Mother , had breast and cervical cancer a nd heart disease. Son has thalassemia minor and daughter also has thalassemia minor. Social History: Prior history of smoking, not at present time. Use of alcohol negative. Physical Examination: Vital Signs: Height 5 feet 3 inches, weight 114 pounds, pulse 74, respiratory rate 17, blood pressur e 157/75, oxygen saturation 99%. General: Awake, alert, oriented, not in distress. HEENT: Head atraumatic, normocephalic. Conjunctivae nonerythematous. Sclerae white. Mouth, no thr ush or edema noted. Ears/Nose, no mass, lesion, discharge noted. Neck: Supple. No JVD, lymph nodes, bruit, thyromegaly noted. Lungs: Bilateral good equal air entry. Clear to auscultation. No rhonchi. No rales. Heart: Normal heart sounds, no murmur or gallop. Abdomen: Soft, bowel sounds normal. No guarding, rigidity, tenderness, mass, hepatosplenomegaly, dis tention, or bruit noted. Extremities: No leg edema. No calf tenderness. Skin: No rash, ulcer, cellulitis. Lymphatics: No lymph node enlargement in neck, supraclavicular, infraclavicular region. Neuro: No focal neurological deficit. Chest: Unremarkable. External Genitalia: Deferred. Rectal: Deferred. Laboratory Data: Sodium 129, potassium 3.1, chloride 97, bicarb 24, BUN 13, creatinine 1.18, glucose 223. Liver function tests unremarkable. WBC , hemoglobin , platelets _. Liver function tests normal. Initial troponin 11.5, second troponin 13.4. ProBNP is 738. Lipas e 44. Chest x-ray, no acute changes. CAT scan of the abdomen pelvis was unremarkable for any acute changes. Impression: 1.Abdominal pain. 2.Hyponatremia. 3.Hypokalemia. 4.Chronic kidney disease, stage 3A. 5.Hypertension. 6.Hyperlipidemia. 7.Hypothyroidism. 8.Impaired fasting glucose. 9.Anxiety. Plan: We will go ahead and admit the patient to hospital for evaluation and management of this probl em. The patient is appropriate for observation. We will go ahead and replace electrolyte. IV fluid will be given. I will see her tomorrow morning for followup and at this point, there is no evidence of any acute intra-abdominal pathology. We need to keep in mind about possibility of irritable jono l syndrome and other underlying etiologies, and we will go ahead and try anti-spasmodic medication. I will see her tomorrow for followup and depending on her condition, we will decide about possible di scharge. Details of plan of treatment discussed with her. The patient takes Xanax 0.25 mg and she t akes that in half and just takes half a tablet 1-2 times a day and she is requesting that to be given tonight, which was ordered. I will see her tomorrow for followup. MARGO/KAPILL Voice ID: [id number]
[2023-01-30] MEDS ORDERED: AMLODIPINE 5 MG TAB PO ONE (08:13)
[2023-01-30] MEDS ORDERED: NEBIVOLOL HCL 5 MG TAB PO ONE (08:30)
[2023-01-30 08:44] VITALS: BP 165/72
== END 2023-01-30 10:13 | disposition home or self-care (01) ==
LOC: ER 12:08 → ERHOLD 13:58 → 4TH 16:24
PROVIDERS: ADMIT Internal Medicine; ATTEND Internal Medicine
DX: R10.9 Unspecified abdominal pain (principal); E87.1 Hypo-osmolality and hyponatremia; E87.6 Hypokalemia; I12.9 Hypertensive chronic kidney disease with stage 1 through stage 4 chronic kidney disease, or unspecified chronic kidney disease; N18.31 Chronic kidney disease, stage 3a; E78.5 Hyperlipidemia, unspecified; E03.9 Hypothyroidism, unspecified; R73.01 Impaired fasting glucose; F41.9 Anxiety disorder, unspecified; Z88.0 Allergy status to penicillin; Z88.6 Allergy status to analgesic agent; Z88.8 Allergy status to other drugs, medicaments and biological substances; Z86.73 Personal history of transient ischemic attack (TIA), and cerebral infarction without residual deficits; F17.210 Nicotine dependence, cigarettes, uncomplicated; R11.0 Nausea
CPT/HCPCS: 36415; 71045; 71260; 74177; 80048; 80076; 82947; 83690; 83880; 84484; 85025; 85610; 93005; 96361; 96374; 96375; 99285; C9113; J2405; J7030; J7040; Q9967

== ENCOUNTER 2023-03-21 15:40 | Emergency (ER) | payer OTHER ==
--- OUTSIDE RECORDS SUMMARY | 2023-03-21 15:57 | XMS REPORT | Continuity of Care Document ---
:[address] [facility] t Address [address] [place] [address] Care Team Providers Name Role Phone Vish [...] Type Date Date Clinician niacin DA Active [place] RASH [facility] - Clear 00:00: [facility] estrogen DA Active [place] BURNING WITH 2021-0 HC A s, VAGINAL 09-24 Clear conjugat CREAM 00:00: [place] ed 00 [facility] pentazoc DA Active [place] "WEIRD IN 0 [facility] ine THE HEAD" 09-24 Clear 00:00: Engel [facility] carisopr DA Active [place] "SENSITIVE [facility] odol TO MED" 09-24 Clear 00:00: Engel [facility] labetalo DA Active [place] RASH 2021- [facility] l 3- Clear 00:00: Engel [facility] rifampin DA Active U UNKNOWN [facility] 3-28 Clear 00:00: [place] [facility] adhesive DA Active [place] RASH 2021- [facility] - Clear 00:00: Engel [facility] pregabal DA Active U UNKNOWN [facility] in 3 Clear 00:00: Engel [facility] Penicill DA Active [place] RASH, ITCH 2021- [facility] ins 3 Clear 00:00: Engel [facility] morphine DA Active [place] ITCHING 2021-0 [facility] 3-28 Clear 00:00: Engel [facility] codeine DA Active [place] HEADACHE 2021-0 [facility] 3-28 Clear 00:00: Engel [facility] fenofibr DA Active [place] MUSCLE 2021-0 [facility] ate CRAMPS 09-24 Clear 00:00: Engel 00 [facility] magnesiu DA Active [place] RASH 2021-0 [facility] m 3-28 Clear 00:00: Engel [facility] levoflox DA Active [place] RASH 2021-0 [facility] acin 3- Clear 00:00: Engel [facility] minoxidi DA Active [place] RASH 2021-0 [facility] l 3-28 Clear 00:00: Engel [facility] lisinopr DA Active U UNKNOWN 2021-0 [facility] il 3-28 Clear 00:00: Engel [facility] nifedipi DA Active U UNKNOWN 2021-0 [facility] ne 3- Clear 00:00: Engel [facility] labetalo labetalo Active Kaivtha a franny Sands Active Joan Peterson Norángela [...] l Nicholas Sulfur Sulfur Active Memoria l Par[facility] morphine morphine Active Memori a l Nicholas lisinopr lisinopr Active Memori a il il l Nicholas TriCor TriCor Active Memoria l Nicholas Soma Soma Active Memoria l Nicholas Premarin Premarin Active Memori a Vaginal Vaginal l Nicholas Darvocet Darvocet Active Memori a A500 A500 l Nicholas penicill penicill Active Memori a ins ins l Paragon codeine codeine Active Memoria l Nicholas Social History Smoking Status Start Date Stop Date Source Social History 2020-09-25 15:15:56 2020-09-25 15:15:56 [facility] Ordered Filled Start Stop Current Ordering [...] tablet 00 PO, Daily, 0 Refill(s) levothyroxi 0 Yes 50 Memori a ne 50 mcg [...] tab, PO, l tablet 15:06: Daily, 0 Paragon 00 Refill(s) atorvastati 0 Yes 20 mg [...] tab, PO, l tablet 15:06: Daily, 0 Paragon 00 Refill(s) atorvastati 0 Yes 20 mg [...] tab, PO, l tablet 15:06: Daily, 0 Paragon 00 Refill(s) atorvastati Yes 20 mg = [...] 3-15 PO, ONCE, l powder 14:32: dissolve Paragon 00 in 4 ounces of water. Take every other day for 3 doses., # 3 ea, 0 Refill(s), Pharmacy: [facility], 160.02, cm, 09/11/20 8:52:00 CDT, Height, 55.909, kg, 09/11/20 8:52:00 CDT, Weight fosfomycin Yes = 1 Pack, Me moria 3 g oral 3-15 PO, ONCE, l powder 14:32: dissolve Paragon 00 in 4 ounces of water. Take every other day for 3 doses., # 3 ea, 0 Refill(s), Pharmacy: [facility], 160.02, cm, 09/11/20 8:52:00 CDT, Height, 55.909, kg, 09/11/20 8:52:00 CDT, Weight fosfomycin Yes = 1 Pack, Me moria 3 g oral 3-15 PO, ONCE, l powder 14:32: dissolve Nicholas 00 in 4 ounces of water. Take every other day for 3 doses., # 3 ea, 0 Refill(s), Pharmacy: [facility], 160.02, cm, 09/11/20 8:52:00 CDT, Height, 55.909, kg, 09/11/20 8:52:00 CDT, Weight fosfomycin Yes = 1 Pack, Me moria 3 g oral 3-15 PO, ONCE, l powder 14:32: dissolve Paragon 00 in 4 ounces of water. Take every other day for 3 doses., # 3 ea, 0 Refill(s), Pharmacy: [facility], 160.02, cm, 09/11/20 8:52:00 CDT, Height, 55.909, kg, 09/11/20 8:52:00 CDT, Weight fosfomycin Yes = 1 Pack, Me moria 3 g oral 3-15 PO, ONCE, l powder 14:32: dissolve Incholas 00 in 4 ounces of water. Take every other day for 3 doses., # 3 ea, 0 Refill(s), Pharmacy: [facility], 160.02, cm, 09/11/20 8:52:00 CDT, Height, 55.909, kg, 09/11/20 8:52:00 CDT, Weight Vital Signs Vital Name Observation Time Observation Value Comments Source Height 2020-09-25 15:14:00 160.02 cm [facility] Weight 2020-09-25 15:14:00 [facility] BMI Calculated 2020-09-25 15:14:00 Memori al [facility] Systolic (mm Hg) 2020-09-11 13:52:00 Emmanuel rial Nicholas Diastolic (mm Hg) 2020-09-11 13:52:00 Mem orial [facility] Heart Rate 2020-09-11 13:52:00 [facility] Height 2020-09-11 13:52:00 160.02 cm [facility] Weight 2020-09-11 13:52:00 [facility] BMI Calculated 2020-09-11 13:52:00 Memori al [facility] Procedures Procedure Date / Time Performed Performing Clinician [facility] e Lumbar spinal fusion [facility] Gallbladder operation [facility] Pacemaker care [facility] Lung operation [facility] Breast biopsy and related Memori al Paragon procedures Encounters Start End Encounter Admission Attending Care Care Encounter Source Date/Time Date/Time Type Type Clinicians Facility Department ID 2021-09-18 Inpatient ABIMAEL EDWARDCL OUTD [id number] [facility] 15:00:00 Vish Francis 40 Prudencio ar [facility] 2021-09-26 2021-09-26 Inpatient ABIMAEL EDWARDCL OUTD [id number] [facility] 05:20:00 05:20:00 Vish Francis 19 Cl ear [facility] 2021-03-26 2021-03-26 Ambulatory nullFlavo [facility] 55 [id number] Memoria 13:45:00 13:45:00 Pre-Reg r Specialty 02 [facility] 2021-03-26 2021-03-26 Ambulatory nullFlavo [facility] 55 [id number] Memoria 13:45:00 13:45:00 Pre-Reg r Specialty 02 [facility] 2021-03-26 2021-03-26 Outpatient MHIE MHIE [id number] Memoria 08:45:00 08:45:00 02 [facility] 2021-03-26 2021-03-26 Outpatient Staller, [facility] [id number] 08:45:00 08:45:00 Kristie L 2020-09-25 2020-09-26 Outpatient nullFlavo [facility] 55 [id number] Memoria 15:20:00 04:59:59 r Specialty 01 [facility] 2020-09-25 2020-09-26 Outpatient nullFlavo [facility] 55 [id number] Memoria 15:20:00 04:59:59 r Specialty 01 [facility] 2020-09-25 2020-09-25 Outpatient Staller, [facility] [id number] 10:20:00 23:59:59 Kristie L 2020-09-25 2020-09-25 Outpatient MHIE [facility] [id number] Memoria 10:20:00 10:20:00 franny ReddParagon 2020-09-11 2020-09-12 Outpatient nullFlavo [facility] 55 [id number] Memoria 14:00:00 04:59:59 r Specialty 00 [facility] 2020-09-11 2020-09-12 Outpatient nullFlavo [facility] 55 [id number] Memoria 14:00:00 04:59:59 r Specialty 00 [facility] 2020-09-11 2020-09-11 Outpatient Lior [facility] [id number] 09:00:00 23:59:59 Kristie L 00 2020-09-11 2020-09-11 Outpatient [facility] [id number] Memoria 09:00:00 09:00:00 00 l Nicholas 2020-08-22 2020-08-22 Outpatient [facility] [id number] [facility] 00:00:00 00:00:00 Results Test Description Test Time [...] = CA) 10.2 mg/dL 8.0-10.5 N PROTHROMBIN [id number] 11:32:00 Test Item Value Reference Range Interpretation [...] risk), 2. 5 - 3.5 Presence of Kristina pus Anticoagulant o r Antiphospholipi d Antibodies, Pre vention of systemic emb olism - Acute Myocardia l Infarction (to prevent recurrent infar ct). CBC W/AUTO [id number] 11:25:00 Test Item Value Reference Range Interpretation [...] NO = MDIFF) - XR CHEST 2 [id number] 00:00:[address] [facility] : 1935 Sex: F FAX: Harry Seo MD [phone] [place]: St: PRE FAX: Vish Montalvo [phone] - Name: CORWIN MCGREGOR [facility] : 1935 Age/S: 86/F [address] [place] [address] Blvd Unit #: [id number] Loc: [place] [address] Phys: Vish Sanford MD Acct: [id number] Dis Date: Status: PRE SDC PHONE #: [phone] Exam Date: 09/24/2021 1130 FAX #: [phone] Reason: PREOP EXAMS: CPT CODE: [id number] XR CHEST 2 V [id number] PROCEDURE INFORMATION: Exam: XR Chest Exam date [...] RT(R) Trnscrd Date/Time/By: 09/24/2021 (1232) : By: [email or web address] Orig Print D/T: S: 09/24/2021 (1232) PAGE1 Signed ReportREFERENCE LAB [id number] 14:43:00 Test Item Value Reference Range Interpretation Comments Result 2 (Urine Culture) See Result Comment (test code = Result 2 (Urine Culture)) [facility] [id number] 14:43:00 Test Item Value Reference Range Interpretation Comments Result 2 (Urine Culture) See Result Comment (test code = Result 2 (Urine Culture)) [facility] [id number] 14:43:00 Test Item Value Reference Range Interpretation Comments Result 2 (Urine Culture) See Result Comment (test code = Result 2 (Urine Culture)) [facility] [id number] 14:43:00 Test Item Value Reference Range Interpretation Comments Result 2 (Urine Culture) See Result Comment (test code = Result 2 (Urine Culture)) [facility] [id number] 14:43:00 Test Item Value Reference Range Interpretation Comments Result 2 (Urine Culture) See Result Comment (test code = Result 2 (Urine Culture)) [facility]
[2023-03-21] MEDS ORDERED: NA CHLORIDE 0.9% 250 ML ONE (16:36)
[2023-03-21 16:49] LABS: Absolute Lymphocytes (CBC) 1.1 K/uL (0.7-4.9); Hematocrit 40.2 % (36.0-45.0); Lymphocytes % 11.9 % (15.3-44.8); MPV 7.4 fL (7.6-11.3); Platelets 188 thou/uL (152-406); RBC Red Blood Cell Count 4.42 M/uL (3.86-4.86)
[2023-03-21 17:05] LABS: Albumin 4.4 g/dL (3.4-5.0); Bilirubin Total 0.7 mg/dL (0.2-1.0); Potassium 3.6 mEq/L (3.5-5.1); Protein, Total 7.9 g/dL (6.4-8.2)
[2023-03-21 17:50] LABS: Specific Gravity 1.009 (1.005-1.030); Urine Bilirubin NEGATIVE (Negative); Urine Blood Negative (Negative); Urine Clarity Clear (Clear); Urine Color Colorless (Yellow); Urine Glucose NEGATIVE (Negative); Urine Protein NEGATIVE (Negative); Urine Urobilinogen Normal (Normal); Urine pH 7.5 (5.0-7.0)
[2023-03-21] MEDS ORDERED: NA CHLORIDE 0.9% 500 ML ONE (18:53)
--- NOTE | 2023-03-21 19:12 | EDPHYS ---
Physician Documentation [facility] Name: Zee Lindsay Age: 87 yrs Sex: Female : 1935 Arrival Date: 03/21/2023 Time: 15:40 Bed 17 Private MD: Sumit Hernandez C ED Physician Yousuf Velázquez HPI: 03/21 19:12 This 87 yrs old Female presents to ER via Wheelchair with complaints of Abdominal snw Cramping, Diarrhea, Nausea, High Blood Pressure. 15:59 The patient presents with abdominal pain in the lower abdomen. Onset: The snw symptoms/episode began/occurred diarrhea x 3 days, lower abd pain x 3 hours. 19:12 Associated signs and symptoms: Pertinent positives: diarrhea. Modifying factors: The snw symptoms are alleviated by nothing. Severity of pain: At its worst the pain was mild moderate. The patient has experienced similar episodes in the past. appt with Dr. Hernandez this coming Tu. pt took 1/2 xanax and levsin just prior to arrival. Historical: - Allergies: 15:54 Clonidine; ph 15:54 Codeine; ph 15:54 Darvocet-N 100; ph 15:54 dorjaycline; ph 15:54 guafin; ph 15:54 Labetalol; ph 15:54 Levaquin; ph 15:54 Lisinopril; ph 15:54 Lyrica; ph 15:54 magnesium; ph 15:54 Minoxidil; ph 15:54 Morphine; ph 15:54 Nicen; ph 15:54 Nifedipine; ph 15:54 Norvasc; ph 15:54 PENICILLINS; ph 15:54 PENTAZOCINE; ph 15:54 Premarin; ph 15:54 propargyl vela; ph 15:54 Rifampin; ph 15:54 Soma; ph 15:54 Talwin; ph 15:54 Tricor; ph - Home Meds: 15:54 levothyroxine oral [Active]; ph - PMHx: 15:54 diverticulosis; gastric ulcer; High Cholesterol; Hypertension; Hyperlipidemia; ph Hypothyroidism; Pacemaker; TIA; - PSHx: 15:54 Cholecystectomy; left kidney balloon; Left Lung; Lumbar; Pace maker; right kidney stent;ph - Immunization history:: Adult Immunizations unknown. - Social history:: Smoking status: Patient denies any tobacco usage or history of. ROS: 16:00 Constitutional: Negative for fever, chills, and weight loss, Eyes: Negative for injury, snw pain, redness, and discharge, ENT: Negative for injury, pain, and discharge, Neck: Negative for injury, pain, and swelling, Cardiovascular: Negative for chest pain, palpitations, and edema, Respiratory: Negative for shortness of breath, cough, wheezing, and pleuritic chest pain, Back: Negative for injury and pain, : Negative for injury, bleeding, discharge, and swelling, MS/Extremity: Negative for injury and deformity, Skin: Negative for injury, rash, and discoloration, Neuro: Negative for headache, weakness, numbness, tingling, and seizure, Psych: Negative for depression, anxiety, suicide ideation, homicidal ideation, and hallucinations, 16:00 Abdomen/GI: Positive for abdominal pain, nausea, diarrhea, Exam: 16:00 Constitutional: This is a well developed, well nourished patient who is awake, alert, snw and in no acute distress. Head/Face: Normocephalic, atraumatic. Eyes: Pupils equal round and reactive to light, extra-ocular motions intact. Lids and lashes normal. Conjunctiva and sclera are non-icteric and not injected. Cornea within normal limits. Periorbital areas with no swelling, redness, or edema. ENT: Nares patent. No nasal discharge, no septal abnormalities noted. Tympanic membranes are normal and external auditory canals are clear. Oropharynx with no redness, swelling, or masses, exudates, or evidence of obstruction, uvula midline. Mucous membranes moist. Neck: Trachea midline, no thyromegaly or masses palpated, and no cervical lymphadenopathy. Supple, full range of motion without nuchal rigidity, or vertebral point tenderness. No Meningismus. Chest/axilla: Normal chest wall appearance and motion. Nontender with no deformity. No lesions are appreciated. Cardiovascular: Regular rate and rhythm with a normal S1 and S2. No gallops, murmurs, or rubs. Normal PMI, no JVD. No pulse deficits. Respiratory: Lungs have equal breath sounds bilaterally, clear to auscultation and percussion. No rales, rhonchi or wheezes noted. No increased work of breathing, no retractions or nasal flaring. Back: No spinal tenderness. No costovertebral tenderness. Full range of motion. Skin: Warm, dry with normal turgor. Normal color with no rashes, no lesions, and no evidence of cellulitis. MS/ Extremity: Pulses equal, no cyanosis. Neurovascular intact. Full, normal range of motion. Neuro: Awake and alert, GCS 15, oriented to person, place, time, and situation. Cranial nerves II-XII grossly intact. Motor strength 5/5 in all extremities. Sensory grossly intact. Cerebellar exam normal. Normal gait. Psych: Awake, alert, with orientation to person, place and time. Behavior, mood, and affect are within normal limits. 16:00 Abdomen/GI: Inspection: abdomen appears normal, Bowel sounds: normal, Palpation: abdomen is soft and non-tender, in all quadrants, Vital Signs: 15:55 BP 184 / 66; Pulse 66; Resp 16; Temp 98; Pulse Ox 99% on R/A; Weight 52.16 kg; Height 5 hb ft. 3 in. ; Pain 8/10; 17:00 BP 161 / 59; Pulse 60; Resp 18; Pulse Ox 98% on R/A; ph 18:22 BP 153 / 74; Pulse 62; Resp 18; Pulse Ox 97% on R/A; ph 19:20 BP 149 / 69; Pulse 60; Resp 18 S; Pulse Ox 98% on R/A; ha1 19:23 BP 148 / 71; Pulse 63; Resp 17 S; Pulse Ox 98% on R/A; ha1 19:26 BP 135 / 62; Pulse 70; Resp 17 S; Pulse Ox 98% on R/A; ha1 15:55 Body Mass Index 20.37 (52.16 kg, 160.02 cm) hb 15:55 Pain Scale: Adult hb MDM: 15:49 Patient medically screened. snw 16:01 Differential diagnosis: gastritis, non-specific abd pain, urinary tract infection. Data snw reviewed: vital signs, nurses notes, lab test result(s). Historians other than the Patient: Family Member: Sister. External Records Reviewed: Inpatient record: 01/29/23 - admitted for Chest pain, Vomiting, Abdominal pain. 16:05 Counseling: I had a detailed discussion with the patient and/or guardian regarding the snw historical points, exam findings, and any diagnostic results supporting the discharge/admit diagnosis, the presence of at least one elevated blood pressure reading (>120/80) during this emergency department visit. ED course: pt took some Levsin and Xanax prior to arrival, looks calm, no distress. 17:46 ED course: pt last admitted 01/29/23 (last month) with same sodium and chloride. Pt with snw stable potassium. No N/V, no chest pain. Pt has really only c/o abd pain for a few hours. No pain at this time. Pt did have some diarrhea (none in ED). Pt is nontoxic, in no acute distress. Noted on last admission was possibility of irritable bowel syndrome. Hemodynamically stable. Awaiting covid and flu results. Pt to get IVF while awaiting results. . 19:11 ED course: Pt reports feeling significantly better. Has appt with Dr. Hernandez on Friday. snw 19:13 ED course: Levsin and xanax prior to arrival seemed to have helped pt tremendously.. snw 03/21 15:58 Order name: CBC with Diff; Complete Time: 17:04 snw 03/21 15:58 Order name: CMP; Complete Time: 17:07 snw 03/21 15:58 Order name: Urinalysis w/ reflexes; Complete Time: 17:53 snw 03/21 16:00 Order name: Flu; Complete Time: 17:53 snw 03/21 16:00 Order name: COVID-19 SARS RT PCR; Complete Time: 17:53 snw 03/21 15:58 Order name: IV Saline Lock; Complete Time: 16:59 snw 03/21 15:58 Order name: Labs collected and sent; Complete Time: 16:59 snw 03/21 17:54 Order name: Recheck VS; Complete Time: 18:24 snw 03/21 18:15 Order name: Orthostatics; Complete Time: 20:17 snw Administered Medications: 16:59 Drug: NS 0.9% IV 250 ml IV at calculated rate once Route: IV; Rate: calculated rate; ph Site: left forearm; 18:52 Drug: NS 0.9% IV 500 ml IV at bolus once Route: IV; Rate: bolus; Site: left forearm; ph Disposition: 03/22 08:15 Co-signature as Attending Physician, Yousuf Velázquez MD I reviewed the patient's care rn provided by the Advanced Practice Provider and agree with the diagnosis and treatment plan. Disposition Summary: 03/21/23 19:12 Discharge Ordered Notes: Location: Home snw Condition: Stable snw Diagnosis - Diarrhea, unspecified snw - Dehydration snw Followup: snw - With: Emergency Department - When: As needed - Reason: Worsening of condition Followup: snw - With: Sumit Hernandez MD - When: 2 - 3 days - Reason: Recheck today's complaints, Continuance of care, Re-evaluation by your physician Discharge Instructions: - Discharge Summary Sheet snw - Food Choices to Help Relieve Diarrhea, Adult snw - Diarrhea, Adult snw - Irritable Bowel Syndrome, Adult snw - Rehydration, Elderly snw Forms: - Medication Reconciliation Form snw - Thank You Letter snw - Antibiotic Education snw - Prescription Opioid Use snw - Patient Portal Instructions snw - Leadership Thank You Letter snw Signatures: Dispatcher [employer] Jailyn Portillo FNP-C RECHECKER-Csnw Yousuf Velázquez MD MD rn Hall, Patricia, RN RN ph
--- NOTE | 2023-03-21 19:12 | ER ---
Nurse's Notes [facility] Name: Zee Lindsay Age: 87 yrs Sex: Female : 1935 Arrival Date: 03/21/2023 Time: 15:40 Bed 17 Private MD: Sumit Hernandez C Diagnosis: Diarrhea, unspecified;Dehydration Presentation: 03/21 15:55 Chief complaint: Diarrhea and nausea x 3 days, lower abdominal cramping x 3 days. hb Coronavirus screen: Client presents with at least one sign or symptom that may indicate coronavirus-19. Provider contacted for isolation considerations. Ebola Screen: No symptoms or risks identified at this time. Initial Sepsis Screen: Does the patient meet any 2 criteria? No. Patient's initial sepsis screen is negative. Does the patient have a suspected source of infection? No. Patient's initial sepsis screen is negative. Risk Assessment: Do you want to hurt yourself or someone else? Patient reports no desire to harm self or others. Onset of symptoms was March 18, 2023. 15:55 Method Of Arrival: Wheelchair hb 15:55 Acuity: DESIRE 3 hb Historical: - Allergies: 15:54 Clonidine; ph 15:54 Codeine; ph 15:54 Darvocet-N 100; ph 15:54 dorjaycline; ph 15:54 guafin; ph 15:54 Labetalol; ph 15:54 Levaquin; ph 15:54 Lisinopril; ph 15:54 Lyrica; ph 15:54 magnesium; ph 15:54 Minoxidil; ph 15:54 Morphine; ph 15:54 Nicen; ph 15:54 Nifedipine; ph 15:54 Norvasc; ph 15:54 PENICILLINS; ph 15:54 PENTAZOCINE; ph 15:54 Premarin; ph 15:54 propargyl vela; ph 15:54 Rifampin; ph 15:54 Soma; ph 15:54 Talwin; ph 15:54 Tricor; ph - Home Meds: 15:54 levothyroxine oral [Active]; ph - PMHx: 15:54 diverticulosis; gastric ulcer; High Cholesterol; Hypertension; Hyperlipidemia; ph Hypothyroidism; Pacemaker; TIA; - PSHx: 15:54 Cholecystectomy; left kidney balloon; Left Lung; Lumbar; Pace maker; right kidney stent;ph - Immunization history:: Adult Immunizations unknown. - Social history:: Smoking status: Patient denies any tobacco usage or history of. Screenin:21 [facility] ED Fall Risk Assessment (Adult) History of falling in the last 3 months, ph including since admission No falls in past 3 months (0 pts) Confusion or Disorientation No (0 pts) Intoxicated or Sedated No (0 pts) Impaired Gait No (0 pts) Mobility Assist Device Used No (0 pt) Altered Elimination No (0 pt) Score/Fall Risk Level 0 - 2 = Low Risk Oriented to surroundings, Maintained a safe environment, Provided non-skid footwear, Hourly rounding (assess needs \T\ fall precautionary measures) done. Abuse screen: Denies threats or abuse. Denies injuries from another. Nutritional screening: No deficits noted. Tuberculosis screening: No symptoms or risk factors identified. Assessment: 18:20 General: Appears in no apparent distress. comfortable, Behavior is calm, cooperative, ph appropriate for age. Pain: Complains of pain in right lower quadrant and left lower quadrant. Neuro: Level of Consciousness is awake, alert, obeys commands, Oriented to person, place, time, situation. Cardiovascular: Capillary refill < 3 seconds in bilateral fingers Patient's skin is warm and dry. Respiratory: Airway is patent Respiratory effort is even, unlabored, Respiratory pattern is regular, symmetrical. GI: Reports lower abdominal pain, diarrhea. Derm: Skin is intact, Skin is pink, warm \T\ dry. 19:50 Reassessment: Patient and/or family updated on plan of care and expected duration. Pain ha1 level reassessed. Patient is alert, oriented x 3, equal unlabored respirations, skin warm/dry/pink. awaiting on fluids to be completed Patient denies pain at this time. Patient states feeling better. Patient states symptoms have improved. Vital Signs: 15:55 BP 184 / 66; Pulse 66; Resp 16; Temp 98; Pulse Ox 99% on R/A; Weight 52.16 kg; Height 5 hb ft. 3 in. ; Pain 8/10; 17:00 BP 161 / 59; Pulse 60; Resp 18; Pulse Ox 98% on R/A; ph 18:22 BP 153 / 74; Pulse 62; Resp 18; Pulse Ox 97% on R/A; ph 19:20 BP 149 / 69; Pulse 60; Resp 18 S; Pulse Ox 98% on R/A; ha1 19:23 BP 148 / 71; Pulse 63; Resp 17 S; Pulse Ox 98% on R/A; ha1 19:26 BP 135 / 62; Pulse 70; Resp 17 S; Pulse Ox 98% on R/A; ha1 15:55 Body Mass Index 20.37 (52.16 kg, 160.02 cm) hb 15:55 Pain Scale: Adult hb ED Course: 15:43 Patient arrived in ED. mr 15:44 Sumit Hernandez MD is Private Physician. mr 15:45 Jailyn Stephen [facility]C [facility] snw 15:45 Yousuf Velázquez MD is Attending Physician. snw 15:51 Tiara Apple RN is Primary Nurse. ph 15:56 Triage completed. hb 15:56 Arm band placed on. hb 18:18 Primary Nurse role handed off by Tiara Apple RN eb 18:20 Tiara Apple RN is Primary Nurse. ph 18:22 Patient has correct armband on for positive identification. Bed in low position. Call ph light in reach. Side rails up X 1. Pulse ox on. NIBP on. Door closed. Noise minimized. Warm blanket given. 19:11 Sumit Hernandez MD is Referral Physician. snw 20:21 Provided Education on: follow ups. ha1 20:21 No provider procedures requiring assistance completed. IV discontinued, intact, ha1 bleeding controlled, No redness/swelling at site. Pressure dressing applied. Administered Medications: 16:59 Drug: NS 0.9% IV 250 ml IV at calculated rate once Route: IV; Rate: calculated rate; ph Site: left forearm; 18:52 Drug: NS 0.9% IV 500 ml IV at bolus once Route: IV; Rate: bolus; Site: left forearm; ph Medication: 18:22 VIS not applicable for this client. ph Outcome: 19:12 Discharge ordered by . snw 20:21 Discharged to home via wheelchair, with family, ha1 20:21 Condition: stable 20:21 Discharge instructions given to patient, family, Instructed on discharge instructions, follow up and referral plans. Demonstrated understanding of instructions, follow-up care, 20:22 Patient left the ED. ha1 Signatures: Jailyn Stephen FNP-C RACE BOARD ATTENDANT-CsnReshma Greer, Reg Reg mr Tiara Apple RN RN Arabella Fowler RN RN Christel Gutierrez Heidy, RN RN ha1 Corrections: (The following items were deleted from the chart) 15:58 15:55 BP 184 / 66; Pulse 66bpm; Resp 16bpm; Pulse Ox 99% RA; Temp 98F; Pain 8/10, hb Adult; hb
[2023-03-21 20:40] VITALS: O2SAT 98
[2023-03-21 20:41] VITALS: BP 135/62
== END 2023-03-21 20:22 | disposition home or self-care (01) ==
LOC: ER 15:40
DX: E86.0 Dehydration (principal); Z20.822 Contact with and (suspected) exposure to COVID-19; E03.9 Hypothyroidism, unspecified; I10 Essential (primary) hypertension; Z95.0 Presence of cardiac pacemaker; Z88.0 Allergy status to penicillin; Z88.1 Allergy status to other antibiotic agents; Z88.3 Allergy status to other anti-infective agents; Z88.5 Allergy status to narcotic agent; Z88.8 Allergy status to other drugs, medicaments and biological substances; Z91.048 Other nonmedicinal substance allergy status
CPT/HCPCS: 85025; 36415; 81003; 80053; 87635; 87804 ×2; 96374; 99284; J7050; J7040

== ENCOUNTER 2023-06-23 13:02 | Inpatient (IN) | payer OTHER ==
[2023-06-23 14:09] LABS: Absolute Lymphocytes (CBC) 0.9 K/uL (0.7-4.9); Hematocrit 36.3 % (36.0-45.0); Lymphocytes % 5.1 % (15.3-44.8); MCV 90.9 fL (80-100); MPV 7.1 fL (7.6-11.3); Platelets 228 thou/uL (152-406)
--- NOTE | 2023-06-23 14:15 | RAD REPORT ---
EXAM DESCRIPTION: CT - Head Brain Wo Cont - 06/23/2023 1:25 pm CLINICAL HISTORY: ams COMPARISON: Head Brain Wo Cont dated 07/31/2022 TECHNIQUE: Noncontrast head CT images were obtained without IV contrast. Multiplanar reformats were generated and reviewed. All CT scans are performed using dose optimization technique as appropriate and may include automated exposure control or mA/KV adjustment according to patient size. FINDINGS: No intracranial hemorrhage, mass, or edema. Midline structures are unremarkable. Stable ventricular caliber with mild diffuse parenchymal volume loss. Stable pattern of patchy periventricular and deep white matter hypodensities, nonspecific, but sugges tive of chronic small vessel ischemic changes. Khan-white matter differentiation is preserved, without evidence of acute infarct. No abnormal extra- axial fluid collections. Mastoid air cells and visualized portions of the paranasal sinuses are clear. No acute bony findings. IMPRESSION: No evidence of an acute intracranial process. Stable chronic findings as above.
[2023-06-23] MEDS ORDERED: ONDANSETRON 4 MG/2 ML VIAL ONE (14:20)
[2023-06-23 14:30] LABS: Albumin 3.6 g/dL (3.4-5.0); Bilirubin Direct 0.2 mg/dL (0-0.2); Bilirubin Indirect, Calculated 0.5 mg/dL (0.2-0.8); Bilirubin Total 0.7 mg/dL (0.2-1.0); Magnesium 1.9 mg/dL (1.6-2.4); Potassium 3.4 mEq/L (3.5-5.1); Protein, Total 7.9 g/dL (6.4-8.2); Troponin High Sensitivity 20.8 pg/mL (<58.9)
--- NOTE | 2023-06-23 14:30 | RAD REPORT ---
EXAM DESCRIPTION: CT - Chest Abd Pelvis Wo Con - 06/23/2023 1:25 pm CLINICAL HISTORY: ams vomiting COMPARISON: Chest For Pe Angio dated 01/27/2021 TECHNIQUE: Thin axial CT images of the chest, abdomen, and pelvis, performed without IV contrast. Mu ltiplanar reformats were generated and reviewed. All CT scans are performed using dose optimization technique as appropriate and may include automated exposure control or mA/KV adjustment according to patient size. FINDINGS: The lungs are clear apart from bibasilar platelike atelectasis.No pleural or pericardial e ffusion.No intrathoracic adenopathy. Heart is not enlarged. Left chest wall pacer in place. Dense calcifications at the mitral bowel. The liver, spleen, pancreas, adrenal glands and left kidney are within normal limits. Atrophic soliman es of the right kidney again seen. No bowel obstruction, free air, free fluid or abscess. Moderate stool burden throughout the colon. Co lonic diverticulosis. No pathologic lymphadenopathy in the abdomen or pelvis. No worrisome osseous finding. IMPRESSION: No acute findings in the abdomen and pelvis. Moderate stool burden throughout the colon, slightly progressed since the prior exam. Colonic diverticulosis and right renal atrophy are again seen.
--- NOTE | 2023-06-23 14:54 | RAD REPORT ---
EXAM DESCRIPTION: RADChest Single View06/23/2023 1:31 pm CLINICAL HISTORY: ams COMPARISON: Chest Pa And Lat (2 Views) dated 06/14/2023; Chest Single View dated 01/29/2023; Chest Sin gle View dated 07/31/2022; Chest Single View dated 08/23/2021; Chest Abd Pelvis Wo Con dated 06/23/2023 TECHNIQUE: Portable AP view of the chest. FINDINGS: Patchy left basilar airspace opacities. No pneumothorax or effusion. Left chest wall pace r/ AICD in place. The cardiomediastinal contours are unremarkable. IMPRESSION: Patchy left basilar airspace opacities, concerning for pneumonia in the appropriate clin ical setting.
[2023-06-23] MEDS ORDERED: CEFTRIAXONE 2000 MG/VIAL ONE (16:40)
[2023-06-23] MEDS ORDERED: NA CHLORIDE 0.9% 100 ML ONE (16:41)
--- NOTE | 2023-06-23 16:47 | EDPHYS ---
Physician Documentation [facility] Name: Zee Lindsay Age: 87 yrs Sex: Female : 1935 Arrival Date: 06/23/2023 Time: 13:02 Bed 8 Private MD: ED Physician Mark Graham HPI: 06/23 17:20 This 87 yrs old Female presents to ER via EMS with complaints of Altered Mental Status. rt 17:20 Patient presents to the ED with altered mental status. Patient was reportedly in usual rt state of health, ANO x 4 earlier today. Patient went to lie down, subsequently was found to be altered, poorly responsive with episodes of vomiting. No further history could be obtained, symptoms are moderate severity, no other aggravating or alleviating factors.. Historical: - Allergies: 13:07 Clonidine; ll1 13:07 Codeine; ll1 13:07 Darvocet-N 100; ll1 13:07 dorjaycline; ll1 13:07 guafin; ll1 13:07 Labetalol; ll1 13:07 Levaquin; ll1 13:07 Lisinopril; ll1 13:07 Lyrica; ll1 13:07 magnesium; ll1 13:07 Minoxidil; ll1 13:07 Morphine; ll1 13:07 Nicen; ll1 13:07 Nifedipine; ll1 13:07 Norvasc; ll1 13:07 PENICILLINS; ll1 13:07 PENTAZOCINE; ll1 13:07 Premarin; ll1 13:07 propargyl vela; ll1 13:07 Rifampin; ll1 13:07 Soma; ll1 13:07 Talwin; ll1 13:07 Tricor; ll1 - PMHx: 13:07 Hyperlipidemia; High Cholesterol; gastric ulcer; Hypertension; Pacemaker; ll1 Hypothyroidism; diverticulosis; TIA; - PSHx: 13:07 Cholecystectomy; left kidney balloon; Left Lung; Lumbar; Pace maker; right kidney stent;ll1 - Immunization history:: Adult Immunizations up to date. - Social history:: Smoking status: Patient denies any tobacco usage or history of. - Family history:: not pertinent. ROS: 17:20 Unable to obtain ROS due to altered mental status, rt Exam: 17:20 Head/Face: Normocephalic, atraumatic. Chest/axilla: Normal chest wall appearance and rt motion. Nontender with no deformity. No lesions are appreciated. Cardiovascular: Regular rate and rhythm with a normal S1 and S2. No gallops, murmurs, or rubs. Normal PMI, no JVD. No pulse deficits. Respiratory: Lungs have equal breath sounds bilaterally, clear to auscultation and percussion. No rales, rhonchi or wheezes noted. No increased work of breathing, no retractions or nasal flaring. Abdomen/GI: Soft, non-tender, with normal bowel sounds. No distension or tympany. No guarding or rebound. No evidence of tenderness throughout. Skin: Warm, dry with normal turgor. Normal color with no rashes, no lesions, and no evidence of cellulitis. MS/ Extremity: Pulses equal, no cyanosis. Neurovascular intact. Full, normal range of motion. 17:20 Constitutional: The patient appears No acute distress, poorly responsive, responds to verbal stimuli, not speaking 17:20 ECG was reviewed by the Attending Physician. 17:20 Neuro: Moves all 4 extremities equally, no obvious sensory deficits, no facial droop, no speech, poorly responsive, Vital Signs: 13:35 BP 144 / 88; Pulse 73; Resp 17; Temp 97.2; Pulse Ox 100% ; Pain 0/10; ll1 13:44 BP 144 / 88; Pulse 68; Resp 18; Pulse Ox 97% on R/A; me1 14:00 BP 147 / 57; Pulse 75; Resp 17; Pulse Ox 100% ; me1 15:00 BP 157 / 62; Pulse 77; Resp 17; Pulse Ox 100% ; me1 15:20 BP 157 / 62; Pulse 81; Resp 18; Pulse Ox 100% on R/A; ld1 16:23 BP 148 / 56; Pulse 82; Resp 18; Pulse Ox 96% on R/A; ld1 17:14 BP 144 / 58; Pulse 82; Resp 18; Pulse Ox 98% on R/A; ld1 18:00 BP 158 / 86; Pulse 82; Resp 16; Pulse Ox 100% on R/A; me1 19:00 BP 158 / 56; Pulse 86; Resp 23; Pulse Ox 97% on R/A; me1 20:00 BP 155 / 61; Pulse 85; Resp 19; Pulse Ox 97% on R/A; me1 13:35 Pain Scale: Adult ll1 MDM: 13:04 Patient medically screened. rt 17:20 Differential Diagnosis: Mom depletion, infection, CVA, to cranial hemorrhage. Data rt reviewed: vital signs, nurses notes, lab test result(s), EKG, radiologic studies. Consideration of Admission/Observation Patient was admitted/placed on observation. Management of patient was discussed with the following: Hospitalist: Agrees to admit. Care significantly affected by the following chronic conditions: Hypertension. Counseling: I had a detailed discussion with the patient and/or guardian regarding. 06/23 13:06 Order name: Basic Metabolic Panel; Complete Time: 14:59 rt 06/23 13:06 Order name: CBC with Diff rt 06/23 13:06 Order name: LFT's; Complete Time: 14:59 rt 06/23 13:06 Order name: Magnesium; Complete Time: 14:59 rt 06/23 13:06 Order name: NT PRO-BNP; Complete Time: 14:59 rt 06/23 13:06 Order name: Troponin HS; Complete Time: 14:59 rt 06/23 13:06 Order name: UAM; Complete Time: 17:04 rt 06/23 13:06 Order name: ETOH Level; Complete Time: 14:59 rt 06/23 13:06 Order name: AMMONIA; Complete Time: 14:59 rt 06/23 13:08 Order name: Lipase; Complete Time: 14:59 rt 06/23 18:02 Order name: CBC Smear Scan [facility] 06/23 18:18 Order name: CBC with Automated Diff [facility] 06/23 18:18 Order name: CBC with Automated Diff [facility] 06/23 18:18 Order name: Comprehensive Metabolic Panel [facility] 06/23 18:18 Order name: Comprehensive Metabolic Panel [facility] 06/23 18:18 Order name: Lipid Profile [facility] 06/23 18:18 Order name: Lipid Profile [facility] 06/23 18:18 Order name: Magnesium [facility] 06/23 18:18 Order name: Magnesium [facility] 06/23 18:18 Order name: NT PRO-BNP [facility] 06/23 18:18 Order name: NT PRO-BNP [facility] 06/23 18:18 Order name: Phosphorus [facility] 06/23 18:18 Order name: Phosphorus [facility] 06/23 18:19 Order name: Procalcitonin [facility] 06/23 18:19 Order name: Procalcitonin [facility] 06/23 13:06 Order name: XRAY Chest (1 view); Complete Time: 14:59 rt 06/23 13:06 Order name: CT Head Brain wo Cont; Complete Time: 14:21 rt 06/23 13:08 Order name: CT Chest Abdomen Pelvis W/O Contrast; Complete Time: 14:59 rt 06/23 13:06 Order name: EKG; Complete Time: 13:06 rt 06/23 18:19 Order name: Speech Therapy Consult [facility] 06/23 13:06 Order name: Cardiac monitoring; Complete Time: 14:16 rt 06/23 13:06 Order name: EKG - Nurse/Tech; Complete Time: 14:16 rt 06/23 13:06 Order name: IV Saline Lock; Complete Time: 13:55 rt 06/23 13:06 Order name: Labs collected and sent; Complete Time: 13:55 rt 06/23 13:06 Order name: O2 Per Protocol; Complete Time: 13:55 rt 06/23 13:06 Order name: O2 Sat Monitoring; Complete Time: 13:55 rt EC:20 Rate is 78 beats/min. Rhythm is regular, Paced with No ectopy. QRS [place] is Normal. QRS rt interval is normal. QT interval is normal. No Q waves. Administered Medications: 14:21 Drug: Ondansetron IVP 4 mg IVP once; over 2 minutes Route: IVP; Site: right antecubital;me1 14:50 Follow up: Response: No adverse reaction; Nausea is decreased me1 16:23 Follow up: Response: No adverse reaction; Nausea is decreased me1 16:48 Drug: Rocephin IV 2 grams IV at calculated rate once; Given slow IV push per pharmarcy me1 instructions Route: IV; Rate: calculated rate; Site: right antecubital; 17:21 Follow up: Response: No adverse reaction; IV Status: Completed infusion me1 Disposition Summary: 06/23/23 16:45 Hospitalization Ordered Notes: Hospitalization Status: Observation rt Provider: Lorna Doe rt Condition: Stable rt Problem: new rt Symptoms: are unchanged rt Bed/Room Type: Standard rt Location: Telemetry/MedSurg (observation)(06/23/23 20:02) rv1 Room Assignment: 221(06/23/23 20:02) rv1 Diagnosis - Altered mental status rt - Pneumonia rt Forms: - Medication Reconciliation Form rt - SBAR form rt - Leadership Thank You Letter rt Signatures: Dispatcher [employer] Shubham Muhammad em1 Mei Morley, RN RN ll1 Mark Graham MD MD rt Pat Rajan rv1 Chen Gimenez RN RN me1 Corrections: (The following items were deleted from the chart) 16:49 16:45 Telemetry/MedSurg (observation) rt em1 16:49 16:45 rt em1 20:02 16:49 [facility] ER HOLD em1 rv1 20:02 16:49 ERHOLD- em1 rv1
--- NOTE | 2023-06-23 16:47 | ER ---
Nurse's Notes [facility] Name: Zee Lindsay Age: 87 yrs Sex: Female : 1935 Arrival Date: 06/23/2023 Time: 13:02 Bed 8 Private MD: Diagnosis: Altered mental status;Pneumonia Presentation: 06/23 13:35 Chief complaint: Patient states: AMS started around 1130. Got confused and went to take ll1 a nap. N/V x 1 before EMS arrival, 1 vomitus en route EMS states: VSS. Pulled out IV. Coronavirus screen: Vaccine status: Patient reports receiving the 2nd dose of the covid vaccine. Client denies travel out of the [place] in the last 14 days. nausea, vomiting. Client presents with at least one sign or symptom that may indicate coronavirus-19. Standard/surgical mask placed on the client. Ebola Screen: Patient denies travel to an Ebola-affected area in the 21 days before illness onset. Initial Sepsis Screen: Does the patient meet any 2 criteria? No. Patient's initial sepsis screen is negative. Does the patient have a suspected source of infection? No. Patient's initial sepsis screen is negative. Risk Assessment: Do you want to hurt yourself or someone else? Patient reports no desire to harm self or others. Onset of symptoms was June 23, 2023. 13:35 Method Of Arrival: EMS ll1 13:35 Acuity: DESIRE 2 ll1 Triage Assessment: 13:38 General: Appears uncomfortable, ill, Behavior is calm, unresponsive. Pain: Denies pain. ll1 Neuro: Reports weakness AMS. GI: Reports nausea, vomiting. Historical: - Allergies: 13:07 Clonidine; ll1 13:07 Codeine; ll1 13:07 Darvocet-N 100; ll1 13:07 dorjaycline; ll1 13:07 guafin; ll1 13:07 Labetalol; ll1 13:07 Levaquin; ll1 13:07 Lisinopril; ll1 13:07 Lyrica; ll1 13:07 magnesium; ll1 13:07 Minoxidil; ll1 13:07 Morphine; ll1 13:07 Nicen; ll1 13:07 Nifedipine; ll1 13:07 Norvasc; ll1 13:07 PENICILLINS; ll1 13:07 PENTAZOCINE; ll1 13:07 Premarin; ll1 13:07 propargyl vela; ll1 13:07 Rifampin; ll1 13:07 Soma; ll1 13:07 Talwin; ll1 13:07 Tricor; ll1 - PMHx: 13:07 Hyperlipidemia; High Cholesterol; gastric ulcer; Hypertension; Pacemaker; ll1 Hypothyroidism; diverticulosis; TIA; - PSHx: 13:07 Cholecystectomy; left kidney balloon; Left Lung; Lumbar; Pace maker; right kidney stent;ll1 - Immunization history:: Adult Immunizations up to date. - Social history:: Smoking status: Patient denies any tobacco usage or history of. - Family history:: not pertinent. Screenin:33 [facility] ED Fall Risk Assessment (Adult) History of falling in the last 3 months, me1 including since admission No falls in past 3 months (0 pts) Confusion or Disorientation No (0 pts) Intoxicated or Sedated Yes (3 pts) Impaired Gait Yes (1 pt) Mobility Assist Device Used Yes (1 pt) Altered Elimination Yes (1 pt) Score/Fall Risk Level 3 or more points = High Risk Oriented to surroundings, Maintained a safe environment, Implemented a Fall Risk Plan of Care, Apply high fall risk patient identification: yellow non skid footwear/ fall signage. Abuse screen: Denies threats or abuse. Nutritional screening: No deficits noted. Tuberculosis screening: No symptoms or risk factors identified. Assessment: 15:32 General: Appears. me1 15:33 General: Appears ill, well groomed, well developed, well nourished, Behavior is. me1 15:33 General: Behavior is calm, unresponsive. General: Reports AMS started around 1130. Got me1 confused and went to take a nap. N/V x 1 before EMS arrival, 1 vomitus en route. Pain: Unable to use pain scale. Patient is unresponsive. Neuro: Level of Consciousness is unresponsive, Reponds to painful stimuli by pulling arm back during IV stick. Does not respond to sternal rub. Will pull blanket back up on to herself when pulled back by staff.. Oriented to none does not respond when questions are asked. . Neuro: Jara Agitation-Sedation Scale (RASS): -5 Unarousable. Cardiovascular: Capillary refill < 3 seconds Patient's skin is warm and dry. Respiratory: Airway is patent Respiratory effort is even, unlabored, Respiratory pattern is regular, symmetrical. GI: Parent/caregiver reports the patient having vomiting. 17:14 Reassessment: No changes from previously documented assessment. Patient and/or family ld1 updated on plan of care and expected duration. Pain level reassessed. Vital Signs: 13:35 BP 144 / 88; Pulse 73; Resp 17; Temp 97.2; Pulse Ox 100% ; Pain 0/10; ll1 13:44 BP 144 / 88; Pulse 68; Resp 18; Pulse Ox 97% on R/A; me1 14:00 BP 147 / 57; Pulse 75; Resp 17; Pulse Ox 100% ; me1 15:00 BP 157 / 62; Pulse 77; Resp 17; Pulse Ox 100% ; me1 15:20 BP 157 / 62; Pulse 81; Resp 18; Pulse Ox 100% on R/A; ld1 16:23 BP 148 / 56; Pulse 82; Resp 18; Pulse Ox 96% on R/A; ld1 17:14 BP 144 / 58; Pulse 82; Resp 18; Pulse Ox 98% on R/A; ld1 18:00 BP 158 / 86; Pulse 82; Resp 16; Pulse Ox 100% on R/A; me1 19:00 BP 158 / 56; Pulse 86; Resp 23; Pulse Ox 97% on R/A; me1 20:00 BP 155 / 61; Pulse 85; Resp 19; Pulse Ox 97% on R/A; me1 13:35 Pain Scale: Adult ll1 ED Course: 13:04 Patient arrived in ED. rt 13:04 Mark Graham MD is Attending Physician. rt 13:07 Arm band placed on. ll1 13:26 CT Head Brain wo Cont In Process Unspecified. EDMS 13:26 CT Chest Abdomen Pelvis W/O Contrast In Process Unspecified. EDMS 13:33 XRAY Chest (1 view) In Process Unspecified. EDMS 13:38 Chen Gimenez, LAMINE is Primary Nurse. me1 13:38 Triage completed. ll1 13:55 Inserted saline lock: 22 gauge in right antecubital area, using aseptic technique. me1 13:55 Lipase Sent. me1 13:55 AMMONIA Sent. me1 13:55 ETOH Level Sent. me1 13:55 UAM Sent. me1 13:55 Basic Metabolic Panel Sent. me1 13:55 CBC with Diff Sent. me1 13:55 LFT's Sent. me1 13:55 Magnesium Sent. me1 13:55 NT PRO-BNP Sent. me1 13:55 Troponin HS Sent. me1 15:33 Patient has correct armband on for positive identification. Bed in low position. Call me1 light in reach. Side rails up X2. Provided Education on: POC. Verbalized understanding.. 15:33 No provider procedures requiring assistance completed. me1 16:43 Lorna Doe MD is Hospitalizing Provider. rt 21:40 Patient admitted, IV remains in place. me1 Administered Medications: 14:21 Drug: Ondansetron IVP 4 mg IVP once; over 2 minutes Route: IVP; Site: right antecubital;me1 14:50 Follow up: Response: No adverse reaction; Nausea is decreased me1 16:23 Follow up: Response: No adverse reaction; Nausea is decreased me1 16:48 Drug: Rocephin IV 2 grams IV at calculated rate once; Given slow IV push per pharmarcy me1 instructions Route: IV; Rate: calculated rate; Site: right antecubital; 17:21 Follow up: Response: No adverse reaction; IV Status: Completed infusion me1 Medication: 15:33 VIS not applicable for this client. me1 Outcome: 16:45 Decision to Hospitalize by Provider. rt 21:39 Admitted to Med/surg me1 21:39 Condition: stable 21:39 Instructed on the need for admit, 21:42 Patient left the ED. me1 Signatures: Dispatcher [employer] Mei Bell RN RN ll1 Cecelia Goodrich RN RN ld1 Mark Graham MD MD rt Chen Gimenez RN RN me1 Corrections: (The following items were deleted from the chart) 13:39 13:35 Chief complaint: Patient states: AMS started around 1130. Got confused and went ll1 to take a nap. EMS states: VSS. Pulled out IV ll1 15:32 13:35 Chief complaint: Patient states: AMS started around 1130. Got confused and went me1 to take a nap. N/V x 1 before EMS arrival, 1 vomitus en route EMS states: VSS. Pulled out IV ll1 21:42 19:00 BP 155 / 61; Pulse 85bpm; Resp 19bpm; Pulse Ox 97% RA; me1 me1
[2023-06-23 16:51] LABS: Specific Gravity 1.014 (1.005-1.030); Urine Bacteria None Seen /HPF (<20); Urine Bilirubin NEGATIVE (Negative); Urine Blood Negative (Negative); Urine Clarity Clear (Clear); Urine Color Light-Yellow (Yellow); Urine Glucose NEGATIVE (Negative); Urine Mucus Slight /HPF (None Seen); Urine Protein TRACE (Negative); Urine RBC <5 /HPF (None Seen); Urine Urobilinogen Normal (Normal); Urine pH 6.5 (5.0-7.0)
[2023-06-23 18:02] LABS: Blood Morphology Comment NOT SEEN (NOT SEEN); Platelet Estimate ADEQ; White Blood Cell Scan OK (OK)
[2023-06-23] MEDS ORDERED: ACETAMINOPHEN 500 MG TAB PO PRN (18:12)
[2023-06-23] MEDS ORDERED: ONDANSETRON 4 MG/2 ML VIAL IV PRN (18:12)
[2023-06-23] MEDS ORDERED: ALBUTEROL 2.5 MG/3 ML NEB SOL NEB PRN (18:12)
--- NOTE | 2023-06-23 18:18 | P.HP ---
Certification for Inpatient Patient admitted to: Inpatient With expected LOS: >2 Midnights Patient will require the following post-hospital care: None Practitioner: I am a practitioner with admitting privileges, knowledge of patient current condition, hospital course, and medical plan of care. Services: Services provided to patient in accordance with Admission requirements found in Title 42 Section 412.3 of the Code of Federal Regulations Patient History Date of Service: 06/23/23 Reason for admission: AMS History of Present Illness: Patient is an 87-year-old female who presents to the hospital with altered mental status. Patient is not really waking up and interacting much. She is not moving her extremities except of severe pain. Patient does not appear to be able to communicate well at this time. According to the son-in-law who is at bedside with her she was normally awake and alert and interactive and getting around without any difficulty. She had been doing well over the last week. She had no significant complaints. She was brought into the emergency room for further evaluation when her mentation became altered. She has been this way for a few hours. Patient's family side sure if she took any medications. Patient on had a CT scan which did not reveal any abnormal findings. Patient will be admitted to the hospital for further evaluation. Patient has the questionable pneumonia which could be causing some toxic encephalopathy. However by concern is she has had a stroke which may be significant. Will try to get MRI but unable to because of pacemaker placement. May need to repeat CT imaging in 48- 72 hours. Allergies codeine Allergy (Unknown, Verified 12/20/20 09:48) unknown carisoprodol [From Soma] Allergy (Verified 12/20/20 09:48) unknown clonidine Allergy (Verified 12/20/20 09:48) unknown doxycycline Allergy (Verified 12/20/20 09:48) unknown estrogens, conjugated [From Premarin] Allergy (Verified 12/20/20 09:48) unknown fenofibrate [From Tricor] Allergy (Verified 12/20/20 09:48) unknown labetalol Allergy (Verified 12/20/20 09:48) unknown levofloxacin [From Levaquin] Allergy (Verified 12/20/20 09:48) unknown lisinopril Allergy (Verified 12/20/20 09:48) unknown magnesium Allergy (Verified 12/20/20 09:48) unknown minoxidil Allergy (Verified 12/20/20 09:48) unknown morphine Allergy (Verified 12/20/20 09:48) unknown nifedipine Allergy (Verified 12/20/20 09:48) unknown Penicillins Allergy (Verified 06/24/23 10:46) unknown pentazocine Allergy (Verified 12/20/20 09:48) unknown pregabalin [From Lyrica] Allergy (Verified 12/20/20 09:48) unknown propoxyphene [From Darvocet-N 100] Allergy (Verified 12/20/20 09:48) unknown rifampin Allergy (Verified 12/20/20 09:48) unknown guafin Allergy (Uncoded 12/20/20 00:24) unknown nicen Allergy (Uncoded 12/20/20 00:24) unknown propagyl vela Allergy (Uncoded 12/20/20 00:24) unknown Home Medications: ALPRAZolam [Xanax] 0.25 mg PO BID 06/24/23 Amlodipine [Norvasc] 5 mg PO BID 06/24/23 Atorvastatin Calcium [Lipitor] 1 tab PO DAILY 06/24/23 Clonidine HCl [Catapres*] 1 tab PO PRN 06/24/23 Clopidogrel Bisulfate [Plavix*] 1 tab PO DAILY 06/24/23 Hyoscyamine Sulfate [Levsin TAB*] 1 tab PO TID 06/24/23 Levothyroxine Sodium 50 mcg PO DAILY 06/24/23 Nebivolol HCl 10 mg PO DAILY 06/24/23 Ondansetron [Zofran (Odt)*] 1 tab PO PRN 06/24/23 Pantoprazole [Protonix Tab*] 1 tab PO DAILY 06/24/23 Pentoxifylline 1 tab PO BID 06/24/23 - Past Medical/Surgical History Diabetic: Yes -: high cholesterol -: hypertension -: pacemaker -: TIA -: back surgery -: ankle surgery -: laparoscopy -: endoscopy -: colonoscopy -: cholecystectomy -: breast biopsy -: lung surgery - Family History Father Medical History: Heart disease, Diabetes Mother Medical History: Heart disease, Hypertension, Cancer Notes: Breast,cervix ca - Social History Alcohol use: No CD- Drugs: No Caffeine use: No Review of Systems 10-point ROS is otherwise unremarkable Physical Examination - Vital Signs Temperature: 98 F Blood Pressure: 160/80 Pulse: 80 Respirations: 18 Pulse Ox (%): 98 - Physical Exam General: Confused HEENT: Atraumatic, PERRLA, Mucous membr. moist/pink, EOMI, Sclerae nonicteric Neck: Supple, 2+ carotid pulse no bruit, No LAD, Without JVD or thyroid abnormality Respiratory: Clear to auscultation bilaterally, Normal air movement Cardiovascular: Regular rate/rhythm, Normal S1 S2 Gastrointestinal: Normal bowel sounds, No tenderness Musculoskeletal: No clubbing, No swelling, No tenderness Integumentary: No rashes Neurological: Abnormal gait, Abnormal speech, Abnormal strength, Abnormal tone ( Bilateral upper extremities are contracted), Abnormal cranial nerve function, Abnormal affect Lymphatics: No axilla or inguinal lymphadenopathy - Studies Laboratory Data (last 24 hrs) 06/23/23 06/23/23 06/23/23 13:52 13:52 13:52 WBC 18.30 H Hgb 12.7 Hct 36.3 Plt Count 228 Sodium 129 L Potassium 3.4 L BUN 12 Creatinine 0.97 Glucose 174 H Magnesium 1.9 Total Bilirubin 0.7 AST 14 L ALT 17 Alkaline Phosphatase 91 Lipase 33 Assessment & Plan - Problems (Diagnosis) (1) Altered mental status Current Visit: Yes Status: Acute (2) History of permanent cardiac pacemaker placement Current Visit: Yes Status: Acute (3) History of TIA (transient ischemic attack) Current Visit: Yes Status: Acute (4) History of hypertension Current Visit: Yes Status: Acute - Plan 1. repeat CT imaging of the brain 2. Echocardiogram 3. Anti-platelet therapy and statin therapy 4. Neurology consultation 5. Physical therapy/occupational therapy/speech therapy evaluation 6. Modified barium swallow study 7. DVT prophylaxis Discharge Plan: Other Plan to discharge in: 72 Hours - Advance Directives Does patient have a Living Will: No Does patient have a Durable POA for Healthcare: No - Code Status/Comfort Care Code Status Assessed: Yes Code Status: Full Code Critical Care: No Time Spent Managing PTS Care (In Minutes): 45
[2023-06-23] MEDS: IPRATROPIUM BROM 0.5MG/2.5ML NEB SCH (19:00)
[2023-06-23] MEDS: NA CHLORIDE 0.9% 1,000 ML IV SCH (19:00)
[2023-06-23] MEDS ORDERED: NA CHLORIDE 0.9% 1,000 ML ONE (19:59)
[2023-06-23 22:20] VITALS: BMI 19.7
[2023-06-23] MEDS ORDERED: ACETAMINOPHEN 650MG/RECT SUPP PR PRN (23:59)
[2023-06-24] MEDS: IPRATROPIUM BROM 0.5MG/2.5ML NEB SCH ×4 (01:00→21:45)
[2023-06-24] MEDS ORDERED: PIPER TAZO 3.375 GM in NA CHLORIDE 0.9% 100 ML IV SCH (01:00)
[2023-06-24 03:54] LABS: Absolute Lymphocytes (CBC) 0.6 K/uL (0.7-4.9); Hematocrit 34.1 % (36.0-45.0); Lymphocytes % 4.4 % (15.3-44.8); MCV 90.5 fL (80-100); MPV 7.2 fL (7.6-11.3); Platelets 212 thou/uL (152-406); RBC Red Blood Cell Count 3.77 M/uL (3.86-4.86)
[2023-06-24 03:59] LABS: Albumin 3.2 g/dL (3.4-5.0); Bilirubin Total 0.5 mg/dL (0.2-1.0); Magnesium 1.9 mg/dL (1.6-2.4); Phosphorus 3.3 mg/dL (2.5-4.9); Potassium 3.7 mEq/L (3.5-5.1); Protein, Total 7.3 g/dL (6.4-8.2)
[2023-06-24] MEDS ORDERED: KCL 20 MEQ/100 mL IVPB 20 MEQ/100 ML BAG IV SCH (06:00)
[2023-06-24] MEDS: NA CHLORIDE 0.9% 1,000 ML IV SCH ×2 (08:44→20:15)
[2023-06-24] MEDS: ENOXAPARIN 40 MG/0.4 ML SQ SCH (08:44)
[2023-06-24] MEDS: CEFTRIAXONE 1,000 MG in NA CHLORIDE 0.9% 50 ML IVPB SCH (10:12)
[2023-06-25] MEDS: IPRATROPIUM BROM 0.5MG/2.5ML NEB SCH ×4 (01:00→19:39)
[2023-06-25 02:58] LABS: Potassium 3.6 mEq/L (3.5-5.1)
[2023-06-25] MEDS: ENOXAPARIN 40 MG/0.4 ML SQ SCH (08:10)
[2023-06-25] MEDS: CEFTRIAXONE 1,000 MG in NA CHLORIDE 0.9% 50 ML IVPB SCH (08:10)
[2023-06-25] MEDS ORDERED: FUROSEMIDE 40 MG/4 ML VIAL IV ONE (10:57)
[2023-06-25] MEDS ORDERED: ASPIRIN 81 MG CHEWABLE TABLET PO ONE (11:12)
[2023-06-25] MEDS ORDERED: AMLODIPINE 5 MG TAB PO ONE (11:13)
[2023-06-25] MEDS: ATORVASTATIN 80 MG TAB PO SCH (21:41)
[2023-06-26] MEDS: IPRATROPIUM BROM 0.5MG/2.5ML NEB SCH ×4 (01:24→19:33)
--- NOTE | 2023-06-26 05:53 | P.PN ---
Subjective Date of Service: 06/24/23 Subjective: No new changes, No C/O voiced, Improving patient more awake. She appears to be aphasic. Review of Systems 10-point ROS is otherwise unremarkable Physical Examination - Vital Signs Temperature: 98 F Blood Pressure: 160/80 Pulse: 80 Respirations: 18 Pulse Ox (%): 98 - Physical Exam General: Alert, In no apparent distress, Other ( Aphasic) HEENT: Atraumatic, PERRLA, EOMI Neck: Supple, JVD not distended Respiratory: Clear to auscultation bilaterally, Normal air movement Cardiovascular: Regular rate/rhythm, Normal S1 S2 Gastrointestinal: Normal bowel sounds, No tenderness Musculoskeletal: No tenderness Integumentary: No rashes Neurological: Abnormal gait, Abnormal speech, Abnormal strength Lymphatics: No axilla or inguinal lymphadenopathy - Studies Medications List Reviewed: Yes Assessment & Plan - Problems (Diagnosis) (1) Acute CVA (cerebrovascular accident) Current Visit: Yes Status: Acute (2) Altered mental status Current Visit: Yes Status: Acute (3) History of permanent cardiac pacemaker placement Current Visit: Yes Status: Acute (4) History of TIA (transient ischemic attack) Current Visit: Yes Status: Acute (5) History of hypertension Current Visit: Yes Status: Acute - Plan 1. repeat CT imaging of the brain 2. Echocardiogram 3. Anti-platelet therapy and statin therapy 4. Neurology consultation 5. Physical therapy/occupational therapy/speech therapy evaluation; will work on rehab placement 6. Modified barium swallow study 7. DVT prophylaxis - Advance Directives Does patient have a Living Will: No Does patient have a Durable POA for Healthcare: No - Code Status/Comfort Care Code Status: Full Code
--- NOTE | 2023-06-26 05:56 | P.PN ---
Date of Service: 06/25/23 Subjective patient is more awake and alert. She is following commands. Patient was found to be altered and workup revealed she had a CVA. Imaging studies will be repeated. Unable to do MRI. Clinically patient is aphasic with right-sided weakness greater than left. She appears to have had a left MCA infarct. Neurology consultation pending. Rehab placement pending. Review of Systems 10-point ROS is otherwise unremarkable Physical Examination - Vital Signs reviewed - Physical Exam General: Alert, In no apparent distress, Other ( Aphasic) HEENT: Atraumatic, PERRLA, EOMI Neck: Supple, JVD not distended Respiratory: Clear to auscultation bilaterally, Normal air movement Cardiovascular: Regular rate/rhythm, Normal S1 S2 Gastrointestinal: Normal bowel sounds, No tenderness Musculoskeletal: No tenderness Integumentary: No rashes Neurological: Abnormal gait, Abnormal speech, Abnormal strength Lymphatics: No axilla or inguinal lymphadenopathy - Studies Medications List Reviewed: Yes Assessment & Plan - Problems (Diagnosis) (1) Acute CVA (cerebrovascular accident) Current Visit: Yes Status: Acute (2) Altered mental status Current Visit: Yes Status: Acute (3) History of permanent cardiac pacemaker placement Current Visit: Yes Status: Acute (4) History of TIA (transient ischemic attack) Current Visit: Yes Status: Acute (5) History of hypertension Current Visit: Yes Status: Acute - Plan 1. repeat CT imaging of the brain in AM 2. Echocardiogram pending 3. Anti-platelet therapy and statin therapy 4. Neurology consultation pending 5. Physical therapy/occupational therapy/speech therapy evaluation; will work on rehab placement 6. Modified barium swallow study 7. DVT prophylaxis - Advance Directives Does patient have a Living Will: No Does patient have a Durable POA for Healthcare: No - Code Status/Comfort Care Code Status: Full Code
--- NOTE | 2023-06-26 07:32 | P.PN ---
Subjective Date of Service: 06/26/23 Chief Complaint: AMS History is limited by expressive aphasia. History is provided by her son-in-law (Mr. Godfrey). He reports no new changes. He endorses concern about a possible new stroke, but mentions that we are unable to obtain an MRI due to her having a pacemaker. Review of Systems is unable to be obtained (expressive aphasia) Physical Examination - Vital Signs Temperature: 98 F Blood Pressure: 160/80 Pulse: 80 Respirations: 18 Pulse Ox (%): 98 - Physical Exam General: Alert, In no apparent distress, Other (expressive aphasia) HEENT: Atraumatic, Mucous membr. moist/pink Neck: Supple, JVD not distended Respiratory: Diminished, Rhonchi/gurgles (scattered) Cardiovascular: No edema, Regular rate/rhythm, Normal S1 S2, No gallops, No rubs, No murmurs Gastrointestinal: Normal bowel sounds, Soft and benign, Non-distended, No tenderness, No rebound, No guarding Musculoskeletal: No clubbing Integumentary: No rashes Neurological: Sensation intact, Cranial nerves 3-12 intact, Other (4/5 strength in RLE. All other extremities with 5/5 strength), Abnormal speech (expressive aphasia) - Studies Medications List Reviewed: Yes Assessment And Plan - Plan NIH Stroke Scale 1a. Level of consciousness: 0 - Alert; keenly responsive 1b. LOC questions: 2 - 0 questions right 1c. LOC commands: 0 - Performs both tasks 2. Best Gaze: 0 - Normal 3. Visual: 0 - No visual loss 4. Facial Palsy: 0 - Normal symmetry 5a. Motor left arm: 0 - No drift for 10 seconds 5b. Motor right arm: 0 - No drift for 10 seconds 6a. Motor left le - No drift for 5 seconds 6b. Motor right le - Drift, but doesn't hit bed 7. Limb ataxia: 0 - No ataxia 8. Sensory: 0 - Normal; no sensory loss 9. Best Language: 2 - severe aphasia 10. Dysarthria: 2 - anarthric 11. Extinction and Inattention: 0 - No abnormality 12. Distal motor function: 0 - No abnormality Total Score: 7 # Sepsis likely secondary to Pneumonia (Aspiration?) She met SIRS criteria based on temperature > 100.9 F and WBC > 12,000, and the suspected source is pulmonary. - TOY MECHANIC has cleared for pureed diet - Sepsis order set was initiated - Initial Lactate was requested - Blood cultures requested - Broad spectrum antibiotics started: Ceftriaxone - In regards to fluids: - 30 mL/kg of IV fluids was not administered given SBP > 90, # Suspect Acute Cerebrovascular Accident # History of Transient Ischemic Attack # History of Pacemaker Placement - Consulted Neurology and spoke with Dr. Cruz - recommendations appreciated - Admit under observation status - NIHSS = 7 - q4hr neurochecks - Per son-in-law, unable to obtain MRI due to pacemaker status - TTE pending - PT/OT evaluation requested - Ordered risk profile: Hgb A1c, TSH - LDL: 86 - Continue aspirin + atorvastatin # Hypertension - Continue amlodipine, losartan # Likely Hypovolemic Hyponatremia - resolved - Monitor BMP Jason Sapp M.D.
[2023-06-26] MEDS ORDERED: POTASSIUM CL SA 10 MEQ TAB PO ONE (08:00)
--- NOTE | 2023-06-26 08:18 | RAD REPORT ---
EXAM DESCRIPTION: RADChest Single View06/26/2023 4:33 am CLINICAL HISTORY: Pneumonia COMPARISON: Chest Single View dated 06/23/2023; Chest Pa And Lat (2 Views) dated 06/14/2023; Chest S jeremiah View dated 01/29/2023; Chest Single View dated 07/31/2022 TECHNIQUE: Portable AP view of the chest. FINDINGS: Mildly progressive central interstitial prominence. Trace effusion along the right minor f issure. Left chest wall pacer unchanged in position. No pneumothorax or effusion. The cardiomediasti nal contours are unremarkable. IMPRESSION: Mild progression of central interstitial prominence, suggesting a degree of central rafaela estion/ CHF.
--- NOTE | 2023-06-26 08:30 | RAD REPORT ---
EXAM DESCRIPTION: CT - Head Brain Wo Cont - 06/26/2023 6:18 am CLINICAL HISTORY: CVA-LMCA COMPARISON: Head Brain Wo Cont dated 06/23/2023; Head Brain Wo Cont dated 07/31/2022 TECHNIQUE: Noncontrast head CT images were obtained without IV contrast. Multiplanar reformats were generated and reviewed. All CT scans are performed using dose optimization technique as appropriate and may include automated exposure control or mA/KV adjustment according to patient size. FINDINGS: No intracranial hemorrhage, mass, or edema. Midline structures are unremarkable. Mild diffuse parenchymal volume loss. Stable ventricular caliber. Nonspecific periventricular and deep white matter hypodensities, stable, may suggest chronic small ve ssel ischemic changes. Khan-white matter differentiation is preserved, without evidence of acute infarct. No abnormal extra- axial fluid collections. Mastoid air cells and visualized portions of the paranasal sinuses are clear. No acute bony findings. IMPRESSION: No evidence of an acute intracranial process. Stable chronic findings as above.
[2023-06-26] MEDS: ASPIRIN 81 MG CHEWABLE TABLET PO SCH (08:55)
[2023-06-26] MEDS: CEFTRIAXONE 1,000 MG in NA CHLORIDE 0.9% 50 ML IVPB SCH (08:57)
[2023-06-26] MEDS: LOSARTAN POTASSIUM 50 MG TABLET PO SCH ×2 (08:59→21:32)
[2023-06-26] MEDS: AMLODIPINE 10 MG TAB PO SCH (09:00)
[2023-06-26] MEDS: ENOXAPARIN 40 MG/0.4 ML SQ SCH (09:00)
[2023-06-26] MEDS ORDERED: POTASSIUM 25 MEQ EFFERV TAB PO ONE (09:30)
--- NOTE | 2023-06-26 13:30 | EKG ---
Test Date: 2023-06-23 Test Time: 14:11:36 Research Chemical Engineer: MEASUREMENT RESULTS: Intervals: Rate: 78 RI: QRSD: 78 QT: 370 QTc: 421 [place]: P: RI: QRS: 5 T: 108 INTERPRETIVE STATEMENTS: Electronic atrial pacemaker Left ventricular hypertrophy with repolarization abnormality Abnormal ECG Compared to ECG 01/29/2023 12:20:56 No significant changes Electronically Signed On 06-26-23 13:24:23 NUT GRADER by Jermain Burrell
[2023-06-26] MEDS: ATORVASTATIN 80 MG TAB PO SCH (21:32)
--- NOTE | 2023-06-26 22:14 | CON ---
Reason For Consultation: Consultation called because of altered mental status. History Of Present Illness: Ms. Lindsay is an 87-year-old patient, who was admitted to [facility] on 06/23/2023 with worsening confusion, disorientation, not communicating like she usually d oes, not ambulating like she usually does. Family was at the bedside and provided information along with information from chart review. She apparently was in severe pain, had some more confusion, shor tness of breath, and the patient's son-in-law's notes noted she was not getting around well. At [facility], her chest x-ray was suggestive of pneumonia. Her white blood cell count was elevate d to 18,000 with elevated neutrophils of 88%. She was treated with Rocephin 1 g daily. Her white bl ood cell count decreased at 13,000 from 18,000 on the compared to the , but the elevated rosalina trophils remained at 89.4%. Blood work also showed low sodium of 129, hyponatremia, hypokalemia of 3 .4, glucose of 874, elevated beta-natriuretic peptide of 9. Her procalcitonin and lactic acid wer e negative for sepsis. She had on admission a normal creatinine, but on the had evidence of deh ydration with 1.04. The patient received hydration and comorbid conditions were addressed. Past Medical History: Dyslipidemia, hypertension, transient ischemic attack. Past Surgical History: Pacemaker placement, back and ankle surgery, laparoscopy, endoscopy, colonosc opy, cholecystectomy, breast biopsy, and lung surgery. Allergies: SHE HAS LONG LIST OF ALLERGIES INCLUDING CODEINE, SOMA, CLONIDINE, DOXYCYCLINE, ESTROGEN, FENOFIBRATE, LABETALOL, LEVOFLOXACIN, LISINOPRIL, MAGNESIUM, MINOXIDIL, MORPHINE, NIFEDIPINE, PENICI LLIN, PENTAZOCINE, PREGABALIN, PROPOXYPHENE, RIFAMPIN, PERPHENAZINE, NIACIN, AND PROPARGYL. Family History: Heart disease and diabetes in father. Heart disease, hypertension, and breast cance r in mother. Social History: No alcohol, tobacco, or IV drug use. The patient lives with family. Review of Systems: Currently, no reported fevers or chills. No nausea or vomiting. No myalgias or arthralgias. The pa tient follows simple commands appropriately. She denies any rash, any psychiatric issues. She is st ill significantly weak and not ambulating much at this point; however, she was seen by the physical t herapist and was able to stand and begin to ambulate in the room. She was seen by Speech Therapy and was more alert and responsive compared to when the patient was seen the day previously. With her oc cupational therapy evaluation, she did require assistance with dressing, toileting, transferring, mob ilization. She did have poor balance, decreased safety awareness with generalized weakness. Physical Examination: Vital Signs: Blood pressure 145/54, pulse 71, respiratory rate 16, temperature 97.7, oxygen saturati on 96%. Weight 111 pounds, height 5 feet 3 inches, BMI 90.8. General: Ms. Lindsay is resting in bed. Family is at the bedside. HEENT: She is normocephalic, atraumatic. Sclerae anicteric. Oropharynx moist. Neck: Supple. Chest: Clear. Heart: Regular. Extremities: Show no significant clubbing, cyanosis, or edema. Neurologic: She is alert and oriented to place, person, and follows commands. She is slightly slow in responses, but the responses are appropriate. Arms and legs show diffuse weakness. No focal defi cits in sensation and coordination as well. Imaging Studies: She did have head CT scan, 2 scans, 1 on the 23 of June and 1 on the 26 of June. Both scans showed no acute ischemic or hemorrhagic findings. The studies were remarkable for mild small vessel ischemic disease. The chest x-ray as noted she has had 2 chest x-rays, initial one on , consistent with pneumonia, the second shows no worsening findings. Did mention, kely r, mild progression of central interstitial prominence suggestive of a degree of central congestion, CHF, but no pneumonia mentioned. Assessment: Ms. Lindsay is an 87-year-old patient, likely had toxic metabolic encephalopathy with pneumonia and electrolyte derangements including hyponatremia and hypokalemia contributing. At this point, she seems to have improved significantly, but still has cognitive deficits, potentially baseli ne dementia. She is also debilitated. She has comorbidities that are mentioned above. Plan: 1.She may benefit from aggressive inpatient physical, occupational, and speech therapy. 2.She will likely require daily physician evaluation and management of her comorbidities, which is a rguing for inpatient rehabilitation versus mcc. At home, she may fail to thrive and not do well. Either home health may be available 2 or 3 times weekly. She will likely benefit from lanre ntive spirometry to reduce the risk of recurrent pneumonia. Continue with antibiotics and electrolyt e replacement and hydration as appropriate. No evidence of stroke. No evidence of seizure. No evid ence of focal neurological deficits, either myopathy, neuropathy, or myelopathy and she will be follo wed as appropriate. LANE/AKIL Voice ID: [id number] Report ID: [id number]
[2023-06-27] MEDS: IPRATROPIUM BROM 0.5MG/2.5ML NEB SCH ×4 (01:24→18:57)
--- NOTE | 2023-06-27 06:18 | ECHO ---
HEIGHT: 5 ft 3 in WEIGHT: 111 lb 8 oz DATE OF STUDY: 06/26/[address]: Lorna Doe MD 2-DIMENSIONAL: YES M.MODE: YES DOPPLER: YES COLOR FLOW: YES TDS: PORTABLE: YES DEFINITY: BUBBLE STUDY: DIAGNOSIS: CEREBRAL VASCULAR ACCIDENT CARDIAC HISTORY: CATHERIZATION: YES SURGERY: NO PROSTHETIC VALVE: NO PACEMAKER: NO MEASUREMENTS (cm) DIASTOLIC (NORMALS) SYSTOLIC (NORMALS) IVSd 1.3 (0.6-1.2) LA Diam 3.2 (1.9-4.0) LVEF 55-60% LVIDd 4.1 (3.5-5.7) LVIDs 3.3 (2.0-3.5) %FS 19% LVPWd 1.3 (0.6-1.2) Ao Diam 2.2 (2.0-3.7) 2 DIMENSIONAL ASSESSMENT: RIGHT ATRIUM: NORMAL LEFT ATRIUM: NORMAL RIGHT VENTRICLE: NORMAL LEFT VENTRICLE: LEFT VENTRICULAR HYPERTROPHY TRICUSPID VALVE: MILD TRICUSPID REGURGITATION MITRAL VALVE: MITRAL ANNULAR CALCIFICATION WITH MILD MITRAL REGURGITATION PULMONIC VALVE: NORMAL AORTIC VALVE: NORMAL PERICARDIAL EFFUSION: NONE AORTIC ROOT: NORMAL LEFT VENTRICULAR WALL MOTION: NORMAL DOPPLER/COLOR FLOW: SEE BELOW COMMENTS: 1. NORMAL LEFT VENTRICULAR EJECTION FRACTION 55-60% WITH NORMAL WALL MOTION 2. MILD CONCENTRIC LEFT VENTRICULAR HYPERTROPHY 3. MODERATE DIASTOLIC DYSFUNCTION 4. MILD MITRAL REGURGITATION 5. MILD TRICUSPID REGURGITATION TECHNOLOGIST: SANTIAGO MARTINEZ
[2023-06-27 08:25] LABS: Hematocrit 42.4 % (36.0-45.0); MPV 7.3 fL (7.6-11.3); Platelets 257 thou/uL (152-406); RBC Red Blood Cell Count 4.66 M/uL (3.86-4.86)
[2023-06-27 08:26] LABS: Potassium 3.4 mEq/L (3.5-5.1)
[2023-06-27] MEDS: AMLODIPINE 10 MG TAB PO SCH (08:35)
[2023-06-27] MEDS: LOSARTAN POTASSIUM 50 MG TABLET PO SCH ×2 (08:35→21:08)
[2023-06-27] MEDS: ASPIRIN 81 MG CHEWABLE TABLET PO SCH (08:35)
[2023-06-27] MEDS: CEFTRIAXONE 1,000 MG in NA CHLORIDE 0.9% 50 ML IVPB SCH (08:38)
[2023-06-27] MEDS: ENOXAPARIN 40 MG/0.4 ML SQ SCH (08:39)
--- NOTE | 2023-06-27 12:34 | P.PN ---
Subjective Date of Service: 06/27/23 Chief Complaint: AMS Today, her expressive aphasia has improved significantly. She is now able to speak clearly in full sentences. She is able to identify her daughter and son-in-law, who are in the room. She is now alert and oriented x 4 to person, place, time, and situation. Review of Systems 10-point ROS is otherwise unremarkable General: Weakness (generalized) Physical Examination - Vital Signs Temperature: 97.4 F Blood Pressure: 152/65 Pulse: 76 Respirations: 17 Pulse Ox (%): 95 - Physical Exam General: Alert, In no apparent distress, Oriented x3 HEENT: Atraumatic, Mucous membr. moist/pink, Sclerae nonicteric Neck: JVD not distended Respiratory: Clear to auscultation bilaterally, Normal air movement Cardiovascular: No edema, Regular rate/rhythm, Normal S1 S2, No murmurs Gastrointestinal: Soft and benign, Non-distended, No tenderness Musculoskeletal: No clubbing Integumentary: No rashes Neurological: Normal speech, Normal strength at 5/5 x4 extr, Sensation intact, Cranial nerves 3-12 intact, Normal reflexes 2+ - Studies Medications List Reviewed: Yes Assessment And Plan - Plan NIH Stroke Scale 1a. Level of consciousness: 0 - Alert; keenly responsive 1b. LOC questions: 0 - Both questions right 1c. LOC commands: 0 - Performs both tasks 2. Best Gaze: 0 - Normal 3. Visual: 0 - No visual loss 4. Facial Palsy: 0 - Normal symmetry 5a. Motor left arm: 0 - No drift for 10 seconds 5b. Motor right arm: 0 - No drift for 10 seconds 6a. Motor left le - No drift for 5 seconds 6b. Motor right le - No drift for 5 seconds 7. Limb ataxia: 0 - No ataxia 8. Sensory: 0 - Normal; no sensory loss 9. Best Language: 0 - Normal; no aphasia 10. Dysarthria: 0 - Normal 11. Extinction and Inattention: 0 - No abnormality 12. Distal motor function: 0 - No abnormality Total Score: 0 # Sepsis likely secondary to Pneumonia (Aspiration?) She met SIRS criteria based on temperature > 100.9 F and WBC > 12,000, and the suspected source is pulmonary. - MACHINE PECAN GATHERER has cleared for pureed diet - Sepsis order set was initiated - Initial Lactate was 1.0 - Blood cultures drawn - Broad spectrum antibiotics started: Ceftriaxone - In regards to fluids: - 30 mL/kg of IV fluids was not administered given SBP > 90, # Suspect Acute Cerebrovascular Accident # History of Transient Ischemic Attack # History of Pacemaker Placement - Consulted Neurology and spoke with Dr. Cruz - recommendations appreciated - Although her symptoms are suspicious for a CVA, she would benefit from having an MRI brain to confirm if she truly had a CVA. - We will need to verify if her [employer] PPM is MRI-compatible. clinical research coordinator will notify [employer] to have termite control representative check the device for MRI- compatibility. - If compatible, plan to obtain MRI brain - NIHSS = 0 - q4hr neurochecks - TTE = "1. normal left ventricular ejection fraction 55-60% with normal wall motion 2. mild concentric left ventricular hypertrophy 3. moderate diastolic dysfunction 4. mild mitral regurgitation 5. mild tricuspid regurgitation" - PT/OT/MACHINE PECAN GATHERER evaluation requested - Ordered risk profile: Hgb A1c, TSH - LDL: 86 - Continue aspirin + atorvastatin # Hypertension - Continue amlodipine, losartan # Likely Hypovolemic Hyponatremia - resolved - Monitor BMP Jason Sapp M.D.
[2023-06-27] MEDS: ATORVASTATIN 80 MG TAB PO SCH (21:07)
[2023-06-28] MEDS: IPRATROPIUM BROM 0.5MG/2.5ML NEB SCH ×3 (00:46→13:23)
[2023-06-28 01:02] VITALS: O2SAT 94
[2023-06-28 05:19] VITALS: BP 158/69; TEMP 98.6
[2023-06-28 07:19] LABS: Thyroid Stimulating Hormone 3.16 uIU/mL (0.358-3.740)
[2023-06-28] MEDS ORDERED: POTASSIUM 25 MEQ EFFERV TAB PO ONE (07:55)
[2023-06-28] MEDS: LOSARTAN POTASSIUM 50 MG TABLET PO SCH (08:31)
[2023-06-28] MEDS: AMLODIPINE 10 MG TAB PO SCH (08:31)
[2023-06-28] MEDS: ENOXAPARIN 40 MG/0.4 ML SQ SCH (08:31)
[2023-06-28] MEDS: ASPIRIN 81 MG CHEWABLE TABLET PO SCH (08:32)
[2023-06-28] MEDS: CEFTRIAXONE 1,000 MG in NA CHLORIDE 0.9% 50 ML IVPB SCH (08:32)
[2023-06-28 09:38] LABS: Potassium 3.7 mEq/L (3.5-5.1)
--- NOTE | 2023-06-28 12:48 | RAD REPORT ---
EXAM DESCRIPTION: RAD - Ankle Right 3 View - 06/28/2023 12:30 pm CLINICAL HISTORY: Right ankle pain FINDINGS: Screws and plates affix old medial and lateral malleolar fractures. No acute fracture or dislocation seen Osteoporosis
--- NOTE | 2023-06-28 14:22 | P.DS ---
Admission Date: 06/23/23 Discharge Date: 06/28/23 Disposition: TRANSFER TO INPATIENT REHAB Discharge Condition: GOOD Reason for Admission: AMS Consultations: 1. Neurology Hospital Course: DIAGNOSES: # Sepsis likely secondary to Pneumonia (Aspiration?) - improved # Expressive Aphasia - Acute Metabolic Encephalopathy vs Possible Acute Cerebrovascular Accident - improved # History of Transient Ischemic Attack # History of Pacemaker Placement # Hypertension # Likely Hypovolemic Hyponatremia - resolved Ms. Zee Lindsay is a pleasant 87 year old female with a past medical hi story significant for prior transient ischemic attack and hypertension who was admitted to the [facility] on 06/23/2023 for altered mental status. She was admitted to the Medicine service. Upon further evaluation, she was found to have expressive aphasia. Her initial CT head revealed, "no evidence of an acute intracranial process." Given her clinical presentation, there was concern for an acute cerebrovascular accident. Neurology was consulted and she was evaluated by Dr. Cruz. He recommended an MRI brain; however, she had a pacemaker. [employer] was called and they interrogated her device. Per the [employer] representitive, one of her pacemaker leads was not MRI compatible. A repeat CT head was obtained, which revealed, "no evidence of an acute intracranial process." Dr. Cruz recommended continued inpatient therapy services at discharge. With the assistance of case management, she was accepted to [facility]. Of note, her chest imaging was concerning for pneumonia. She was treated with IV ceftriaxone and transitioned to cefdinir to complete a 10-day course of antibiotics. On 06/28/2023, she was seen on rounds and deemed medically stable for discharge. She was discharged with instructions to schedule follow-up appointments with her PCP (Dr. Hernandez) and with Neurology (Dr. Cruz). She and her family members were given the opportunity to ask questions and reported no further questions. Furthermore, all questions were answered to the best of my ability. A copy of this discharge summary will be sent to the above providers to fac ilitate continuity of care. Today, I personally spent 25 minutes on her case, of which greater than 50% of the time was spent in patient education, counseling, and coordination of care as described above. NIH Stroke Scale 1a. Level of consciousness: 0 - Alert; keenly responsive 1b. LOC questions: 0 - Both questions right 1c. LOC commands: 0 - Performs both tasks 2. Best Gaze: 0 - Normal 3. Visual: 0 - No visual loss 4. Facial Palsy: 0 - Normal symmetry 5a. Motor left arm: 0 - No drift for 10 seconds 5b. Motor right arm: 0 - No drift for 10 seconds 6a. Motor left le - No drift for 5 seconds 6b. Motor right le - No drift for 5 seconds 7. Limb ataxia: 0 - No ataxia 8. Sensory: 0 - Normal; no sensory loss 9. Best Language: 0 - Normal; no aphasia 10. Dysarthria: 0 - Normal 11. Extinction and Inattention: 0 - No abnormality 12. Distal motor function: 0 - No abnormality Total Score: 0 Vital Signs/Physical Exam: Temp Pulse Resp BP Pulse Ox 98.6 F 81 16 158/69 H 94 06/28/23 04:00 06/28/23 04:00 06/28/23 04:00 06/28/23 04:00 06/28/23 04:00 General: Alert, In no apparent distress, Oriented x3 HEENT: Atraumatic, Mucous membr. moist/pink, Sclerae nonicteric Neck: JVD not distended Respiratory: Clear to auscultation bilaterally, Diminished Cardiovascular: No edema, Regular rate/rhythm, No murmurs Gastrointestinal: Normal bowel sounds, Soft and benign, No tenderness, No rebound, No guarding Musculoskeletal: No clubbing Integumentary: No rashes Neurological: Normal speech, Normal strength at 5/5 x4 extr, Sensation intact, Cranial nerves 3-12 intact, Normal affect Laboratory Data at Discharge: WBC 9.60 thou/uL (4.3-10.9) 06/27/23 07:57 Hgb 15.1 g/dL (12.0-15.0) H 06/27/23 07:57 Hct 42.4 % (36.0-45.0) 06/27/23 07:57 Plt Count 257 thou/uL (152-406) 06/27/23 07:57 Sodium Cancelled 06/28/23 08:41 Potassium Cancelled 06/28/23 08:41 BUN Cancelled 06/28/23 08:41 Creatinine Cancelled 06/28/23 08:41 Glucose Cancelled 06/28/23 08:41 Phosphorus 3.3 mg/dL (2.5-4.9) 06/24/23 02:53 Magnesium 1.9 mg/dL (1.6-2.4) 06/24/23 02:53 Total Bilirubin 0.5 mg/dL (0.2-1.0) 06/24/23 02:53 AST 24 U/L (15-37) 06/24/23 02:53 ALT 22 U/L (13-56) 06/24/23 02:53 Alkaline Phosphatase 95 U/L (45-117) 06/24/23 02:53 Triglycerides 60 mg/dL (<150) 06/24/23 02:53 Cholesterol 163 mg/dL (<200) 06/24/23 02:53 HDL Cholesterol 65 mg/dL (40-60) H 06/24/23 02:53 Cholesterol/HDL Ratio 2.51 06/24/23 02:53 Lipase 33 U/L (13-75) 06/23/23 13:52 Home Medications: ALPRAZolam [Xanax*] 0.25 mg PO BID 06/24/23 Clonidine HCl [Catapres*] 1 tab PO PRN 06/24/23 Hyoscyamine Sulfate [Levsin TAB*] 1 tab PO TID 06/24/23 Levothyroxine Sodium 50 mcg PO DAILY 06/24/23 Ondansetron [Zofran (Odt)*] 1 tab PO PRN 06/24/23 Pantoprazole [Protonix Tab*] 1 tab PO DAILY 06/24/23 Albuterol Neb [Proventil 0.083% Neb Soln] 2.5 mg NEB [id number] PRN amp 06/28/23 Amlodipine [Norvasc*] 10 mg PO DAILY tab 06/28/23 Aspirin Chewable [Aspirin Chewable*] 324 mg PO DAILY tab.chew 06/28/23 Atorvastatin Calcium [Lipitor] 80 mg PO BEDTIME tab 06/28/23 Cefdinir [Cefdinir*] 300 mg PO BID 5 Days #10 06/28/23 Losartan Potassium [Cozaar*] 50 mg PO BID 06/28/23 New Medications: Cefdinir [Cefdinir*] 300 mg PO BID 5 Days #10 Physician Discharge Instructions: 1. Please call and schedule a follow-up appointment with your PCP (Dr. Hernandez) in 3-5 days - Your chest x-ray showed pneumonia. Please have your x-ray repeated in 2-3 weeks to make sure your pneumonia has fully healed. 2. Please call and schedule a follow-up appointment with Neurology (Dr. Cruz) in 5-7 days Please follow-up with your PCP for medication refills/adjustments Diet: AHA Activity: Fall precautions Followup: Harry Hernandez MD [Primary Care Provider] - Jesus Alberto Cruz MD [ASSOCIATE-ACTIVE - CAN ADMIT] - Time spent managing pt's care (in minutes): 25
== END 2023-06-28 15:15 | DRG 871 ==
LOC: ER 13:02 → ERHOLD 18:12 → 2ND 21:12
PROVIDERS: ADMIT Hospitalist; ATTEND Internal Medicine
DX: A41.9 Sepsis, unspecified organism (principal); G92.8 Other toxic encephalopathy; J69.0 Pneumonitis due to inhalation of food and vomit; E87.1 Hypo-osmolality and hyponatremia; L89.152 Pressure ulcer of sacral region, stage 2; E03.9 Hypothyroidism, unspecified; I10 Essential (primary) hypertension; E78.5 Hyperlipidemia, unspecified; Z95.0 Presence of cardiac pacemaker; Z90.49 Acquired absence of other specified parts of digestive tract
CPT/HCPCS: 36415; 70450; 71045; 71250; 74176; 80048; 80053; 80061; 80076; 81001; 82077; 82140; 83036; 83605; 83690; 83735; 83880; 84100; 84145; 84443; 84484; 85025; 87040; 92507; 92523; 92526; 92610; 93005; 93306; 94640; 94760; 96365; 96375; 97116; 97161; 97165; 97530; 99285; J0696; J1650; J1940; J2405; J3480; J7030; J7613; J7644

== ENCOUNTER 2023-06-28 14:39 | Inpatient (IN) | payer OTHER ==
[2023-06-28 15:35] VITALS: BMI 19.5
[2023-06-28] MEDS ORDERED: HYOSCYAMINE SULF 0.125 MG TAB PO PRN (18:59)
[2023-06-28] MEDS ORDERED: ALBUTEROL 2.5 MG/3 ML NEB SOL NEB SCH (19:00)
[2023-06-28] MEDS ORDERED: ONDANSETRON 4 MG (ODT) TAB PO PRN (19:01)
[2023-06-28] MEDS ORDERED: ALBUTEROL 2.5 MG/3 ML NEB SOL NEB PRN (20:22)
[2023-06-28] MEDS: ATORVASTATIN 80 MG TAB PO SCH (20:47)
[2023-06-28] MEDS: LOSARTAN POTASSIUM 50 MG TABLET PO SCH (20:47)
[2023-06-28] MEDS: CEFDINIR 300 MG CAP PO SCH (20:47)
[2023-06-28] MEDS: APIXABAN 2.5 MG TABLET PO SCH (20:47)
[2023-06-28] MEDS: ALPRAZOLAM 0.25 MG TABLET PO SCH (20:47)
[2023-06-29] MEDS: LEVOTHYROXINE SOD 0.05 MG TABLET PO SCH (05:40)
[2023-06-29] MEDS ORDERED: PANTOPRAZOLE 40MG TABLET PO SCH (06:30)
[2023-06-29] MEDS ORDERED: ENOXAPARIN 40 MG/0.4 ML SQ SCH (08:00)
[2023-06-29 08:05] LABS: Absolute Lymphocytes (CBC) 1.1 K/uL (0.7-4.9); Hematocrit 32.3 % (36.0-45.0); Lymphocytes % 10.8 % (15.3-44.8); MCV 90.9 fL (80-100); MPV 7.2 fL (7.6-11.3); Platelets 198 thou/uL (152-406); RBC Red Blood Cell Count 3.55 M/uL (3.86-4.86)
[2023-06-29 08:58] LABS: Albumin 2.7 g/dL (3.4-5.0); Magnesium 1.8 mg/dL (1.6-2.4); Potassium 3.6 mEq/L (3.5-5.1); Prealbumin 10.2 mg/dL (20-40)
[2023-06-29] MEDS: CEFDINIR 300 MG CAP PO SCH ×2 (11:22→20:29)
[2023-06-29] MEDS: ALPRAZOLAM 0.25 MG TABLET PO SCH ×2 (11:22→20:28)
[2023-06-29] MEDS: APIXABAN 2.5 MG TABLET PO SCH ×2 (11:23→20:29)
[2023-06-29] MEDS: DOCUSATE NA/SENNA CONC 1 TAB PO SCH ×2 (11:23→20:29)
[2023-06-29] MEDS: ASPIRIN EC 81 MG TAB PO SCH (11:23)
[2023-06-29] MEDS: AMLODIPINE 10 MG TAB PO SCH (11:24)
[2023-06-29] MEDS: LOSARTAN POTASSIUM 50 MG TABLET PO SCH ×2 (11:24→20:29)
[2023-06-29] MEDS ORDERED: hydrOXYzine HCL 25 MG TAB PO ONE (16:00)
[2023-06-29] MEDS ORDERED: hydrOXYzine HCL 25 MG TAB PO PRN (16:20)
[2023-06-29] MEDS: ATORVASTATIN 80 MG TAB PO SCH (20:29)
--- NOTE | 2023-06-29 21:33 | HP ---
Date of Admission: 06/28/2023 Time Of Service: 12 noon. Chief Complaint: "I am confused, although I am better now." History Of Present Illness: Ms. Lindsay is an 87-year-old right-handed patient with hist ory of hypertension, dyslipidemia, transient ischemic attack, who has cardiac pacemaker, who had some shortness of breath and difficulty with diffuse weakness and originally came in on the to the e mergency room with positive COVID test. The patient and her daughter in the room said everyone in e house was positive for COVID, and she came to the emergency room for treatment. She had received a ll of her vaccines. She was given a course of Paxlovid via prescription and the patient completed at course from the over 5 days, . However, back home, still diffusely weak, unable to thriv e. I was determined that she had elevated white blood cell count with high neutrophil count, hypergl ycemia, elevated BNP. She received IV fluids, IV antibiotics, and was seen by multiple services incl uding Cardiology. She was evaluated by Physical, Occupational, and Speech Therapy and found to be fu nctioning well below her baseline level of functioning, where she now requires moderate assistance fo r activities of daily living, transferring, and mobilization. Due to her decline in functioning, it is recommended that the patient be admitted to the acute inpatient rehabilitation unit for management of her comorbid medical issues and her significant debility related to her pneumonia and COVID. Juanita st x-ray did indicate pneumonia. She is now admitted for such therapy. Past Medical History: As noted. Surgical History: Back surgery; right ankle surgery and a plate is placed, which is causing some mod erate pain; and also some left foot pain. She has had laparoscopic surgery, endoscopy, colonoscopy, breast biopsy and lung surgery. Allergies: SHE HAS A LONG LIST OF ALLERGIES INCLUDING CODEINE, SOMA, CLONIDINE, DOXYCYCLINE, ESTROGE N, TRICOR, LABETALOL, LEVOFLOXACIN, LISINOPRIL, MAGNESIUM, MINOXIDIL, MORPHINE, NIFEDIPINE, PENICILLI N, PENTAZOCINE, GABAPENTIN, PROPOXYPHENE, RIFAMPIN, NIACIN, PROPARGYL Current Medications: Tylenol Extra Strength 500 mg every 4 hours as needed, Proventil 0.083 mg nebul izer every 6 hours as needed and that is 2.5 mg of 0.83% albuterol, Xanax 0.25 mg twice daily, Norvas c 10 mg daily, Eliquis 2.5 mg twice daily, aspirin 81 mg daily, Lipitor 80 mg at bedtime, cefdinir 30 0 mg twice daily, Atarax 25 mg daily as needed, hyoscyamine 0.125 mg 4 times daily, Synthroid 0.05 mg daily, Cozaar 50 mg twice daily, melatonin 3 mg at bedtime, Zofran 4 mg every 4 hours as needed, Pro tonix 40 mg daily, Senokot-S 2 at bedtime. Social History: The patient lives at home with family. No alcohol, tobacco, or IV drug use. Review of Systems: She reports right ankle fracture, where there is a plate and surgery; also, left foot pain and tender ness to light touch; constipation; improving confusion. No rash. Denies any fevers or chills. Mild myalgias and arthralgias. No other positives on her systems review. Laboratory Studies: White blood cell count 9.8, hemoglobin 11.3, platelets 198, neutrophils 75.7. S odium 133, potassium 3.6, chloride 99, carbon dioxide 26, BUN 13, creatinine 0.85, glucose 108. Calc ium 8.7, magnesium 1.8. Prealbumin 10.2, albumin 2.7. She tested today positive for COVID. It shou ld be noted that on the , the patient came to [facility] after having a home positive CO VID test and received Paxlovid for 5 days, which she completed. X-ray/imaging: An ankle x-ray done on the shows screws in place to fix an old medial and latera l malleolar fracture. There is osteoporosis. No acute fracture or dislocation. Head CT scan on showed no acute ischemic or hemorrhagic stroke. The study showed mild diffuse parenchymal volume loss and stable ventricular caliber, and this was a study compared to the one done on 07/31/2022. est, abdomen and pelvis CT scan from 06/23 shows no acute findings in the abdomen and pelvis. There was moderate stool burden throughout the colon, slightly progressive from a prior exam, colonic diver ticulosis, and right renal atrophy are again seen. Current Level Of Functioning: Currently set up assistance for eating. Contact guard for oral hygien e. Moderate assistance for toileting, showering. Contact guard for upper body dressing. Moderate a ssist for lower body dressing and donning and doffing footwear. Contact guard for rolling right to l eft. Moderate assist for sitting up and sliding off bed to chair. Moderate assistance for toilet tr ansfers. Moderate assistance for ambulating with a rolling walker. She covered 100 feet. Physical Examination: Vital Signs: Blood pressure 140/65, pulse of 78, respiratory rate of 16, temperature 98.1, oxygen sa turation 92%. General: Ms. Lindsay is resting in bed. Daughter is at bedside. HEENT: She is normocephalic, atraumatic. Sclerae anicteric. Oropharynx pink, moist. Neck: Supple. Chest: Clear. Heart: Regular. Extremities: Her right lower extremity has a brace on, where she has a plate, which again indicates on ankle x-ray no acute fracture. The left lower extremity has slight edema and hypersensitivity to touch of the foot, dorsum of the ankles, and slightly above the ankles as well, sensitive to touch. Neurological: She is alert and oriented to person and situation. She follows commands appropriately . She has no obvious cranial nerve deficits. No focal motor, coordination, gait, or sensory deficit s. She has diffuse weakness in the upper and lower extremities, and significant giveaway because of pain in the feet slightly worse on the right than left. Assessment: Ms. Lindsay is an 87-year-old patient in the rehabilitation unit with impairment categ ory of 03, brain dysfunction, nontraumatic. Her impairment group code is 02.1, nontraumatic. Her et iologic diagnosis is metabolic encephalopathy. Her comorbidities are congestive heart failure; decre ased mobility; decrease in physical functioning; dementia; diabetes mellitus type 2; dyslipidemia; hy pokalemia; hyponatremia; pneumonia; COVID positivity, status post Paxlovid; hypertension. Plan: She will have physical, occupational, and speech therapy for 3.5 hours, 5 of 7 days. We will continue Tylenol for pain, albuterol for her pneumonia and nebulizer treatment, Xanax for anxiety, No rvasc for hypertension, Eliquis for DVT prophylaxis, aspirin 81 mg daily for stroke risk reduction al trever with Lipitor 80 mg at bedtime. Continue cefdinir for pneumonia. Continue Synthroid for hypothyr oidism. Continue Levsin for abdominal cramping. Continue Cozaar for blood pressure management. Faith atonin for insomnia, which the patient and her daughter report she had some mild insomnia. Continue Zofran for nausea, Protonix for GE reflux, and Senokot-S 2 twice daily for constipation. Comorbidities That Are Impacting Her Rehabilitation: She came with metabolic encephalopathy with con fusion. She has also toxic encephalopathy; however, she is improving significantly and communicates well and follows instructions to do therapy well. She has COVID positivity; however, she was treated with Paxlovid beginning on the , completed 5 days. We will address the issue with Jena Storm to determine if the patient may be off isolation given the time of treatment and positivity ingrace costa found 10 days ago. Rehab Specific Plan: 1.Ms. Lindsay will have physical, occupational, speech therapy for 3.5 hours, 5 of 7 days to impro ve her ability to transfer from bed to chair to toilet to shower. 2.Her ability to ambulate household distances and beyond 250 feet with modified independence, up and down 10 steps with modified independence, propel a wheelchair 250 feet with modified independence, a nd perform cognitive functioning with modified independence and if not with supervision. Ms. Lindsay has a good understanding of the process for admission, and her daughter as well, to the rehabilitation unit and that she will receive physical, occupational, and speech therapy. If need b e, Infectious Disease Service, Hospitalist Service, and Pulmonary Service may be consulted. Given he r complex medical condition and risk of further complications, rehabilitation cannot be safely or aff ectively performed at a lower level facility such as senior care. Barriers To Discharge: Currently, the COVID positivity is there and she is being treated for pneumon ia. She already received Paxlovid, that should not prevent her from being able to be discharged. Sh karen has significant pain in the right ankle, but there is no displaced fracture there. The left ankle also has pain and sensitivity. An ankle x-ray may be done. If need be, Orthopedic service may be co nsulted. Length Of Stay: 12 days. Disposition: Home with family. Prognosis: Good. Rehab Goals: 1.Become independent with upper and lower body dressing, toileting, showering, donning and doffing s hoes. 2.Independently ambulate 250 feet with a rolling walker. 3.Independently propel a wheelchair 250 feet. 4.Independently go up and down 10 steps with bilateral handrails. 5.Perform cognitive functioning independently. The above goals were reviewed with the patient and her family, and they are in agreement. By signing this document, I acknowledge I have personally performed a full physical examination on Ms Jose Lindsay no later than 24 hours after her admission to the inpatient rehabilitation facility and d etermined that she is able to tolerate the above course of treatment at an intensive level for a reas onable period of time. A detailed individualized plan of care for her will be completed by hospital day 4 based on the preadmission screen, history and physical, and therapy evaluations. JERO Voice ID: [id number]
[2023-06-30] MEDS: LEVOTHYROXINE SOD 0.05 MG TABLET PO SCH (05:40)
[2023-06-30] MEDS: DOCUSATE NA/SENNA CONC 1 TAB PO SCH ×2 (08:29→19:36)
[2023-06-30] MEDS: ASPIRIN EC 81 MG TAB PO SCH (08:30)
[2023-06-30] MEDS: PANTOPRAZOLE 40MG TABLET PO SCH (08:30)
[2023-06-30] MEDS: APIXABAN 2.5 MG TABLET PO SCH ×2 (08:30→19:36)
[2023-06-30] MEDS: LOSARTAN POTASSIUM 50 MG TABLET PO SCH ×2 (09:35→19:36)
[2023-06-30] MEDS: CEFDINIR 300 MG CAP PO SCH ×2 (09:35→19:36)
[2023-06-30] MEDS: AMLODIPINE 10 MG TAB PO SCH (09:36)
[2023-06-30] MEDS: ACETAMINOPHEN 500 MG TAB PO PRN ×2 (09:37→19:36)
[2023-06-30] MEDS ORDERED: LIDOCAINE 4% PATCH TOP SCH (10:00)
[2023-06-30] MEDS: LIDOCAINE 4% PATCH TOP SCH (12:48)
[2023-06-30] MEDS: BISACODYL 10 MG RECTAL SUPP PR PRN (14:53)
[2023-06-30] MEDS: guaiFENesin 100 MG/5 ML UCUP PO PRN (19:35)
[2023-06-30] MEDS: ALPRAZOLAM 0.25 MG TABLET PO SCH (19:36)
[2023-06-30] MEDS: ATORVASTATIN 80 MG TAB PO SCH (19:36)
[2023-07-01] MEDS: LEVOTHYROXINE SOD 0.05 MG TABLET PO SCH (05:24)
[2023-07-01] MEDS: CEFDINIR 300 MG CAP PO SCH ×2 (08:29→20:06)
[2023-07-01] MEDS: LIDOCAINE 4% PATCH TOP SCH (08:29)
[2023-07-01] MEDS: AMLODIPINE 10 MG TAB PO SCH (08:30)
[2023-07-01] MEDS: PANTOPRAZOLE 40MG TABLET PO SCH (08:31)
[2023-07-01] MEDS: ASPIRIN EC 81 MG TAB PO SCH (08:31)
[2023-07-01] MEDS: ALPRAZOLAM 0.25 MG TABLET PO SCH ×2 (08:31→20:07)
[2023-07-01] MEDS: APIXABAN 2.5 MG TABLET PO SCH ×2 (08:31→20:07)
[2023-07-01] MEDS: ACETAMINOPHEN 500 MG TAB PO PRN (08:59)
[2023-07-01] MEDS: LOSARTAN POTASSIUM 50 MG TABLET PO SCH ×2 (09:53→20:07)
[2023-07-01] MEDS: DOCUSATE NA/SENNA CONC 1 TAB PO SCH ×2 (11:08→20:06)
--- NOTE | 2023-07-01 12:43 | PN ---
Date of Progress Note: 07/01/2023 Subjective: The patient was seen this morning for followup. She was on the rehab floor and she was lying in bed, not in distress, denies any complaints except generalized weakness. Her last recorded temperature was from last night, 98.1. This morning, pulse was 74, blood pressure 141/63. Physical Examination: HEENT: Unremarkable. Lungs: Clear to auscultation. No rhonchi. No rales. Not in respiratory distress. Heart: Sounds normal. Abdomen: Soft. Bowel sounds normal. No guarding, rigidity, tenderness, distention. Extremities: No leg edema. Neuro: No focal neurological deficits. Labs: From June 29, 2023, white count 9.8, hemoglobin 11.3, platelets 198. Sodium 133, potassiu m 3.6, chloride 99, bicarb 26, BUN 13, creatinine 0.85, glucose 108. Magnesium 1.8. ProBNP 1692. C OVID-19 test from 06/28/2023 was positive. Impression: 1.COVID-19 infection. 2.COVID-19 pneumonia. 3.Generalized weakness. 4.Debility. 5.Anemia, unspecified. 6.Hyponatremia. Plan: For hyponatremia, there is no need for further intervention and anemia also does not require a ny intervention except periodic monitoring for both of these problems. We will go ahead and continue physical therapy under guidance of Dr. Cruz on the rehab floor. Her current medication list rev iewed. We will continue her current anticoagulation therapy with Eliquis, continue statin therapy. She is currently on antibiotics, cefdinir. We will continue that. Physical therapy to be continued under guidance of Dr. Cruz, and I will see her tomorrow for followup. MARGO/MODL Voice ID: [id number] Report ID: [id number]
[2023-07-01] MEDS: guaiFENesin 100 MG/5 ML UCUP PO PRN (20:06)
[2023-07-01] MEDS: ATORVASTATIN 80 MG TAB PO SCH (20:07)
[2023-07-01] MEDS: JUVEN PACKET PO SCH (20:07)
--- NOTE | 2023-07-01 21:43 | PN ---
Peor-ao-chhh Progress Note Visit. Subjective: Ms. Lindsay is resting comfortably in her room. She is in no significant distress. H as no complaints. She is doing well with her therapy. Objective: No fevers, chills, nausea, vomiting. No myalgias or arthralgias. No issues including ra sh or other complaints; however, she does have some pain in the right ankle more than the left ankle where she has had surgery and a plate making it difficult for her to be able to stand and ambulate we . Physical Examination: Vital Signs: Blood pressure 150/65, pulse 77, respiratory rate 17, temperature 97.7, oxygen saturati on 97%. General: Ms. Lindsay is resting in bed. She is in no significant distress. Extremities: Her ankles do not show any significant edema. The right ankle is not wrapped, it was w rapped earlier and the imaging of the ankle showed no displacement of the prosthesis. No fractures. HEENT: Normocephalic, atraumatic. Sclerae anicteric. Oropharynx moist. Neck: Supple. Neurologic: No focal deficits aside from pain related giveaway. Laboratory Studies: No new laboratory studies. X-ray/imaging: No new x-rays or imaging. Medications: Tylenol 500 mg every 4 hours as needed, albuterol nebulizer 2.5 mg every 6 hours as nee ded, alprazolam 0.25 mg twice daily scheduled, Norvasc 10 mg daily, Eliquis 2.5 mg twice daily, aspir in 81 mg daily, Lipitor 80 mg at bedtime, cefdinir 300 mg twice daily, Dulcolax suppository 10 mg per rectum as needed, guaifenesin 200 mg 4 times daily as needed, Atarax 5 mg every 6 hours. It should be noted that she did report some itching 2 days ago, but now is on Atarax and that is helpful. She also has Levsin 0.125 mg every 4 hours as needed for abdominal cramps, Desmond 1 packet twice daily, Sy nthroid 0.05 mg daily, lidocaine patch daily to the ankles and legs, Cozaar 5 mg twice daily, melaton in 3 mg at bedtime, Zofran 4 mg every 4 hours as needed, Protonix 40 mg daily, Senokot-S 2 at bedtime . Progress Made With Physical And Occupational Therapy: Regarding her physical therapy, she completed bed mobilization including turning in bed and supine to sit transfers with moderate to maximum assist ance. [id number]-[id number] transfers done with moderate assistance. Again, she did have pain patches in the ankles, but did say that there was 6/10 pain as she was trying to mobilize. With occupational thera py, bathing minimum assistance, upper body dressing, minimal assistance. She was able to use assisti ve device, washed 9/10 body parts with maximum verbal cues, but with increased assistance, she was ab le to tell . With speech therapy, sustained attention at task for 5 minutes, 3 of 3 unrela mark pictures were recalled after 5 minutes, 2 out of 3 after 10 minutes. Organizational thinking use for convergent naming with 90% accuracy. Ms. Lindsay is doing well with speech, making better progress there, slower progress with physical and occupational therapy, partly limited by pain in the ankles. Assessment: Ms. Lindsay is an 87-year-old patient in the rehabilitation unit with metabolic enceph alopathy and she is improving with help of speech therapy. She has diabetes mellitus, dyslipidemia, hypokalemia, hypothyroidism, she has had COVID positivity status post Paxlovid, hypertension, hyponat remia, pneumonia and she is now off isolation. Plan: 1.She will continue with physical, occupational, and speech therapy for 3.5 hours, 5 of 7 days. 2.She did complete Paxlovid for her COVID positivity and will not be retested at this time. 3.Aspirin 81 mg daily for stroke risk reduction. 4.Lipitor for dyslipidemia. 5.Synthroid for hypothyroidism. 6.Levsin for abdominal cramps. 7.Cozaar for hypertension. 8.Melatonin for insomnia. 9.Zofran and Protonix for GE related symptoms. 10.Senokot for constipation. Comorbidities That Continue To Impact Rehabilitation: Her ankle pain, which is a chronic making it d ifficult for her to stand and ambulate. She is mobilizing somewhat better with a wheelchair, but sti ll needs help just for transfers, will likely need a longer time to improve than is allowed in inpati ent rehabilitation, perhaps custodial may be appropriate. LANE/AKIL Voice ID: [id number] Report ID: [id number]
[2023-07-02] MEDS: LEVOTHYROXINE SOD 0.05 MG TABLET PO SCH (05:27)
--- NOTE | 2023-07-02 06:43 | PN ---
Date of Progress Note: 07/02/2023 Subjective: Patient was seen this morning for followup. She was sleeping, not in distress. Denies any new complaints. Objective: Vital Signs: From last night as this morning's vital signs not recorded. Last night, te mperature 97.7, pulse 77, respiratory rate 17, blood pressure 150/65. HEENT: Unremarkable. Lungs: Clear to auscultation. Heart: Sounds normal. Abdomen: Soft. Bowel sounds normal. No guarding, rigidity, tenderness, distention. Extremities: No leg edema. Laboratory Data: This morning CBC and chemistry result is pending. Impression: 1.COVID. 2.Hypertension. 3.Generalized weakness. 4.Debility. 5.COVID pneumonia. 6.Anemia, unspecified. 7.Hyponatremia. Plan: We will go ahead and continue current medications. Continue physical therapy under guidance o yaya Cruz. Follow up on blood work results from today and we will continue current antibiotic. The patient is on which is cefdinir. For hypertension, she takes amlodipine 10 mg daily which we wi ll continue that and if necessary make adjustment on antihypertensive medications. She is also on Eliquis 2.5 mg b.i.d., which we will continue. Losartan 50 mg b.i.d. for hypertension will be contin ued as well. MARGO/MODL Voice ID: [id number] Report ID: [id number]
[2023-07-02] MEDS: PANTOPRAZOLE 40MG TABLET PO SCH (06:53)
[2023-07-02 07:26] LABS: Absolute Lymphocytes (CBC) 0.7 K/uL (0.7-4.9); Hematocrit 32.2 % (36.0-45.0); MCV 91.2 fL (80-100); Platelets 234 thou/uL (152-406); RBC Red Blood Cell Count 3.53 M/uL (3.86-4.86)
[2023-07-02 07:44] LABS: Potassium 3.8 mEq/L (3.5-5.1)
[2023-07-02] MEDS: ALPRAZOLAM 0.25 MG TABLET PO SCH (07:50)
[2023-07-02] MEDS: DOCUSATE NA/SENNA CONC 1 TAB PO SCH ×2 (08:49→19:11)
[2023-07-02] MEDS: AMLODIPINE 10 MG TAB PO SCH (08:49)
[2023-07-02] MEDS: ACETAMINOPHEN 500 MG TAB PO PRN (08:50)
[2023-07-02] MEDS: ASPIRIN EC 81 MG TAB PO SCH (08:50)
[2023-07-02] MEDS: CEFDINIR 300 MG CAP PO SCH ×2 (08:50→19:11)
[2023-07-02] MEDS: APIXABAN 2.5 MG TABLET PO SCH ×2 (08:50→19:11)
[2023-07-02] MEDS: ENSURE HIGH PROTEIN 237 ML CAN PO SCH ×2 (08:51→19:11)
[2023-07-02] MEDS: LIDOCAINE 4% PATCH TOP SCH (09:32)
[2023-07-02] MEDS: LOSARTAN POTASSIUM 50 MG TABLET PO SCH ×2 (09:32→19:40)
[2023-07-02] MEDS: JUVEN PACKET PO SCH ×2 (09:33→19:11)
--- NOTE | 2023-07-02 15:20 | RAD REPORT ---
EXAM DESCRIPTION: RAD - Chest Pa And Lat (2 Views) - 07/02/2023 3:15 pm CLINICAL HISTORY: Coughing/Bloody Mucus Chest pain. COMPARISON: Chest Single View dated 06/26/2023; Chest Single View dated 06/23/2023; Chest Pa And Lat (2 Views) dated 06/14/2023; Chest Single View dated 01/29/2023 TECHNIQUE: PA and lateral views of the chest were obtained. FINDINGS: The lungs are hyperexpanded compatible with COPD. The heart is upper limit of normal in si ze. No fracture or aggressive bony process. Dual lead pacer device. IMPRESSION: COPD without acute process identified. The USPSTF recommends annual screening for lung cancer with low-dose CT (LDCT) in adults aged 50 to 8 0 years who have a 20 pack-year smoking history and currently smoke or have quit within the past 15 y ears.
[2023-07-02] MEDS: ATORVASTATIN 80 MG TAB PO SCH (19:11)
[2023-07-03] MEDS: LEVOTHYROXINE SOD 0.05 MG TABLET PO SCH (05:31)
[2023-07-03] MEDS: APIXABAN 2.5 MG TABLET PO SCH ×2 (07:52→20:25)
[2023-07-03] MEDS: ASPIRIN EC 81 MG TAB PO SCH (07:52)
[2023-07-03] MEDS: AMLODIPINE 10 MG TAB PO SCH (07:53)
[2023-07-03] MEDS: LOSARTAN POTASSIUM 50 MG TABLET PO SCH ×2 (07:53→20:25)
[2023-07-03] MEDS: CEFDINIR 300 MG CAP PO SCH ×2 (07:53→20:25)
[2023-07-03] MEDS: LIDOCAINE 4% PATCH TOP SCH (07:54)
[2023-07-03] MEDS: PANTOPRAZOLE 40MG TABLET PO SCH (07:54)
[2023-07-03] MEDS: ENSURE HIGH PROTEIN 237 ML CAN PO SCH ×2 (07:55→20:27)
[2023-07-03] MEDS: JUVEN PACKET PO SCH ×2 (07:56→20:26)
[2023-07-03 09:23] LABS: Absolute Lymphocytes (CBC) 0.7 K/uL (0.7-4.9); Hematocrit 31.2 % (36.0-45.0); Lymphocytes % 12.7 % (15.3-44.8); MCV 91.1 fL (80-100); MPV 7.1 fL (7.6-11.3); Platelets 263 thou/uL (152-406); RBC Red Blood Cell Count 3.43 M/uL (3.86-4.86)
[2023-07-03 10:11] LABS: Albumin 2.5 g/dL (3.4-5.0); Potassium 3.5 mEq/L (3.5-5.1); Prealbumin 9.3 mg/dL (20-40)
[2023-07-03] MEDS: ATORVASTATIN 80 MG TAB PO SCH (20:24)
[2023-07-03] MEDS: MELATONIN 3 MG TABLET PO PRN (20:25)
--- NOTE | 2023-07-03 22:04 | PN ---
Date of Progress Note: 07/03/2023 Aoka-li-xmjt Progress Note Time Of Service: 1:35 p.m. Subjective: Ms. Lindsay is sitting comfortably in bed. She is in no significant distress. She dawn s no new complaints. No fevers, chills, nausea, vomiting. No myalgias, arthralgias, rash, headache, weight change. No psychiatric issues. No other complaints. Physical Examination: Vital Signs: Blood pressure 169/72, pulse 81, respiratory rate 17, temperature 97.6, oxygen saturati on 97%. General: Ms. Lindsay is resting comfortably. HEENT: She is normocephalic, atraumatic. Sclerae are anicteric. Oropharynx pink, moist. Neck: Supple. Chest: Clear. Heart: Regular. Extremities: No significant edema or cyanosis in the lower extremities. Laboratory Studies: White blood cell count 5.6, hemoglobin 10.9, platelets 263. Sodium 136, potassi um 3.5, chloride 105, carbon dioxide 27, BUN 18, creatinine 1.04, glucose 144, calcium 8.8, magnesium 2.0, albumin 2.5. Prealbumin 9.3. Her COVID testing was positive, but she did receive Paxlovid and completed a full course. Medications: Her medications have been reviewed and remain unchanged. She is on Ensure high protein 237 mL twice daily for malnutrition. Progress Made With Physical And Occupational Therapy: With physical therapy today, akilmt-rx-uhm tra nsfers done with standby assistance, stand pivot transfers from bed to wheelchair with minimum assist ance. She ambulated 20 feet twice, 37 feet once, and 47 feet once with contact guard assistance usin g a rolling walker. She mobilized wheelchair 250 feet with supervision. With speech therapy, she us ed convergent thinking with 100% accuracy and demonstrated moderate complexity 4 words with sequence with visual cues provided with 80% accuracy and minimum assistance. She is showing significant impro vement. With occupational therapy, supervision for toilet transfers using grab bars. She did ambula te from the gym to the room covering 100 feet with a rolling walker with rest breaks due to fatigue, supervision for toilet hygiene. Ms. Lindsay is making fair overall progress with physical, occupational, and speech therapy. Her c ognition is improving. She is following instructions and physical therapy also making good progress and no significant edema noted. There was a worry of the patient's daughter who is at the bedside. Assessment: Ms. Lindsay is an 87-year-old patient in the rehabilitation unit with metabolic enceph alopathy, which is improving well. She has COVID positivity, status post Paxlovid. She has hyperten felice, hyponatremia. She has diabetes mellitus, dyslipidemia, hypokalemia, and hypothyroidism. Plan: 1.Continue with physical, occupational, and speech therapy for 3-1/2 hours, 5 out of 7 days. 2.Her comorbid condition medications are continued and are noted above and she is again off isolatio n. Comorbidities That Continue To Impact Rehabilitation: Currently, her cognitive issues, which is what brought her in, are improving. Her mobilization, transfers, and distance of ambulation all improvin g well. Comorbidities are stable. LB/MODL Voice ID: [id number] Report ID: [id number]
[2023-07-04] MEDS: LEVOTHYROXINE SOD 0.05 MG TABLET PO SCH (05:21)
--- NOTE | 2023-07-04 06:58 | PN ---
Date of Progress Note: 07/03/2023 Subjective: The patient was seen this morning for followup. No new complaints or problems reported by the patient. She was lying in bed, sleeping, easily arousable, not in any distress. Denies any c hest pain, shortness of breath, abdominal pain, nausea, vomiting. Objective: Vital Signs: Reviewed. HEENT: Unremarkable. Lungs: Clear to auscultation. Heart: Sounds normal. Abdomen: Soft. Bowel sounds normal. No guarding, rigidity, tenderness, distention. Extremities: No leg edema. Impression: 1.Generalized weakness. 2.Debility. 3.Hypertension. 4.COVID-19 infection. 5.Pneumonia. Plan: We will go ahead and continue current medication. Continue current antibiotic. Isolation has been discontinued. We will continue physical therapy under guidance of Dr. Cruz. Continue curr ent antihypertensive medication. I will see her tomorrow for followup. MARGO/MODL Voice ID: [id number] Report ID: [id number]
[2023-07-04] MEDS: PANTOPRAZOLE 40MG TABLET PO SCH (07:41)
[2023-07-04] MEDS: LIDOCAINE 4% PATCH TOP SCH (08:39)
[2023-07-04] MEDS: ENSURE HIGH PROTEIN 237 ML CAN PO SCH ×2 (08:40→19:55)
[2023-07-04] MEDS: ASPIRIN EC 81 MG TAB PO SCH (08:40)
[2023-07-04] MEDS: APIXABAN 2.5 MG TABLET PO SCH ×2 (08:40→19:39)
[2023-07-04] MEDS: LOSARTAN POTASSIUM 50 MG TABLET PO SCH ×2 (08:40→19:38)
[2023-07-04] MEDS: AMLODIPINE 10 MG TAB PO SCH (08:41)
[2023-07-04] MEDS: CEFDINIR 300 MG CAP PO SCH ×2 (08:41→19:38)
[2023-07-04] MEDS: JUVEN PACKET PO SCH ×2 (08:43→19:55)
--- NOTE | 2023-07-04 12:43 | PN ---
Date of Progress Note: 07/04/2023 Subjective: Patient was seen this morning for followup. No new complaints or problems reported. Ly ing in bed, not in distress. She is doing better with physical therapy. No abdominal pain, nausea, vomiting, constipation, or diarrhea. Objective: Vital Signs: Reviewed. HEENT: Unremarkable. Lungs: Clear to auscultation. Heart: Sounds normal. Abdomen: Soft. Bowel sounds normal. No guarding, rigidity, tenderness, distention. Extremities: No leg edema. Impression: 1.Generalized weakness. 2.Debility. 3.Hypertension. Plan: We will go ahead and continue physical therapy under guidance of Dr. Cruz. Patient's disc harge date is scheduled for July 10. Fall preventions discussed with her and she was advised to keep herself well hydrated. I will see her tomorrow for followup. MARGO/MODL Voice ID: [id number] Report ID: [id number]
--- NOTE | 2023-07-04 13:50 | P.RH.PN ---
Estimated Length of Stay: 15 Expected Discharge Date: 07/10/23 Discharge Disposition Plan: Home Family Support: Yes [facility] Goal: Mobility, Transfers, Self Care Vital Signs: Last Vital Signs Temp 97.2 F 07/04/23 08:00 Pulse 83 07/04/23 08:41 Resp 16 07/04/23 08:00 BP 145/66 H 07/04/23 08:41 Pulse Ox 98 07/04/23 08:00 Laboratory: Laboratory Last Values WBC 5.60 thou/uL (4.3-10.9) 07/03/23 08:53 RBC 3.43 M/uL (3.86-4.86) L 07/03/23 08:53 Hgb 10.9 g/dL (12.0-15.0) L 07/03/23 08:53 Hct 31.2 % (36.0-45.0) L 07/03/23 08:53 MCV 91.1 fL (80-100) 07/03/23 08:53 MCH 31.8 pg (27.0-35.0) 07/03/23 08:53 MCHC 34.9 g/dL (32.0-36.0) 07/03/23 08:53 RDW 12.9 % (12.1-15.2) 07/03/23 08:53 Plt Count 263 thou/uL (152-406) 07/03/23 08:53 MPV 7.1 fL (7.6-11.3) L 07/03/23 08:53 Neutrophils % 75.8 % (41.7-73.7) H 07/03/23 08:53 Lymphocytes % 12.7 % (15.3-44.8) L 07/03/23 08:53 Monocytes % 9.4 % (3.3-12.3) 07/03/23 08:53 Eosinophils % 1.7 % (0-4.4) 07/03/23 08:53 Basophils % 0.4 % (0-1.3) 07/03/23 08:53 Absolute Neutrophils 4.3 K/uL (1.8-8.0) 07/03/23 08:53 Absolute Lymphocytes 0.7 K/uL (0.7-4.9) 07/03/23 08:53 Absolute Monocytes 0.5 K/uL (0.1-1.3) 07/03/23 08:53 Absolute Eosinophils 0.1 K/uL (0-0.5) 07/03/23 08:53 Absolute Basophils 0.0 K/uL (0-0.5) 07/03/23 08:53 Sodium 136 mEq/L (136-145) 07/03/23 08:53 Potassium 3.5 mEq/L (3.5-5.1) 07/03/23 08:53 Chloride 105 mEq/L (98-107) 07/03/23 08:53 Carbon Dioxide 27 mEq/L (21-32) 07/03/23 08:53 Anion Gap 7.5 mEq/L (5.0-15.0) 07/03/23 08:53 BUN 18 mg/dL (7-18) 07/03/23 08:53 Creatinine 1.04 mg/dL (0.55-1.02) H 07/03/23 08:53 Est GFR (CKD-EPI) 52 ml/min (=/>90) L 07/03/23 08:53 Glucose 144 mg/dL (74-106) H 07/03/23 08:53 Calcium 8.8 mg/dL (8.5-10.1) 07/03/23 08:53 Magnesium 2.0 mg/dL (1.6-2.4) 07/03/23 08:53 NT-Pro-B Natriuret Pep 1692 pg/mL (<450) H 06/29/23 07:27 Albumin 2.5 g/dL (3.4-5.0) L 07/03/23 08:53 Prealbumin 9.3 mg/dL (20-40) L 07/03/23 08:53 SARS-CoV-2 Rap RNA(RT-PCR) Positive (NEGATIVE) A 06/28/23 16:30 Weight: 116 lb 14.4 oz Wound Present: No Closed Surgical Incision Present: No Negative Pressure Wound Therapy Present: No Physician Update: Labs reviewed and prealbumin of 9.9. Right heel and sacrum pressure injuries. Doing well with speech therapy. Clearing her encephalopathy well. RW 150' with CGA, WC 150' with CGA. Improved standing balance. Summary: Patient's care plan and assisted goals have been reviewed and revised as necessary. Please see the Rehabilitation Signature page for all necessary sig natures.
[2023-07-04] MEDS: ATORVASTATIN 80 MG TAB PO SCH (19:39)
[2023-07-04] MEDS: MELATONIN 3 MG TABLET PO PRN (19:55)
[2023-07-05] MEDS: LEVOTHYROXINE SOD 0.05 MG TABLET PO SCH (05:24)
[2023-07-05] MEDS: PANTOPRAZOLE 40MG TABLET PO SCH (07:35)
[2023-07-05] MEDS: LIDOCAINE 4% PATCH TOP SCH (08:01)
[2023-07-05] MEDS: LOSARTAN POTASSIUM 50 MG TABLET PO SCH ×2 (08:02→19:38)
[2023-07-05] MEDS: CEFDINIR 300 MG CAP PO SCH (08:02)
[2023-07-05] MEDS: APIXABAN 2.5 MG TABLET PO SCH ×2 (08:02→19:38)
[2023-07-05] MEDS: ASPIRIN EC 81 MG TAB PO SCH (08:02)
[2023-07-05] MEDS: AMLODIPINE 10 MG TAB PO SCH (08:02)
[2023-07-05] MEDS: JUVEN PACKET PO SCH ×2 (10:23→19:38)
[2023-07-05] MEDS: ENSURE HIGH PROTEIN 237 ML CAN PO SCH ×2 (10:23→19:38)
--- NOTE | 2023-07-05 12:57 | PN ---
Date of Progress Note: 07/05/2023 Subjective: Patient was seen this morning for followup. No new complaints or problems reported by trinity spangler. She was looking actually much stronger and better compared to last few days. Denies any new complaints. She is ambulating better with Physical Therapy. No abdominal pain, nausea, or vomiting . No chest pain. No shortness of breath. Objective: Vital Signs: Reviewed. HEENT: Unremarkable. Lungs: Clear to auscultation. Heart: Sounds normal. Abdomen: Soft. Bowel sounds normal. No guarding, rigidity, tenderness, distention. Extremities: No leg edema. Impression: 1.Generalized weakness. 2.Debility. 3.Hypertension. 4.Hyperlipidemia. 5.Chronic anticoagulation therapy. Plan: We will go ahead and continue her Eliquis. Continue current statin therapy and antihypertensi ve medications. We will continue her physical therapy under guidance of Dr. Cruz. I will see he r tomorrow for followup. She is scheduled to go home, next week, on . MARGO/MODL Voice ID: [id number] Report ID: [id number]
[2023-07-05] MEDS: DOCUSATE NA/SENNA CONC 1 TAB PO PRN (19:38)
[2023-07-05] MEDS: ATORVASTATIN 80 MG TAB PO SCH (19:38)
[2023-07-06] MEDS: LEVOTHYROXINE SOD 0.05 MG TABLET PO SCH (05:11)
[2023-07-06] MEDS: APIXABAN 2.5 MG TABLET PO SCH ×2 (07:36→19:33)
[2023-07-06] MEDS: LOSARTAN POTASSIUM 50 MG TABLET PO SCH ×2 (07:36→19:33)
[2023-07-06] MEDS: ASPIRIN EC 81 MG TAB PO SCH (07:36)
[2023-07-06] MEDS: AMLODIPINE 10 MG TAB PO SCH (07:36)
[2023-07-06] MEDS: PANTOPRAZOLE 40MG TABLET PO SCH (07:37)
[2023-07-06] MEDS: LIDOCAINE 4% PATCH TOP SCH (07:38)
[2023-07-06] MEDS: JUVEN PACKET PO SCH ×2 (09:22→19:33)
[2023-07-06] MEDS: ENSURE HIGH PROTEIN 237 ML CAN PO SCH ×2 (09:22→19:33)
--- NOTE | 2023-07-06 12:28 | PN ---
Date of Progress Note: 07/06/2023 Subjective: The patient was seen this morning for followup. No new complaints or problems reported by the patient. Lying in bed, not in distress. She is doing very well with physical therapy, ambula ting well. Objective: Vital Signs: Reviewed. HEENT: Unremarkable. Lungs: Clear to auscultation. Heart: Sounds normal. Abdomen: Soft. Bowel sounds normal. No guarding, rigidity, tenderness, distention. Extremities: No leg edema. Impression: 1.Hypertension. 2.Hyperlipidemia. 3.Chronic anticoagulation therapy. 4.Generalized weakness. 5.Debility. Plan: We will go ahead and continue current medications. Continue Eliquis, current blood pressure m edication as well as statin therapy. The patient will continue to receive physical therapy under jhoan dance of Dr. Cruz and she is scheduled to go home this coming week on . MARGO/MODL Voice ID: [id number] Report ID: [id number]
[2023-07-06] MEDS: ALPRAZOLAM 0.25 MG TABLET PO PRN (19:32)
[2023-07-06] MEDS: DOCUSATE NA/SENNA CONC 1 TAB PO PRN (19:32)
[2023-07-06] MEDS: ATORVASTATIN 80 MG TAB PO SCH (19:33)
[2023-07-07] MEDS: LEVOTHYROXINE SOD 0.05 MG TABLET PO SCH (05:34)
[2023-07-07] MEDS ORDERED: MAGNESIUM HYDROXIDE 8% 30 ML PO ONE (07:30)
[2023-07-07] MEDS: PANTOPRAZOLE 40MG TABLET PO SCH (07:40)
[2023-07-07] MEDS: AMLODIPINE 10 MG TAB PO SCH (08:41)
[2023-07-07] MEDS: JUVEN PACKET PO SCH ×2 (08:43→19:37)
[2023-07-07] MEDS: ENSURE HIGH PROTEIN 237 ML CAN PO SCH ×2 (08:43→19:37)
[2023-07-07] MEDS: LOSARTAN POTASSIUM 50 MG TABLET PO SCH ×2 (08:44→19:36)
[2023-07-07] MEDS: ASPIRIN EC 81 MG TAB PO SCH (08:44)
[2023-07-07] MEDS: APIXABAN 2.5 MG TABLET PO SCH ×2 (08:44→19:36)
[2023-07-07] MEDS: LIDOCAINE 4% PATCH TOP SCH (12:25)
[2023-07-07] MEDS: ALPRAZOLAM 0.25 MG TABLET PO PRN (19:36)
[2023-07-07] MEDS: ATORVASTATIN 80 MG TAB PO SCH (19:36)
[2023-07-07] MEDS: DOCUSATE NA/SENNA CONC 1 TAB PO SCH (19:39)
--- NOTE | 2023-07-07 20:07 | PN ---
Date of Progress Note: 07/07/2023 Subjective: The patient was seen this morning for followup. No new complaints or problems reported by the patient. Lying in bed, not in any distress. Has some chronic constipation problem and has no t had a bowel movement in last 3 days or so, and she is taking stool softener and so far it has not h elped her as she reports today. Objective: Vital Signs: Reviewed. HEENT: Unremarkable. Lungs: Clear to auscultation. Heart: Sounds normal. Abdomen: Soft. Bowel sounds normal. No guarding, rigidity, tenderness, distention. Extremities: No leg edema. Impression: 1.Constipation. 2.Generalized weakness. 3.Debility. 4.Osteoarthritis, multiple sites. 5.Hypertension. Plan: We will go ahead and continue current antihypertensive medication. Continue physical therapy under guidance of Dr. Cruz. We will continue current stool softener, but give 1 dose of milk of magnesia 30 cc p.o. x1 dose today. I will see her tomorrow for followup. MARGO/MODL Voice ID: [id number] Report ID: [id number]
--- NOTE | 2023-07-07 21:58 | PN ---
Date of Progress Note: 07/07/2023 Time Of Service: 1:40 p.m. Subjective: Ms. Lindsay is doing well, very happy in her bed. She completed a good therapy sessio n this morning. Objective: She has no fevers, chills, nausea, or vomiting. No myalgias, arthralgias, or rash. Laboratory Studies: No new laboratory studies. X-ray/imaging: No new x-rays or imaging. Progress Made With Physical And Occupational Therapy: Today, Ms. Lindsay was independent with fransisco d-to-pivot transfers using a rolling walker. She ambulated 250 feet twice, 300 feet and 150 feet ind ependently with a rolling walker. She ascended and descended 15 steps independently with bilateral h andrails. With occupational therapy, independent with toileting, upper body dressing, and independen t using the rolling walker, going to the restroom on and off the commode. With her speech therapy, i nductive reasoning use for finding exclusions with 100% accuracy, recall 3 of [address] 5 minutes with free recall on the first attempt and 4/4 after 5 minutes on second attempt. She s ustained attention for 5 minutes. Ms. Lindsay is doing great with her physical and occupational therapy. Assessment: Ms. Lindsay is an 87-year-old patient in rehabilitation unit with metabolic encephalop athy, from which she is recovering very well. Her comorbidities are COVID positivity, status post Pa xlovid. She has hypertension, hyponatremia, diabetes mellitus, dyslipidemia, hypokalemia, hypothyroi dism. Plan: 1.Continue with physical, occupational, and speech therapy for 3.5 hours, 5 to 7 days. 2.She has multiple comorbid conditions. Follow up with Dr. Hernandez and those medications are continued and those are stable. Comorbidities That Continue To Impact Rehabilitation: Currently, her cognitive functioning has impro cy and she is doing well. Physically, she is doing very well and they are negative aside from compl eting the COVID positivity, for which she will be negatively impacted. LB/MODL Voice ID: [id number] Report ID: [id number]
[2023-07-08] MEDS: LEVOTHYROXINE SOD 0.05 MG TABLET PO SCH (05:41)
[2023-07-08] MEDS: PANTOPRAZOLE 40MG TABLET PO SCH (08:25)
[2023-07-08] MEDS: APIXABAN 2.5 MG TABLET PO SCH ×2 (10:33→19:29)
[2023-07-08] MEDS: ASPIRIN EC 81 MG TAB PO SCH (10:33)
[2023-07-08] MEDS: AMLODIPINE 10 MG TAB PO SCH (10:34)
[2023-07-08] MEDS: LOSARTAN POTASSIUM 50 MG TABLET PO SCH ×2 (10:34→19:29)
[2023-07-08] MEDS: ENSURE HIGH PROTEIN 237 ML CAN PO SCH ×2 (10:34→19:30)
[2023-07-08] MEDS: LIDOCAINE 4% PATCH TOP SCH (10:35)
[2023-07-08] MEDS: JUVEN PACKET PO SCH ×2 (10:35→19:30)
[2023-07-08] MEDS: BISACODYL 10 MG RECTAL SUPP PR PRN (13:15)
[2023-07-08] MEDS: DOCUSATE NA/SENNA CONC 1 TAB PO SCH (19:29)
[2023-07-08] MEDS: ATORVASTATIN 80 MG TAB PO SCH (19:29)
[2023-07-08] MEDS: ALPRAZOLAM 0.25 MG TABLET PO PRN (19:29)
--- NOTE | 2023-07-08 19:51 | PN ---
Date of Progress Note: 07/08/2023 Subjective: Patient was seen this morning for followup. No new complaints or problems reported by h er. Lying in bed, not in any distress. Denies any new complaints. No abdominal pain, nausea, or vo miting. No chest pain. No shortness of breath. Objective: Vital Signs: Reviewed. HEENT: Unremarkable. Lungs: Clear to auscultation. Heart: Sounds normal. Abdomen: Soft. Bowel sounds normal. No guarding, rigidity, tenderness, distention. Extremities: No leg edema. Impression: 1.Paroxysmal atrial fibrillation. 2.Hypertension. 3.Hyperlipidemia. 4.Generalized weakness. 5.Debility. Plan: We will go ahead and continue physical therapy under guidance [facility] Dr[facility] Cruz [facility] The patient is scheduled to go home tomorrow. I will see her tomorrow marco antonio bennett for followup. MARGO/MODL Voice ID: [id number] Report ID: [id number]
[2023-07-08 20:12] VITALS: TEMP 97.2
[2023-07-09] MEDS: LEVOTHYROXINE SOD 0.05 MG TABLET PO SCH (05:36)
[2023-07-09 06:43] VITALS: BP 150/67
[2023-07-09] MEDS: LIDOCAINE 4% PATCH TOP SCH (07:41)
[2023-07-09] MEDS: ASPIRIN EC 81 MG TAB PO SCH (07:41)
[2023-07-09] MEDS: AMLODIPINE 10 MG TAB PO SCH (07:41)
[2023-07-09] MEDS: LOSARTAN POTASSIUM 50 MG TABLET PO SCH (07:41)
[2023-07-09] MEDS: PANTOPRAZOLE 40MG TABLET PO SCH (07:41)
[2023-07-09] MEDS: ENSURE HIGH PROTEIN 237 ML CAN PO SCH (07:42)
[2023-07-09] MEDS: APIXABAN 2.5 MG TABLET PO SCH (07:42)
[2023-07-09] MEDS: JUVEN PACKET PO SCH (07:43)
--- NOTE | 2023-07-11 01:32 | DS ---
Date of Discharge: 07/09/2023 Disposition: Discharged to go home. Physical Examination: HEENT: Unremarkable. Lungs: Clear to auscultation. Heart: Sounds normal. Abdomen: Soft. Bowel sounds normal. No guarding, rigidity, tenderness, distention. Extremities: No leg edema. Laboratory Data: On June 29, 2023, white count was 9.8, hemoglobin 11.3, platelets 198. On 2023, white count 5.6, hemoglobin 10.9, platelets 263. Her chemistry on July 03, 2023, sodi um 136, potassium 3.5, chloride 105, bicarb 27, BUN 18, creatinine 1.04, glucose 144. On June 29, chemistry shows sodium 133, potassium 3.6, chloride 99, bicarb 26, BUN 13, creatinine 0.85, gluco se 108. Serum albumin was 2.5 on July 03, 2023. Discharge Medications And Instructions: 1.Continue all prior home medications. 2.Follow up at my office next week. Final Diagnoses: 1.COVID-19 infection. 2.COVID-19 pneumonia. 3.Generalized weakness. 4.Debility. 5.Anemia, unspecified. 6.Hyponatremia. 7.Hypertension. 8.Hypothyroidism. 9.Impaired fasting glucose. 10.Hyperlipidemia. 11.Diverticulosis. 12.Anxiety. 13.Insomnia. Hospital Course: This is an 87-year-old female patient, who was admitted to the hospital and subsequ ently she was transferred to rehab floor. The patient had COVID-19 infection and COVID-19 pneumonia. Along with that, she had significant generalized weakness and debility. While she was on rehab lay or, she received physical therapy under guidance of Dr. Cruz. Initially, she was kept in isolati on and subsequently at appropriate time, isolation was discontinued. Overall, her condition has impr carol. She has participated very well with physical therapy and started to ambulate very well. Her o ther chronic medical problems have remained stable and she continued to receive her usual home medica tions. Today, she was discharged to go home in stable condition with above-mentioned medications and instructions. MARGO/MODL Voice ID: [id number] Report ID: [id number]
== END 2023-07-09 10:35 | disposition home health service (06) | DRG 177 ==
LOC: 5TH 15:16
PROVIDERS: ADMIT Internal Medicine; ATTEND Internal Medicine
DX: U07.1 COVID-19 (principal); G93.41 Metabolic encephalopathy; J12.82 Pneumonia due to coronavirus disease 2019; E87.1 Hypo-osmolality and hyponatremia; E78.5 Hyperlipidemia, unspecified; I11.0 Hypertensive heart disease with heart failure; I50.9 Heart failure, unspecified; F03.90 Unspecified dementia, unspecified severity, without behavioral disturbance, psychotic disturbance, mood disturbance, and anxiety; E11.9 Type 2 diabetes mellitus without complications; E87.6 Hypokalemia; E03.9 Hypothyroidism, unspecified; G47.00 Insomnia, unspecified; K59.00 Constipation, unspecified; D64.9 Anemia, unspecified; R53.81 Other malaise; I48.0 Paroxysmal atrial fibrillation; K57.90 Diverticulosis of intestine, part unspecified, without perforation or abscess without bleeding; Z86.73 Personal history of transient ischemic attack (TIA), and cerebral infarction without residual deficits; Z95.0 Presence of cardiac pacemaker; Z79.01 Long term (current) use of anticoagulants
CPT/HCPCS: 36415; 71046; 80048; 82040; 83735; 83880; 84134; 85025; 87635; 92523; 97110; 97112; 97116; 97129; 97163; 97165; 97530; 97542; J2001; J7613

== ENCOUNTER 2024-06-03 03:26 | Emergency (ER) | payer OTHER ==
[2024-06-03] MEDS ORDERED: methocarbamoL 750 MG TAB ONE (04:46)
[2024-06-03] MEDS ORDERED: TRAMADOL HCL 50 MG TAB ONE (04:46)
[2024-06-03] MEDS ORDERED: ONDANSETRON 4 MG (ODT) TAB ONE (04:52)
--- NOTE | 2024-06-03 06:44 | ER ---
Nurse's Notes [facility] Name: Zee Lindsay Age: 88 yrs Sex: Female : 1935 Arrival Date: 06/03/2024 Time: 03:26 Bed 18 Private MD: Diagnosis: Acute Lumbar contusion;Acute fall at home Presentation: 06/03 03:31 Chief complaint: EMS states: back pain from a fall 2 days ago. Coronavirus screen: cp4 Client denies travel out of the [place] in the last 14 days. At this time, the client does not indicate any symptoms associated with coronavirus-19. Ebola Screen: Patient negative for fever greater than or equal to 101.5 degrees Fahrenheit, and additional compatible Ebola Virus Disease symptoms Patient denies exposure to infectious person. Patient denies travel to an Ebola-affected area in the 21 days before illness onset. No symptoms or risks identified at this time. Initial Sepsis Screen: Does the patient meet any 2 criteria? No. Patient's initial sepsis screen is negative. Does the patient have a suspected source of infection? No. Patient's initial sepsis screen is negative. Risk Assessment: Do you want to hurt yourself or someone else? Patient reports no desire to harm self or others. Onset of symptoms was June 01, 2024. 03:31 Method Of Arrival: EMS: [facility] 03:31 Acuity: DESIRE 4 cp4 Triage Assessment: 03:32 General: Appears in no apparent distress. comfortable, Behavior is calm, cooperative, cp4 appropriate for age. Pain: Complains of pain in back Pain does not radiate. Pain currently is 7 out of 10 on a pain scale. Quality of pain is described as. EENT: No signs and/or symptoms were reported regarding the EENT system. Neuro: Level of Consciousness is awake, alert, obeys commands, Oriented to person, place, time, situation. Cardiovascular: Patient's skin is warm and dry. Respiratory: Airway is patent Respiratory effort is even, unlabored. GI: No signs and/or symptoms were reported involving the gastrointestinal system. : No signs and/or symptoms were reported regarding the genitourinary system. Derm: No signs and/or symptoms reported regarding the dermatologic system. Musculoskeletal: Circulation, motion, and sensation intact. Range of motion: intact in all extremities. Historical: - Allergies: 03:32 Clonidine; cp4 03:32 Codeine; cp4 03:32 Darvocet-N 100; cp4 03:32 dorjaycline; cp4 03:32 guafin; cp4 03:32 Labetalol; cp4 03:32 Levaquin; cp4 03:32 Lisinopril; cp4 03:32 Lyrica; cp4 03:32 magnesium; cp4 03:32 Minoxidil; cp4 03:32 Morphine; cp4 03:32 Nicen; cp4 03:32 Nifedipine; cp4 03:32 Norvasc; cp4 03:32 PENICILLINS; cp4 03:32 PENTAZOCINE; cp4 03:32 Premarin; cp4 03:32 propargyl vela; cp4 03:32 Rifampin; cp4 03:32 Soma; cp4 03:32 Talwin; cp4 03:32 Tricor; cp4 - PMHx: 03:32 diverticulosis; gastric ulcer; High Cholesterol; Hyperlipidemia; Hypertension; cp4 Hypothyroidism; Pacemaker; TIA; - PSHx: 03:32 Cholecystectomy; left kidney balloon; Left Lung; Lumbar; Pace maker; right kidney stent;cp4 - Immunization history:: Adult Immunizations up to date. - Infectious Disease History:: Denies. - Social history:: Smoking status: Patient denies any tobacco usage or history of. - Family history:: not pertinent. Screenin:35 [facility] ED Fall Risk Assessment (Adult) History of falling in the last 3 months, cp4 including since admission Yes- single mechanical fall (1 pt) Confusion or Disorientation No (0 pts) Intoxicated or Sedated Impaired Gait No (0 pts) Mobility Assist Device Used Yes (1 pt) Altered Elimination No (0 pt) Score/Fall Risk Level 0 - 2 = Low Risk Oriented to surroundings, Maintained a safe environment, Assessed \T\ reinforced patient's understanding of fall precautions, Hourly rounding (assess needs \T\ fall precautionary measures) done. Abuse screen: Denies threats or abuse. Nutritional screening: No deficits noted. Tuberculosis screening: No symptoms or risk factors identified. Assessment: 03:35 Reassessment: No changes from previously documented assessment. Neuro: Level of cp4 Consciousness is awake, alert, obeys commands, Oriented to person, place, time, situation, Medical Communication Specialist are equal bilaterally Moves all extremities. Gait is steady, Speech is normal, Facial symmetry appears normal, Pupils are PERRLA, Intact. 06:13 Reassessment: Patient appears in no apparent distress at this time. Patient and/or cp4 family updated on plan of care and expected duration. Pain level reassessed. Patient is alert, oriented x 3, equal unlabored respirations, skin warm/dry/pink. Vital Signs: 03:31 BP 180 / 64; Pulse 71; Resp 18; Temp 98; Pulse Ox 100% ; Pain 7/10; cp4 06:13 BP 167 / 58; Pulse 64; Resp 18; Pulse Ox 99% ; cp4 03:31 Pain Scale: Adult cp4 [place] Coma Score: 06 00:23 Eye Response: spontaneous(4). Motor Response: obeys commands(6). Verbal Response: sp4 oriented(5). Total: 15. ED Course: 06/03 03:27 Patient arrived in ED. [id number] 03:31 Juanita Jimenez is Primary Nurse. cp4 03:32 Triage completed. cp4 03:35 Arm band placed on right wrist. Patient placed in an exam room, on a stretcher. cp4 03:35 Bed in low position. Call light in reach. Side rails up X2. cp4 03:35 No provider procedures requiring assistance completed. cp4 04:01 Jim Calle MD is Attending Physician. sp4 04:08 CT Chest Abdomen Pelvis W/O Contrast In Process Unspecified. EDMS 06:43 Harry Hernandez MD is Referral Physician. sp4 06:57 Provided Education on: back pain. cp4 06:57 Patient did not have IV access during this emergency room visit. intact. cp4 Administered Medications: 04:48 Drug: traMADol PO 50 mg PO once Route: PO; cp4 06:56 Follow up: Response: No adverse reaction; Pain is decreased cp4 04:48 Drug: Methocarbamol PO 750 mg PO once Route: PO; cp4 06:56 Follow up: Response: No adverse reaction; Pain is decreased cp4 04:53 Drug: Ondansetron PO 4 mg PO once Route: PO; cp4 06:56 Follow up: Response: No adverse reaction cp4 Medication: 03:35 VIS not applicable for this client. cp4 Outcome: 06:44 Discharge ordered by . sp4 06:57 Discharged to home via wheelchair, cp4 06:57 Condition: stable 06:57 Discharge instructions given to patient, family, Instructed on discharge instructions, follow up and referral plans. medication usage, Demonstrated understanding of instructions, follow-up care, medications, Prescriptions given X 2, 06:59 Patient left the ED. cp4 Signatures: Dispatcher [employer] EDMS Kiersten ChavezjJim Cuenca MD MD sp4 Juanita Jimenez cp4
--- NOTE | 2024-06-03 06:44 | RAD REPORT ---
CLINICAL HISTORY: Pain. COMPARISON: CT Chest Abdomen Pelvis 06/23/2023. TECHNIQUE: CT CHEST ABDOMEN PELVIS WITHOUT IV CONTRAST on 06/03/2024 3:39 AM PROGRAM REP This exam was performed according to our departmental dose-optimization program, which includes autom ated exposure control, adjustment of the mA and/or kV according to patient size and/or use of iterative reconstruction technique. FINDINGS: Chest: The heart is normal in size. Left dual-chamber pacemaker is present. There is no pericardial e ffusion. Intrathoracic lymph nodes are not enlarged. There is no pleural effusion, pleural thickening or pneumothorax. Central airways are patent. Lungs a re clear with no consolidation, mass or interstitial lung disease. Abdomen: The liver is normal in appearance. There is no biliary dilatation. Gallbladder is not seen. The pancreas and spleen are normal in appearance. There is severe right renal atrophy. There is mild left renal atrophy. Adrenal glands are normal. Abdominal aorta is densely calcified without aneurysm. There is no free air. There is no retroperiton eal adenopathy. Pelvis: There is moderate distal colonic diverticulosis. Urinary bladder is unremarkable. There is no free fluid. Hysterectomy was performed. Appendix is not seen. Skeleton: There is mild age-indeterminate upper endplate compression fracture of L1. There is mild ol d appearing T11 compression fracture. IMPRESSION: No definite acute inflammatory process. Age-indeterminate L1 compression fracture. Electronically signed by: Hank Garber MD 06/03/2024 06:18 AM PROGRAM REP RP Due to temporary technical issues with the P[employer] reporting system, reports are being dieudonne d by the in-house radiologist without review as a courtesy to ensure prompt reporting the interpreting radiologist is fully responsible for the content of the report. Transcribed Date/Time: 06/03/2024 6:43 AM
--- NOTE | 2024-06-03 06:45 | EDPHYS ---
Physician Documentation [facility] Name: Zee Lindsay Age: 88 yrs Sex: Female : 1935 Arrival Date: 06/03/2024 Time: 03:26 Bed 18 Private MD: ED Physician Jim Calle HPI: 06/03 04:01 This 88 yrs old Female presents to ER via EMS with complaints of Back Pain. sp4 06/04 00:12 88-year-old female presents with acute onset moderate back pain after fall at home sp4 yesterday evening. Patient complains of lower back pain however no difficulty with ambulation.. Historical: - Allergies: 06/03 03:32 Clonidine; cp4 03:32 Codeine; cp4 03:32 Darvocet-N 100; cp4 03:32 dorjaycline; cp4 03:32 guafin; cp4 03:32 Labetalol; cp4 03:32 Levaquin; cp4 03:32 Lisinopril; cp4 03:32 Lyrica; cp4 03:32 magnesium; cp4 03:32 Minoxidil; cp4 03:32 Morphine; cp4 03:32 Nicen; cp4 03:32 Nifedipine; cp4 03:32 Norvasc; cp4 03:32 PENICILLINS; cp4 03:32 PENTAZOCINE; cp4 03:32 Premarin; cp4 03:32 propargyl vela; cp4 03:32 Rifampin; cp4 03:32 Soma; cp4 03:32 Talwin; cp4 03:32 Tricor; cp4 - PMHx: 03:32 diverticulosis; gastric ulcer; High Cholesterol; Hyperlipidemia; Hypertension; cp4 Hypothyroidism; Pacemaker; TIA; - PSHx: 03:32 Cholecystectomy; left kidney balloon; Left Lung; Lumbar; Pace maker; right kidney stent;cp4 - Immunization history:: Adult Immunizations up to date. - Infectious Disease History:: Denies. - Social history:: Smoking status: Patient denies any tobacco usage or history of. - Family history:: not pertinent. ROS: 06/04 00:12 Constitutional: Negative for fever, chills, and weight loss, positive back pain. sp4 All other systems are negative, Exam: 00:23 Constitutional: This is a well developed, well nourished patient who is awake, alert, sp4 and in no acute distress. Head/Face: Normocephalic, atraumatic. Eyes: Pupils equal round and reactive to light, extra-ocular motions intact. Lids and lashes normal. Conjunctiva and sclera are not injected. Cornea within normal limits. Periorbital areas with no swelling, redness, or edema. ENT: Nares patent. No nasal discharge, no septal abnormalities noted. Tympanic membranes are normal and external auditory canals are clear. Oropharynx with no redness, swelling, or masses, exudates, or evidence of obstruction, uvula midline. Mucous membranes moist. Neck: Trachea midline, no thyromegaly or masses palpated, and no cervical lymphadenopathy. Supple, full range of motion without nuchal rigidity, or vertebral point tenderness. Chest/axilla: Normal chest wall appearance and motion. Nontender with no deformity. No lesions are appreciated. Cardiovascular: Regular rate and rhythm with a normal S1 and S2. No gallops, murmurs, or rubs. Normal PMI, no JVD. No pulse deficits. Respiratory: Lungs have equal breath sounds bilaterally, clear to auscultation and percussion. No rales, rhonchi or wheezes noted. No increased work of breathing, no retractions or nasal flaring. Abdomen/GI: Soft, with normal bowel sounds. No distension or tympany. No guarding or rebound. No evidence of tenderness throughout. Back: No spinal tenderness. No costovertebral tenderness. Skin: Warm, dry with normal turgor. Normal color with no rashes, no lesions, and no evidence of cellulitis. MS/ Extremity: Pulses equal, no cyanosis. Neurovascular intact. Full, normal range of motion. Neuro: Awake and alert, GCS 15, oriented to person, place, time, and situation. Cranial nerves II-XII grossly intact. Motor strength 5/5 in all extremities. Sensory grossly intact. Psych: Awake, alert, with orientation to person, place and time. Behavior, mood, and affect are within normal limits Vital Signs: 06/03 03:31 BP 180 / 64; Pulse 71; Resp 18; Temp 98; Pulse Ox 100% ; Pain 7/10; cp4 06:13 BP 167 / 58; Pulse 64; Resp 18; Pulse Ox 99% ; cp4 03:31 Pain Scale: Adult cp4 Savita Coma Score: 06/04 00:23 Eye Response: spontaneous(4). Motor Response: obeys commands(6). Verbal Response: sp4 oriented(5). Total: 15. MDM: 06/03 04:47 Medical Screening Exam initiated sp4 06:42 ED course: CLINICAL HISTORY: Pain. COMPARISON: CT Chest Abdomen Pelvis 06/23/2023. 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 FINDINGS: Chest: The heart is normal in size. Left dual-chamber pacemaker is present. There is no pericardial effusion. Intrathoracic lymph nodes are not enlarged. There is no pleural effusion, pleural thickening or pneumothorax. Central airways are patent. Lungs are clear with no consolidation, mass or interstitial lung disease. Abdomen: The liver is normal in appearance. There is no biliary dilatation. Gallbladder is not seen. The pancreas and spleen are normal in appearance. There is severe right renal atrophy. There is mild left renal atrophy. Adrenal glands are normal. Abdominal aorta is densely calcified without aneurysm. There is no free air. There is no retroperitoneal adenopathy. Pelvis: There is moderate distal colonic diverticulosis. Urinary bladder is unremarkable. There is no free fluid. Hysterectomy was performed. Appendix is not seen. Skeleton: There is mild age-indeterminate upper endplate compression fracture of L1. There is mild old appearing T11 compression fracture. IMPRESSION: No definite acute inflammatory process. Age-indeterminate L1 compression fracture. Electronically signed by: Hank Garber MD 06/03/2024 06:18 AM. 06/04 00:22 Differential diagnosis: Basilar Pneumonia Cholelithiasis Fatigue spinal injury. Data sp4 reviewed: vital signs, nurses notes, radiologic studies. Consideration of Admission/Observation Escalation of care including admission/observation considered. ED course: Pain has improved after medications. Patient is ambulatory. Stable for discharge home. 06/03 03:39 Order name: CT Chest Abdomen Pelvis W/O Contrast lg3 Administered Medications: 06/03 04:48 Drug: traMADol PO 50 mg PO once Route: PO; cp4 06:56 Follow up: Response: No adverse reaction; Pain is decreased cp4 04:48 Drug: Methocarbamol PO 750 mg PO once Route: PO; cp4 06:56 Follow up: Response: No adverse reaction; Pain is decreased cp4 04:53 Drug: Ondansetron PO 4 mg PO once Route: PO; cp4 06:56 Follow up: Response: No adverse reaction cp4 Disposition Summary: 06/03/24 06:44 Discharge Ordered Notes: Location: Home sp4 Problem: new sp4 Symptoms: have improved sp4 Condition: Stable sp4 Diagnosis - Acute Lumbar contusion sp4 - Acute fall at home sp4 Followup: sp4 - With: Harry Hernandez MD - When: Today - Reason: Recheck today's complaints Discharge Instructions: - Discharge Summary Sheet sp4 - Acute Back Pain, Adult sp4 Forms: - Patient Portal Instructions sp4 Prescriptions: - Tramadol 50 mg Oral tablet - take 1 tablet ORAL route every 8 hours as needed; 20 tablet; Refills: 0, sp4 Product Selection Permitted - methocarbamol 750 mg Oral tablet - take 2 tablet ORAL route every 8 hours for 3 days PRN muscle soreness; 30 sp4 tablet; Refills: 0, Product Selection Permitted Signatures: Dispatcher [employer] EDJim Orozco MD MD sp4 Juanita Jimenez cp4 Corrections: (The following items were deleted from the chart) 03:40 03:40 Chest Abdomen Pelvis Wo [id number] ordered. EDMS EDMS
[2024-06-03 13:19] VITALS: TEMP 98
[2024-06-03 13:20] VITALS: BP 167/58; O2SAT 99
== END 2024-06-03 06:59 | disposition home or self-care (01) ==
LOC: ER 03:26
DX: S30.0XXA Contusion of lower back and pelvis, initial encounter (principal); W18.30XA Fall on same level, unspecified, initial encounter; Y92.009 Unspecified place in unspecified non-institutional (private) residence as the place of occurrence of the external cause; Z95.0 Presence of cardiac pacemaker
CPT/HCPCS: 71250; 74176; 99283; Q0162